=== PATIENT | male | born 1985 | race Caucasian/White ===

== ENCOUNTER → 2021-08-01 11:07 | Outpatient (BNVA) | payer SELFPAY | PROVIDERS: Visit Provider Physician Assistant | DX: Z02.79 Encounter for issue of other medical certificate (principal) ==

== ENCOUNTER 2024-05-21 17:01 | Outpatient (REF) | payer OTHER, SELFPAY ==
--- NOTE | ~2024-05-21 | MR_ITS ---
EXAMINATION: MR LUMBAR SPINE WITHOUT CONTRAST CLINICAL INFORMATION: Low back pain. Right-sided sciatica. COMPARISON: CT abdomen and pelvis 01/16/2020. TECHNIQUE: MRI of the lumbar spine was obtained using routine sequences without contrast. FINDINGS: Spinal alignment is normal in the sagittal dimension. Vertebral body heights are preserved. There are type II degenerative endplate changes at the upper anterior corner of the L4 vertebral body. Bone marrow signal intensity is otherwise unremarkable. There is slight loss of intervertebral disc height and T2 signal intensity at multiple levels related to disc degeneration. The tip of the conus medullaris is located at L1-L2. No mass effect on the conus. Visualized distal cord signal intensity is normal. At L1-L2 there is a slightly bulging disc. No canal stenosis. No mass effect on the traversing or foraminal nerve roots. At L2-L3 there is a bulging disc. Bilateral facet degenerative change. Mild canal stenosis. Subtle abutment of both traversing L3 nerve roots. No foraminal nerve root compression. At L3-L4 there is a bulging disc. Bilateral facet degenerative change. Mild canal stenosis. Mild mass effect on the right L3 foraminal nerve root. At L4-L5 there is a broad right subarticular to foraminal protrusion superimposed upon a bulging disc. Bilateral facet degenerative change. Mild canal stenosis. Moderate canal stenosis. There is asymmetric compression of the right traversing L5 nerve roots. There is also moderate compression of the right L4 foraminal nerve root. At L5-S1 there is a bulging disc. Bilateral facet degenerative change. No canal stenosis. Mild to moderate mass effect on both L5 foraminal nerve roots. Limited visualization of the retroperitoneal anatomy reveals no abnormal finding. Psoas and paraspinal muscle groups are symmetric. MR/MR lumbar spine wo con IMPRESSION: There is multilevel degenerative spondylosis of the lumbar spine. A broad right subarticular to foraminal protrusion at L4-L5 causes asymmetric compression of the right traversing L5 nerve roots and moderate compression of the right L4 foraminal nerve root. There is also mild to moderate mass effect on the right L3 and both L5 foraminal nerve roots related to degenerative changes at L3-L4 and L5-S1 respectively. Mild canal stenosis at L2-L3, L3-L4, and L4-L5. Electronically signed by: Gold Grullon MD 06/03/2024 12:52 PM EDT RP
== END 2024-05-21 17:02 | disposition home or self-care (01) ==
LOC: HO.MRI 17:01
PROVIDERS: PCP Nurse Practitioner Family; Visit Provider Nurse Practitioner Family
DX: M54.41 Lumbago with sciatica, right side (principal)
CPT/HCPCS: 72148

== ENCOUNTER 2024-09-27 08:57 | Outpatient (AMB) | payer OTHER, SELFPAY ==
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
--- OUTSIDE RECORDS SUMMARY | 2024-09-20 08:03 | XMS_ITS | Continuity of Care Document ---
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 It does not include entries that were removed or entered in error. Problem Status Onset Date Problem Type Date of Resolution Comments Source Sprain of other specified parts of left shoulder girdle Inactive 11/05/19 23 Condition DoD Other meniscus derangements, unspecified meniscus, right knee Inactive 10/29/19 23 Condition DoD Elevated blood-pressure reading, without diagnosis of hypertension Inactive 08/01/20 22 Condition DoD Essential (primary) hypertension Inactive 07/30/20 22 Condition DoD Unspecified hearing loss, left ear Inactive 07/19/20 22 Condition DoD Patellofemoral disorders, right knee Inactive 07/02/20 22 Condition DoD Low back pain Inactive 07/02/20 22 Condition DoD Sciatica, right side Inactive 07/01/20 22 Condition DoD Counseling, unspecified Active 06/29/20 22 Condition DoD Myalgia, other site Inactive 04/11/20 22 Condition DoD Dorsalgia, unspecified Inactive 04/11/20 22 Condition DoD Psoas tendinitis, right hip Inactive 04/10/20 22 Condition DoD Patellar tendinitis, right knee Inactive 04/10/20 22 Condition DoD Encounter for immunization Active 03/20/20 22 Condition DoD Adjustment disorder with mixed anxiety and depressed mood (SNOMED CT [id number]) Active Condition [facility] Chronic low back pain Active Condition [facility] Concussion injury of brain Active Condition [facility] Essential hypertension Active Condition [facility] Exposure to potentially hazardous substance Active Condition Oct 23, 2023 Entered By: LOUIS GLYNN EN A Comment: Connect Snomed Code to ICD 10 Code refer to note dated 07/18/23 [facility] Exposure to Potentially Hazardous Substance ([facility] [id number]) Active Condition [facility] HL - Hearing loss Active Condition Se p 2023 Entered By: JENNI CARRASCO Comment: bilateral d/t noise exposure in service [facility] Insomnia Active Condition [facility] Obesity Active Condition Apr 29 Entered By: JENNI CARRASCO Comment: 11/27/23 BMI 32 [facility] Tinnitus Active Condition Apr 29 Entered By: JENNI CARRASCO Comment: bilateralSep 2023 Entered By: JENNI CARRASCO Comment: hx noise exposure in service [facility] Vasectomy Status Active Condition Oct 17, 2011 Entered By: LEXI KNOX Comment: -- vasectomy by Urology group in [place] 08/04 [facility] visit for: services physical Active Condition DoD visit for: ears / hearing exam Active Condition DoD visit for: examination of subpopulation Inactive Condition DoD visit for: services physical accession Active Condition DoD visit for: ears, nose, and throat exam Inactive Condition DoD Diagnosis: ICD-10-CM H90.3 Sensorineural hearing loss, bilateral Active Diagnosis [facility] Diagnosis: ICD-10-CM M54.50 Low back pain, unspecified Active Diagnosis [facility] Diagnosis: ICD-10-CM F10.99 Alcohol use, unsp with unspecified alcohol-induced disorder Active Diagnosis [facility] Diagnosis: ICD-10-CM F43.12 Post-traumatic stress disorder, chronic Active Diagnosis [facility] Diagnosis: ICD-10-CM I10 Essential (primary) hypertension Active Diagnosis [facility] Diagnosis: ICD-10-CM Z56.0 Unemployment, unspecified Active Diagnosis [facility] Diagnosis: ICD-10-CM F43.23 Adjustment disorder with mixed anxiety and depressed mood Active Diagnosis [facility] Diagnosis: ICD-10-CM Z71.89 Other specified counseling Active Diagnosis [facility] Diagnosis: ICD-10-CM G47.00 Insomnia, unspecified Active Diagnosis [facility] Diagnosis: ICD-10-CM Z77.29 Contact with and exposure to other hazardous substances Active Diagnosis [facility] Medications Combined list of outpatient medications from Department of Defense and Veterans Affairs facilities.Medications provided include 1) outpatient medications from the last 15 months, and 2) patient-reported medications. Medication Details Route Status Patient Instructions Prescription Expires Prescription Number Last Dispense Date Ordering Provider Order Date Order Qty Source ATENOLOL 25MG TAB TAKE ONE-HALF OF A TABLET BY MOUTH ONCE DAILY FOR BLOOD PRESSURE /HEART ORAL ACTIVE 04/23/2025 [id number] Briseida CARRASCO 2023 90 [facility] ATENOLOL 25MG TAB TAKE ONE-HALF OF A TABLET BY MOUTH ONCE DAILY FOR BLOOD PRESSURE /HEART ORAL DISCONT INUED 09/02/2024 [id number] LEXI JARRELL 2023 15 [facility] azithromyci n 250 mg oral tablet 0 total refill(s ) Ordered No Facilit y Access BUPROPION HCL 100MG 12HR TAB,SA TAKE ONE TABLET BY MOUTH ONCE DAILY ORAL DISCONT INUED BY PROVIDE R 08/05/2024 [id number] CASH PRADO 2022 60 [facility] BUPROPION HCL 150MG 24HR TAB,SA TAKE ONE TABLET BY MOUTH ONCE DAILY ORAL DISCONT INUED (EDIT) 12/19/2024 [id number] CASH PRADO 2023 60 [facility] BUPROPION HCL 150MG 24HR TAB,SA TAKE ONE TABLET BY MOUTH ONCE DAILY ORAL DISCONT INUED 09/29/2024 [id number] CASH PRADO 2023 60 [facility] BUPROPION HCL 300MG 24HR TAB,SA TAKE ONE TABLET BY MOUTH EVERY MORNING ORAL ACTIVE 02/13/2025 [id number] CASH PRADO 2023 90 [facility] HYDROCORTIS ONE ACETATE 1%/PRAMOXIN E HCL 1% AEROSOL,RTL INSERT 1 APPLICAT ORFUL RECTALLY THREE TIMES DAILY NEEDED FOR HEMORRHO IDS RECTAL ACTIVE 04/30/2025 [id number] Briseida CARRASCO 2023 20 [place] ibuprofen 800 mg oral tablet ibuprofe n 800 mg oral tablet Start Date: 12/07/20 Status: Ordered Ordered No Facilit y Access ivermectin 3 mg oral tablet ivermect in 3 mg oral tablet Start Date: 03/24/21 Status: Ordered Ordered No Facilit y Access NALTREXONE (EQV-REVIA) 50MG TAB TAKE ONE TABLET BY MOUTH ONCE DAILY CRAVINGS ORAL ACTIVE 02/13/2025 [id number] CASH PRADO 2023 90 [facility] NALTREXONE (EQV-REVIA) 50MG TAB TAKE ONE TABLET BY MOUTH ONCE DAILY FOR ALCOHOLI SM ORAL DISCONT INUED (EDIT) 12/19/2024 [id number] CASH PRADO 2023 30 [facility] TRAZODONE HCL 100MG TAB TAKE ONE-HALF TABLET BY MOUTH AT BEDTIME FOR SLEEP ORAL ACTIVE 12/19/2024 [id number] CASH PRADO 2023 45 [facility] TRAZODONE HCL 100MG TAB TAKE ONE-HALF TABLET BY MOUTH AT BEDTIME FOR 7 DAYS, THEN TAKE ONE TABLET AT BEDTIME FOR SLEEP ORAL DISCONT INUED (EDIT) 08/05/2024 [id number] CASH PRADO 2022 60 [facility] Allergies, Adverse Reactions, Alerts Combined list of allergies from Department of Defense and Veterans Affairs facilities. It does not include entries that were removed or entered in error. Substance Category Reaction Severity Reaction type Status Date Reported Comments Source No Known Allergies Drug allergy (disorder) active 12/07/2022 [facility] [place] Immunizations Combined list of available immunizations from the Department of Defense and Veterans Affairs facilities. 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 Comments Source TDAP 2023 SHERMAN ALVARADO RIGHT DELTO ID [id number] complet ed [place] INFLUENZA, UNSPECIFIED FORMULATION 2022 88 complet ed [facility] anthrax vaccine 1 2021 ERICKA PERKINS [id number] [employer] [place] ([facility]) complet ed anthrax vaccine DoD SARS-COV-2 (COVID-19) vaccine, mRNA, spike protein, LNP, preservative free, 30 mcg/0.3mL dose 3 2020 [id number] Transcribed (TRS) complet ed SARS-COV- 2 (COVID-19 ) vaccine, mRNA, spike protein, LNP, preservat kenn free, 30 mcg/0.3mL dose DoD Influenza, injectable, quadrivalent, preservative free 1 2020 [id number] 150 Transcribed (TRS) complet ed Influenza , injectabl e, quadrival ent, preservat kenn free DoD measles/mumps /rubella virus vaccine 2020 Ethan t Arm [id number] [employer] complet ed measles/m umps/rube lla virus vaccine 05/31/21 Given Ambulat ory Pharmac y measles, mumps and rubella virus vaccine 3 2020 JUAN PETERSON [id number] Merck (MSD) complet ed measles, mumps and rubella virus vaccine DoD COVID Vaccine Pfizer 2020 Sean Arm [id number] PFIZER complet ed COVID Vaccine Pfizer 12/29/20 Given Ambulat ory Pharmac y COVID-19, mRNA, LNP-S, PF, 30 mcg/0.3 mL dose 2020 [employer] [place] (PFR) Not Given COVID-19, mRNA, LNP-S, PF, 30 mcg/0.3 mL dose DoD SARS-COV-2 (COVID-19) vaccine, mRNA, spike protein, LNP, preservative free, 30 mcg/0.3mL dose 2 2020 Unknown, Provider [id number] [employer] (PFR) complet ed SARS-COV- 2 (COVID-19 ) vaccine, mRNA, spike protein, LNP, preservat kenn free, 30 mcg/0.3mL dose DoD COVID Vaccine Pf[facility] [id number] PFI[employer]ER complet ed COVID Vaccine Pfizer 12/03/20 Given Ambulat ory Pharmac y COVID-19, mRNA, LNP-S, PF, 30 mcg/0.3 mL dose 2020 [employer] [place] (PFR) Not Given COVID-19, mRNA, LNP-S, PF, 30 mcg/0.3 mL dose DoD SARS-COV-2 (COVID-19) vaccine, mRNA, spike protein, LNP, preservative free, 30 mcg/0.3mL dose 1 2020 Unknown, Provider [id number] 208 [employer] Inc (PFR) complet ed SARS-COV- 2 (COVID-19 ) vaccine, mRNA, spike protein, LNP, preservat kenn free, 30 mcg/0.3mL dose DoD influenza, injectable, quadrivalent 2019 Sean Arm [id number] 158 [employer] complet ed influenza , injectabl e, quadrival ent 05/29/20 Given Ambulat ory Pharmac y influenza, injectable, quadrivalent, contains preservative 1 2019 ANA TINAJERO [id number] 158 [employer] (SEQ) complet ed influenza , injectabl e, quadrival ent, contains preservat kenn DoD influenza, injectable, quadrivalent 2019 [id number] 350 158 [employer] complet ed influenza , injectabl e, quadrival ent 10/30/19 Given Ambulat ory Pharmac y influenza, injectable, quadrivalent, contains preservative 1 2019 [id number] 350 158 [employer] (SEQ) complet ed influenza , injectabl e, quadrival ent, contains preservat kenn DoD INFLUENZA, SEASONAL, INJECTABLE 2018 141 complet ed [facility] tetanus, diphtheria, acellular pertu is 2017 [id number] [facility] complet ed tetanus, diphtheri a, acellular pertussis 07/25/18 Given Ambulat ory Pharmac y tetanus toxoid, reduced diphtheria toxoid, and acellular pertu is vaccine, adsorbed 1 2017 [id number] 115 [employer] (SKB) complet ed tetanus toxoid, reduced diphtheri a toxoid, and acellular pertussis vaccine, adsorbed DoD influenza, seasonal, injectable-pf 2017 [id number] 140 [employer] complet ed influenza , seasonal, injectabl e-pf 06/13/18 Given Ambulat ory Pharmac y Influenza, seasonal, injectable, preservative free 1 2017 [id number] 140 Se[employer]irus (SEQ) comple t ed Influenza , seasonal, injectabl e, preservat kenn free DoD INFLUENZA, SEASONAL, INJECTABLE 2016 141 complet ed [facility] influenza, seasonal, injectable-pf 2016 [id number] 140 [employer] complet ed influenza , seasonal, injectabl e-pf 06/20/17 Given Ambulat ory Pharmac y Influenza, seasonal, injectable, preservative free 1 2016 [id number] 140 [employer] (SEQ) comple t ed Influenza , seasonal, injectabl e, preservat kenn free DoD influenza, seasonal, injectable-pf 2015 [id number] 140 CSL Behring complet ed influenza , seasonal, injectabl e-pf 07/27/16 Given Ambulat ory Pharmac y Influenza, seasonal, injectable, preservative free 1 2015 [id number] 140 [employer] (CSL) complet ed Influenza , seasonal, injectabl e, preservat kenn free [facility] influenza virus vaccine, live 2011 [id number] 111 Medimmune Inc comple t ed influenza virus vaccine, live 06/06/12 Given Ambulat ory Pharmac y influenza virus vaccine, live, attenuated, for intranasal use 1 2011 [id number] 111 MedImmune, Inc. (MED) complet ed influenza virus vaccine, live, attenuate d, for intranasa l use [facility] FLU,3 YRS (HISTORICAL) 2010 88 complet ed [facility] influenza virus vaccine, live 2010 [id number] 111 [employer] Inc comple t ed influenza virus vaccine, live 06/30/11 Given Ambulat ory Pharmac y influenza virus vaccine, live, attenuated, for intranasal use 1 2010 [id number] 111 [employer] (MED) complet ed influenza virus vaccine, live, attenuate d, for intranasa l use DoD FLU,3 YRS (HISTORICAL) 2010 88 complet ed Site: Right Deltoid [facility] tuberculin purified protein derivative 2008 UNKNOWN 96 Unknown complet ed tuberculi n purified protein derivativ e 06/14/09 Given Ambulat ory Pharmac y influenza virus vaccine,split 2008 [id number] 15 sanofi pasteur complet ed influenza virus vaccine,s plit 06/14/09 Given Ambulat ory Pharmac y influenza virus vaccine, split virus (incl. purified surface antigen)-reti red CODE 1 2008 [id number] 15 Sanofi Pasteur (PMC) complet ed influenza virus vaccine, split virus (incl. purified surface antigen)- retired CODE DoD influenza virus vaccine,split 2007 UNK 15 Unknown complet ed influenza virus vaccine,s plit 07/27/08 Given Ambulat ory Pharmac y influenza virus vaccine, split virus (incl. purified surface antigen)-reti red CODE 1 2007 UNK 15 Unknown (UNK) comple t ed influenza virus vaccine, split virus (incl. purified surface antigen)- retired CODE DoD tuberculin purified protein derivative 2007 [id number] 96 Unknown complet ed tuberculi n purified protein derivativ e 04/10/08 Given Ambulat ory Pharmac y tetanus, diphtheria, acellular pertu is 2007 [id number] 115 Unknown complet ed tetanus, diphtheri a, acellular pertussis 04/10/08 Given Ambulat ory Pharmac y typhoid Vi capsular polysaccharid e vac 2007 [id number] 101 Unknown complet ed typhoid Vi capsular polysacch aride vac 04/10/08 Given Ambulat ory Pharmac y typhoid Vi capsular polysaccharid e vaccine 1 2007 [id number] 101 Unknown (UNK) comple t ed typhoid Vi capsular polysacch aride vaccine DoD tetanus toxoid, reduced diphtheria toxoid, and acellular pertu is vaccine, adsorbed 1 2007 [id number] 115 Unknown (UNK) comple t ed tetanus toxoid, reduced diphtheri a toxoid, and acellular pertussis vaccine, adsorbed DoD hepatitis A adult vaccine 2006 [id number] 52 Unknown complet ed hepatitis A adult vaccine 12/07/06 Given Ambulat ory Pharmac y hepatitis B adult vaccine 2006 [id number] 43 Unknown complet ed hepatitis B adult vaccine 12/07/06 Given Ambulat ory Pharmac y hepatitis B vaccine, adult dosage 3 2006 [id number] 43 Unknown (UNK) comple t ed hepatitis B vaccine, adult dosage DoD hepatitis A vaccine, adult dosage 3 2006 [id number] 52 Unknown (UNK) comple t ed hepatitis A vaccine, adult dosage DoD measles, mumps and rubella virus vaccine 2 2005 UNK 03 Unknown (UNK) Not Given measles, mumps and rubella virus vaccine DoD varicella virus vaccine 1 2005 UNK 21 Unknown (UNK) Not Given varicella virus vaccine DoD hepatitis A-hepatitis B vaccine 2005 [id number] 104 [employer] complet ed hepatitis A-hepatit is B vaccine 04/02/06 Given Ambulat ory Pharmac y hepatitis A and hepatitis B vaccine 2 2005 [id number] 1AA 104 [facility] (SKB) complet ed hepatitis A and hepatitis B vaccine DoD tuberculin purified protein derivative 2005 [id number] [facility] complet ed tuberculi n purified protein derivativ e 03/28/06 Given Ambulat ory Pharmac y tuberculin purified protein derivative 2003 [id number] 96 Unknown complet ed tuberculi n purified protein derivativ e 02/03/04 Given Ambulat ory Pharmac y meningococcal polysaccharid e (MPSV4) 2003 [id number] 32 Unknown complet ed meningoco ccal polysacch aride (MPSV4) 02/03/04 Given Ambulat ory Pharmac y poliovirus vaccine, inactivated 2003 [id number] 10 sanofi pasteur complet ed polioviru s vaccine, inactivat ed 02/03/04 Given Ambulat ory Pharmac y tetanus-dipht h toxoids (Td) adult/adol 2003 [id number] 09 sanofi pasteur complet ed tetanus-d iphth toxoids (Td) adult/ado l 02/03/04 Given Ambulat ory Pharmac y measles/mumps /rubella virus vaccine 2003 [id number] 03 Merck & Company Inc complet ed measles/m umps/rube lla virus vaccine 02/03/04 Given Ambulat ory Pharmac y influenza virus vaccine,split 2003 [id number] 15 Unknown complet ed influenza virus vaccine,s plit 02/03/04 Given Ambulat ory Pharmac y measles, mumps and rubella virus vaccine 1 2003 [id number] 03 Merck (MSD) complet ed measles, mumps and rubella virus vaccine DoD tetanus and diphtheria toxoids, adsorbed, preservative free, for adult use (2 Lf of tetanus toxoid and 2 Lf of diphtheria toxoid) 1 2003 [id number] 09 Sanofi Pasteur ([facility]) complet ed tetanus and diphtheri a toxoids, adsorbed, preservat kenn free, for adult use (2 Lf of tetanus toxoid and 2 Lf of diphtheri a toxoid) DoD poliovirus vaccine, inactivated 1 2003 [id number] 10 Sanofi Pasteur ([facility]) complet ed polioviru s vaccine, inactivat ed DoD influenza virus vaccine, split virus (incl. purified surface antigen)-reti red CODE 1 2003 [id number] 15 Unknown (UNK) comple t ed influenza virus vaccine, split virus (incl. purified surface antigen)- retired CODE DoD meningococcal polysaccharid e vaccine (MPSV4) 1 2003 [id number] 32 Unknown (UNK) comple t ed meningoco ccal polysacch aride vaccine (MPSV4) DoD hepatitis A-hepatitis B vaccine 2003 [id number] 104 Unknown complet ed hepatitis A-hepatit is B vaccine 02/02/04 Given Ambulat ory Pharmac y hepatitis A and hepatitis B vaccine 1 2003 [id number] 104 Unknown (UNK) complet ed hepatitis A and hepatitis B vaccine DoD Results Combined list of recent chemistry, hematology and other laboratory results from Department of Defense and Veterans Affairs, ranging from 15 months to all on record, depending upon the facility. Order Name Results Value Reference Range Date Interpretation Specimen Comments Source LIVER FUNCTION PROTEIN [MASS/VOLU ME] IN SERUM OR PLASMA 6.6 g/dL 6.0 - 8.3 03/19 Specimen Type: SERUM No comment entered. Ordering Provider: HUMERA CARRASCO Report Released Date/Time: Mar 19, 2024 09:32 AM Reporting Lab: [facility] [address] [phone] Performing Lab: [facility] [address] [address] [facility] LIVER FUNCTION ALBUMIN [MASS/VOLU ME] IN SERUM OR PLASMA 3.9 g/dL 3.5 - 5.0 03/19 Specimen Type: SERUM No comment entered. Ordering Provider: HUMERA CARRASCO Report Released Date/Time: Mar 19, 2024 09:32 AM Reporting Lab: [facility] [address] [address] Performing Lab: [facility] [address] [address] [facility] LIVER FUNCTION ALKALINE PHOSPHATAS E [ENZYMATIC ACTIVITY/V OLUME] IN SERUM OR PLASMA 51 U/L 40 - 150 03/19 Specimen Type: SERUM No comment entered. Ordering Provider: HUMERA CARRASCO Report Released Date/Time: Mar 19, 2024 09:32 AM Reporting Lab: [facility] [address] [address] Performing Lab: [facility] [address] [address] [facility] LIVER FUNCTION ASPARTATE AMINOTRANS FERASE [ENZYMATIC ACTIVITY/V OLUME] IN SERUM OR PLASMA 16 U/L 5 - 34 03/19 Specimen Type: SERUM No comment entered. Ordering Provider: HUMERA CARRASCO Report Released Date/Time: Mar 19, 2024 09:32 AM Reporting Lab: [facility] [address] [address] Performing Lab: [facility] [address] [address] [facility] LIVER FUNCTION ALANINE AMINOTRANS FERASE [ENZYMATIC ACTIVITY/V OLUME] IN SERUM OR PLASMA 35 U/L 03/19 Specimen Type: SERUM No comment entered. Ordering Provider: HUMERA CARRASCO Report Released Date/Time: Mar 19, 2024 09:32 AM Reporting Lab: [facility] [address] [address] Performing Lab: [facility] [address] [address] [facility] LIVER FUNCTION BILIRUBIN. TOTAL [MASS/VOLU ME] IN SERUM OR PLASMA 0.5 mg/dL 0.2 - 1.2 03/19 Specimen Type: SERUM No comment entered. Ordering Provider: HUMERA CARRASCO Report Released Date/Time: Mar 19, 2024 09:32 AM Reporting Lab: [facility] [address] [address] Performing Lab: [facility] [address] [address] [facility] BASIC METABOLI C PANEL (fasting ) UREA NITROGEN [MASS/VOLU ME] IN SERUM OR PLASMA 15 mg/dL 7 - 25 03/19 Specimen Type: SERUM No comment entered. Ordering Provider: HUMERA CARRSACO Report Released Date/Time: Mar 19, 2024 09:32 AM Reporting Lab: [facility] [address] [address] Performing Lab: [facility] [address] [address] [facility] BASIC METABOLI C PANEL (fasting ) GLUCOSE [MASS/VOLU ME] IN SERUM OR PLASMA 106 mg/dL 65 - 100 03/19 H Specimen Type: SERUM No comment entered. Ordering Provider: HUMERA CARRASCO Report Released Date/Time: Mar 19, 2024 09:32 AM Reporting Lab: [facility] [address] [address] Performing Lab: [facility] [address] [address] [facility] BASIC METABOLI C PANEL (fasting ) SODIUM [MOLES/VOL UME] IN SERUM OR PLASMA 138 mmol/L 135 - 145 03/19 Specimen Type: SERUM No comment entered. Ordering Provider: HUMERA CARRASCO Report Released Date/Time: Mar 19, 2024 09:32 AM Reporting Lab: [facility] [address] [address] Performing Lab: [facility] [address] [address] [facility] BASIC METABOLI C PANEL (fasting ) POTASSIUM [MOLES/VOL UME] IN SERUM OR PLASMA 4.3 mmol/L 3.5 - 5.0 03/19 Specimen Type: SERUM No comment entered. Ordering Provider: HUMERA CARRASCO Report Released Date/Time: Mar 19, 2024 09:32 AM Reporting Lab: [facility] [address] [address] Performing Lab: [facility]USE[address] [address] [facility]TR[facility] BASIC METABOLI C PANEL (fasting ) CHLORIDE [MOLES/VOL UME] IN SERUM OR PLASMA 106 mmol/L 100 - 110 03/19 Specimen Type: SERUM No comment entered. Ordering Provider: HUMERA CARRASCO Report Released Date/Time: Mar 19, 2024 09:32 AM Reporting Lab: [facility]USE[address] [address] Performing Lab: [facility]N [facility]ITALUSETS [address] [address] [facility]TRN [facility]ITALUSE [facility] BASIC METABOLI C PANEL (fasting ) CARBON DIOXIDE, TOTAL [MOLES/VOL UME] IN SERUM OR PLASMA 25 meq/L 20 - 30 03/19 Specimen Type: SERUM No comment entered. Ordering Provider: HUMERA CARRASCO Report Released Date/Time: Mar 19, 2024 09:32 AM Reporting Lab: [facility]TRN [facility]USE[address] [address] Performing Lab: [facility]ITALN [facility] [address] [facility] [address] [facility] BASIC METABOLI C PANEL (fasting ) CREATININE [MASS/VOLU ME] IN SERUM OR PLASMA 0.92 mg/dL 0.50 - 1.40 03/19 Specimen Type: SERUM No comment entered. Ordering Provider: HUMERA CARRASCO Report Released Date/Time: Mar 19, 2024 09:32 AM Reporting Lab: [facility] [address] [address] Performing Lab: [facility]ITALUSENEWYORK[facility] [address] [address] [facility] BASIC METABOLI C PANEL (fasting ) GLOMERULAR FILTRATION RATE/1.73 SQ M.PREDICTE D [VOLUME RATE/AREA] IN SERUM, PLASMA OR BLOOD BY CREATININE -BASED FORMULA (CKD-EPI 2020) >90mL/mi n 60 03/19 Specimen Type: SERUM No comment entered. Ordering Provider: HUMERA CARRASCO Report Released Date/Time: Mar 19, 2024 09:32 AM Reporting Lab: [facility]INAWRJOHN [facility]ITALN [facility] [address] [address] Performing Lab: [facility]INAWRL [facility]ITALN [address] [address] [facility] LIPID PANEL FASTING CHOLESTERO L [MASS/VOLU ME] IN SERUM OR PLASMA 203 mg/dL 03/19 H Specimen Type: SERUM No comment entered. Ordering Provider: HUMERA CARRASCO Report Released Date/Time: Mar 19, 2024 09:32 AM Reporting Lab: [facility]INAWRLAKE [facility]ITALTRN [facility]PITALUSENEWY[facility] [address] [facility] [facility] [address] Performing Lab: [facility] HOSPITALUSE[address] [address] [facility] LIPID PANEL FASTING TRIGLYCERI DE [MASS/VOLU ME] IN SERUM OR PLASMA 63 mg/dL 0 - 150 03/19 Specimen Type: SERUM No comment entered. Ordering Provider: HUMERA CARRASCO Report Released Date/Time: Mar 19, 2024 09:32 AM Reporting Lab: [facility] [address] [facility] [address] Performing Lab: [facility] [address] [facility] [address] [facility] [address] [facility] LIPID PANEL FASTING CHOLESTERO L IN LDL [MASS/VOLU ME] IN SERUM OR PLASMA BY CALCULATIO N 137 mg/dL 0 - 129 03/19 H Specimen Type: SERUM No comment entered. Ordering Provider: HUMERA CARRASCO Report Released Date/Time: Mar 19, 2024 09:32 AM Reporting Lab: [facility] [place] [facility] [address] [address] Performing Lab: [facility] [place] [facility] [address] [facility] [address] [facility] LIPID PANEL FASTING CHOLESTERO L.TOTAL/CH OLESTEROL IN HDL [MASS RATIO] IN SERUM OR PLASMA 3.8 03/19 Specimen Type: SERUM No comment entered. Ordering Provider: HUMERA CARRASCO Report Released Date/Time: Mar 19, 2024 09:32 AM Reporting Lab: [facility] [place] [facility] [address] [address] Performing Lab: [facility] [place] [facility] [address] [address] [facility] [facility] LIPID PANEL FASTING CHOLESTERO L IN HDL [MASS/VOLU ME] IN SERUM OR PLASMA 53 mg/dL 40 - 60 03/19 Specimen Type: SERUM No comment entered. Ordering Provider: HUMERA CARRASCO Report Released Date/Time: Mar 19, 2024 09:32 AM Reporting Lab: [facility] [place] [facility] [address] [address] Performing Lab: [facility] [place] [facility] [address] [address] [facility] [place] [facility] TSH THYROTROPI N [UNITS/VOL UME] IN SERUM OR PLASMA 0.99 u[IU]/mL 0.35 - 5.00 03/19 Specimen Type: SERUM No comment entered. Ordering Provider: HUMERA CARRASCO Report Released Date/Time: Mar 19, 2024 09:32 AM Reporting Lab: [facility]OSPITALUSENEWYORK[facility] [address] [address] Performing Lab: [address] [address] [facility] HEMOGLOB IN A1C PANEL HEMOGLOBIN A1C/HEMOGL OBIN.TOTAL IN BLOOD BY HPLC 4.9 4.0 - 5.6 03/19 Specimen Type: BLOOD Comment: Values obtained from A1C measurement s can vary. For atypical A1C assays, a reported value of 7.0 could actually be between 6.72 and 7.28 if measured by a reference method. A reported value of 9.0 could actually be between 8.73 and 9.27. Ref: http://www. ngsp.org/[place] Pdata.asp Ordering Provider: HUMERA CARRASCO Report Released Date/Time: Mar 19, 2024 09:32 AM Reporting Lab: [address] [address] Performing Lab: [address] [address] [facility] CBC LEUKOCYTES [#/VOLUME] IN BLOOD BY AUTOMATED COUNT 5.92 10*3/uL 4.50 - 11.00 03/19 Specimen Type: BLOOD No comment entered. Ordering Provider: HUMERA CARRASCO Report Released Date/Time: Mar 19, 2024 09:32 AM Reporting Lab: [address] [address] Performing Lab: [address] [address] [facility] CBC ERYTHROCYT ES [#/VOLUME] IN BLOOD BY AUTOMATED COUNT 5.62 10*6/uL 4.23 - 5.66 03/19 Specimen Type: BLOOD No comment entered. Ordering Provider: HUMERA CARRASCO Report Released Date/Time: Mar 19, 2024 09:32 AM Reporting Lab: [facility] [address] [address] Performing Lab: [facility] [address] [address] [facility] [place] [facility] CBC HEMOGLOBIN [MASS/VOLU ME] IN BLOOD 16.5 g/dL 12.8 - 17 03/19 Specimen Type: BLOOD No comment entered. Ordering Provider: HUMERA CARRASCO Report Released Date/Time: Mar 19, 2024 09:32 AM Reporting Lab: [facility] [place] [facility] [address] [address] Performing Lab: [facility] [place] [facility] [address] [address] [facility] [place] [facility] CBC HEMATOCRIT [VOLUME FRACTION] OF BLOOD BY AUTOMATED COUNT 46.9 39.2 - 50.4 03/19 Specimen Type: BLOOD No comment entered. Ordering Provider: HUMERA CARRASCO Report Released Date/Time: Mar 19, 2024 09:32 AM Reporting Lab: [facility] [place] [facility] [address] [address] Performing Lab: [facility] [place] [facility] [address] [address] [facility] [place] [facility] CBC MCV [ENTITIC VOLUME] BY AUTOMATED COUNT 83.5 fL 82 - 99 03/19 Specimen Type: BLOOD No comment entered. Ordering Provider: HUMERA CARRASCO Report Released Date/Time: Mar 19, 2024 09:32 AM Reporting Lab: [facility] [place] [facility] [address] [address] Performing Lab: [facility] [place] [facility] [address] [address] [facility] [place] [facility] CBC MCHC [MASS/VOLU ME] BY AUTOMATED COUNT 35.2 g/dL 30.8 - 35.1 07/26 /2024 H Specimen Type: BLOOD No comment entered. Ordering Provider: HUMERA CARRASCO Report Released Date/Time: Mar 19, 2024 09:32 AM Reporting Lab: [facility] [place] [facility] [address] [address] Performing Lab: [facility] [place] [facility] [address] [address] [facility] [place] [facility] CBC PLATELETS [#/VOLUME] IN BLOOD BY AUTOMATED COUNT 179 10*3/uL 140 - 360 03/19 Specimen Type: BLOOD No comment entered. Ordering Provider: HUMERA CARRASCO Report Released Date/Time: Mar 19, 2024 09:32 AM Reporting Lab: [facility] [place] [facility] [address] [address] Performing Lab: [facility] [place] [facility] [address] [address] [facility] [place] [facility] CBC ERYTHROCYT E DISTRIBUTI ON WIDTH [RATIO] BY AUTOMATED COUNT 11.9 12.0 - 16.0 03/19 L Specimen Type: BLOOD No comment entered. Ordering Provider: HUMERA CARRASCO Report Released Date/Time: Mar 19, 2024 09:32 AM Reporting Lab: [facility] [place] [facility] [address] [address] Performing Lab: [facility] [place] [facility] [address] [address] [facility] [place] [facility] CBC MCH [ENTITIC MASS] BY AUTOMATED COUNT 29.4 pg 26.2 - 32.6 03/19 Specimen Type: BLOOD No comment entered. Ordering Provider: HUMERA CARRASCO Report Released Date/Time: Mar 19, 2024 09:32 AM Reporting Lab: [facility] [place] [facility] [address] [address] Performing Lab: [facility] [place] [facility] [address] [address] [facility] [place] [facility] T-SPOT TB PANEL MYCOBACTER IUM TUBERCULOS IS STIMULATED GAMMA INTERFERON [INTERPRET ATION] IN BLOOD QUALITATIV E Negative 12/26 Specimen Type: BLOOD Comment: A negative test result does not exclude the possibility of exposure to or infection with Mycobacteri um tuberculosi s (M. tuberculosi s). Patients with recent exposure to TB infected individuals exhibiting a negative T-SPOT.TB result should be considered for retesting within 6 weeks or if other relevant clinical symptoms indicate. Results from T-SPOT.TB testing must be used in conjunction with each individual' s epidemiolog ical history, current medical status, and results of other diagnostic evaluations . The T-SPOT.TB test is qualitative and results are reported as positive, borderline, or negative, given that the test controls perform as expected. In line with the Centers for Disease Control and Prevention' s 2010 recommendat ion to report quantitativ e measurement s alongside the qualitative result, the laboratory provides spot counts for information al purposes only. The T-SPOT.TB test should not be interpreted as a quantitativ e test. For additional information , please refer to http://educ ation.Life360 .com/faq/FA Q215 (This link is being provided for information al/ educational purposes only.) Test Performed by [employer], [employer] [facility], [address] [place] [address] Reed Marcum M.D., Ph.D., Director of Laboratorie s , [place] [id number] TEST PERFORMED AT: , Ordering Provider: BRIANNA CEJA SA Report Released Date/Time: December 26, 2022 09:31 AM Reporting Lab: [facility] [address] [address] Performing Lab: [facility] [address] [address] [facility]ROC[facility] T-SPOT TB PANEL MYCOBACTER IUM TUBERCULOS IS STIMULATED GAMMA INTERFERON ESAT-6 AG SPOT COUNT [#] IN BLOOD 0 12/26 Specimen Type: BLOOD Comment: A negative test result does not exclude the possibility of exposure to or infection with Mycobacteri um tuberculosi s (M. tuberculosi s). Patients with recent exposure to TB infected individuals exhibiting a negative T-SPOT.TB result should be considered for retesting within 6 weeks or if other relevant clinical symptoms indicate. Results from T-SPOT.TB testing must be used in conjunction with each individual' s epidemiolog ical history, current medical status, and results of other diagnostic evaluations . The T-SPOT.TB test is qualitative and results are reported as positive, borderline, or negative, given that the test controls perform as expected. In line with the Centers for Disease Control and Prevention' s 2010 recommendat ion to report quantitativ e measurement s alongside the qualitative result, the laboratory provides spot counts for information al purposes only. The T-SPOT.TB test should not be interpreted as a quantitativ e test. For additional information , please refer to http://educ ation.Life360 .Cardiovascular Decisions/faq/FA Q215 (This link is being provided for information al/ educational purposes only.) Test Performed by [employer], [employer] [facility], [address] [place] [address] Reed Marcum M.D., Ph.D., Director of Laboratorie s , [place] [id number] TEST PERFORMED AT: , Ordering Provider: BRIANNA CEJA SA Report Released Date/Time: December 26, 2022 09:31 AM Reporting Lab: [facility] [address] [address] Performing Lab: [facility] [address] [address] [facility] T-SPOT TB PANEL MYCOBACTER IUM TUBERCULOS IS STIMULATED GAMMA INTERFERON CFP10 AG SPOT COUNT [#] IN BLOOD 0 12/26 Specimen Type: BLOOD Comment: A negative test result does not exclude the possibility of exposure to or infection with Mycobacteri um tuberculosi s (M. tuberculosi s). Patients with recent exposure to TB infected individuals exhibiting a negative T-SPOT.TB result should be considered for retesting within 6 weeks or if other relevant clinical symptoms indicate. Results from T-SPOT.TB testing must be used in conjunction with each individual' s epidemiolog ical history, current medical status, and results of other diagnostic evaluations . The T-SPOT.TB test is qualitative and results are reported as positive, borderline, or negative, given that the test controls perform as expected. In line with the Centers for Disease Control and Prevention' s 2010 recommendat ion to report quantitativ e measurement s alongside the qualitative result, the laboratory provides spot counts for information al purposes only. The T-SPOT.TB test should not be interpreted as a quantitativ e test. For additional information , please refer to http://educ ation.Life360 .Cardiovascular Decisions/faq/FA Q215 (This link is being provided for information al/ educational purposes only.) Test Performed by [employer], YongChe [facility], [address] [place] [address] Reed Marcum M.D., Ph.D., Director of Laboratorie s , CLIA [id number] TEST PERFORMED AT: , Ordering Provider: BRIANNA CEJA SA Report Released Date/Time: December 26, 2022 09:31 AM Reporting Lab: [facility]CL[facility] [address] [address] Performing Lab: [facility]SmartNEWYORK[facility] [address] [address] [facility]ianROC[facility] T-SPOT TB PANEL MITOGEN STIMULATED GAMMA INTERFERON POSITIVE CONTROL SPOT COUNT [#] IN BLOOD Passed 12/26 Specimen Type: BLOOD Comment: A negative test result does not exclude the possibility of exposure to or infection with Mycobacteri um tuberculosi s (M. tuberculosi s). Patients with recent exposure to TB infected individuals exhibiting a negative T-SPOT.TB result should be considered for retesting within 6 weeks or if other relevant clinical symptoms indicate. Results from T-SPOT.TB testing must be used in conjunction with each individual' s epidemiolog ical history, current medical status, and results of other diagnostic evaluations . The T-SPOT.TB test is qualitative and results are reported as positive, borderline, or negative, given that the test controls perform as expected. In line with the Centers for Disease Control and Prevention' s 2010 recommendat ion to report quantitativ e measurement s alongside the qualitative result, the laboratory provides spot counts for information al purposes only. The T-SPOT.TB test should not be interpreted as a quantitativ e test. For additional information , please refer to http://Sunlot/faq/FA Q215 (This link is being provided for information al/ educational purposes only.) Test Performed by [employer], [address] [place] [address] Reed Marcum M.D., Ph.D., Director of Laboratorie s , [place] [id number] TEST PERFORMED AT: , Ordering Provider: BRIANNA CEJA SA Report Released Date/Time: December 26, 2022 09:31 AM Reporting Lab: [facility] MingyianAnatexisNEWYORK-[facility] [address] [facility] [address] Performing Lab: [facility] ShopWellNOR-LEA GENERAL HOSPITALN MingyianUSENEWYORK-PRESBYTER[facility]OSPITAL [address] [address] [facility] T-SPOT TB PANEL GAMMA INTERFERON NEGATIVE CONTROL SPOT COUNT [#] IN BLOOD Passed 12/26 Specimen Type: BLOOD Comment: A negative test result does not exclude the possibility of exposure to or infection with Mycobacteri um tuberculosi s (M. tuberculosi s). Patients with recent exposure to TB infected individuals exhibiting a negative T-SPOT.TB result should be considered for retesting within 6 weeks or if other relevant clinical symptoms indicate. Results from T-SPOT.TB testing must be used in conjunction with each individual' s epidemiolog ical history, current medical status, and results of other diagnostic evaluations . The T-SPOT.TB test is qualitative and results are reported as positive, borderline, or negative, given that the test controls perform as expected. In line with the Centers for Disease Control and Prevention' s 2010 recommendat ion to report quantitativ e measurement s alongside the qualitative result, the laboratory provides spot counts for information al purposes only. The T-SPOT.TB test should not be interpreted as a quantitativ e test. For additional information , please refer to http://Sunlot/faq/FA Q215 (This link is being provided for information al/ educational purposes only.) Test Performed by [employer], [address] [place] [address] Reed Marcum M.D., Ph.D., Director of Laboratorie s , [facility] [id number] TEST PERFORMED AT: , Ordering Provider: BRIANNA CEJA SA Report Released Date/Time: December 26, 2022 09:31 AM Reporting Lab: [facility] [address] [address] Performing Lab: [facility] [address] [facility], [address] [place] [address] [facility] HEPATITI S B SURFACE ANTIBODY (HBsAb)- WH HEPATITIS B VIRUS SURFACE AB [PRESENCE] IN SERUM BY IMMUNOASSA Y REACTIVE 12/26 Specimen Type: SERUM Comment: A 'Reactive' result indicates HBsAb results >/= 12.0 mIU/mL and immunity to HBV infection. Ordering Provider: BRIANNA CEJA SA Report Released Date/Time: December 26, 2022 09:31 AM Reporting Lab: [facility] [address] [address] Performing Lab: [address] [address] [facility] MMRV (IGG) IMMUNE STATUS PANEL MEASLES VIRUS IGG AB [PRESENCE] IN SERUM BY IMMUNOASSA Y NON-REAC TIVE 12/26 Specimen Type: SERUM Comment: A result of 'REACTIVE' indicates presence of IgG to Measles, Mumps, Rubella or Varicella following exposure to these viruses through either infection or vaccination . If quantitativ e index values are required for clinical interpretat ion, call Virology Reference lab during weekday business hours. Ordering Provider: BRIANNA CEJA SA Report Released Date/Time: December 26, 2022 09:31 AM Reporting Lab: [facility] [address] [address] Performing Lab: [address] [address] [facility] MMRV (IGG) IMMUNE STATUS PANEL MUMPS VIRUS IGG AB [PRESENCE] IN SERUM BY IMMUNOASSA Y NON-REAC TIVE 12/26 Specimen Type: SERUM Comment: A result of 'REACTIVE' indicates presence of IgG to Measles, Mumps, Rubella or Varicella following exposure to these viruses through either infection or vaccination . If quantitativ e index values are required for clinical interpretat ion, call Virology Reference lab during weekday business hours. Ordering Provider: BRIANNA CEJA SA Report Released Date/Time: December 26, 2022 09:31 AM Reporting Lab: [facility]WR[facility]ITALTRN [facility]ITALUSENEWY[facility] [address] [facility] [address] Performing Lab: [facility]RL TRN [facility] [address] [facility] [address] [facility]INAWRJOHN A[facility]ITALN [facility] MMRV (IGG) IMMUNE STATUS PANEL RUBELLA VIRUS IGG AB [PRESENCE] IN SERUM OR PLASMA BY IMMUNOASSA Y REACTIVE 12/26 Specimen Type: SERUM Comment: A result of 'REACTIVE' indicates presence of IgG to Measles, Mumps, Rubella or Varicella following exposure to these viruses through either infection or vaccination . If quantitativ e index values are required for clinical interpretat ion, call Virology Reference lab during weekday business hours. Ordering Provider: BRIANNA CEJA SA Report Released Date/Time: December 26, 2022 09:31 AM Reporting Lab: [facility]INAWRJOHN A[facility] AND[facility] HOSPITALN [facility] [address] [facility] [address] Performing Lab: [facility]INAWRLAKE M[facility]IN COMM[facility] HOSPITALTRN [address] [address] [facility] MMRV (IGG) IMMUNE STATUS PANEL VARICELLA ZOSTER VIRUS IGG AB [PRESENCE] IN SERUM BY IMMUNOASSA Y REACTIVE 12/26 Specimen Type: SERUM Comment: A result of 'REACTIVE' indicates presence of IgG to Measles, Mumps, Rubella or Varicella following exposure to these viruses through either infection or vaccination . If quantitativ e index values are required for clinical interpretat ion, call Virology Reference lab during weekday business hours. Ordering Provider: BRIANNA CEJA SA Report Released Date/Time: December 26, 2022 09:31 AM Reporting Lab: [facility]INAWRLA[facility] M[facility] HOSPITALTRN [facility] [address] [facility] [address] Performing Lab: [facility] [place] [facility] [address] [facility] [address] [facility] Infectio us Disease HIV-1/2 AG/AB 4G CDD LC NEGATIVE 11/28 Result Comment: Performed At: [facility] [address] [facility] [address] [place] [address] KATHY STEPHANIE PHD Ph:[phone] Infectio us Disease Source of Test.LC PostDepS torage (11/28/22 9:01 AM) 11/28 [facility] Vital Signs Combined list of inpatient and outpatient Vital Signs from Department of Defense and Veterans Affairs, ranging from 12 months to all on record, depending upon the facility. Vital Sign Value Date Comments Source Temperature Temporal Artery 36.5Cel 11/28/2022 12:23:00 Ambulatory Pharmacy Systolic Blood Pressure 136mm[Hg] 11/28/2022 12:23:00 Ambulatory Pharmacy Diastolic Blood Pressure 87mm[Hg] 11/28/2022 12:23:00 Ambulatory Pharmacy Peripheral Pulse Rate 99bpm 11/28/2022 12:23:00 Ambulatory Pharmacy Temperature Oral 36.5Cel 11/29/2022 15:33:00 Ambulatory Pharmacy Peripheral Pulse Rate 70bpm 11/29/2022 15:33:00 Ambulatory Pharmacy Systolic Blood Pressure 135mm[Hg] 11/29/2022 15:33:00 Ambulatory Pharmacy Diastolic Blood Pressure 95mm[Hg] 11/29/2022 15:33:00 Ambulatory Pharmacy Mean Arterial Pressure, Calc 108mm[Hg] 11/29/2022 15:33:00 Ambulatory P harmacy Temperature Temporal Artery 36.2Cel 11/29/2022 12:29:00 Ambulatory Pharmacy Systolic Blood Pressure 130mm[Hg] 11/29/2022 12:29:00 Ambulatory Pharmacy Diastolic Blood Pressure 84mm[Hg] 11/29/2022 12:29:00 Ambulatory Pharmacy Peripheral Pulse Rate 76bpm 11/29/2022 12:29:00 Ambulatory Pharmacy SYSTOLIC BLOOD PRESSURE 129 04/29/2024 13:09:35 [facility] DIASTOLIC BLOOD PRESSURE 83 04/29/2024 13:09:35 [facility] PULSE OXIMETRY 97 04/29/2024 13:09:35 [place] WEIGHT 250 04/29/2024 13:09:35 [place] BMI 35kg/m2 04/29/2024 13:09:35 [place] PULSE 65 04/29/2024 13:09:35 [place] SYSTOLIC BLOOD PRESSURE 125 11/27/2023 15:15:15 [facility] DIASTOLIC BLOOD PRESSURE 76 11/27/2023 15:15:15 [facility] PULSE OXIMETRY 95 11/27/2023 15:15:15 [place] WEIGHT 230 11/27/2023 15:15:15 [place] BMI 32kg/m2 11/27/2023 15:15:15 [place] HEIGHT 71 11/27/2023 15:15:15 [place] TEMPERATURE 97.9 11/27/2023 15:15:15 [place] PULSE 70 11/27/2023 15:15:15 [place] RESPIRATION 20 11/27/2023 15:15:15 [place] Encounters Combined list of: 1) Encounters from Department of Veterans Affairs facilities [facility] 2) Encounters from the Department of Defense facilities going back up to 280 months. Location Location Details Encounter Type Encounter Number Reason For Visit Attending Provider ADM Date DC Date Status Disposition Source [place], [place](IEP Hearing Conservat ion Exam) OUTPATIENT [id number] [id number] BRAD CEJA 04/01 [place]ased [place] OUTPATIENT [id number] ALISA BROWNE 04/11 [place] [facility] OUTPATIENT [id number] AUGUSTIN BAIRES 07/12 Released w/o Limitations [facility] ) [facility] Carlos Miguel([facility] OUTPATIENT [id number] 7 Notes Entered by: ALEXANDR MCKEON 29 May 2020 1105 ------- ------- ------- ------- -- PAULY MCCLAINEN, BAILEE [facility] 05/29 Released w/o Limitations [facility]([facility]) [place]([facility]) OUTPATIENT [id number] 5 Notes Entered by: ABBY SOLIS 30 May 2021 1448 ------- ------- ------- ------- -- post deploym ent LUZ MARIA AYLA M 05/30 Released w/o Limitations [place]) [place] [place] [facility]) OUTPATIENT [id number] 5 Notes Entered by: JUAN PETERSON 31 May 2021 0756 ------- ------- ------- ------- -- MARIUSZ ANDERSON 05/31 Released w/o Limitations [place] [place] [facility] ) [place]([facility]) OUTPATIENT [id number] HUNG Ratliff 05/31 Released w/o Limitations [place]) [facility]([facility]) OUTPATIENT [id number] 6 Notes Entered by: NGUYEN SANDOVAL 25 Jan 2022 0821 ------- ------- ------- ------- -- [facility] ANA CORDOVA 01/25 Released w/o Limitations [facility]) [facility]) OUTPATIENT [id number] F2F FLU LIKE SYMPTOM S USAR [phone] NIKOS SPEARS 01/28 Released w/o Limitations [facility]) [facility]) OUTPATIENT [id number] 3 F2F Sore throat ZZZBM_CRAW ASHER, ZZZBM_DOUG LAS NISSA 01/29 Sick at Home/Quarter s [facility] [place]([facility]) Theater Facility OUTPATIENT [id number] Theater Provider 03/19 Released w/o Limitations Theater [facility] OUTPATIENT [id number] Theater Provider 04/08 Released w/o Limitations [facility] OUTPATIENT [id number] Theater Provider 04/11 Released w/o Limitations [facility] OUTPATIENT [id number] Theater Provider 06/29 Sick at Home/Quarter s [facility] OUTPATIENT [id number] Theater Provider 07/02 Released w/o Limitations [facility] OUTPATIENT [id number] Theater Provider 07/10 Released w/o Limitations Theater [facility] OUTPATIENT [id number] Theater Provider 07/16 Released w/o Limitations Theater [facility] OUTPATIENT [id number] Theater Provider 07/17 Released w/o Limitations Theater [facility] OUTPATIENT [id number] Theater Provider 07/30 Released w/o Limitations Theater [facility] OUTPATIENT [id number] Theater Provider 07/31 Released w/o Limitations Theater [facility] OUTPATIENT [id number] Theater Provider 08/29 Released w/o Limitations Theater [facility] OUTPATIENT [id number] Theater Provider 10/28 Released w/o Limitations Theater Fac[facility] y Theater [facility] OUTPATIENT [id number] Theater Provider 11/04 Released w/o Limitations Theater Facilit y [facility] COMMUNITY/ WORK REINTEGRAT ION [id number] Diagnos is: ICD-10- CM Z56.0 Unemplo yment, unspeci fied
HUNG KENDALL 03/31 [facility] Out[facility] Encounter [id number] 04/18 [facility] En[facility] [id number] 04/22 [facility] COMMUNITY/ WORK REINTEGRAT ION [id number] Diagnos is: ICD-10- CM Z56.0 Unemplo yment, unspeci fied
HUNG KENDALL J 04/29 [facility] COMMUNITY/ WORK REINTEGRAT ION [id number] Diagnos is: ICD-10- CM Z56.0 Unemplo yment, unspeci fied
ST GAYE HERRON 05/07 [facility] Outpatient Encounter [id number] 05/08 [facility] Outpatient Encounter [id number] Diagnos is: ICD-10- CM Z77.29 Contact with and exposur e to other hazardo us substan dionne<br/ > JUAN JOSE THOMAS SA J 05/10 [facility] UNLISTED PSYC SVC/THERAP Y [id number] Diagnos is: ICD-10- CM Z77.29 Contact with and exposur e to other hazardo us substan dionne<br/ > SATINDER BALDERAS 05/10 [facility] Outpatient Encounter [id number] 05/20 [facility] COMMUNITY/ WORK REINTEGRAT ION [id number] Diagnos is: ICD-10- CM Z56.0 Unemplo yment, unspeci fied
HUNG KENDALL 05/21 [facility] CASE MANAGEMENT [id number] Diagnos is: ICD-10- CM F43.23 Adjustm ent disorde r with mixed anxiety and depress ed mood
DAVIDJOURDANKRISTOPHER BAER 05/21 [facility] En[facility] [id number] 05/21 [facility] En[facility] [id number] 05/22 [facility] En[facility] [id number] 05/25 [facility] COMMUNITY/ WORK REINTEGRAT ION [id number] Diagnos is: ICD-10- CM Z56.0 Unemplo yment, unspeci fied
ST GAYE HERRON 05/27 [facility] En[facility] [id number] Diagnos is: ICD-10- CM G47.00 Insomni a, unspeci fied
REFUGIO MARIE 06/12 [facility] En[facility] [id number] 06/23 [facility] [id number] Diagnos is: ICD-10- CM F43.23 Adjustm ent disorde r with mixed anxiety and depress ed mood
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
REFUGIO MARIE 07/11 [facility] OFFICE O/P EST LOW 20-29 MIN [id number] Diagnos is: ICD-10- CM F43.23 Adjustm ent disorde r with mixed anxiety and depress ed mood
LEXI JARRELL 07/18 [facility]NAG[facility] [id number] Diagnos is: ICD-10- CM F43.23 Adjustm ent disorde r with mixed anxiety and depress ed mood
STACIEKRISTOPHER 07/24 [facility] OFFICE O/P EST HI 40-54 MIN [id number] Diagnos is: ICD-10- CM F43.12 Post-tr aumatic stress disorde r, chronic
Susan PRADO 08/04 [facility] COMMUNITY/ WORK REINTEGRAT ION [id number] Diagnos is: ICD-10- CM Z56.0 Unemplo yment, unspeci fied
[facility] En[facility] [id number] 08/27 [facility] En[facility] [id number] 08/27 [facility] COMMUNITY/ WORK REINTEGRAT ION [id number] Diagnos is: ICD-10- CM Z56.0 Unemplo yment, unspeci fied
[facility]28 [facility] En[facility] [id number] Susan LONDONO 09/01 [facility] En[facility] [id number] 09/01 [facility] En[facility] [id number] 09/01 [facility] Encounter [id number] JORGE MCKEON 09/01 [facility] En[facility] [id number] 09/01 [facility] En[facility] [id number] 09/01 [facility] En[facility] [id number] 09/02 [facility] [place] OFF/OP EST DECEMBER X REQ PHY/QHP [id number] Diagnos is: ICD-10- CM I10 Essenti al (primar y) hyperte nsion<b r/> CHRISTIANO,ER IC K 09/02 [place] [facility] Out[facility] Encounter [id number] 09/02 [facility] En[facility] [id number] 09/03 [facility] Encounter [id number] 09/25 [facility] OFF[facility] O/P EST MOD 30 MIN [id number] Diagnos is: ICD-10- CM F43.12 Post-tr aumatic stress disorde r, chronic
Susan PRADO 09/29 [facility] En[facility] [id number] 10/08 [facility] Encounter [id number] 10/15 [facility] OFF[facility] O/P EST MOD 30 MIN [id number] Diagnos is: ICD-10- CM F43.12 Post-tr aumatic stress disorde r, chronic
Susan PRADO MORIS 10/23 [facility] En[facility] [id number] 10/28 [facility] Encounter [id number] 11/18 [facility] Out[facility] Encounter [id number] 11/24 [facility] OFFICE O/P EST MOD 30 MIN [id number] Diagnos is: ICD-10- CM I10 Essenti al (primar y) hyperte nsion<b r/> MARILOU CARRASCO C 11/26 [place] [facility] Out[facility] Encounter [id number]/26 [facility] OFF[facility] O/P EST MOD 30 MIN [id number] Diagnos is: ICD-10- CM F43.12 Post-tr aumatic stress disorde r, chronic
Susan PRADO MORIS 12/18 [facility] En[facility] [id number] 01/13 [facility] En[facility] [id number] 01/14 [facility] OFF[facility] O/P EST MOD 30 MIN [id number] Diagnos is: ICD-10- CM F43.12 Post-tr aumatic stress disorde r, chronic
Susan PRADO MORIS 01/15 [facility] OFF[facility] O/P EST MOD 30 MIN [id number] Diagnos is: ICD-10- CM F10.99 Alcohol use, unsp with unspeci fied alcohol -induce d disorde r
Susan PRADO MORIS 02/12 [facility] En[facility] [id number] 02/18 [facility] Encounter [id number] 03/02 [facility] En[facility] [id number] 03/15 [facility] Encounter [id number] 04/19 [facility] En[facility] [id number] 04/21 [facility] [place] OFFICE O/P EST MOD 30 MIN [id number] 1BY. 40 Diagnos is: ICD-10- CM M54.50 Low back pain, unspeci fied
DANILOMARILOU NDRA C 04/29 [place] [facility] Out[facility] En[facility] [id number] 05/18 [facility] [place] [place] [id number] Diagnos is: ICD-10- CM H90.3 Sensori neural hearing loss, bilater al
EFRENLIANG DIRK KRAMER 05/18 [facility] En[facility] [id number] 05/19 [facility] En[facility] [id number] 05/20 [facility] Encounter [id number] BRAULIO WAHL 08/02 [facility] En[facility] [id number] 08/31 [facility] En[facility] [id number] 08/31 [facility] Procedures Combined list of: 1) Procedures from Department of Veterans Affairs facilities going back up to thelast 18 months, not all VA non-surgical procedures are included; 2) All procedures from the Department of Defense facilities. Procedure Procedure Type Code Date Perfomer Comments Sourc e No data available for this section Ambul[facility] Pharmacy PHYS/OTH QUALIFIED HEALTH SOCIALLY RESPONSIBLE INVESTMENT ADVISER QUALIFIED,EDUCATIO N,TRAIN,LICENSURE/ REGULATION (WHEN APPLICABLE) EDUC SER RENDERED TO PATS IN A GRP SETTING (EG,,OBESI TY,OR DIABETIC INSTRUCT) 2008 [facility] COLLECTION OF VENOUS BLOOD BY VENIPUNCTURE 2008 [facility] INDIVIDUAL PSYCHOTHERAPY, INSIGHT ORIENTED, BEHAVIOR MODIFYING AND/OR SUPPORTIVE, IN AN OFFICE OR OUTPATIENT FACILITY, APPROXIMATELY 20 TO 30 MINUTES [id number] WITH THE PATIENT 2007 [facility] INFLUENZA VIRUS VACCINE, TRIVALENT (IIV3), SPLIT VIRUS, PRESERVATIVE FREE, 0.5 ML DOSAGE, FOR INTRAMUSCULAR USE 2007 [facility] PURE TONE AUDIOMETRY (THRESHOLD); AIR ONLY 2007 [facility] SCREENING TEST OF VISUAL ACUITY, QUANTITATIVE, BILATERAL 2021 [facility] INFLUENZA VIRUS VACCINE, QUADRIVALENT (IIV4), SPLIT VIRUS, PRESERVATIVE FREE, 0.5 ML DOSAGE, FOR INTRAMUSCULAR USE 2019 [facility] SCREENING TEST OF VISUAL ACUITY, QUANTITATIVE, BILATERAL 2020 [facility] EAR PROTECTOR ATTENUATION MEASUREMENTS 2020 [facility] HEPATITIS A AND HEPATITIS B VACCINE (HEPA-HEPB), ADULT DOSAGE, FOR INTRAMUSCULAR USE 2005 [facility] SCREENING TEST OF VISUAL ACUITY, QUANTITATIVE, BILATERAL 2005 [facility] PATIENT EDUCATION, NOT OTHERWISE CLASSIFIED, NON-PHYSICIAN PROVIDER, GROUP, PER SESSION 2005 [facility] VENIPUNCTURE,AGE 3 YEARS/OLDER,NECESS ITATING THE SKILL OF A PHYSICIAN/OTHER QUALIFIED HEALTH SOCIALLY RESPONSIBLE INVESTMENT ADVISER (SEP PROC),FOR DIAGNOSTIC/THERAPE UTIC PURPOSES (NOT TO BE USED FOR ROUTINE VENIPUNCTURE) 2003 [facility] Physical Therapy Service Evaluation Low Complexity Physical Therapy Service Evaluation Low Complexity 29717 2021 Theater Provider [facility] Physical Therapy: ___ Se ion Segments, 15 Minutes Each Physical Therapy: ___ Session Segments, 15 Minutes Each 21725 2021 Theater Provider [facility] Musculoskeletal Needle Insertion Without Injection 1 Or 2 Muscles Musculoskeletal Needle Insertion Without Injection 1 Or 2 Muscles 05673 2021 Theater Provider [facility] Physical Therapy Service Evaluation Moderate Complexity Physical Therapy Service Evaluation Moderate Complexity 26631 2021 Theater Provider [facility] Physical Therapy: ___ Se ion Segments, 15 Minutes Each Physical Therapy: ___ Session Segments, 15 Minutes Each 30783 2021 Theater Provider [facility] Anthrax Vaccine Anthrax Vaccine 94609 2021 Theater Provider [facility] Threshold Audiogram (Pure Tone) Threshold Audiogram (Pure Tone) 15180 2008 DED WATTS III [facility] Special Physician Services Analysis Of Computerized Data Special Physician Services Analysis Of Computerized Data 02760 2008 EDD WATTS III [facility] Physician Supervised Group Educational Services 2008 EDD WATTS III [facility] ENT Services ENT Services 85008 2008 EDD WATTS III [facility] Audiometry Group Testing Audiometry Group Testing 71157 2008 EDD WATTS III [facility] Clinical Social Work Individual Outpatient Counseling 30 Minutes Clinical Social Work Individual Outpatient Counseling 30 Minutes 24862 2007 MAKENNA CORONA [facility] Determination Of Refractive State Determination Of Refractive State 58139 2005 ALISA BROWNE Screening Test Of Visual Acuity, Quantitative, Bilateral Screening Test Of Visual Acuity, Quantitative, Bilateral 62886 2005 ALISA BROWNE [facility] Physician Supervised Services Provision Of Special Supplies Physician Supervised Services Provision Of Special Supplies 05372 2005 PREETI ROWE [facility] Ear mold/insert, not disposable, any type 2005 PREETI ROWE [facility] Patient education, not otherwise cla ified, non-physician provider, group, per se ion 2005 PREETI ROWE [facility] Audiometry Group Testing Audiometry Group Testing 59173 2005 PREETI ROWE [facility] Preventive Medicine Administration Of Health Risk Questionnaire Patient-Focused Preventive Medicine Administration Of Health Risk Questionnaire Patient-Focused 66475 BAILEE GREGORY [facility] Influenza Split Virus Vaccine IM With Preservative Quadrivalent 0.50mL Dosage Influenza Split Virus Vaccine IM With Preservative Quadrivalent 0.50mL Dosage 80625 BAILEE GREGORY Influenza, Inj., quad., contains preservative (Afluria); Series #: 1; 0.5 mL; IM; Right Arm; Mfg: Seqirus; Lot: [id number]; VIS given (Carolyn: 04/08/2019). [facility] Immunization Administration By Injection, One Vaccine Immunization Administration By Injection, One Vaccine 92647 BAILEE GREGORY [facility] Adaptive Behavior A e ment System, 2nd Edition (ABAS-II) Adaptive Behavior Assessment System, 2nd Edition (ABAS-II) 98590 ANA CORDOVA PHQ9, GAD7, AND PCL5 ALL SCORED 0. SM DENIES ANY SUICIDAL OR HOMICIDAL IDEATION. SEVERITY NONE [facility] Anthrax Vaccine For Subcutaneous Or Intramuscular Use Anthrax Vaccine For Subcutaneous Or Intramuscular Use 23063 ART ANANICOLE PARKER Anthrax; Series #: 1; 0.5 mL; IM; Left Arm; Mfg: [employer]; Lot: [id number]; VIS given (Carolyn: 09/01/2019). DoD Vaccines Viral Measles, Mumps and Rubella, Live Vaccines Viral Measles, Mumps and Rubella, Live 61369 MARIUSZ RODRIGES MMR; Series #: 3; 0.5 mL; SC; Left Arm; Mfg: Merck; Lot: [id number]; VIS given (Carolyn: 03/30/2021). [facility] A e ment & Intervention Blood Pre ure Measured Assessment & Intervention Blood Pressure Measured 2000F MARIUSZ RODRIGES [facility] Venipuncture Venipuncture 59472 MARIUSZ RODRIGES [facility] Screening Test Of Visual Acuity, Quantitative, Bilateral Screening Test Of Visual Acuity, Quantitative, Bilateral 98935 MARIUSZ RODRIGES [facility] Audiometry Group Testing Audiometry Group Testing 88951 PAULINA HUNTER Ear Protector Attenuation Measurements Ear Protector Attenuation Measurements 02491 PAULINA HUNTER Social History Combined list of available smoking, tobacco, and other social history from Department of Defense and Veterans Affairs facilities. 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 [facility] Assessment and Plan Combined list of future care activities from Department of Defense and Veterans Affairs facilities (e.g., assessment and plan notes, appointments, orders, and referrals). Additional future care activities may be listed in the Plan of Care section. Result Assessment and Plan Date Source Assessment and Plan No data available for this section 09/20/2024 Ambulatory Pharmacy Plan of Care List of future care activities from Department of Veterans Affairs facilities. Additional future care activities may be listed in the Assessment and Plan section. Date/Time Care Activity Care Activity Detail Facili ty 10/27/2024 [facility] Status Combined list of recent functional and cognitive assessments recorded at Department of Defense and Veterans Affairs (VA).VA Functional [place] Measurement (FIM) Scale: 1 = Total Assistance (Subject = 0% +), 2 = Maximal Assistance (Subject = 25% +), 3 = Moderate Assistance (Subject = 50% +), 4 = Minimal Assistance (Subject = 75% +), 5 = Supervision, 6 = Modified [place] (Device), 7 = Complete [place] (Timely, Safely). Assessment Date/Time Source Assessment Type Assessment Skill Assessment Score Assessment Details No data available for this section
--- NOTE | 2024-09-27 12:21 | A.OFFVIS_ITS ---
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 BMI 33.6: Details: Start time: 12.15pm, End time: 1pm I spent 40 minutes speaking with the patient on the phone plus an additional 5 minutes reviewing and updating records for a total of 45 minutes HPI Comments Details: Previous weight loss efforts: exercise Wakes up: 5am, Sleeps: 9pm Breakfast: skips Lunch: occasionally at 11-12pm (fast food) Dinner: 6-7pm (rice, beans, chicken, pasta) Snacks: 9am (sandwich), 8pm (ice cream, cookies) Exercise: None, has gym access Fluids: Coffee x2/wk (creamer and sugar), tea: none, soda: occasionally Sprite zero, juice: none, ETOH: 1/wk (3-4 beers) PFSH Medical History (Updated 09/27/24 @ 15:24 by Norris Recio MD) Hypertension Anxiety Depression BMI 32.0-32.9,adult Obesity Family History (Updated 08/31/24 @ 13:07 by YUKI Moreno) Mother Diabetes Social History (Updated 08/31/24 @ 13:07 by YUKI Moreno) Household Members: None Alcohol intake: current Alcohol intake frequency: holidays/special occasions only Patient Tobacco Use Status: Never used Tobacco Telehealth Telehealth Telehealth Platform: Telephone Location of provider rendering services: practice address Location of patient: address on file Patient Identification confirmed using: Name, : Yes Telehealth method: voice only Patient verbally consented to treatment: Yes Patient verbally consented to billing insurance company: Yes Patient informed of any privacy concerns related to visit: Yes Minutes spent on Phone/Video with Pt.: 44 Assessment & Plan Assessment & Plan (1) Obesity: Code(s): E66.9 - Obesity, unspecified Category: Medical Qualifiers: Obesity type: due to excess calories Obesity classification: adult class 1 (BMI 30 - 34.9) Serious obesity comorbidity presence: with serious comorbidity Body mass index: BMI 32.0-32.9 Qualified Code(s): E66.811 - Obesity, class 1; E66.09 - Other obesity due to excess calories; Z68.32 - Body mass index [BMI] 32.0-32.9, adult Plan: 1. Plan for endogastric balloon therapy. We discussed the process in detailed including the need for endoscopy to place the balloon as well as to remove 6 months later under sedation or general anesthesia. We discussed the need to be on a PPI and a multivitamin throughout the balloon therapy. We discussed the potential risks and complications of the balloon including premature removal, premature balloon with potential balloon migration and bowel obstructions, gastric ulcer, GI bleeding, gastric or esophageal perforation, pancreatitis. Specifically for the premature balloon deflation we discussed the instillation of methylene blue into the balloon so in case of premature deflation the patient's urine would be discolored. We also discussed the potential symptoms the patient may experience the first few days until the stomach is fully adjusted to the balloon, including nausea, vomiting, abdominal cramping, GERD, dehydration that may require IV hydration, fatigue, lack of energy, excessive fullness, or burping. I reassured him that these symptoms are temporary and subside completely within the first week. We also discussed that the expected weight loss is about 20% of his initial weight which corresponds to about 48lbs. We also discussed the possibility of inadequate weight loss. I emphasized the importance of purchasing a body composition scale and the need for weekly weight measurements and communication with me. We also discussed the need for a proper nutritional plan that will include a combination of protein shakes, protein bars and a proper food-based meal. The patient will need to be on a liquid diet during the first week until the stomach is fully adjusted to the balloon as well as the last week before endoscopic removal so the stomach empties from any residual food. We also discussed the philosophy of the program that we use the balloon as a motivating factor to work with me and change slowly his lifestyle by improving his nutritional and exercise plan. This approach will maximize the weight loss from the balloon therapy and allow her to maintain his weight after the balloon is removed. Finally we discussed the importance of long-term follow- up in our practice in order to maintain his weight loss long-term. The patient is in agreement with the plan. Before we proceed with placement, the patient wishes to call his VA insurance and see if they can cover any of the cost. He will get back to me in the next few days.
[2024-09-27 15:20] VITALS: BMI 33.5
== END 2024-09-27 15:28 | disposition home or self-care (01) ==
PROVIDERS: PCP Nurse Practitioner Family; Visit Provider Surgery
DX: E66.811 Obesity, class 1 (principal); Z68.33 Body mass index [BMI] 33.0-33.9, adult
CPT/HCPCS: 99204

== ENCOUNTER → 2024-10-15 15:22 | Outpatient (REF) | payer OTHER, SELFPAY ==
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
--- OUTSIDE RECORDS SUMMARY | 2024-10-15 15:25 | XMS_ITS | Continuity of Care Document ---
Author Name [facility] Organization [facility] Care Team Providers Care Manager Port Name Role Phone [facility] Unavailable Unavailable Problems Combined list of problems [...] mixed anxiety and depressed mood (SNOMED CT [id number]) Active Condition [facility] [...] 10 Code refer to note dated 07/18/23 [facility] Exposure to Potentially Hazardous Substance ([facility] [id number]) Active Condition [facility] HL - Hearing loss Active Condition Se [...] Comment: -- vasectomy by Urology [facility] in [place] 08/04 [facility] visit for: services physical Active Condition DoD visit for: ears / hearing exam Active Condition DoD visit for: examination of subpopulation Inactive Condition DoD visit for: services physical accession Active Condition DoD visit for: ears, nose, and throat exam Inactive Condition DoD Diagnosis: ICD-10-CM F43.9 Reaction to severe stress, unspecified Active Diagnosis [facility] Diagnosis: ICD-10-CM H90.3 Sensorineural hearing loss, bilateral Active Diagnosis [facility] Diagnosis: ICD-10-CM M54.50 Low back pain, unspecified Active Diagnosis [facility] Diagnosis: ICD-10-CM F10.99 Alcohol use, unsp with unspecified alcohol-induced disorder Active Diagnosis [facility] Diagnosis: ICD-10-CM F43.12 Post-traumatic stress disorder, chronic Active Diagnosis [facility] Diagnosis: ICD-10-CM I10 Essential (primary) hypertension Active Diagnosis [facility] Diagnosis: ICD-10-CM Z56.0 Unemployment, unspecified Active Diagnosis [facility] Diagnosis: ICD-10-CM F43.23 Adjustment disorder with mixed anxiety and depressed mood Active Diagnosis [facility] Diagnosis: ICD-10-CM Z71.89 Other specified counseling Active Diagnosis [facility] [place] [facility] Diagnosis: ICD-10-CM G47.00 Insomnia, unspecified Active Diagnosis [facility] [place] Diagnosis: ICD-10-CM Z77.29 Contact with and exposure to other hazardous substances Active Diagnosis [facility] Medications Combined list of outpatient medications from [...] FOR BLOOD PRESSURE /HEART ORAL ACTIVE 04/23/2025 [id number] Briseida CARRASCO 2023 90 [place] ATENOLOL 25MG TAB TAKE ONE-HALF OF A TABLET BY MOUTH ONCE DAILY FOR BLOOD PRESSURE /HEART ORAL DISCONT INUED 09/02/2024 [id number] LEXI JARRELL 2023 15 [facility] azithromyci n 250 mg oral tablet 0 total refill(s ) Ordered No Facilit y Access BUPROPION HCL 100MG 12HR TAB,SA TAKE ONE TABLET BY MOUTH ONCE DAILY ORAL DISCONT INUED BY PROVIDE R 08/05/2024 [id number] CASH PRADO 2022 60 [facility] [place] BUPROPION HCL 150MG 24HR TAB,SA TAKE ONE TABLET BY MOUTH ONCE DAILY ORAL DISCONT INUED (EDIT) 12/19/2024 [id number] CASH PRADO 2023 60 [facility] BUPROPION HCL 150MG 24HR TAB,SA TAKE ONE TABLET BY MOUTH ONCE DAILY ORAL DISCONT INUED 09/29/2024 [id number] CASH PRADO 2023 60 [facility] [place] BUPROPION HCL 300MG 24HR TAB,SA TAKE ONE TABLET BY MOUTH EVERY MORNING ORAL DISCONT INUED BY PROVIDE R 02/13/2025 [id number] [facility]ASH PRADO 2023 90 [facility] FLUOXETINE HCL 10MG CAP TAKE ONE CAPSULE BY MOUTH ONCE DAILY FOR 7 DAYS, THEN TAKE TWO CAPSULES ONCE DAILY FOR DEPRESSI ON AND ANXIETY ORAL ACTIVE 11/23/2024 [id number] CASH PRADO 2024 93 [facility] HYDROCORTIS ONE ACETATE 1%/PRAMOXIN E HCL 1% AEROSOL,RTL INSERT 1 APPLICAT ORFUL RECTALLY THREE TIMES DAILY NEEDED FOR HEMORRHO IDS RECTAL ACTIVE 04/30/2025 [id number] Briseida CARRASCO 2023 20 [place] ibuprofen 800 mg oral tablet ibuprofe n 800 mg oral tablet Start Date: 12/07/20 Status: Ordered Ordered No Facilit y Access ivermectin 3 mg oral tablet ivermect in 3 mg oral tablet Start Date: 03/24/21 Status: Ordered Ordered No Facilit y Access MELATONIN 3MG CAP/TAB TAKE ONE CAPSULE/ TABLET BY MOUTH AT BEDTIME NEEDED SLEEP ORAL ACTIVE 01/02/2025 [id number] CASH PRADO 2024 120 [facility] NALTREXONE (EQV-REVIA) 50MG TAB TAKE ONE TABLET BY MOUTH ONCE DAILY CRAVINGS ORAL DISCONT INUED BY PROVIDE R 02/13/2025 [id number] CASH PRADO 2023 90 [facility] NALTREXONE (EQV-REVIA) 50MG TAB TAKE ONE TABLET BY MOUTH ONCE DAILY FOR ALCOHOLI SM ORAL DISCONT INUED (EDIT) 12/19/2024 [id number] CASH PRADO 2023 30 [facility] TRAZODONE HCL 100MG TAB TAKE ONE-HALF TABLET BY MOUTH AT BEDTIME FOR SLEEP ORAL DISCONT INUED BY PROVIDE R 12/19/2024 [id number] CASH PRADO 2023 45 [facility] TRAZODONE HCL 100MG TAB TAKE ONE-HALF TABLET BY MOUTH AT BEDTIME FOR 7 DAYS, THEN TAKE ONE TABLET AT BEDTIME FOR SLEEP ORAL DISCONT INUED (EDIT) 08/05/2024 [id number] 4 EVECASH 2022 60 [facility] Allergies, Adverse Reactions, Alerts Combined list of allergies from Department of Defense and Veterans Affairs facilities. It does not include entries that were removed or entered in error. Substance Category Reaction Severity Reaction type Status Date Reported Comments Source No Known Allergies Drug allergy (disorder) active 12/07/2022 [facility] Immunizations Combined list of available immunizations from the Department of Defense and Veterans Affairs facilities. Immunization Series Date Given Administered By Site Reaction Lot Number CVX Code Drug Hose Seamer Status Comments Source TDAP 2023 SHERMAN ALVARADO RIGHT DELTO ID [id number] complet ed [place] INFLUENZA, UNSPECIFIED FORMULATION 2022 88 complet ed [facility] anthrax vaccine 1 2021 ERICKA PERKINS [id number] [employer] [place] (MIP) complet ed anthrax vaccine DoD SARS-COV-2 (COVID-19) vaccine, mRNA, spike protein, LNP, preservative free, 30 mcg/0.3mL dose 3 2020 [id number] Transcribed (TRS) complet ed SARS-COV- 2 (COVID-19 ) vaccine, mRNA, spike protein, LNP, preservat kenn free, 30 mcg/0.3mL dose DoD Influenza, injectable, quadrivalent, preservative free 1 2020 [id number] Transcribed (TRS) complet ed Influenza , injectabl e, quadrival ent, preservat kenn free DoD measles/mumps /rubella virus vaccine 2020 zzLef t Arm [id number] Merck & Company Inc complet ed measles/m umps/rube lla virus vaccine 05/31/21 Given Ambulat ory Pharmac y measles, mumps and rubella virus vaccine 3 2020 JUAN PETERSON [id number] [employer] (MSD) complet ed measles, mumps and rubella virus vaccine DoD COVID Vaccine [id number] PFIZER complet ed COVID Vaccine Pfizer 12/29/20 Given Ambulat ory Pharmac y COVID-19, mRNA, LNP-S, PF, 30 mcg/0.3 mL dose 2020 [facility] [place] (PFR) Not Given COVID-19, mRNA, LNP-S, PF, 30 mcg/0.3 mL dose DoD SARS-COV-2 (COVID-19) vaccine, mRNA, spike protein, LNP, preservative free, 30 mcg/0.3mL dose 2 2020 Unknown, Provider [id number] [employer] (PFR) complet ed SARS-COV- 2 (COVID-19 ) vaccine, mRNA, spike protein, LNP, preservat kenn free, 30 mcg/0.3mL dose DoD COVID Vaccine Pfizer 2020 [facility] Arm [id number] PFIZER complet ed COVID Vaccine Pfizer 12/03/20 Given Ambulat ory Pharmac y COVID-19, mRNA, LNP-S, PF, 30 mcg/0.3 mL dose 2020 [facility] [place] [place] (PFR) Not Given COVID-19, mRNA, LNP-S, PF, 30 mcg/0.3 mL dose DoD SARS-COV-2 (COVID-19) vaccine, mRNA, spike protein, LNP, preservative free, 30 mcg/0.3mL dose 1 2020 Unknown, Provider [id number] 208 [employer], [employer] (PFR) complet ed SARS-COV- 2 (COVID-19 ) vaccine, mRNA, spike protein, LNP, preservat kenn free, 30 mcg/0.3mL dose DoD influenza, injectable, quadrivalent 2019 [facility] [id number] 158 [employer] complet ed influenza , injectabl e, quadrival ent 05/29/20 Given Ambulat ory Pharmac y influenza, injectable, quadrivalent, contains preservative 1 2019 ANA TINAJERO [id number] 158 [employer] (SEQ) complet ed influenza , injectabl e, quadrival ent, contains preservat kenn DoD influenza, injectable, quadrivalent 2019 [id number] 350 158 [employer] complet ed influenza , injectabl e, quadrival ent 10/30/19 Given Ambulat ory Pharmac y influenza, injectable, quadrivalent, contains preservative 1 2019 [id number] 350 158 [employer] (SEQ) complet ed influenza , injectabl e, quadrival ent, contains preservat kenn DoD INFLUENZA, SEASONAL, INJECTABLE 2018 141 complet ed [facility] tetanus, diphtheria, acellular pertu is 2017 [id number] complet ed tetanus, diphtheri a, acellular pertussis 07/25/18 Given Ambulat ory Pharmac y tetanus toxoid, reduced diphtheria toxoid, and acellular pertu is vaccine, adsorbed 1 2017 [id number] 115 [employer]Cal[employer]Winnie (SKB) complet ed tetanus toxoid, reduced diphtheri a toxoid, and acellular pertussis vaccine, adsorbed DoD influenza, seasonal, injectable-pf 2017 [id number] 140 [employer] complet ed influenza , seasonal, injectabl e-pf 06/13/18 Given Ambulat ory Pharmac y Influenza, seasonal, injectable, preservative free 1 2017 [id number] 140 [employer] (SEQ) comple t ed Influenza , seasonal, injectabl e, preservat kenn free DoD INFLUENZA, SEASONAL, INJECTABLE 2016 141 complet ed [facility] influenza, seasonal, injectable-pf 2016 [id number] 140 [employer] complet ed influenza , seasonal, injectabl e-pf 06/20/17 Given Ambulat ory Pharmac y Influenza, seasonal, injectable, preservative free 1 2016 [id number] 140 [employer] (SEQ) comple t ed Influenza , seasonal, injectabl e, preservat kenn free DoD influenza, seasonal, injectable-pf 2015 [id number] 140 CSL Behring complet ed influenza , seasonal, injectabl e-pf 07/27/16 Given Ambulat ory Pharmac y Influenza, seasonal, injectable, preservative free 1 2015 [id number] 140 [employer] (CSL) complet ed Influenza , seasonal, injectabl e, preservat kenn free DoD influenza virus vaccine, live 2011 [id number] 111 [employer] comple t ed influenza virus vaccine, live 06/06/12 Given Ambulat ory Pharmac y influenza virus vaccine, live, attenuated, for intranasal use 1 2011 [id number] 111 [employer] (MED) complet ed influenza virus vaccine, live, attenuate d, for intranasa l use DoD FLU,3 YRS (HISTORICAL) 2010 88 complet ed [facility] influenza virus vaccine, live 2010 [id number] 111 [employer]iThe [employer] comple t ed influenza virus vaccine, live 06/30/11 Given Ambulat ory Pharmac y influenza virus vaccine, live, attenuated, for intranasal use 1 2010 [id number] 111 [employer] (MED) complet ed influenza virus vaccine, live, attenuate d, for intranasa l use DoD FLU,3 YRS (HISTORICAL) 2010 88 complet ed Site: Right Deltoid [facility] tuberculin purified protein derivative 2008 UNKNOWN 96 Unknown complet ed tuberculi n purified protein derivativ e 06/14/09 Given Ambulat ory Pharmac y influenza virus vaccine,split 2008 [id number] 15 sanofi pasteur complet ed influenza virus vaccine,s plit 06/14/09 Given Ambulat ory Pharmac y influenza virus vaccine, split virus (incl. purified surface antigen)-reti red CODE 1 2008 [id number] 15 Sanofi Pasteur ([facility] complet ed influenza virus vaccine, split virus [...] y tetanus, diphtheria, acellular pertu is 2007 [id number] 115 Unknown complet ed tetanus, diphtheri a, [...] acellular pertu is vaccine, adsorbed 1 2007 [id number] 115 Unknown (UNK) comple t ed tetanus [...] A-hepatitis B vaccine [id number] complet ed hepatitis A-hepatit is B vaccine 04/02/06 Given Ambulat ory Pharmac y hepatitis A and hepatitis B vaccine 2 2005 [id number] 1AA 104 [facility] (SKB) complet ed hepatitis A and hepatitis B vaccine DoD tuberculin purified protein derivative 2005 [id number] 96 [facility] complet ed tuberculi n purified protein derivativ e 03/28/06 Given Ambulat ory Pharmac y tuberculin purified protein derivative 2003 [id number] 96 Unknown complet ed tuberculi n purified protein derivativ e 02/03/04 Given Ambulat ory Pharmac y meningococcal polysaccharid e (MPSV4) 2003 [id number] 32 Unknown complet ed meningoco ccal polysacch aride (MPSV4) 02/03/04 Given Ambulat ory Pharmac y poliovirus vaccine, inactivated 2003 [id number] 10 sanofi pasteur complet ed polioviru s vaccine, inactivat ed 02/03/04 Given Ambulat ory Pharmac y tetanus-dipht h toxoids (Td) adult/adol 2003 [id number] 09 sanofi pasteur complet ed tetanus-d iphth toxoids (Td) adult/ado l 02/03/04 Given Ambulat ory Pharmac y measles/mumps /rubella virus vaccine 2003 [id number] 03 Merck & Company Inc complet ed measles/m umps/rube lla virus vaccine 02/03/04 Given Ambulat ory Pharmac y influenza virus vaccine,split 2003 [id number] 15 Unknown complet ed influenza virus vaccine,s plit 02/03/04 Given Ambulat ory Pharmac y measles, mumps and rubella virus vaccine 1 2003 [id number] 03 Merck (MSD) complet ed measles, mumps and rubella virus vaccine DoD tetanus and diphtheria toxoids, adsorbed, preservative free, for adult use (2 Lf of tetanus toxoid and 2 Lf of diphtheria toxoid) 1 2003 [id number] 09 Sanofi Pasteur (PMC) complet ed tetanus and diphtheri a toxoids, adsorbed, preservat kenn free, for adult use (2 Lf of tetanus toxoid and 2 Lf of diphtheri a toxoid) DoD poliovirus vaccine, inactivated 1 2003 [id number] 10 Sanofi Pasteur (PMC) complet ed polioviru s vaccine, inactivat ed DoD influenza virus vaccine, split virus (incl. purified surface antigen)-reti red CODE 1 2003 [id number] 15 Unknown (UNK) comple t ed influenza virus vaccine, split virus (incl. purified surface antigen)- retired CODE DoD meningococcal polysaccharid e vaccine (MPSV4) 1 2003 [id number] 32 Unknown (UNK) comple t ed meningoco ccal polysacch aride vaccine (MPSV4) DoD hepatitis A-hepatitis B vaccine 2003 [id number] 104 Unknown complet ed hepatitis A-hepatit is B vaccine 02/02/04 Given Ambulat ory Pharmac y hepatitis A and hepatitis B vaccine 1 2003 [id number] 104 Unknown (UNK) complet ed hepatitis [...] Mar 19, 2024 09:32 AM Reporting Lab: [facility]ITAL[facility]ULL[facility] [address] [address] Performing Lab: [facility] [address] [address] [facility] LIVER FUNCTION ALBUMIN [MASS/VOLU ME] IN SERUM OR PLASMA 3.9 g/dL 3.5 - 5.0 03/19 Specimen Type: SERUM No comment entered. Ordering Provider: HUMERA CARRASCO Report Released Date/Time: Mar 19, 2024 09:32 AM Reporting Lab: [facility]USEAD[facility]OND[facility] [address] [facility] [address] Performing Lab: [facility]OSPITALRCULL[facility]ENTERN [facility]ITALUSEADIRONDACK [facility] [address] [facility] [address] [facility]USE [facility] LIVER FUNCTION ALKALINE PHOSPHATAS E [ENZYMATIC ACTIVITY/V OLUME] IN SERUM OR PLASMA 51 U/L 40 - 150 03/19 Specimen Type: SERUM No comment entered. Ordering Provider: HUMERA CARRASCO Report Released Date/Time: Mar 19, 2024 09:32 AM Reporting Lab: [facility]ITALRCULL[facility]ERN [facility]ITALUSEADIROND[facility] [address] [facility] [address] Performing Lab: [facility]OSPITALRCULL[facility]ENTERN [facility]ITALUSE[address] [address] [facility] LIVER FUNCTION ASPARTATE AMINOTRANS FERASE [ENZYMATIC ACTIVITY/V OLUME] IN SERUM OR PLASMA 16 U/L 5 - 34 03/19 Specimen Type: SERUM No comment entered. Ordering Provider: HUMERA CARRASCO Report Released Date/Time: Mar 19, 2024 09:32 AM Reporting Lab: [facility] [place] [facility] [address] [facility] [address] Performing Lab: [facility] [place] [facility] [address] [facility] [address] [facility] [place] [facility] LIVER FUNCTION ALANINE AMINOTRANS FERASE [ENZYMATIC ACTIVITY/V OLUME] IN SERUM OR PLASMA 35 U/L 03/19 Specimen Type: SERUM No comment entered. Ordering Provider: HUMERA CARRASCO Report Released Date/Time: Mar 19, 2024 09:32 AM Reporting Lab: [facility] [place] [address] [address] Performing Lab: [facility] [place] [address] [address] [facility]ITALRL WSTRN [facility]CHUSE [facility] LIVER FUNCTION BILIRUBIN. TOTAL [MASS/VOLU ME] IN SERUM OR PLASMA 0.5 mg/dL 0.2 - 1.2 03/19 Specimen Type: SERUM No comment entered. Ordering Provider: HUMERA CARRASCO Report Released Date/Time: Mar 19, 2024 09:32 AM Reporting Lab: [facility] [place] [address] [address] Performing Lab: [facility] [place] [address] [address] [facility]ITALRL WSTRN [place] [facility] BASIC METABOLI C PANEL (fasting ) UREA NITROGEN [MASS/VOLU ME] IN SERUM OR PLASMA 15 mg/dL - 03/19 Specimen Type: SERUM No comment entered. Ordering Provider: HUMERA CARRASCO Report Released Date/Time: Mar 19, 2024 09:32 AM Reporting Lab: [facility]OSPITALRL [place] [place] [address] [address] Performing Lab: [facility] [place] [facility] [address] [facility] [address] [facility]OSPITALRCULL[facility]ENTERN [facility]PITALUSE [facility] BASIC METABOLI C PANEL (fasting ) GLUCOSE [MASS/VOLU ME] IN SERUM OR PLASMA 106 mg/dL 65 - 100 03/19 H Specimen Type: SERUM No comment entered. Ordering Provider: HUMERA CARRASCO Report Released Date/Time: Mar 19, 2024 09:32 AM Reporting Lab: [facility]OSPITALRREGIONAL REHABILITATION HOSPITALTRN [facility]OSPITALUSEADIROND[facility] [address] [facility] [facility] [address] Performing Lab: [facility] HOSPITALRL TRN [facility]ITALUSE[address] [address] [facility]OSPITALRCULLMAN [facility]ENTERN [facility]OSPITALUSE [facility] BASIC METABOLI C PANEL (fasting ) SODIUM [MOLES/VOL UME] IN SERUM OR PLASMA 138 mmol/L 135 - 145 03/19 Specimen Type: SERUM No comment entered. Ordering Provider: HUMERA CARRASCO Report Released Date/Time: Mar 19, 2024 09:32 AM Reporting Lab: [facility] HOSPITALRREGIONAL REHABILITATION HOSPITALTRN [facility] HOSPITALUSETS [address] [address] Performing Lab: [facility] HOSPITALRL TRN [facility]ITALUSE[address] [address] [facility]OSPITALRCULLMAN [facility] CENTERN [facility]OSPITALUSE [facility] BASIC METABOLI C PANEL (fasting ) POTASSIUM [MOLES/VOL UME] IN SERUM OR PLASMA 4.3 mmol/L 3.5 - 5.0 03/19 Specimen Type: SERUM No comment entered. Ordering Provider: HUMERA CARRASCO Report Released Date/Time: Mar 19, 2024 09:32 AM Reporting Lab: [facility] HOSPITALRL TRN MASSUSE[address] [address] Performing Lab: [facility] HOSPITALRL TRN [facility]ITALUSE[address] [address] [facility]OSPITALRCULLMAN [facility]ENTERN [facility]OSPITALUSE [facility] BASIC METABOLI C PANEL (fasting ) CHLORIDE [MOLES/VOL UME] IN SERUM OR PLASMA 106 mmol/L 100 - 110 03/19 Specimen Type: SERUM No comment entered. Ordering Provider: HUMERA CARRASCO Report Released Date/Time: Mar 19, 2024 09:32 AM Reporting Lab: [facility] [place] [facility] [address] [facility] [address] Performing Lab: [facility] HOSPITALRL WSTRN [facility] HOSPITALUSETS [facility] [address] [facility] [facility] [address] [facility] HOSPITALRL TRN [facility]OSPITALUSE [facility] BASIC METABOLI C PANEL (fasting ) CARBON DIOXIDE, TOTAL [MOLES/VOL UME] IN SERUM OR PLASMA 25 meq/L 20 - 30 03/19 Specimen Type: SERUM No comment entered. Ordering Provider: HUMERA CARRASCO Report Released Date/Time: Mar 19, 2024 09:32 AM Reporting Lab: [facility] HOSPITALRL TRN [facility]OSPITALUSEADIRONDACK REGIONAL [facility]OSPITAL [address] [facility] [address] Performing Lab: [facility] HOSPITALRL TRN [facility]PITALUSE[address] [address] [facility] BASIC METABOLI C PANEL (fasting ) CREATININE [MASS/VOLU ME] IN SERUM OR PLASMA 0.92 mg/dL 0.50 - 1.40 03/19 Specimen Type: SERUM No comment entered. Ordering Provider: HUMERA CARRASCO Report Released Date/Time: Mar 19, 2024 09:32 AM Reporting Lab: [facility] HOSPITALRL TRN [facility]ITALUSE[address] [address] Performing Lab: [facility] HOSPITALRL TRN [facility]ITALUSE[address] [address] [facility]OSPITALRCULLMAN [facility]ENTERN [facility] BASIC METABOLI C PANEL (fasting ) GLOMERULAR FILTRATION RATE/1.73 SQ M.PREDICTE D [VOLUME RATE/AREA] IN SERUM, PLASMA OR BLOOD BY CREATININE -BASED FORMULA (CKD-EPI 2020) >90mL/mi n 60 03/19 Specimen Type: SERUM No comment entered. Ordering Provider: HUMERA CARRASCO Report Released Date/Time: Mar 19, 2024 09:32 AM Reporting Lab: [facility] HOSPITALUSETS [facility] [address] [facility] [address] Performing Lab: [facility] HOSPITALRL TRN [facility]ITALUSE[address] [address] [facility] HOSPITALRL [facility] LIPID PANEL FASTING CHOLESTERO L [MASS/VOLU ME] IN SERUM OR PLASMA 203 mg/dL 03/19 H Specimen Type: SERUM No comment entered. Ordering Provider: HUMERA CARRASCO Report Released Date/Time: Mar 19, 2024 09:32 AM Reporting Lab: [facility]OSPITALUSETS [facility] [address] [facility] [address] Performing Lab: [facility]OSPITALUSEADIRONDACK REGIONAL [facility]PITAL [address] [facility] [facility] [address] [facility] HOSPITALRL WSTRN [facility]ITALUSE [facility] LIPID PANEL FASTING TRIGLYCERI DE [MASS/VOLU ME] IN SERUM OR PLASMA 63 mg/dL 0 - 150 03/19 Specimen Type: SERUM No comment entered. Ordering Provider: HUMERA CARRASCO Report Released Date/Time: Mar 19, 2024 09:32 AM Reporting Lab: [facility] HOSPITALRL TRN [facility]ITALUSE[address] [address] Performing Lab: [facility]ITALUSE[address] [address] [facility] HOSPITALRL [facility]ERN [facility] LIPID PANEL FASTING CHOLESTERO L IN LDL [MASS/VOLU ME] IN SERUM OR PLASMA BY CALCULATIO N 137 mg/dL 0 - 129 03/19 H Specimen Type: SERUM No comment entered. Ordering Provider: HUMERA CARRASCO Report Released Date/Time: Mar 19, 2024 09:32 AM Reporting Lab: [facility] RAP[facility] HOSPITALRL WSTRN [facility]ITALUSE[address] [address] Performing Lab: [facility] [place] [address] [address] [facility] HOSPITALRL WSTRN [facility]PITALUSE [facility] LIPID PANEL FASTING CHOLESTERO L.TOTAL/CH OLESTEROL IN HDL [MASS RATIO] IN SERUM OR PLASMA 3.8 03/19 Specimen Type: SERUM No comment entered. Ordering Provider: HUMERA CARRASCO Report Released Date/Time: Mar 19, 2024 09:32 AM Reporting Lab: [facility] HOSPITALRL WSTRN [facility]ITALUSE[address] [address] Performing Lab: [facility] [place] [facility] [address] [facility] [address] [facility] LIPID PANEL FASTING CHOLESTERO L IN HDL [MASS/VOLU ME] IN SERUM OR PLASMA 53 mg/dL 40 - 60 03/19 Specimen Type: SERUM No comment entered. Ordering Provider: HUMERA CARRASCO Report Released Date/Time: Mar 19, 2024 09:32 AM Reporting Lab: [facility] [address] [facility] [address] Performing Lab: [facility] [address] [facility] [address] [facility] TSH THYROTROPI N [UNITS/VOL UME] IN SERUM OR PLASMA 0.99 u[IU]/mL 0.35 - 5.00 03/19 Specimen Type: SERUM No comment entered. Ordering Provider: HUMERA CARRASCO Report Released Date/Time: Mar 19, 2024 09:32 AM Reporting Lab: [facility] [address] [facility] [address] Performing Lab: [address] [address] [facility] HEMOGLOB IN A1C PANEL HEMOGLOBIN A1C/HEMOGL [...] Mar 19, 2024 09:32 AM Reporting Lab: [facility] [address] [facility] [address] Performing Lab: [address] [address] [facility] CBC LEUKOCYTES [#/VOLUME] IN BLOOD BY AUTOMATED COUNT 5.92 10*3/uL 4.50 - 11.00 03/19 Specimen Type: BLOOD No comment entered. Ordering Provider: HUMERA CARRASCO Report Released Date/Time: Mar 19, 2024 09:32 AM Reporting Lab: [facility] [facility] [address] [facility] [address] Performing Lab: [facility] [place] [facility] [address] [facility] [address] [facility] [place] [facility] CBC ERYTHROCYT ES [#/VOLUME] IN BLOOD BY AUTOMATED COUNT 5.62 10*6/uL 4.23 - 5.66 03/19 Specimen Type: BLOOD No comment entered. Ordering Provider: HUMERA CARRASCO Report Released Date/Time: Mar 19, 2024 09:32 AM Reporting Lab: [facility] [place] [address] [address] Performing Lab: [facility] [place] [facility] [address] [facility] [address] [facility] [place] [facility] CBC HEMOGLOBIN [MASS/VOLU ME] IN BLOOD 16.5 g/dL 12.8 - 17 03/19 Specimen Type: BLOOD No comment entered. Ordering Provider: HUMERA CARRASCO Report Released Date/Time: Mar 19, 2024 09:32 AM Reporting Lab: [facility] [address] [address] Performing Lab: [facility] [place] [facility] [address] [facility] [address] [facility] [place] [facility] CBC HEMATOCRIT [VOLUME FRACTION] OF BLOOD BY AUTOMATED COUNT 46.9 39.2 - 50.4 03/19 Specimen Type: BLOOD No comment entered. Ordering Provider: HUMERA CARRASCO Report Released Date/Time: Mar 19, 2024 09:32 AM Reporting Lab: [facility] [address] [address] Performing Lab: [facility] [place] [address] [address] [facility] [place] CBC MCV [ENTITIC VOLUME] BY AUTOMATED COUNT 83.5 fL 82 - 99 03/19 Specimen Type: BLOOD No comment entered. Ordering Provider: HUMERA CARRASCO Report Released Date/Time: Mar 19, 2024 09:32 AM Reporting Lab: [facility] [place] [facility] [address] [facility] [address] Performing Lab: [facility] [place] [facility] [address] [facility] [address] [facility] [place] [facility] CBC MCHC [MASS/VOLU ME] BY AUTOMATED COUNT 35.2 g/dL 30.8 - 35.1 03/19 H Specimen Type: BLOOD No comment entered. Ordering Provider: HUMREA CARRASCO Report Released Date/Time: Mar 19, 2024 09:32 AM Reporting Lab: [facility] [place] [address] [address] Performing Lab: [facility] [place] [address] [address] [facility] [place] [facility] CBC PLATELETS [#/VOLUME] IN BLOOD BY AUTOMATED COUNT 179 10*3/uL 140 - 360 03/19 Specimen Type: BLOOD No comment entered. Ordering Provider: HUMERA CARRASCO Report Released Date/Time: Mar 19, 2024 09:32 AM Reporting Lab: [facility] [place] [address] [address] Performing Lab: [facility] [place] [facility] [address] [facility] [address] [facility] [place] [facility] CBC ERYTHROCYT E DISTRIBUTI ON WIDTH [RATIO] BY AUTOMATED COUNT 11.9 12.0 - 16.0 03/19 L Specimen Type: BLOOD No comment entered. Ordering Provider: HUMERA CARRASCO Report Released Date/Time: Mar 19, 2024 09:32 AM Reporting Lab: [facility] [place] [address] [address] Performing Lab: [facility] [place] [facility] [address] [facility] [address] [facility] CBC MCH [ENTITIC MASS] BY AUTOMATED COUNT 29.4 pg 26.2 - 32.6 03/19 Specimen Type: BLOOD No comment entered. Ordering Provider: HUMERA CARRASCO Report Released Date/Time: Mar 19, 2024 09:32 AM Reporting Lab: [facility] [address] [facility] [address] Performing Lab: [facility]ITALR[facility] HOSPITALTRN [facility]ITALUSE[address] [address] [facility]USE [facility] T-SPOT TB PANEL MYCOBACTER IUM TUBERCULOS [...] additional information , please refer to http://educ ation.iSites .com/faq/FA Q215 (This link is being provided for information al/ educational purposes only.) Test Performed by Erin Guajardo, [facility], [address] [place] [address] Reed Marcum M.D., Ph.D., Director of Laboratorie s , CLIA [id number] TEST PERFORMED AT: , Ordering Provider: BRIANNA CEJA SA Report Released Date/Time: December 26, 2022 09:31 AM Reporting Lab: [address] [address] Performing Lab: [address] [address] [facility] T-SPOT TB PANEL MYCOBACTER IUM TUBERCULOS [...] additional information , please refer to http://educ ation.iSites .com/faq/FA Q215 (This link is being provided for information al/ educational purposes only.) Test Performed by [employer], [facility], [address] [place] [address] Reed Marcum M.D., Ph.D., Director of Laboratorie s , [place] [id number] TEST PERFORMED AT: , Ordering Provider: BRIANNA CEJA SA Report Released Date/Time: December 26, 2022 09:31 AM Reporting Lab: [facility] [address] [facility] [address] Performing Lab: [address], [address] [place] [address] [facility] T-SPOT TB PANEL MYCOBACTER IUM TUBERCULOS [...] additional information , please refer to http://educ ation.iSites .com/faq/FA Q215 (This link is being provided for information al/ educational purposes only.) Test Performed by [employer], [facility], [address] [place] [address] Reed Marcum M.D., Ph.D., Director of Laboratorie s , [facility] [id number] TEST PERFORMED AT: , Ordering Provider: BRIANNA CEJA SA Report Released Date/Time: December 26, 2022 09:31 AM Reporting Lab: [facility] [address] [facility] [address] Performing Lab: [facility] [address] [facility], [address] [place] [address] [facility] T-SPOT TB PANEL MITOGEN STIMULATED GAMMA [...] additional information , please refer to http://educ ation.iSites .Gaming for Good/faq/FA Q215 (This link is being provided for information al/ educational purposes only.) Test Performed by [employer], [facility], [address] [place] [address] Reed Marcum M.D., Ph.D., Director of Laboratorie s , [facility] [id number] TEST PERFORMED AT: , Ordering Provider: BRIANNA CEJA SA Report Released Date/Time: December 26, 2022 09:31 AM Reporting Lab: [facility] [address] [facility] [address] Performing Lab: [facility] [address] [address] [facility] T-SPOT TB PANEL GAMMA INTERFERON NEGATIVE CONTROL [...] additional information , please refer to http://educ ation.iSites .Gaming for Good/faq/FA Q215 (This link is being provided for information al/ educational purposes only.) Test Performed by [employer], [facility], [address] [place] [address] Reed Marcum M.D., Ph.D., Director of Laboratorie s , CLIA [id number] TEST PERFORMED AT: , Ordering Provider: BRIANNA CEJA SA Report Released Date/Time: December 26, 2022 09:31 AM Reporting Lab: [facility] [address] [facility] [address] Performing Lab: [facility] [address] [address] [facility] HEPATITI S B SURFACE ANTIBODY (HBsAb)- WH HEPATITIS B VIRUS SURFACE AB [PRESENCE] IN SERUM BY IMMUNOASSA Y REACTIVE 12/26 Specimen Type: SERUM Comment: A 'Reactive' result indicates HBsAb results >/= 12.0 mIU/mL and immunity to HBV infection. Ordering Provider: BRIANNA CEJA SA Report Released Date/Time: December 26, 2022 09:31 AM Reporting Lab: [facility] [address] [facility] [address] Performing Lab: [facility] [address] [facility] [address] [facility] MMRV (IGG) IMMUNE STATUS PANEL MEASLES VIRUS [...] December 26, 2022 09:31 AM Reporting Lab: [facility] [address] [facility] [address] Performing Lab: [facility]OS[facility]ITALRCULLMAN [facility]ERN [facility] [address] [facility] [address] [facility] MMRV (IGG) IMMUNE STATUS PANEL MUMPS VIRUS [...] December 26, 2022 09:31 AM Reporting Lab: [facility] [address] [facility] [address] Performing Lab: [facility]ITALRCULL[facility]ENTERN [address] [address] [facility] MMRV (IGG) IMMUNE STATUS PANEL RUBELLA VIRUS [...] December 26, 2022 09:31 AM Reporting Lab: [facility] [address] [facility] [address] Performing Lab: [facility] [address] [address] [facility] MMRV (IGG) IMMUNE STATUS PANEL VARICELLA ZOSTER [...] December 26, 2022 09:31 AM Reporting Lab: [facility] [address] [facility] [address] Performing Lab: [address] [address] [facility] Infectio us Disease HIV-1/2 AG/AB 4G CDD LC NEGATIVE 11/28 Result Comment: Performed At: [address] [place] [address] FOR DISEASE DETECTION [address] [place] [address] KATHY BROWN PHD Ph:[phone] [address] [place] [address] Lexi Worthington Infect us Disease Source of Test.LC PostDepS torage (11/28/22 9:01 AM) 11/[address] [place] [address] Lexi Worthington Vital Signs Combined list of inpatient and outpatient Vital Signs from Department of Defense and Veterans Affairs, ranging from 12 months to all on record, depending upon the facility. Vital Sign Value Date Comments Source Temperature Temporal Artery 36.5 Greta 11/28/2022 12:23:[address] [place] [address] Lexi Snider Systolic Blood Pressure 136 mm[Hg] 11/29/19 23 12:23:[address] [place] [address] Lexi Snider Diastolic Blood Pressure 87 mm[Hg] 023 12:23:[address] [place] [address] Lexi Snider Peripheral Pulse Rate 99 bpm 11/28/2022 12:23:[address] [place] [address] Lexi Snider Temperature Oral 36.5 Greta 11/29/2022 15:33:00 [facility] Lexi Snider Peripheral Pulse Rate 70 bpm 11/29/2022 15:33:00 [facility] Lexi Snider Systolic Blood Pressure 135 mm[Hg] 11/30/19 23 15:33:00 [facility] Lexi Snider Diastolic Blood Pressure 95 mm[Hg] 023 15:33:00 010[facility] Lexi Snider Mean Arterial Pressure, Calc 108 mm[Hg] 11/29/2022 15:33:00 010[facility] Lexi Snider Temperature Temporal Artery 36.2 Greta 11/29/2022 12:29:00 010[facility] Lexi Snider Systolic Blood Pressure 130 mm[Hg] 11/30/19 23 12:29:00 010[facility] Lexi Snider Diastolic Blood Pressure 84 mm[Hg] 023 12:29:00 010[facility] Lexi Snider Peripheral Pulse Rate 76 bpm 11/29/2022 12:29:[address] [place] [address] Lexi Snider SYSTOLIC BLOOD PRESSURE 129 04/29/20 24 13:09:35 E[facility] DIASTOLIC BLOOD PRESSURE 83 024 13:09:35 [facility] PULSE OXIMETRY 97 04/29/2024 13:09:35 [facility] WEIGHT 250 04/29/2024 13:09:35 [facility] BMI 35 kg/m2 04/29/2024 13:09:35 ETHEL PULSE 65 04/29/2024 13:09:35 ETHE[facility] SYSTOLIC BLOOD PRESSURE 125 11/27/19 24 15:15:15 ETHEL DIASTOLIC BLOOD PRESSURE 76 024 15:15:15 ETHEL PULSE OXIMETRY 95 11/27/2023 15:15:15 ETHEL WEIGHT 230 11/27/2023 15:15:15 ETHE[facility] BMI 32 kg/m2 11/27/2023 15:15:15 ETHE[facility] HEIGHT 71 11/27/2023 15:15:15 E[facility] TEMPERATURE 97.9 11/27/2023 15:15:15 ETHEL PULSE 70 11/27/2023 15:15:15 ETHE[facility] RESPIRATION 20 11/27/2023 15:15:15 ETHEL Encounters Combined list of: 1) Encounters from Department of Veterans Affairs facilities going backup to the last 18 months, not all VA inpatient encounters are included; 2) Encounters from the Department of Defense facilities going backup to 280 months. Location Location Details Encounter Type Encounter Number Reason For Visit Attending Provider ADM Date DC Date Status [facility] [place]) OUTPATIENT [id number] 43rd [address] CEJA 04/01 Released w/o Limitations [facility] [place] ) OUTPATIENT [id number] ALISA BROWNE 04/11 Released w/o Limitations [facility] [place] [facility]) OUTPATIENT [id number] AUGUSTIN BAIRES 07/12 Released w/o Limitations [facility]) OUTPATIENT [id number] 7 Notes Entered by: ALEXANDR MCKEON 29 May 2020 1105 ------- ------- ------- ------- -- BAILEE NEWBY 05/29 [facility]ased w/o Limitations [facility] Carlos Miguel([facility] De[facility] ent [facility]) Tamie Reaves [place]([facility] Prog-[facility]) OUTPATIENT [id number] 5 Notes Entered by: ABBY SOLIS 30 May 2021 1448 ------- ------- ------- ------- -- post deploym ent AYLA LOERA 05/30 Released w/o Limitations [place]) [place]) OUTPATIENT [id number] 5 Notes Entered by: JUAN PETERSON 31 May 2021 0756 ------- ------- ------- ------- -- MARIUSZ ANDERSON 05/31 Released w/[place] Limitations [place] [facility] [place] ) [place]) OUTPATIENT [id number] 6 HUNG Ratliff 05/31 Released w/o Limitations [place]) [facility] De[facility]) OUTPATIENT [id number] 6 Notes Entered by: NGUYEN SANDOVAL 25 Jan 2022 0821 ------- ------- ------- ------- -- MOB SAUDI ARABIA ANA CORDOVA 01/25 Released w/o Limitations [facility] De[facility]m ent [facility]) [facility]) OUTPATIENT [id number] 3 F2F FLU LIKE SYMPTOM S USAR [phone] NIKOS SPEARS 01/28 Released w/o Limitations [facility]) [facility]) OUTPATIENT [id number] 3 F2F Sore throat [facility]CRAW ASHER, [facility]ZZ[facility]_DOUG L[place] NISSA 01/29 Sick at Home/Quarter s [facility]) Theater Facility OUTPATIENT [id number] Theater Provider 03/19 Released w/o Limitations [facility] OUTPATIENT [id number] Theater Provider 04/08 Released w/o Limitations [facility] OUTPATIENT [id number] Theater Provider 04/11 Released w/o Limitations [facility] OUTPATIENT [id number] Theater Provider 06/29 Sick at Home/Quarter s [facility] OUTPATIENT [id number] 9 Theater Provider 07/02 Released w/o Limitations Theater [facility] OUTPATIENT [id number] Theater Provider 07/10 Released w/o Limitations Theater Fac[facility] OUTPATIENT [id number] Theater Provider 07/16 Released w/o Limitations Theater Fac[facility] OUTPATIENT [id number] 8 Theater Provider 07/17 Released w/o Limitations Theater Facilit y [facility] OUTPATIENT [id number] 4 Theater Provider 07/30 Released w/o Limitations Theater [facility] OUTPATIENT [id number] 3 Theater Provider 07/31 Released w/o Limitations Theater [facility] OUTPATIENT [id number] Theater Provider 08/29 Released w/o Limitations Theater [facility] OUTPATIENT [id number] 8 Theater Provider 10/28 Released w/o Limitations Theater Fac[facility] OUTPATIENT [id number] 8 Theater Provider 11/04 Released w/o Limitations Theater Facilit y [facility] Outpatient Encounter [id number] 04/18 [facility] Outpatient Encounter [id number] 04/22 [facility] [place] COMMUNITY/ WORK REINTEGRAT ION [id number] Diagnos is: ICD-10- CM Z56.0 Unemplo yment, unspeci fiHUNG Pastor 04/29 [facility] [place] [facility] COMMUNITY/ WORK REINTEGRAT ION [id number] Diagnos is: ICD-10- CM Z56.0 Unemplo yment, unspeci ST GAYE Olmstead 05/07 [facility] [place] [facility] Outpatient Encounter [id number] 05/08 [facility] [place] Outpatient Encounter [id number] Diagnos is: ICD-10- CM Z77.29 Contact with and exposur e to other hazardo us substan JUAN JOSE Ziegler SA J 05/10 [facility] UNLISTED PSYC SVC/THERAP Y [id number] Diagnos is: ICD-10- CM Z77.29 Contact with and exposur e to other hazardo us substan SATINDER Toro 05/10 [facility] [place] [facility] Outpatient Encounter [id number] 05/20 [facility] COMMUNITY/ WORK REINTEGRAT ION [id number] Diagnos is: ICD-10- CM Z56.0 Unemplo yment, unspeci fied HUNG KENDALL J 05/21 [facility] [place] [place] [place] CASE MANAGEMENT [id number] Diagnos is: ICD-10- CM F43.23 Adjustm ent disorde r with mixed anxiety and depress ed mood KRISTOPHER QUINONES 05/21 [facility] En[facility] [id number] 05/21 [facility] En[facility] [id number] 05/22 [facility] En[facility] [id number] 05/25 [facility] [place] COMMUNITY/ WORK REINTEGRAT ION [id number] Diagnos is: ICD-10- CM Z56.0 Unemplo yment, unspeci fied ST GAYE HERRON 05/27 [facility] Encounter [id number] Diagnos is: ICD-10- CM G47.00 Insomni a, unspeci REFUGIO Kumari 06/12 [facility] En[facility] [id number] 06/23 [facility] [place] [facility] CASE MANAGEMENT [id number] Diagnos is: ICD-10- CM F43.23 Adjustm ent disorde r with mixed anxiety and depress ed mood KRISTOPHER QUINONES 06/24 [facility] En[facility] [id number] 07/02 [facility] Encounter [id number] 07/11 [facility] [place] OFF/OP EST MAY X REQ PHY/QHP [id number] Diagnos is: ICD-10- CM Z71.89 Other specifi ed prevocational/rehabilitation counselor NGUYEN More 07/11 [facility] OFFICE O/P EST LOW 20-29 MIN [id number] Diagnos is: ICD-10- CM M54.50 Low back pain, unspeci REFUGIO Kumari 07/11 [facility] [place] OFFICE O/P EST LOW 20-29 MIN [id number] Diagnos is: ICD-10- CM F43.23 Adjustm ent disorde r with mixed anxiety and depress ed mood LEXI JARRELL 07/18 [facility] [place] CASE MANAGEMENT [id number] Diagnos is: ICD-10- CM F43.23 Adjustm ent disorde r with mixed anxiety and depress ed mood KRISTOPHER QUINONES 07/24 [facility] OFFICE O/P EST HI 40-54 MIN [id number] Diagnos is: ICD-10- CM F43.12 Post-tr aumatic stress disorde r, chronic Susan PRADO 08/04 [facility] [place] COMMUNITY/ WORK REINTEGRAT ION [id number] Diagnos is: ICD-10- CM Z56.0 Unemplo yment, unspeci fiuzair [facility] En[facility] [id number] 08/27 [facility] En[facility] [id number] 08/27 [facility] [place] COMMUNITY/ WORK REINTEGRAT ION [id number] Diagnos is: ICD-10- CM Z56.0 Unemplo yment, unspeci fied [facility] 08/28 [facility] En[facility] [id number] Susan LONDONO 09/01 [facility] En[facility] [id number] 09/01 [facility] En[facility] [id number] 09/01 [facility] En[facility] [id number] JORGE MCKEON 09/01 [facility] En[facility] [id number] 09/01 [facility] [id number] 09/01 [facility] En[facility] [id number] 09/02 [facility] [place] OFF/OP EST DECEMBER X REQ PHY/QHP [id number] Diagnos is: ICD-10- CM I10 Essenti al (primar y) hyperte nsion CHRISTIANO,ER IC K 09/02 [place] [facility] Out[facility] Encounter [id number] 09/02 [facility] [id number] 09/03 [facility] [id number] 09/25 [facility] OFFICE O/P EST MOD 30 MIN [id number] Diagnos is: ICD-10- CM F43.12 Post-tr aumatic stress disorde r, chronic EVE,M MORIS 09/29 [facility] [id number] 10/08 [facility] Outpatient [facility]counter [id number] 10/15 [facility] OFFICE O/P EST MOD 30 MIN [id number] Diagnos is: ICD-10- CM F43.12 Post-tr aumatic stress disorde r, chronic EVE,M MORIS 10/23 [facility] Outpatient [facility]counter [id number] 10/28 [facility] Encounter [id number] 11/18 [facility] Encounter [id number] 11/24 [facility] OFFICE O/P EST MOD 30 MIN [id number] 1BY. 21 Diagnos is: ICD-10- CM I10 Essenti al (primar y) hyperte nsion MARILOU CARRASCO 11/26 [place] [facility] Out[facility] Encounter [id number] 11/26 [facility] OFFICE O/P EST MOD 30 MIN [id number] Diagnos is: ICD-10- CM F43.12 Post-tr aumatic stress disorde r, chronic Susan PRADO MORIS 12/18 [facility] Out[facility] Encounter [id number] 01/13 [facility] Out[facility] Encounter [id number] 01/14 [facility] OFF[facility] O/P EST MOD 30 MIN [id number] Diagnos is: ICD-10- CM F43.12 Post-tr aumatic stress disorde r, chronic EVESusan MORIS 01/15 [facility] OFFICE O/P EST MOD 30 MIN [id number] Diagnos is: ICD-10- CM F10.99 Alcohol use, unsp with unspeci fied alcohol -induce d disorde r Susan PRADO MORIS 02/12 [facility] Encounter [id number] 02/18 [facility] Out[facility] Encounter [id number] 03/02 [facility] Out[facility] Encounter [id number] 03/15 [facility] Out[facility] Encounter [id number] 04/19 [facility] Out[facility] Encounter [id number] 04/21 [facility] OFFICE O/P EST MOD 30 MIN [id number] 1BY. 40 Diagnos is: ICD-10- CM M54.50 Low back pain, unspeci fied MARILOU CARRASCO 04/29 [place] [facility] Out[facility] Encounter [id number] 05/18 [facility] [place] [id number] Diagnos is: ICD-10- CM H90.3 Sensori neural hearing loss, bilater al LIANG SCHWARTZ 05/18 [facility] Out[facility] Encounter [id number] 05/19 [facility] Out[facility] Encounter [id number] 05/20 [facility] Out[facility] Encounter [id number]/21 [facility] Out[facility] Encounter [id number] BRAULIO WAHL 08/02 [facility] Out[facility] Encounter [id number] 08/31 [facility] Out[facility] Encounter [id number] 08/31 [facility] Out[facility] Encounter [id number] 09/21 [facility] Out[facility] Encounter [id number] SUSAN SEPULVEDA YS 09/23 [facility] Out[facility] Encounter [id number] SUSAN SEPULVEDA YS 09/24 [facility] Out[facility] Encounter [id number] CECILIA DAVID 09/24 [facility] Out[facility] Encounter [id number] 09/26 [facility] OFFICE O/P EST HI 40 MIN [id number] Diagnos is: ICD-10- CM F43.9 Reactio n to severe stress, unspeci Susan Manriquez 10/04 [facility] Procedures Combined list of: 1) Procedures from Department of Veterans Affairs facilities going back up to thelast 18 months, not all VA non-surgical procedures are included; 2) All procedures from the Department of Defense facilities. Procedure Procedure Type Code Date Perfomer Comments Sourc e No data available for this section Ambulato ry Pharmacy SCREENING TEST OF VISUAL ACUITY, QUANTITATIVE, BILATERAL 2020 [facility] EAR PROTECTOR ATTENUATION MEASUREMENTS 2020 Do[facility] PHYS/OTH QUALIFIED HEALTH STAVE MILL HAND QUALIFIED,EDUCATIO N,TRAIN,LICENSURE/ REGULATION (WHEN APPLICABLE) EDUC SER RENDERED TO PATS IN A GRP SETTING (EG,,OBESI TY,OR DIABETIC INSTRUCT) 2008 [facility] COLLECTION OF VENOUS BLOOD BY VENIPUNCTURE 2008 [facility] SCREENING TEST OF VISUAL ACUITY, QUANTITATIVE, BILATERAL 2021 [facility] INFLUENZA VIRUS VACCINE, QUADRIVALENT (IIV4), SPLIT VIRUS, PRESERVATIVE FREE, 0.5 ML DOSAGE, FOR INTRAMUSCULAR USE 2019 [facility] INDIVIDUAL PSYCHOTHERAPY, INSIGHT ORIENTED, BEHAVIOR MODIFYING AND/OR SUPPORTIVE, IN AN OFFICE OR OUTPATIENT FACILITY, APPROXIMATELY 20 TO 30 MINUTES [id number] WITH THE PATIENT 2007 [facility] INFLUENZA VIRUS VACCINE, TRIVALENT (IIV3), SPLIT VIRUS, PRESERVATIVE FREE, 0.5 ML DOSAGE, FOR INTRAMUSCULAR USE 2007 [facility] PURE TONE AUDIOMETRY (THRESHOLD); AIR ONLY 2007 [facility] HEPATITIS A AND HEPATITIS B VACCINE (HEPA-HEPB), ADULT DOSAGE, FOR INTRAMUSCULAR USE 2005 [facility] SCREENING TEST OF VISUAL ACUITY, QUANTITATIVE, BILATERAL 2005 [facility] PATIENT EDUCATION, NOT OTHERWISE CLASSIFIED, NON-PHYSICIAN PROVIDER, GROUP, PER SESSION 2005 [facility] VENIPUNCTURE,AGE 2 YEARS/OLDER,NECESS ITATING THE SKILL OF A PHYSICIAN/OTHER QUALIFIED HEALTH STAVE MILL HAND (SEP PROC),FOR DIAGNOSTIC/THERAPE UTIC PURPOSES (NOT TO BE USED FOR ROUTINE VENIPUNCTURE) 2003 [facility] Physical Therapy Service Evaluation Low Complexity Physical Therapy Service Evaluation Low Complexity 81025 2021 Theater Provider [facility] Physical Therapy: ___ Se ion Segments, 15 Minutes Each Physical Therapy: ___ Session Segments, 15 Minutes Each 58380 2021 Theater Provider [facility] Musculoskeletal Needle Insertion Without Injection 1 Or 2 Muscles Musculoskeletal Needle Insertion Without Injection 1 Or 2 Muscles 86371 2021 Theater Provider [facility] Physical Therapy Service Evaluation Moderate Complexity Physical Therapy Service Evaluation Moderate Complexity 11289 2021 Theater Provider [facility] Physical Therapy: ___ Se ion Segments, 15 Minutes Each Physical Therapy: ___ Session Segments, 15 Minutes Each 96880 2021 Theater Provider [facility] Anthrax Vaccine Anthrax Vaccine 59395 2021 Theater Provider [facility] Threshold Audiogram (Pure Tone) Threshold Audiogram (Pure Tone) 59212 2008 EDD WATTS III [facility] Special Physician Services Analysis Of Computerized Data Special Physician Services Analysis Of Computerized Data 89108 2008 EDD WATTS III [facility] Physician Supervised Group Educational Services 2008 EDD WATTS III [facility] ENT Services ENT Services 73161 2008 EDD WATTS III [facility] Audiometry Group Testing Audiometry Group Testing 73586 2008 EDD WATTS III [facility] Clinical Social Work Individual Outpatient Counseling 30 Minutes Clinical Social Work Individual Outpatient Counseling 30 Minutes 24937 2007 MAKENNA CORONA [facility] Determination Of Refractive State Determination Of Refractive State 15874 2005 ALISA BROWNE Screening Test Of Visual Acuity, Quantitative, Bilateral Screening Test Of Visual Acuity, Quantitative, Bilateral 95433 2005 ALISA BROWNE Physician Supervised Services Provision Of Special Supplies Physician Supervised Services Provision Of Special Supplies 17570 2005 PREETI ROWE [facility] Ear mold/insert, not disposable, any type 2005 PREETI ROWE [facility] Patient education, not otherwise cla ified, non-physician provider, group, per se ion 2005 PREETI ROWE [facility] Audiometry Group Testing Audiometry Group Testing 59602 2005 PREETI ROWE [facility] Preventive Medicine Administration Of Health Risk Questionnaire Patient-Focused Preventive Medicine Administration Of Health Risk Questionnaire Patient-Focused 75067 BAILEE GREGORY [facility] Influenza Split Virus Vaccine IM With Preservative Quadrivalent 0.50mL Dosage Influenza Split Virus Vaccine IM With Preservative Quadrivalent 0.50mL Dosage 50192 BAILEE GREGORY Influenza, Inj., quad., contains preservative (Afluria); Series #: 1; 0.5 mL; IM; Right Arm; Mfg: Seqirus; Lot: [id number]; VIS given ([place]: 04/08/2019). [facility] Immunization Administration By Injection, One Vaccine Immunization Administration By Injection, One Vaccine 05393 BAILEE GREGORY [facility] Adaptive Behavior A e ment System, 2nd Edition (ABAS-II) Adaptive Behavior Assessment System, 2nd Edition (ABAS-II) 40239 ANA CORDOVA PHQ9, GAD7, AND PCL5 ALL SCORED 0. SM DENIES ANY SUICIDAL OR HOMICIDAL IDEATION. SEVERITY NONE [facility] Anthrax Vaccine For Subcutaneous Or Intramuscular Use Anthrax Vaccine For Subcutaneous Or Intramuscular Use 72103 ANA CORDOVA Anthrax; Series #: 1; 0.5 mL; IM; Left Arm; Mfg: [employer] [place]; Lot: [id number]; VIS given ([place]yn: 09/01/2019). DoD Vaccines Viral Measles, Mumps and Rubella, Live Vaccines Viral Measles, Mumps and Rubella, Live 39278 MARIUSZ RODRIGES MMR; Series #: 3; 0.5 mL; SC; Left Arm; Mfg: Merck; Lot: [id number]; VIS given (Carolyn: 03/30/2021). [facility] A e ment & Intervention Blood Pre ure Measured Assessment & Intervention Blood Pressure Measured 2000F MARIUSZ RODRIGES [facility] Venipuncture Venipuncture 63896 MARIUSZ RODRIGES [facility] Screening Test Of Visual Acuity, Quantitative, Bilateral Screening Test Of Visual Acuity, Quantitative, Bilateral 07975 MARIUSZ RODRIGES [facility] Audiometry Group Testing Audiometry Group Testing 84634 PAULINA HUNTER Ear Protector Attenuation Measurements Ear Protector Attenuation Measurements 46771 PAULINA HUNTER [facility] Social History Combined list of available smoking, tobacco, and other social history from Department of Defense and Veterans Affairs facilities. 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 [facility] Assessment and Plan Combined list of future care activities from Department of Defense and Veterans Affairs facilities (e.g., assessment and plan notes, appointments, orders, and referrals). Additional future care activities may be listed in the Plan of Care section. Result Assessment and Plan Date Source Assessment and Plan No data available for this section 10/15/2024 Ambulatory Pharmacy Plan of Care List of future care activities from Department of Veterans Affairs facilities. Additional future care activities may be listed in the Assessment and Plan section. Date/Time Care Activity Care Activity Detail [facility] 10/27/2024 AMBULATORY - MEDICINE AMBULATORY - MEDICI [facility] 11/10/2024 AMBULATORY - PSYCHIATRY AMBULATORY - PSYC [facility] [place] [facility] Functional Status Combined list of recent functional and cognitive assessments recorded at Department of Defense and Veterans Affairs (VA).VA Functional Forsyth Measurement (FIM) Scale: 1 = Total Assistance (Subject = 0% +), 2 = Maximal Assistance (Subject = 25% +), 3 = Moderate Assistance (Subject = 50% +), 4 = Minimal Assistance (Subject = 75% +), 5 = Supervision, 6 = Modified Forsyth (Device), 7 = Complete [place] (Timely, Safely). Assessment Date/Time Source Assessment Type Assessment Skill Assessment Score Assessment Details No data available for this section
--- OUTSIDE RECORDS SUMMARY | 2024-10-15 15:25 | XMS_ITS | Encounter Summary ---
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 Date/Time Encounter Type Encounter Description Reason Pro vider Source Sep 26, 2024 11:23 AM Outpatient Encounter COMMUNITY CARE CONSULT IHE Encounter Template Text not used by [place] Plan of Treatment: Future Appointments (+ 6 [...] 20 appointments. The data comes from all [place] treatment facilities. Appointment Date/Time Appointment Type Appointme nt Facility Name Oct 04, 2024 04:00 PM AMBULATORY - PSYCHIATRY [facility] [place] [facility] Oct 27, 2024 03:30 PM AMBULATORY - MEDICINE [facility] Nov 10, 2024 03:30 PM [facility] Social History: Smoking Status (Most current) and Tobacco Use (All prior to encounter date) This section includes the most current, and the historical, smoking and tobacco- related health factors from the [place] facility where the Encounter took place. Current Smoking Status This section includes the most current smoking, or tobacco-related health factor, from the [place] facility where the Encounter took place. Date/Time Current Smoking Status Comment Facil ity January 02, 2023 03:00 PM [facility] Tobacco Use History This section includes a history of the smoking, or tobacco-related health factors, that were collected on or before the date of the Encounter. The data comes from the [place] facility where the Encounter took place. Date/Time Smoking Status/Tobacco Use Comment F acility Sep 20, 2019 04:42 PM VA-TOBACCO FORMER USER [place] [facility] [place] [facility] Sep 20, 2019 04:42 PM VA-TOBACCO QUIT 1 TO < 5 YRS [facility] [place] [facility] Jul 31, 2017 11:06 AM LIFETIME NON-TOBACCO USER [place] [facility] [place] [facility] Sep 04, 2010 11:01 AM LIFETIME NON-TOBACCO [facility]ER [facility] [place] [facility] Encounter Notes: All associated encounter notes This section contains the clinical notes associated to the Encounter. Date/Time Encounter Note(s) Provider Source Sep 26, 2024 11:24 AM ADMINISTRATIVE NOT E: LOCAL TITLE: ADMINISTRATIVE NOTE STANDARD TITLE: ADMINISTRATIVE NOTE DATE OF NOTE: SEP 26, 2024@11:24 ENTRY DATE: SEP 26, 2024@11:24:18 AUTHOR: JUSTIN SOSA COSIGNER: URGENCY: STATUS: COMPLETED ADMINISTRATIVE NOTE Has ADDENDA Received call from [facility] referral department reporting that is scheduled for his inital consultation next week. They are requesting a referral for this service, advised no consult is on file. Contact number Aide Martinez [phone]. Alerting PACT for review if consult can be placed for Bariatric surgery. /sudheer/ JUSTIN SOSA Signed: 09/26/2024 11:26 Receipt Acknowledged By: 09/26/2024 11:35 /sudheer/ SOLEDAD VENTURA CERTIFIED NURSE PRACTITIONER 09/27/2024 10:49 /sudheer/ CECILIA DAVID RN REGISTERED NURSE 09/27/2024 ADDENDUM STATUS: COMPLETED has been informed consult will not be placed via [facility] on 09/24/24. /sudheer/ CECILIA DAVID RN REGISTERED NURSE Signed: 09/27/2024 10:49 JUSTIN [facility]OSA [facility]
--- NOTE | 2024-10-15 15:26 | ECG_ITS ---
Test Reason : OBS Blood Pressure : */* mmHG Vent. Rate : 62 BPM Atrial Rate : 62 BPM P-R Int : 162 ms QRS Dur : 82 ms QT Int : 384 ms P-R-T Axes : 27 78 32 degrees QTcB Int : 389 ms Normal sinus rhythm Normal ECG No previous ECGs available Referred By: Norris Recio Electronically Signed By: CYNTHIA KRAMER
--- OUTSIDE RECORDS SUMMARY | 2024-10-15 15:26 | XMS_ITS ---
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 Date/Time Encounter Type Encounter Description Reason Provider Source Sep 23, 2024 11:38 AM Outpatient Encounter PRIMARY CARE/MEDICINE KRISTOPHER SEPULVEDA [facility] Encounter Template Text not used by [place] Plan of Treatment: Future Appointments (+ 6 [...] 20 appointments. The data comes from all [place] treatment facilities. Appointment Date/Time Appointment Type Appointme nt Facility Name Oct 04, 2024 04:00 PM [facility] Oct 27, 2024 03:30 PM [facility] Nov 10, 2024 03:30 PM [facility] Social History: Smoking Status (Most current) and Tobacco Use (All prior to encounter date) This section includes the most current, and the historical, smoking and tobacco- related health factors from the [place] facility where the Encounter took place. Current Smoking Status This section includes the most current smoking, or tobacco-related health factor, from the [place] facility where the Encounter took place. Date/Time Current Smoking Status Comment Facil ity January 02, 2023 03:00 PM VA-TOBACCO NEVER USED [facility] Tobacco Use History This section includes a history of the smoking, or tobacco-related health factors, that were collected on or before the date of the Encounter. The data comes from the [place] facility where the Encounter took place. Date/Time Smoking Status/Tobacco Use Comment F acility Sep 20, 2019 04:42 PM VA-TOBACCO [facility] Sep 20, 2019 04:42 PM VA-TOBACCO QUIT 1 TO < 5 YRS [facility] Jul 31, 2017 11:06 AM LIFETIME NON-TOBACCO USER [facility] Sep 04, 2010 11:01 AM LIFETIME NON-TOBACCO USER [facility] Encounter Notes: All associated encounter notes This section contains the clinical notes associated to the Encounter. Date/Time Encounter Note(s) Provider Source Sep 23, 2024 11:38 AM PRIMARY CARE SECUR E MESSAGING: LOCAL TITLE: PRIMARY CARE SECURE MESSAGING STANDARD TITLE: PRIMARY CARE SECURE MESSAGING DATE OF NOTE: SEP 23, 2024@11:38 ENTRY DATE: SEP 23, 2024@11:38:34 AUTHOR: HENRIQUE SEPULVEDA COSIGNER: URGENCY: STATUS: COMPLETED ------Original Message -------- Sent: 09/23/2024 11:36 AM ET From: MEL COOLEY To: Idalmis CARRASCO_PRIMARY CARE7_[facility] Subject: General:Weight Management I have an appointment with them on Friday. /sudheer/ GALLO SEPULVEDA LPN LPN Signed: 09/23/2024 11:38 Receipt Acknowledged By: 09/24/2024 11:29 /sudheer/ CECILIA DAVID RN REGISTERED NURSE HENRIQUE SEPULVEDA [facility]
--- OUTSIDE RECORDS SUMMARY | 2024-10-15 15:26 | XMS_ITS | Encounter Summary ---
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 Date/Time Encounter Type Encounter Description Reason Pro vider Source Sep 21, 2024 08:22 AM Outpatient Encounter PRIMARY CARE/MEDICINE IHE Encounter Template Text not used by [place] Plan of Treatment: Future Appointments (+ 6 [...] 20 appointments. The data comes from all [place] treatment facilities. Appointment Date/Time Appointment Type Appointme nt Facility Name Oct 04, 2024 04:00 PM [facility] [place] Oct 27, 2024 03:30 PM AMBULATORY - MEDICINE [facility] Nov 10, 2024 03:30 PM [facility] Social History: Smoking Status (Most current) and Tobacco Use (All prior to encounter date) This section includes the most current, and the historical, smoking and tobacco- related health factors from the [place] facility where the Encounter took place. Current Smoking Status This section includes the most current smoking, or tobacco-related health factor, from the [place] facility where the Encounter took place. Date/Time Current Smoking Status Comment Facil ity January 02, 2023 03:00 PM VA-TOBACCO NEVER USED [facility] Tobacco Use History This section includes a history of the smoking, or tobacco-related health factors, that were collected on or before the date of the Encounter. The data comes from the [place] facility where the Encounter took place. Date/Time Smoking Status/Tobacco Use Comment F acility Sep 20, 2019 04:42 PM VA-TOBACCO FORMER USER [place] [facility] [place] [facility] Sep 20, 2019 04:42 PM VA-TOBACCO QUIT 1 TO < 5 YRS [place] [facility] [place] [facility] Jul 31, 2017 11:06 AM LIFETIME NON-TOBACCO USER [place] [facility] [place] [facility] Sep 04, 2010 11:01 AM LIFETIME [facility]TOBACCO [facility] Encounter Notes: All associated encounter notes This section contains the clinical notes associated to the Encounter. Date/Time Encounter Note(s) Provider Source Sep 21, 2024 08:22 AM PRIMARY CARE SECUR E MESSAGING: LOCAL TITLE: PRIMARY CARE SECURE MESSAGING STANDARD TITLE: PRIMARY CARE SECURE MESSAGING DATE OF NOTE: SEP 21, 2024@08:22 ENTRY DATE: SEP 21, 2024@08:22:27 AUTHOR: ALEXEY CRUZ EXP COSIGNER: URGENCY: STATUS: COMPLETED PRIMARY CARE SECURE MESSAGING Has ADDENDA ------Original Message ---- Sent: 09/20/2024 04:55 PM ET From: MEL COOLEY To: DANILO,Idalmis_PRIMARY CARE7_[facility] Subject: General:Weight Loss Management Good Afternoon Jenni it&rsquo;s Yossi Cooley. First of all I hope this message finds you well and congratulations to the [employer] on there win. I been working with [facility] they are base on [facility]. They have several procedures to loss some weight. According to them I am a good candidate. I wanted to know if the [place] can help cover these procedures. Please let me know via here or email me at [email or web address] or phone ? [phone]. Thank you have a wonderful day. And keep doing all the awesome things you do for us . /sudheer/ ALEXEY CRUZ [employer]OP SUPERVISOR Signed: 09/21/2024 08:22 Receipt Acknowledged By: 09/24/2024 11:28 /sudheer/ CECILIA DAVID RN REGISTERED NURSE 09/24/2024 11:30 /sudheer/ GALLO SEPULVEDA LPN LPN 09/24/2024 ADDENDUM STATUS: COMPLETED .[facility] /sudheer/ CECILIA DAVID RN REGISTERED NURSE Signed: 09/24/2024 11:28 09/24/2024 ADDENDUM STATUS: COMPLETED [place] has been answered via [facility]. /sudheer/ CECILIA DAVID RN REGISTERED NURSE Signed: 09/24/2024 11:29 ALEXEY CRUZ [place] [facility]
--- OUTSIDE RECORDS SUMMARY | 2024-10-15 15:26 | XMS_ITS ---
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 Date/Time Encounter Type Encounter Description Reason Provider Source Sep 24, 2024 09:47 AM Outpatient Encounter PRIMARY CARE/MEDICINE KRISTOPHER SEPULVEDA [facility] Encounter Template Text not used by [place] Plan of Treatment: Future Appointments (+ 6 [...] 20 appointments. The data comes from all [place] treatment facilities. Appointment Date/Time Appointment Type Appointme nt Facility Name Oct 04, 2024 04:00 PM [facility] Oct 27, 2024 03:30 [facility] Nov 10, 2024 03:30 PM [facility] Social History: Smoking Status (Most current) and Tobacco Use (All prior to encounter date) This section includes the most current, and the historical, smoking and tobacco- related health factors from the [place] facility where the Encounter took place. Current Smoking Status This section includes the most current smoking, or tobacco-related health factor, from the [place] facility where the Encounter took place. Date/Time Current Smoking Status Comment Facil ity January 02, 2023 03:00 PM VA-TOBACCO NEVER USED [facility] Tobacco Use History This section includes a history of the smoking, or tobacco-related health factors, that were collected on or before the date of the Encounter. The data comes from the [place] facility where the Encounter took place. Date/Time Smoking Status/Tobacco Use Comment F acility Sep 20, 2019 04:42 PM [facility] Sep 20, 2019 04:42 PM VA-TOBACCO QUIT 1 TO < 5 YRS [facility] Jul 31, 2017 11:06 AM LIFETIME [facility]AC[facility] Sep 04, 2010 11:01 AM LIFETIME [facility]-TOBACCO [facility] Encounter Notes: All associated encounter notes This section contains the clinical notes associated to the Encounter. Date/Time Encounter Note(s) Provider Source Sep 24, 2024 09:47 AM PRIMARY CARE SECUR E MESSAGING: LOCAL TITLE: PRIMARY CARE SECURE MESSAGING STANDARD TITLE: PRIMARY CARE SECURE MESSAGING DATE OF NOTE: SEP 24, 2024@09:47 ENTRY DATE: SEP 24, 2024@09:47:12 AUTHOR: HENRIQUE SEPULVEDA COSIGNER: URGENCY: STATUS: COMPLETED ------Original Message -------- Sent: 09/24/2024 09:46 AM ET From: MEL COOLEY To: Idalmis CARRASCO_PRIMARY CARE7_[facility] Subject: General:Weight Management Hello just wondering if you received my messages I have not gotten a response in several days. /sudheer/ GALLO SEPULVEDA LPN LPN Signed: 09/24/2024 09:47 HENRIQUE SEPULVEDA [place] [facility] [place] [facility] Sep 24, 2024 09:47 AM PRIMARY CARE SECUR E MESSAGING: LOCAL TITLE: PRIMARY CARE SECURE MESSAGING STANDARD TITLE: PRIMARY CARE SECURE MESSAGING DATE OF NOTE: SEP 24, 2024@09:47 ENTRY DATE: SEP 24, 2024@09:47:21 AUTHOR: HENRIQUE SEPULVEDA EXP COSIGNER: URGENCY: STATUS: COMPLETED PRIMARY CARE SECURE MESSAGING Has ADDENDA ------Original Message -------- Sent: 09/24/2024 09:46 AM ET From: MEL COOLEY To: Alyce CARRASCOPRIMARY CARE7_[facility] Subject: General:Weight Management Hello just wondering if you received my messages I have not gotten a response in several days. /sukhi SEPULVEDA LPN LPN Signed: 09/24/2024 09:47 Receipt Acknowledged By: 09/24/2024 11:29 /sudheer/ CECILIA DAVID RN REGISTERED NURSE 09/24/2024 ADDENDUM STATUS: COMPLETED has been answered via [facility]. /sudheer/ CECILIA DAVID RN REGISTERED NURSE Signed: 09/24/2024 11:29 HENRIQUE SEPULVEDA [place] [facility] [place] [facility]
== END ==
LOC: HO.CARD 15:22
PROVIDERS: PCP Nurse Practitioner Family; Visit Provider Surgery
DX: E66.811 Obesity, class 1 (principal); E66.09 Other obesity due to excess calories; Z68.32 Body mass index [BMI] 32.0-32.9, adult; I10 Essential (primary) hypertension
CPT/HCPCS: 93005

== ENCOUNTER → 2024-10-15 15:26 | Outpatient (BNV) | payer OTHER, SELFPAY | PROVIDERS: PCP Nurse Practitioner Family; Visit Provider Internal Medicine | DX: Z13.6 Encounter for screening for cardiovascular disorders (principal) | CPT/HCPCS: 93010 ==

== ENCOUNTER 2024-10-16 08:00 | Outpatient (REF) | payer OTHER, SELFPAY ==
--- NOTE | ~2024-10-16 | XR_ITS ---
EXAMINATION: XR CHEST 2 VIEWS HISTORY: E66.811 - Obesity, class 1 COMPARISON: There are no prior studies for comparison. FINDINGS: PA and lateral views of the chest are submitted. The lungs are expanded and clear. There is no pleural effusion, pneumothorax, or pulmonary vascular congestion. The heart is normal in size. The bones are intact. XR/XR chest 2V IMPRESSION: Normal examination of the chest. Electronically signed by: Gold Parkinson MD 10/19/2024 09:40 AM SAV
--- OUTSIDE RECORDS SUMMARY | 2024-10-16 08:04 | XMS_ITS | Continuity of Care Document ---
Author Name [facility] Organization [facility] Care Team Providers Care Hide Salter Name Role Phone [facility] Unavailable Unavailable Problems Combined list of problems [...] tendinitis, right hip Inactive 04/10/20 22 Condition [facility] Patellar tendinitis, right knee Inactive 04/10/20 22 Condition [facility] Encounter for immunization Active 03/20/20 22 Condition [facility] visit for: services physical Active Condition DoD visit for: ears / hearing exam Active Condition DoD visit for: examination of subpopulation Inactive Condition DoD visit for: services physical accession Active Condition DoD visit for: ears, nose, and throat exam Inactive Condition DoD Adjustment disorder with mixed anxiety and depressed mood (SNOMED CT [id number]) Active Condition [facility] Chronic low back pain Active Condition [facility] Concussion injury of brain Active Condition [facility] Essential hypertension Active Condition [facility] Exposure to potentially hazardous substance Active Condition Oct 23, 2023 Entered By: LOUIS GLYNN Comment: Connect Snomed Code to ICD 10 Code refer to note dated 07/18/23 [facility] Exposure to Potentially Hazardous Substance ([facility] [id number]) Active Condition ZULEIKA KHOURY [facility] HL - Hearing loss Active Condition Se p 2023 Entered By: JENNI CARRASCO Comment: bilateral d/t noise exposure in service [facility] Insomnia Active Condition [facility] [...] Active Condition Oct 17, 2011 Entered By: TOI KNOX Comment: -- [facility]ase[facility] [place] [facility] [place] 08/04 [facility] Diagnosis: ICD-10-CM F43.9 Reaction to severe stress, unspecified Active Diagnosis [facility] Diagnosis: ICD-10-CM H90.3 Sensorineural hearing loss, bilateral Active Diagnosis [facility] Diagnosis: ICD-10-CM M54.50 Low back pain, unspecified Active Diagnosis JBSA LACKLAND Diagnosis: ICD-10-CM F10.99 Alcohol use, unsp with unspecified alcohol-induced disorder Active Diagnosis [facility] Diagnosis: ICD-10-CM F43.12 Post-traumatic stress disorder, chronic Active Diagnosis [facility] Diagnosis: ICD-10-CM I10 Essential (primary) hypertension Active Diagnosis JBSA LACKLAND Diagnosis: ICD-10-CM Z56.0 Unemployment, unspecified Active Diagnosis [facility] Diagnosis: ICD-10-CM F43.23 Adjustment disorder with mixed anxiety and depressed mood Active Diagnosis [facility] Diagnosis: ICD-10-CM Z71.89 Other specified counseling Active Diagnosis [facility] Diagnosis: ICD-10-CM G47.00 Insomnia, unspecified Active Diagnosis [facility] Diagnosis: ICD-10-CM Z77.29 Contact with and exposure to other hazardous substances Active Diagnosis ZULEIKA KHOURY [facility] Medications Combined list of outpatient medications [...] FOR BLOOD PRESSURE /HEART ORAL ACTIVE 04/23/2025 [id number] Briseida CARRASCO 2023 90 [facility] IELD ATENOLOL 25MG TAB TAKE ONE-HALF OF A TABLET BY MOUTH ONCE DAILY FOR BLOOD PRESSURE /HEART ORAL DISCONT INUED 09/02/2024 [id number] TOI JARRELL 2023 15 [facility] azithromyci n 250 mg oral tablet 0 total refill(s ) Ordered 2021 No Facilit y Access BUPROPION HCL 100MG 12HR TAB,SA TAKE ONE TABLET BY MOUTH ONCE DAILY ORAL DISCONT INUED BY PROVIDE R 08/05/2024 [id number] CASH PRADO 2022 60 [facility] BUPROPION HCL 150MG 24HR TAB,SA TAKE ONE TABLET BY MOUTH ONCE DAILY ORAL DISCONT INUED (EDIT) 12/19/2024 [id number] CASH PRADO 2023 60 [facility] BUPROPION HCL 150MG 24HR TAB,SA TAKE ONE TABLET BY MOUTH ONCE DAILY ORAL DISCONT INUED 09/29/2024 [id number] CASH PRADO 2023 60 [facility] BUPROPION HCL 300MG 24HR TAB,SA TAKE ONE TABLET BY MOUTH EVERY MORNING ORAL DISCONT INUED BY PROVIDE R 02/13/2025 [id number] EVE CASH 2023 90 [facility] FLUOXETINE HCL 10MG CAP TAKE ONE CAPSULE BY MOUTH ONCE DAILY FOR 7 DAYS, THEN TAKE TWO CAPSULES ONCE DAILY FOR DEPRESSI ON AND ANXIETY ORAL ACTIVE 11/23/2024 [id number] CASH PRADO 2024 93 [facility] HYDROCORTIS ONE ACETATE 1%/PRAMOXIN E HCL 1% AEROSOL,RTL INSERT 1 APPLICAT ORFUL RECTALLY THREE TIMES DAILY NEEDED FOR HEMORRHO IDS RECTAL ACTIVE 04/30/2025 [id number] Briseida CARRASCO 2023 20 [place] ibuprofen 800 mg oral tablet ibuprofe n 800 mg oral tablet Start Date: 12/07/20 Status: Ordered Repeat number: 1 Ordered 2021 No Facilit y Access ivermectin 3 mg oral tablet ivermect in 3 mg oral tablet Start Date: 03/24/21 Status: Ordered Repeat number: 1 Ordered 2021 No Facilit y Access MELATONIN 3MG CAP/TAB TAKE ONE CAPSULE/ TABLET BY MOUTH AT BEDTIME NEEDED SLEEP ORAL ACTIVE 01/02/2025 [id number] CASH PRADO 2024 120 [facility] NALTREXONE (EQV-REVIA) 50MG TAB TAKE ONE TABLET BY MOUTH ONCE DAILY CRAVINGS ORAL DISCONT INUED BY PROVIDE R 02/13/2025 [id number] CASH PRADO 2023 90 [facility] NALTREXONE (EQV-REVIA) 50MG TAB TAKE ONE TABLET BY MOUTH ONCE DAILY FOR ALCOHOLI SM ORAL DISCONT INUED (EDIT) 12/19/2024 [id number] CASH PRADO 2023 30 [facility] TRAZODONE HCL 100MG TAB TAKE ONE-HALF TABLET BY MOUTH AT BEDTIME FOR SLEEP ORAL DISCONT INUED BY PROVIDE R 12/19/2024 [id number] CASH PRADO 2023 45 [facility] TRAZODONE HCL 100MG TAB TAKE ONE-HALF TABLET BY MOUTH AT BEDTIME FOR 7 DAYS, THEN TAKE ONE TABLET AT BEDTIME FOR SLEEP ORAL DISCONT INUED (EDIT) 08/05/2024 [id number] CASH PRADO 2022 60 [facility] Allergies, Adverse Reactions, Alerts Combined list of allergies from Department of Defense and Veterans Affairs facilities. It does not include entries that were removed or entered in error. Substance Category Reaction Severity Reaction type Status Date Reported Comments Source No Known Allergies Drug allergy (disorder) active 12/07/2022 [facility] [place] Immunizations Combined list of available immunizations from the Department of Defense and Veterans Affairs facilities. Immunization Series Date Given Administered By Site Reaction Lot Number CVX Code Drug Director Pharmacy Services Status Comments Source TDAP 2023 SHERMAN ALVARADO RIGHT DELTO ID [id number] complet ed [facility] IELD INFLUENZA, UNSPECIFIED FORMULATION 2022 88 complet ed [facility] anthrax vaccine 1 2021 ERICKA PERKINS [id number] [employer] (MIP) complet ed anthrax vaccine DoD SARS-COV-2 (COVID-19) vaccine, mRNA, spike protein, LNP, preservative free, 30 mcg/0.3mL dose 3 2020 [id number] Transcribed (TRS) complet ed SARS-COV- 2 (COVID-19 ) vaccine, mRNA, spike protein, LNP, preservat kenn free, 30 mcg/0.3mL dose DoD Influenza, injectable, quadrivalent, preservative free 1 2020 [id number] Transcribed (TRS) complet ed Influenza , injectabl e, quadrival ent, preservat kenn free DoD measles/mumps /rubella virus vaccine 2020 zzLef t Arm [id number] [employer] complet ed measles/m umps/rube lla virus vaccine 05/31/21 Given Ambulat ory Pharmac y measles, mumps and rubella virus vaccine 3 2020 ALBERTO PETERSONH E [id number] Merck (MSD) complet ed measles, mumps and rubella virus vaccine DoD COVID Vaccine Pfizer 2020 [facility] Arm [id number] 208 PFI[employer]ER complet ed COVID Vaccine Pfizer 12/29/20 Given Ambulat ory Pharmac y COVID-19, mRNA, LNP-S, PF, 30 mcg/0.3 mL dose 2020 [facility] [place] (PFR) Not Given COVID-19, mRNA, LNP-S, PF, 30 mcg/0.3 mL dose DoD SARS-COV-2 (COVID-19) vaccine, mRNA, spike protein, LNP, preservative free, 30 mcg/0.3mL dose 2 2020 Unknown, Provider [id number] [employer] (PFR) complet ed SARS-COV- 2 (COVID-19 ) vaccine, mRNA, spike protein, LNP, preservat kenn free, 30 mcg/0.3mL dose DoD COVID Vaccine Pfizer 2020 [facility] Arm [id number] 208 P[employer] complet ed COVID Vaccine Pfizer 12/03/20 Given Ambulat ory Pharmac y COVID-19, mRNA, LNP-S, PF, 30 mcg/0.3 mL dose 2020 [facility] [place] (PFR) Not Given COVID-19, mRNA, LNP-S, PF, 30 mcg/0.3 mL dose DoD SARS-COV-2 (COVID-19) vaccine, mRNA, spike protein, LNP, preservative free, 30 mcg/0.3mL dose 1 2020 Unknown, Provider [id number] [employer] (PFR) complet ed SARS-COV- 2 (COVID-19 ) vaccine, mRNA, spike protein, LNP, preservat kenn free, 30 mcg/0.3mL dose DoD influenza, injectable, quadrivalent 2019 [facility] Arm [id number] 158 [employer] complet ed influenza , injectabl e, quadrival ent 05/29/20 Given Ambulat ory Pharmac y influenza, injectable, quadrivalent, contains preservative 1 2019 ANA TINAJERO [id number] 696 158 [employer] (SEQ) complet ed influenza , injectabl e, quadrival ent, contains preservat kenn DoD influenza, injectable, quadrivalent 2019 [id number] 350 158 [employer] complet ed influenza , injectabl e, quadrival ent 10/30/19 Given Ambulat ory Pharmac y influenza, injectable, quadrivalent, contains preservative 1 2019 [id number] 350 158 [employer] (SEQ) complet ed influenza , injectabl e, quadrival ent, contains preservat kenn DoD INFLUENZA, SEASONAL, INJECTABLE 2018 141 complet ed [facility] tetanus, diphtheria, acellular pertu is 2017 [id number] 115 [employer] complet ed tetanus, diphtheri a, acellular pertussis 07/25/18 Given Ambulat ory Pharmac y tetanus toxoid, reduced diphtheria toxoid, and acellular pertu is vaccine, adsorbed 1 2017 [id number] 115 [employer] (SKB) complet ed tetanus toxoid, reduced diphtheri a toxoid, and acellular pertussis vaccine, adsorbed DoD influenza, seasonal, injectable-pf 2017 [id number] 140 [employer] complet ed influenza , seasonal, injectabl e-pf 06/13/18 Given Ambulat ory Pharmac y Influenza, seasonal, injectable, preservative free 1 2017 [id number] 140 [employer] (SEQ) comple t ed Influenza , seasonal, injectabl e, preservat kenn free DoD INFLUENZA, SEASONAL, INJECTABLE 2016 141 complet ed [facility]. [facility] influenza, seasonal, injectable-pf 2016 [id number] 140 [employer] complet ed influenza , seasonal, injectabl e-pf 06/20/17 Given Ambulat ory Pharmac y Influenza, seasonal, injectable, preservative free 1 2016 [id number] 140 [employer] (SEQ) comple t ed Influenza , seasonal, injectabl e, preservat kenn free DoD influenza, seasonal, injectable-pf 2015 [id number] 140 CSL Behring complet ed influenza , seasonal, injectabl e-pf 07/27/16 Given Ambulat ory Pharmac y Influenza, seasonal, injectable, preservative free 1 2015 [id number] 140 C[employer] (CSL) complet ed Influenza , seasonal, injectabl e, preservat kenn free DoD influenza virus vaccine, live 2011 [id number] 111 Medimmune Inc comple t ed influenza virus vaccine, live 06/06/12 Given Ambulat ory Pharmac y influenza virus vaccine, live, attenuated, for intranasal use 1 2011 [id number] 111 [employer] (MED) complet ed influenza virus vaccine, live, attenuate d, for intranasa l use DoD FLU,3 YRS (HISTORICAL) 2010 88 complet ed [facility] influenza virus vaccine, live 2010 [id number] 111 [employer] Inc comple t ed influenza virus vaccine, live 06/30/11 Given Ambulat ory Pharmac y influenza virus vaccine, live, attenuated, for intranasal use 1 2010 [id number] 111 [employer] (MED) complet ed influenza virus vaccine, live, attenuate d, for intranasa l use DoD FLU,3 YRS (HISTORICAL) 2010 88 complet ed Site: Right Deltoid [facility] tuberculin purified protein derivative 2008 UNKNOWN 96 Unknown complet ed tuberculi n purified protein derivativ e 06/14/09 Given Ambulat ory Pharmac y influenza virus vaccine,split 2008 [id number] 15 sanofi pasteur complet ed influenza virus vaccine,s plit 06/14/09 Given Ambulat ory Pharmac y influenza virus vaccine, split virus (incl. purified surface antigen)-reti red CODE 1 2008 [id number] 15 Sanofi Pasteur ([facility]) complet ed influenza virus vaccine, split [...] y tetanus, diphtheria, acellular pertu is 2007 [id number] 115 Unknown complet ed tetanus, diphtheri a, [...] acellular pertu is vaccine, adsorbed 1 2007 [id number] 115 Unknown (UNK) comple t ed tetanus [...] B vaccine 2005 [id number] 104 GlaxoSmithKli ne complet ed hepatitis A-hepatit is B vaccine 04/02/06 Given Ambulat ory Pharmac y hepatitis A and hepatitis B vaccine 2 2005 [id number] 1AA 104 [employer] (SKB) complet ed hepatitis A and hepatitis B vaccine DoD tuberculin purified protein derivative 2005 [id number] 96 [facility] complet ed tuberculi n purified protein derivativ e 03/28/06 Given Ambulat ory Pharmac y tuberculin purified protein derivative 2003 [id number] 96 Unknown complet ed tuberculi n purified protein derivativ e 02/03/04 Given Ambulat ory Pharmac y meningococcal polysaccharid e (MPSV4) 2003 [id number] 32 Unknown complet ed meningoco ccal polysacch aride (MPSV4) 02/03/04 Given Ambulat ory Pharmac y poliovirus vaccine, inactivated 2003 [id number] 10 sanofi pasteur complet ed polioviru s vaccine, inactivat ed 02/03/04 Given Ambulat ory Pharmac y tetanus-dipht h toxoids (Td) adult/adol 2003 [id number] 09 sanofi pasteur complet ed tetanus-d iphth toxoids (Td) adult/ado l 02/03/04 Given Ambulat ory Pharmac y measles/mumps /rubella virus vaccine 2003 [id number] 03 Merck & Company Inc complet ed measles/m umps/rube lla virus vaccine 02/03/04 Given Ambulat ory Pharmac y influenza virus vaccine,split 2003 [id number] 15 Unknown complet ed influenza virus vaccine,s plit 02/03/04 Given Ambulat ory Pharmac y measles, mumps and rubella virus vaccine 1 2003 [id number] 03 Merck (MSD) complet ed measles, mumps and rubella virus vaccine DoD tetanus and diphtheria toxoids, adsorbed, preservative free, for adult use (2 Lf of tetanus toxoid and 2 Lf of diphtheria toxoid) 1 2003 [id number] 09 Sanofi Pasteur ([facility]) complet ed tetanus and diphtheri a toxoids, adsorbed, preservat kenn free, for adult use (2 Lf of tetanus toxoid and 2 Lf of diphtheri a toxoid) DoD poliovirus vaccine, inactivated 1 2003 [id number] 10 Sanofi Pasteur ([facility]) complet ed polioviru s vaccine, inactivat ed DoD influenza virus vaccine, split virus (incl. purified surface antigen)-reti red CODE 1 2003 [id number] 15 Unknown (UNK) comple t ed influenza virus vaccine, split virus (incl. purified surface antigen)- retired CODE DoD meningococcal polysaccharid e vaccine (MPSV4) 1 2003 [id number] 32 Unknown (UNK) comple t ed meningoco ccal polysacch aride vaccine (MPSV4) DoD hepatitis A-hepatitis B vaccine 2003 [id number] 104 Unknown complet ed hepatitis A-hepatit is B vaccine 02/02/04 Given Ambulat ory Pharmac y hepatitis A and hepatitis B vaccine 1 2003 [id number] 6 104 Unknown (UNK) complet ed hepatitis A and hepatitis B vaccine DoD Results Combined list of recent chemistry, hematology and other laboratory results from Department of Defense and Veterans Affairs, ranging from 15 months to all on record, depending upon the facility. Order Name Results Value Reference Range Date Interpretation Specimen Comments Source BASIC METABOLI C PANEL (fasting ) UREA NITROGEN [MASS/VOLU ME] IN SERUM OR PLASMA 15 mg/dL 7 - 25 03/19 Specimen Type: SERUM No comment entered. Ordering Provider: HUMERA CARRASCO Report Released Date/Time: Mar 19, 2024 09:32 AM Reporting Lab: [address] [address] Performing Lab: [address] [address] [facility] BASIC METABOLI C PANEL (fasting ) GLUCOSE [MASS/VOLU ME] IN SERUM OR PLASMA 106 mg/dL 65 - 100 03/19 H Specimen Type: SERUM No comment entered. Ordering Provider: HUMERA CARRASCO Report Released Date/Time: Mar 19, 2024 09:32 AM Reporting Lab: [address] [address] Performing Lab: [address] [address] [facility] BASIC METABOLI C PANEL (fasting ) SODIUM [MOLES/VOL UME] IN SERUM OR PLASMA 138 mmol/L 135 - 145 03/19 Specimen Type: SERUM No comment entered. Ordering Provider: HUMERA CARRASCO Report Released Date/Time: Mar 19, 2024 09:32 AM Reporting Lab: [address] [address] Performing Lab: [facility] [address] [facility] [address] [facility] BASIC METABOLI C PANEL (fasting ) POTASSIUM [MOLES/VOL UME] IN SERUM OR PLASMA 4.3 mmol/L 3.5 - 5.0 03/19 Specimen Type: SERUM No comment entered. Ordering Provider: HUMERA CARRASCO Report Released Date/Time: Mar 19, 2024 09:32 AM Reporting Lab: [facility] [address] [facility] [address] Performing Lab: [facility]USE[address] [address] [facility]ITALRUAB [facility] BASIC METABOLI C PANEL (fasting ) CHLORIDE [MOLES/VOL UME] IN SERUM OR PLASMA 106 mmol/L 100 - 110 03/19 Specimen Type: SERUM No comment entered. Ordering Provider: HUMERA CARRASCO Report Released Date/Time: Mar 19, 2024 09:32 AM Reporting Lab: [facility]ITALRGR[facility]TRN [facility]USE[address] [address] Performing Lab: [facility] [address] [facility] BASIC METABOLI C PANEL (fasting ) CARBON DIOXIDE, TOTAL [MOLES/VOL UME] IN SERUM OR PLASMA 25 meq/L 20 - 30 03/19 Specimen Type: SERUM No comment entered. Ordering Provider: HUMERA CARRASCO Report Released Date/Time: Mar 19, 2024 09:32 AM Reporting Lab: [facility]ITALUSETS [address] [address] Performing Lab: [facility]ITALUSETS [address] [address] [facility]ITALRUAB [facility]N [facility] BASIC METABOLI C PANEL (fasting ) CREATININE [MASS/VOLU ME] IN SERUM OR PLASMA 0.92 mg/dL 0.50 - 1.40 03/19 Specimen Type: SERUM No comment entered. Ordering Provider: HUMERA CARRASCO Report Released Date/Time: Mar 19, 2024 09:32 AM Reporting Lab: [facility] [address] [facility] [address] Performing Lab: [facility] [address] [facility] [address] [facility] BASIC METABOLI C PANEL (fasting ) GLOMERULAR FILTRATION RATE/1.73 SQ M.PREDICTE D [VOLUME RATE/AREA] IN SERUM, PLASMA OR BLOOD BY CREATININE -BASED FORMULA (CKD-EPI 2020) >90mL/mi n 60 03/19 Specimen Type: SERUM No comment entered. Ordering Provider: HUMERA CARRASCO Report Released Date/Time: Mar 19, 2024 09:32 AM Reporting Lab: [facility] [place] [facility] [address] [facility] [address] Performing Lab: [facility] [place] [facility] [address] [facility] [address] [facility] CBC LEUKOCYTES [#/VOLUME] IN BLOOD BY AUTOMATED COUNT 5.92 10*3/uL 4.50 - 11.00 03/19 Specimen Type: BLOOD No comment entered. Ordering Provider: HUMERA CARRASCO Report Released Date/Time: Mar 19, 2024 09:32 AM Reporting Lab: [facility] [place] [facility] [address] [facility] [address] Performing Lab: [facility] [place] [facility] [address] [facility] [address] [facility] CBC ERYTHROCYT ES [#/VOLUME] IN BLOOD BY AUTOMATED COUNT 5.62 10*6/uL 4.23 - 5.66 03/19 Specimen Type: BLOOD No comment entered. Ordering Provider: HUMERA CARRASCO Report Released Date/Time: Mar 19, 2024 09:32 AM Reporting Lab: [facility] [place] [facility] [address] [facility] [address] Performing Lab: [facility] [place] [address] [address] [facility] CBC HEMOGLOBIN [MASS/VOLU ME] IN BLOOD 16.5 g/dL 12.8 - 17 03/19 Specimen Type: BLOOD No comment entered. Ordering Provider: HUMERA CARRASCO Report Released Date/Time: Mar 19, 2024 09:32 AM Reporting Lab: [facility] [place] [facility] [address] [facility] [address] Performing Lab: [facility] [place] [facility] [address] [facility] [address] [facility] CBC HEMATOCRIT [VOLUME FRACTION] OF BLOOD BY AUTOMATED COUNT 46.9 39.2 - 50.4 03/19 Specimen Type: BLOOD No comment entered. Ordering Provider: HUMERA CARRASCO Report Released Date/Time: Mar 19, 2024 09:32 AM Reporting Lab: [facility] [place] [facility] [address] [facility] [address] Performing Lab: [facility] [place] [facility] [address] [facility] [address] [facility] [place] [facility] CBC MCV [ENTITIC VOLUME] BY AUTOMATED COUNT 83.5 fL 82 - 99 03/19 Specimen Type: BLOOD No comment entered. Ordering Provider: HUMERA CARRASCO Report Released Date/Time: Mar 19, 2024 09:32 AM Reporting Lab: [facility] [place] [facility] [address] [facility] [address] Performing Lab: [facility] [place] [facility] [address] [facility] [address] [facility] CBC MCHC [MASS/VOLU ME] BY AUTOMATED COUNT 35.2 g/dL 30.8 - 35.1 03/19 H Specimen Type: BLOOD No comment entered. Ordering Provider: HUMERA CARRASCO Report Released Date/Time: Mar 19, 2024 09:32 AM Reporting Lab: [facility] [place] [facility] [address] [facility] [address] Performing Lab: [facility] [place] [facility] [address] [facility] [address] [facility] CBC PLATELETS [#/VOLUME] IN BLOOD BY AUTOMATED COUNT 179 10*3/uL 140 - 360 03/19 Specimen Type: BLOOD No comment entered. Ordering Provider: HUMERA CARRASCO Report Released Date/Time: Mar 19, 2024 09:32 AM Reporting Lab: [facility]ITALUSE[facility] [address] [facility] [address] Performing Lab: [facility]ITALUSESTR[facility] [address] [facility] [address] [facility] CBC ERYTHROCYT E DISTRIBUTI ON WIDTH [RATIO] BY AUTOMATED COUNT 11.9 12.0 - 16.0 03/19 L Specimen Type: BLOOD No comment entered. Ordering Provider: HUMERA CARRASCO Report Released Date/Time: Mar 19, 2024 09:32 AM Reporting Lab: [facility] [address] Performing Lab: [facility]ITALUSE[facility] [address] [facility] [address] [facility] CBC MCH [ENTITIC MASS] BY AUTOMATED COUNT 29.4 pg 26.2 - 32.6 03/19 Specimen Type: BLOOD No comment entered. Ordering Provider: HUMERA CRARASCO Report Released Date/Time: Mar 19, 2024 09:32 AM Reporting Lab: [facility] [address] Performing Lab: [facility]ITALUSE[address] [address] [facility] MASSUSE [facility] HEMOGLOB IN A1C PANEL HEMOGLOBIN A1C/HEMOGL [...] AM Reporting Lab: [facility] [place] [facility] [address] [facility] [address] Performing Lab: [facility] [place] [facility] [address] [facility] [address] [facility] LIPID PANEL FASTING CHOLESTERO L [MASS/VOLU ME] IN SERUM OR PLASMA 203 mg/dL 03/19 H Specimen Type: SERUM No comment entered. Ordering Provider: HUMERA CARRASCO Report Released Date/Time: Mar 19, 2024 09:32 AM Reporting Lab: [facility] [place] [facility] [address] [facility] [address] Performing Lab: [facility] [place] [address] [address] [facility] [place] [facility] LIPID PANEL FASTING TRIGLYCERI DE [MASS/VOLU ME] IN SERUM OR PLASMA 63 mg/dL 0 - 150 03/19 Specimen Type: SERUM No comment entered. Ordering Provider: HUMERA CARRASCO Report Released Date/Time: Mar 19, 2024 09:32 AM Reporting Lab: [facility] [place] [facility] [address] [facility] [address] Performing Lab: [facility] [place] [address] [address] [facility] [place] [facility] LIPID PANEL FASTING CHOLESTERO L IN LDL [MASS/VOLU ME] IN SERUM OR PLASMA BY CALCULATIO N 137 mg/dL 0 - 129 03/19 H Specimen Type: SERUM No comment entered. Ordering Provider: HUMERA CARRASCO Report Released Date/Time: Mar 19, 2024 09:32 AM Reporting Lab: [facility] [place] [facility] [address] [facility] [address] Performing Lab: [facility] [place] [facility] [address] [facility] [address] [facility] [place] [facility] LIPID PANEL FASTING CHOLESTERO L.TOTAL/CH OLESTEROL IN HDL [MASS RATIO] IN SERUM OR PLASMA 3.8 03/19 Specimen Type: SERUM No comment entered. Ordering Provider: HUMERA CARRASCO Report Released Date/Time: Mar 19, 2024 09:32 AM Reporting Lab: [facility] [place] [facility] [address] [facility] [address] Performing Lab: [facility] [address] [facility] [address] [facility] LIPID PANEL FASTING CHOLESTERO L IN HDL [MASS/VOLU ME] IN SERUM OR PLASMA 53 mg/dL 40 - 60 03/19 Specimen Type: SERUM No comment entered. Ordering Provider: HUMERA CARRASCO Report Released Date/Time: Mar 19, 2024 09:32 AM Reporting Lab: [facility] [address] [address] Performing Lab: [facility] [address] [address] [facility] LIVER FUNCTION PROTEIN [MASS/VOLU ME] IN SERUM OR PLASMA 6.6 g/dL 6.0 - 8.3 03/19 Specimen Type: SERUM No comment entered. Ordering Provider: HUMERA CARRASCO Report Released Date/Time: Mar 19, 2024 09:32 AM Reporting Lab: [facility] [place] [address] [address] Performing Lab: [facility] [place] [address] [address] [facility] LIVER FUNCTION ALBUMIN [MASS/VOLU ME] IN SERUM OR PLASMA 3.9 g/dL 3.5 - 5.0 03/19 Specimen Type: SERUM No comment entered. Ordering Provider: HUMERA CARRASCO Report Released Date/Time: Mar 19, 2024 09:32 AM Reporting Lab: [facility] [place] [address] [address] Performing Lab: [facility] [place] [place] [address] [address] [facility] [place] [facility] LIVER FUNCTION ALKALINE PHOSPHATAS E [ENZYMATIC ACTIVITY/V OLUME] IN SERUM OR PLASMA 51 U/L 40 - 150 03/19 Specimen Type: SERUM No comment entered. Ordering Provider: HUMERA CARRASCO Report Released Date/Time: Mar 19, 2024 09:32 AM Reporting Lab: [facility] [place] [facility] [address] [facility] [address] Performing Lab: [facility] [place] [facility] [address] [facility] [address] [facility] [place] [facility] LIVER FUNCTION ASPARTATE AMINOTRANS FERASE [ENZYMATIC ACTIVITY/V OLUME] IN SERUM OR PLASMA 16 U/L 5 - 34 03/19 Specimen Type: SERUM No comment entered. Ordering Provider: HUMERA CARRASCO Report Released Date/Time: Mar 19, 2024 09:32 AM Reporting Lab: [facility] [place] [facility] [address] [facility] [address] Performing Lab: [facility] [place] [address] [address] [place] [facility] [place] [facility] LIVER FUNCTION ALANINE AMINOTRANS FERASE [ENZYMATIC ACTIVITY/V OLUME] IN SERUM OR PLASMA 35 U/L 03/19 Specimen Type: SERUM No comment entered. Ordering Provider: HUMERA CARRASCO Report Released Date/Time: Mar 19, 2024 09:32 AM Reporting Lab: [facility] [place] [facility] [address] [facility] [address] Performing Lab: [facility] [place] [facility] [address] [facility] [address] [facility] [place] [facility] LIVER FUNCTION BILIRUBIN. TOTAL [MASS/VOLU ME] IN SERUM OR PLASMA 0.5 mg/dL 0.2 - 1.2 03/19 Specimen Type: SERUM No comment entered. Ordering Provider: HUMERA CARRASCO Report Released Date/Time: Mar 19, 2024 09:32 AM Reporting Lab: [facility] [place] [facility] [address] [facility] [address] Performing Lab: [facility] [address] [facility] [address] [facility] TSH THYROTROPI N [UNITS/VOL UME] IN SERUM OR PLASMA 0.99 u[IU]/mL 0.35 - 5.00 03/19 Specimen Type: SERUM No comment entered. Ordering Provider: HUMERA CARRASCO Report Released Date/Time: Mar 19, 2024 09:32 AM Reporting Lab: [facility] [address] [facility] [address] Performing Lab: [address] [address] [facility] HEPATITI S B SURFACE ANTIBODY (HBsAb)- WH HEPATITIS B VIRUS SURFACE AB [PRESENCE] IN SERUM BY IMMUNOASSA Y REACTIVE 12/26 Specimen Type: SERUM Comment: A 'Reactive' result indicates HBsAb results >/= 12.0 mIU/mL and immunity to HBV infection. Ordering Provider: BRIANNA CEJA SA Report Released Date/Time: December 26, 2022 09:31 AM Reporting Lab: [address] [address] Performing Lab: [facility] [address] [facility] [address] [facility] MMRV (IGG) IMMUNE STATUS PANEL MEASLES [...] December 26, 2022 09:31 AM Reporting Lab: [address] [address] Performing Lab: [facility] [address] [place] [address] [facility] MMRV (IGG) IMMUNE STATUS PANEL MUMPS [...] December 26, 2022 09:31 AM Reporting Lab: [address] [address] Performing Lab: [address] [place] [address] MMRV (IGG) IMMUNE STATUS PANEL RUBELLA VIRUS [...] December 26, 2022 09:31 AM Reporting Lab: [address] [address] Performing Lab: [address] [address] [facility] MMRV (IGG) IMMUNE STATUS PANEL VARICELLA [...] December 26, 2022 09:31 AM Reporting Lab: [facility] [address] [facility] [address] Performing Lab: [facility] [address] [facility] [address] [facility] T-SPOT TB PANEL MYCOBACTER IUM TUBERCULOS [...] additional information , please refer to http://educ ation.L[employer]a [employer] .com/faq/FA Q215 (This link is being provided for information al/ educational purposes only.) Test Performed by [employer], [employer] [facility], [address] [place] [address] Reed Marcum M.D., Ph.D., Director of Laboratorie s , CLIA [id number] TEST PERFORMED AT: , Ordering Provider: BRIANNA CEJA SA Report Released Date/Time: December 26, 2022 09:31 AM Reporting Lab: [facility] [address] [facility] [address] Performing Lab: [facility] [address] [address] [facility] T-SPOT TB PANEL MYCOBACTER IUM TUBERCULOS [...] additional information , please refer to http://educ ation.[employer] .com/faq/FA Q215 (This link is being provided for information al/ educational purposes only.) Test Performed by [employer], [employer] [facility], [address] [place] [address] Reed Marcum M.D., Ph.D., Director of Laboratorie s , CLIA [id number] TEST PERFORMED AT: , Ordering Provider: BRIANNA CEJA SA Report Released Date/Time: December 26, 2022 09:31 AM Reporting Lab: [facility] [address] [facility] [address] Performing Lab: [facility] [address] [address] [facility] T-SPOT TB PANEL MYCOBACTER IUM TUBERCULOS [...] additional information , please refer to http://educ ation.[employer] .CoffeeTable/faq/FA Q215 (This link is being provided for information al/ educational purposes only.) Test Performed by [employer], [employer] [facility], [address] [place] [address] Reed Marcum M.D., Ph.D., Director of Laboratorie s , [place] [id number] TEST PERFORMED AT: , Ordering Provider: BRIANNA CEJA SA Report Released Date/Time: December 26, 2022 09:31 AM Reporting Lab: [facility] [address] [facility] [address] Performing Lab: [facility] [address] [address] [facility] T-SPOT TB PANEL MITOGEN STIMULATED GAMMA [...] additional information , please refer to http://educ ation.[employer] .CoffeeTable/faq/FA Q215 (This link is being provided for information al/ educational purposes only.) Test Performed by [employer], [employer] [facility], [address] [place] [address] Reed Marcum M.D., Ph.D., Director of Laboratorie s , CLIA [id number] TEST PERFORMED AT: , Ordering Provider: BRIANNA CEJA SA Report Released Date/Time: December 26, 2022 09:31 AM Reporting Lab: [facility] [address] [facility] [address] Performing Lab: [facility] [address] [address] [facility] T-SPOT TB PANEL GAMMA INTERFERON NEGATIVE [...] additional information , please refer to http://educ ation.[employer] .CoffeeTable/faq/FA Q215 (This link is being provided for information al/ educational purposes only.) Test Performed by [employer], [employer] [facility], [address] [place] [address] Reed Marcum M.D., Ph.D., Director of Laboratorie s , CLIA [id number] TEST PERFORMED AT: , Ordering Provider: BRIANNA CEJA SA Report Released Date/Time: December 26, 2022 09:31 AM Reporting Lab: [facility] [address] [facility] [address] Performing Lab: [facility] [address] [address] [facility] Infect us Disease HIV-1/2 AG/AB 4G CDD LC NEGATIVE 11/28 Result Comment: Performed At: 1 [facility] [address] [place] [address] KATHY BROWN PHD Ph:[phone] [address] [place] [address] Toi [place] Infect us Disease Source of Test.LC PostDepS torage (11/28/22 9:01 AM) 11/28 [facility]i [place] Vital Signs Combined list of inpatient and outpatient Vital Signs from Department of Defense and Veterans Affairs, ranging from 12 months to all on record, depending upon the facility. Vital Sign Value Date Comments Source SYSTOLIC BLOOD PRESSURE 129 04/29/20 24 13:09:35 JBS[facility] DIASTOLIC BLOOD PRESSURE 83 024 13:09:35 [facility] PULSE OXIMETRY 97 04/29/2024 13:09:35 [facility] WEIGHT 250 04/29/2024 13:09:35 [facility] BMI 35 kg/m2 04/29/2024 13:09:35 [facility] PULSE 65 04/29/2024 13:09:35 [facility] SYSTOLIC BLOOD PRESSURE 125 11/27/19 24 15:15:15 [facility] DIASTOLIC BLOOD PRESSURE 76 024 15:15:15 [facility] PULSE OXIMETRY 95 11/27/2023 15:15:15 [facility] WEIGHT 230 11/27/2023 15:15:15 [facility] BMI 32 kg/m2 11/27/2023 15:15:15 [facility] HEIGHT 71 11/27/2023 15:15:15 [facility] TEMPERATURE 97.9 11/27/2023 15:15:15 [facility] PULSE 70 11/27/2023 15:15:15 [facility] RESPIRATION 20 11/27/2023 15:15:15 JBS[facility] Peripheral Pulse Rate 99 bpm 11/28/2022 12:23:00 [facility] Toi Snider Temperature Temporal Artery 36.5 Greta 11/28/2022 12:23:00 010[facility] Toi Snider Systolic Blood Pressure 136 mm[Hg] 11/29/19 23 12:23:00 010[facility] Toi Snider Diastolic Blood Pressure 87 mm[Hg] 023 12:23:00 010[facility] Toi Snider Mean Arterial Pressure, Calc 108 mm[Hg] 11/29/2022 15:33:00 010[facility] Toi Snider Temperature Oral 36.5 Greta 11/29/2022 15:33:00 010[facility] Toi Snider Peripheral Pulse Rate 70 bpm 11/29/2022 15:33:00 010[facility] Toi Snider Systolic Blood Pressure 135 mm[Hg] 11/30/19 23 15:33:00 010[facility] [place]i [place] Diastolic Blood Pressure 95 mm[Hg] 023 15:33:00 010[facility] [place] Systolic Blood Pressure 130 mm[Hg] 11/30/19 23 12:29:00 010[facility] [place]i [place] Diastolic Blood Pressure 84 mm[Hg] 023 12:29:00 010[facility] Toi Snider Temperature Temporal Artery 36.2 Greta 11/29/2022 12:29:00 010[facility] [place]i [place] Peripheral Pulse Rate 76 bpm 11/29/2022 12:29:[address] [place] [address] [place]i [place] Encounters Combined list of: 1) Encounters from Department of Veterans Affairs facilities going backup to the last 18 months, not all VA inpatient encounters are included; 2) Encounters from the Department of Defense facilities going backup to 280 months. Location Location Details Encounter Type Encounter Number Reason For Visit Attending Provider ADM Date DC Date Status Disposition Source [place] Conserv[place] Exam) OUTPATIENT [id number] BRAD CEJA 04/01 Released w/[place] Limitations [place] OUTPAT[place] [id number] ALISA BROWNE 04/11 [place] Limitations [place] [facility] OUTPATIENT [id number] AUGUSTIN BAIRES 07/12 [facility]ased w/o Limitations [facility] [place]([facility] De[facility] t [facility]) OUTPATIENT [id number] Notes Entered by: ALEXANDR MCKEON 29 May 2020 1105 ------- ------- ------- ------- -- MOB-BAILEE LAM 05/29 Released w/o Limitations [facility] [place]([facility] De[facility]) [place]) OUTPATIENT [id number] Notes Entered by: ABBY SOLIS 30 May 2021 1448 ------- ------- ------- ------- -- post deploym ent AYLA LOERA 05/30 Released w/o Limitations [place] [place] OUTPATIENT [id number] Notes Entered by: JUAN PETERSON 31 May 2021 0756 ------- ------- ------- ------- -- MARIUSZ ANDERSON 05/31 [place]ased [place] Limitations [place] [place] S06D Trudy) OUTPATIENT [id number] HUNG Ratliff 05/31 Released w/o Limitations [place] S06D Trudy) [facility] [place]([facility] De[facility] t [facility]) OUTPATIENT [id number] Notes Entered by: AIDEN PARISHNGUYENGlen MONTIEL 25 Jan 2022 0821 ------- ------- ------- ------- -- MOB SAUDI ARABIA ANA CORDOVA 01/25 Released w/o Limitations [facility] [place]([facility] De[facility] ent [facility]) [facility] [place]([facility]) OUTPATIENT [id number] F2F FLU LIKE SYMPTOM S USAR [phone] NIKOS SPEARS 01/28 Released w/o Limitations [facility] [place]([facility]) [facility] [place]([facility]) OUTPATIENT [id number] F2F Sore throat ZZZBM_ADI ASHER, ZZZBM_LEIGH LAS NISSA 01/29 Sick at Home/Quarter s [facility] [place]([facility]) Theater Facility OUTPATIENT [id number] Theater Provider 03/19 Released w/o Limitations [facility] OUTPATIENT [id number] Theater Provider 04/08 Released w/o Limitations [facility] OUTPATIENT [id number] Theater Provider 04/11 Released w/o Limitations [facility] OUTPATIENT [id number] Theater Provider 06/29 Sick at Home/Quarter s Theater [facility] OUTPATIENT [id number] Theater Provider 07/02 Released w/o Limitations [facility] OUTPATIENT [id number] Theater Provider 07/10 Released w/o Limitations Theater [facility] OUTPATIENT [id number] Theater Provider 07/16 Released w/o Limitations Theater [facility] OUTPATIENT [id number] Theater Provider 07/17 Released w/o Limitations Theater [facility] OUTPATIENT [id number] Theater Provider 07/30 Released w/o Limitations Theater [facility] OUTPATIENT [id number] Theater Provider 07/31 Released w/o Limitations [facility] OUTPATIENT [id number] Theater Provider 08/29 Released w/o Limitations Theater [facility] OUTPATIENT [id number] Theater Provider 10/28 Released w/o Limitations Theater [facility] OUTPATIENT [id number] Theater Provider 11/04 Released w/o Limitations Theater Facilit y [facility] Outpatient Encounter [id number] 04/18 [facility] [place] [facility] Outpatient Encounter [id number] 04/22 [facility] [place] [place] [facility] [place] [facility] COMMUNITY/ WORK REINTEGRAT ION [id number] Diagnos is: ICD-10- CM Z56.0 Unemplo yment, unspeci fied FAIZAHUNG MAGOSUSIE Idalmis 04/29 [facility] [place] [facility] [place] [facility] COMMUNITY/ WORK REINTEGRAT ION [id number] Diagnos is: ICD-10- CM Z56.0 Unemplo yment, unspeci fiST GAYE Shi 05/07 [facility] [place] [place] [facility] [place] [facility] Outpatient Encounter [id number] 05/08 [facility] [place] [place] [facility] Outpatient Encounter [id number] Diagnos is: ICD-10- CM Z77.29 Contact with and exposur e to other hazardo us substan JUAN JOSE Ziegler SA J 05/10 [facility] UNLISTED PSYC SVC/THERAP Y [id number] Diagnos is: ICD-10- CM Z77.29 Contact with and exposur e to other hazardo us substan dionne SATINDER BALDERAS 05/10 [facility] [place] [facility] Outpatient Encounter [id number] 05/20 [facility] [place] [place] [facility] [place] [facility] COMMUNITY/ WORK REINTEGRAT ION [id number] Diagnos is: ICD-10- CM Z56.0 Unemplo yment, unspeci fied HUNG KENDALL J 05/21 [facility] [place] [facility] [place] [facility] CASE MANAGEMENT [id number] Diagnos is: ICD-10- CM F43.23 Adjustm ent disorde r with mixed anxiety and depress ed mood KRISTOPHER QUINONES 05/21 [facility] En[facility] [id number] 05/21 [facility] En[facility] [id number] 05/22 [facility] En[facility] [id number] 05/25 [facility] COMMUNITY/ WORK REINTEGRAT ION [id number] Diagnos is: ICD-10- CM Z56.0 Unemplo yment, unspeci fied ST GAYE HERRON 05/27 [facility] En[facility] [id number] Diagnos is: ICD-10- CM G47.00 Insomni a, unspeci fiuzair MARIEREFUGIO 06/12 [facility] En[facility] [id number] 06/23 [facility] [place] [facility] CASE MANAGEMENT [id number] Diagnos is: ICD-10- CM F43.23 Adjustm ent disorde r with mixed anxiety and depress ed mood KRISTOPHER QUINONES 06/24 [facility] En[facility] [id number] 07/02 [facility] En[facility] [id number] 07/11 [facility] OFF/OP EST MAY X REQ PHY/QHP [id number] Diagnos is: ICD-10- CM Z71.89 Other specifi ed anger control counselor NGUYEN More 07/11 [facility] OFFICE O/P EST LOW 20-29 MIN [id number] Diagnos is: ICD-10- CM M54.50 Low back pain, unspeci fiuzair MARIEREFUGIO 07/11 [facility] OFFICE O/P EST LOW 20-29 MIN [id number] Diagnos is: ICD-10- CM F43.23 Adjustm ent disorde r with mixed anxiety and depress ed mood TOI JARRELL 07/18 [facility] CASE MANAGEMENT [id number] Diagnos is: ICD-10- CM F43.23 Adjustm ent disorde r with mixed anxiety and depress ed mood KRISTOPHER QUINONES 07/24 [facility] [place] OFFICE O/P EST HI 40-54 MIN [id number] Diagnos is: ICD-10- CM F43.12 Post-tr aumatic stress disorde r, chronic EVE,M MORIS 08/04 [facility] [place] [facility] COMMUNITY/ WORK REINTEGRAT ION [id number] Diagnos is: ICD-10- CM Z56.0 Unemplo yment, unspeci fiST GAYE Shi BAILEE 08/26 [facility] En[facility] [id number] 08/27 [facility] [place] [facility] Outpatient Encounter [id number] 08/27 [facility] [place] COMMUNITY/ WORK REINTEGRAT ION [id number] Diagnos is: ICD-10- CM Z56.0 Unemplo yment, unspeci fied SKERRY DAVIDST GAYE ARELLANO 08/28 [facility] En[facility] [id number] Susan LONDONO 09/01 [facility] [id number] 09/01 [facility]counter [id number] 09/01 [facility] [id number] JORGE MCKEON 09/01 [facility] Encounter [id number] 09/01 [facility] [id number] 09/01 [facility] Encounter [id number] 09/02 [facility] [place] OFF/OP EST DECEMBER X REQ PHY/QHP [id number] Diagnos is: ICD-10- CM I10 Essenti al (primar y) hyperte nsion JENNIFER ALVARADO K 09/02 [place] [facility] Encounter [id number] 09/02 [facility] [id number] 09/03 [facility] En[facility] [id number] 09/25 [facility] OFFICE O/P EST MOD 30 MIN [id number] Diagnos is: ICD-10- CM F43.12 Post-tr aumatic stress disorde r, chronic EVE,Susan MORIS 09/29 [facility] En[facility] [id number] 10/08 [facility] Out[facility] Encounter [id number] 10/15 [facility] OFFICE O/P EST MOD 30 MIN [id number] Diagnos is: ICD-10- CM F43.12 Post-tr aumatic stress disorde r, chronic EVESusan MORIS 10/23 [facility] Out[facility] Encounter [id number] 10/28 [facility] Encounter [id number] 11/18 [facility] Encounter [id number] 11/24 [facility] [place] OFFICE O/P EST MOD 30 MIN [id number] Diagnos is: ICD-10- CM I10 Essenti al (primar y) hyperte MARILOU Talbot 11/26 [place] [facility] Out[facility] Encounter [id number] 11/26 [facility] OFFICE O/P EST MOD 30 MIN [id number] Diagnos is: ICD-10- CM F43.12 Post-tr aumatic stress disorde r, chronic Susan PRADO MORIS 12/18 [facility] Encounter [id number] 01/13 [facility] Out[facility] Encounter [id number] 01/14 [facility] OFFICE O/P EST MOD 30 MIN [id number] Diagnos is: ICD-10- CM F43.12 Post-tr aumatic stress disorde r, anand Susan PRADO MORIS 01/15 [facility] OFFICE O/P EST MOD 30 MIN [id number] Diagnos is: ICD-10- CM F10.99 Alcohol use, unsp with unspeci fied alcohol -induce d disorde r Susan PRADOIN 02/12 [facility] En[facility] [id number] 02/18 [facility] Out[facility] Encounter [id number] 03/02 [facility] En[facility] [id number] 03/15 [facility] Encounter [id number] 04/19 [facility] Out[facility] Encounter [id number] 04/21 [facility] OFFICE O/P EST MOD 30 MIN [id number] 1BY. [id number] Diagnos is: ICD-10- CM M54.50 Low back pain, unspeci fied MARILOU CARRASCO 04/29 [place] [facility] Encounter [id number] 05/18 [facility] [place] [place] [id number] Diagnos is: ICD-10- CM H90.3 Sensori neural hearing loss, bilater LIANG Rodrigez 05/18 [facility] En[facility] [id number] 05/19 [facility] Encounter [id number] 05/20 [facility] Encounter [id number]/21 [facility] Encounter [id number] BRAULIO WAHL 08/02 [facility] Out[facility] Encounter [id number] 08/31 [facility]counter [id number] 08/31 [facility] Out[facility] Encounter [id number] 09/21 [facility] Out[facility] Encounter [id number] SUSAN SEPULVEDA YS 09/23 [facility] Out[facility] Encounter [id number] SUSAN SEPULVEDA 09/24 [facility] Out[facility] Encounter [id number] CECILIA DAVID 09/24 [facility] Out[facility] Encounter [id number] 09/26 [facility] OFFICE O/P EST HI 40 MIN [id number] Diagnos is: ICD-10- CM F43.9 Reactio n to severe stress, unspeci Susan Manriquez 10/04 [facility] Procedures Combined list of: 1) Procedures from Department of Veterans Affairs facilities going back up to thelast 18 months, not all VA non-surgical procedures are included; 2) All procedures from the Department of Defense facilities. Procedure Procedure Type Code Date Perfomer Comments Sourc e SCREENING TEST OF VISUAL ACUITY, QUANTITATIVE, BILATERAL 2020 [facility] EAR PROTECTOR ATTENUATION MEASUREMENTS 2020 [employer] PHYS/OTH QUALIFIED HEALTH SUPERVISOR MAJOR APPLIANCE ASSEMBLY QUALIFIED,EDUCATIO N,TRAIN,LICENSURE/ REGULATION (WHEN APPLICABLE) EDUC SER RENDERED TO PATS IN A GRP SETTING (EG,,OBESI TY,OR DIABETIC INSTRUCT) 2008 [facility] COLLECTION OF VENOUS BLOOD BY VENIPUNCTURE 2008 [facility] SCREENING TEST OF VISUAL ACUITY, QUANTITATIVE, BILATERAL 2021 [facility] INFLUENZA VIRUS VACCINE, QUADRIVALENT (IIV4), SPLIT VIRUS, PRESERVATIVE FREE, 0.5 ML DOSAGE, FOR INTRAMUSCULAR USE 2019 [facility] INDIVIDUAL PSYCHOTHERAPY, INSIGHT ORIENTED, BEHAVIOR MODIFYING AND/OR SUPPORTIVE, IN AN OFFICE OR OUTPATIENT FACILITY, APPROXIMATELY 20 TO 30 MINUTES [id number] WITH THE PATIENT 2007 [facility] INFLUENZA VIRUS VACCINE, TRIVALENT (IIV3), SPLIT VIRUS, PRESERVATIVE FREE, 0.5 ML DOSAGE, FOR INTRAMUSCULAR USE 2007 [facility] PURE TONE AUDIOMETRY (THRESHOLD); AIR ONLY 2007 [facility] HEPATITIS A AND HEPATITIS B VACCINE (HEPA-HEPB), ADULT DOSAGE, FOR INTRAMUSCULAR USE 2005 [facility] SCREENING TEST OF VISUAL ACUITY, QUANTITATIVE, BILATERAL 2005 [facility] PATIENT EDUCATION, NOT OTHERWISE CLASSIFIED, NON-PHYSICIAN PROVIDER, GROUP, PER SESSION 2005 [facility] VENIPUNCTURE,AGE 2 YEARS/OLDER,NECESS ITATING THE SKILL OF A PHYSICIAN/OTHER QUALIFIED HEALTH SUPERVISOR MAJOR APPLIANCE ASSEMBLY (SEP PROC),FOR DIAGNOSTIC/THERAPE UTIC PURPOSES (NOT TO BE USED FOR ROUTINE VENIPUNCTURE) 2003 [facility] Physical Therapy Service Evaluation Low Complexity Physical Therapy Service Evaluation Low Complexity 22197 2021 Theater Provider [facility] Physical Therapy: ___ Se ion Segments, 15 Minutes Each Physical Therapy: ___ Session Segments, 15 Minutes Each 70719 2021 Theater Provider [facility] Musculoskeletal Needle Insertion Without Injection 1 Or 2 Muscles Musculoskeletal Needle Insertion Without Injection 1 Or 2 Muscles 38353 2021 Theater Provider [facility] Physical Therapy Service Evaluation Moderate Complexity Physical Therapy Service Evaluation Moderate Complexity 61375 2021 Theater Provider [facility] Physical Therapy: ___ Se ion Segments, 15 Minutes Each Physical Therapy: ___ Session Segments, 15 Minutes Each 07734 2021 Theater Provider [facility] Anthrax Vaccine Anthrax Vaccine 51173 2021 Theater Provider [facility] Threshold Audiogram (Pure Tone) Threshold Audiogram (Pure Tone) 77487 2008 EDD WATTS III [facility] Special Physician Services Analysis Of Computerized Data Special Physician Services Analysis Of Computerized Data 74957 2008 EDD WATTS III [facility] Physician Supervised Group Educational Services 2008 EDD WATTS III [facility] ENT Services ENT Services 48826 2008 EDD WATTS III [facility] Audiometry Group Testing Audiometry Group Testing 75746 2008 EDD WATTS III [facility] Clinical Social Work Individual Outpatient Counseling 30 Minutes Clinical Social Work Individual Outpatient Counseling 30 Minutes 26850 2007 MAKENNA CORONA [facility] Determination Of Refractive State Determination Of Refractive State 60137 2005 ALISA BROWNE Screening Test Of Visual Acuity, Quantitative, Bilateral Screening Test Of Visual Acuity, Quantitative, Bilateral 09310 2005 ALISA BROWNE Physician Supervised Services Provision Of Special Supplies Physician Supervised Services Provision Of Special Supplies 86554 2005 PREETI ROWE [facility] Ear mold/insert, not disposable, any type 2005 PREETI ROWE [facility] Patient education, not otherwise cla ified, non-physician provider, group, per se ion 2005 PREETI ROWE [facility] Audiometry Group Testing Audiometry Group Testing 25613 2005 PREETI ROWE [facility] Preventive Medicine Administration Of Health Risk Questionnaire Patient-Focused Preventive Medicine Administration Of Health Risk Questionnaire Patient-Focused 08656 BAILEE GREGORY [facility] Influenza Split Virus Vaccine IM With Preservative Quadrivalent 0.50mL Dosage Influenza Split Virus Vaccine IM With Preservative Quadrivalent 0.50mL Dosage 85483 BAILEE GREGORY Influenza, Inj., quad., contains preservative (Afluria); Series #: 1; 0.5 mL; IM; Right Arm; Mfg: Seqirus; Lot: [id number]; VIS given (Carolyn: 04/08/2019). [facility] Immunization Administration By Injection, One Vaccine Immunization Administration By Injection, One Vaccine 69414 BAILEE GREGORY [facility] Adaptive Behavior A e ment System, 2nd Edition (ABAS-II) Adaptive Behavior Assessment System, 2nd Edition (ABAS-II) 40990 ANA CORDOVA PHQ9, GAD7, AND PCL5 ALL SCORED 0. SM DENIES ANY SUICIDAL OR HOMICIDAL IDEATION. SEVERITY NONE [facility] Anthrax Vaccine For Subcutaneous Or Intramuscular Use Anthrax Vaccine For Subcutaneous Or Intramuscular Use 21698 CHARY CORDOVANINICOLE PARKER Anthrax; Series #: 1; 0.5 mL; IM; Left Arm; Mfg: [employer]; Lot: [id number]; VIS given (Carolyn: 09/01/2019). DoD Vaccines Viral Measles, Mumps and Rubella, Live Vaccines Viral Measles, Mumps and Rubella, Live 31659 MARIUSZ RODRIGES MMR; Series #: 3; 0.5 mL; SC; Left Arm; Mfg: Merck; Lot: [id number]; VIS given (Carolyn: 03/30/2021). [facility] A e ment & Intervention Blood Pre ure Measured Assessment & Intervention Blood Pressure Measured 2000F MARIUSZ RODRIGES [facility] Venipuncture Venipuncture 31455 MARIUSZ RODRIGES [facility] Screening Test Of Visual Acuity, Quantitative, Bilateral Screening Test Of Visual Acuity, Quantitative, Bilateral 38911 MARIUSZ RODRIGES [facility] Audiometry Group Testing Audiometry Group Testing 49374 PAULINA HUNTER Ear Protector Attenuation Measurements Ear Protector Attenuation Measurements 39949 PAULINA HUNTER [facility] No data available for this section Ambulato ry Pharmacy Social History Combined list of available smoking, tobacco, and other social history from Department of Defense and Veterans Affairs facilities. Social History Type Response Date Comment [facility] e Tobacco smoking status [facility] NEVER USED 04/29/2024 [facility] History of tobacco use [facility] NEVER USED [facility]02[facility]20[facility] Sex Representation Male 12/12/2021 Unknow n Organization [facility] of [facility]20/2019 [facility] [place] [facility] History of tobacco use LIFETIME NON-TOBACCO USER 07/31/2017 [facility] History of tobacco use LIFETIME NON-TOBACCO USER 09/04/2010 [facility] [place] [facility] This section is an empty social history section. [facility] Sexual Orientation Ambula tory Pharmacy Gender identity Ambulator y Pharmacy Assessment and Plan Combined list of future care activities from Department of Defense and Veterans Affairs facilities (e.g., assessment and plan notes, appointments, orders, and referrals). Additional future care activities may be listed in the Plan of Care section. Result Assessment and Plan Date Source Assessment and Plan No data available for this section 10/16/2024 Ambulatory Pharmacy Plan of Care List of future care activities from Department of Veterans [facility] facilities. Additional future care activities may be listed in the Assessment and Plan section. Date/Time Care Activity Care Activity Detail [facility] 10/27/2024 AMBULATORY - MEDICINE AMBULATORY - MEDICI [facility] 11/10/2024 AMBULATORY - PSYCHIATRY AMBULATORY - PSYC [facility] [place] [facility] Functional Status Combined list of recent functional and cognitive assessments recorded at Department of Defense and [facility] ([place] Functional Sherman Measurement (FIM) Scale: 1 = Total Assistance (Subject = 0% +), 2 = Maximal Assistance (Subject = 25% +), 3 = Moderate Assistance (Subject = 50% +), 4 = Minimal Assistance (Subject = 75% +), 5 = Supervision, 6 = Modified Sherman (Device), 7 = Complete Sherman (Timely, Safely). Assessment Date/Time Source Assessment Type Assessment Skill Assessment Score Assessment Details No data available for this section
[2024-10-16 08:21] LABS: MANUAL DIFF FLAG NO
[2024-10-16 09:13] LABS: Basophils Percent Auto 0.6 % (0-2); Eosinophils Absolute Auto 0.1 X10*3/uL (0.0-0.4); Eosinophils Percent Auto 3.5 % (0-4); Hematocrit 48.2 % (42.0-52.0); Hemoglobin 16.9 g/dl (14.0-18.0); Lymphocytes Absolute Auto 1.1 X10*3/uL (1.2-4.9); Lymphocytes Percent Auto 31.9 % (20-40); Mean Corpuscular HGB Conc 35.1 g/dl (31.0-36.0); Mean Corpuscular Hemoglobin 29.1 pg (27.0-33.0); Mean Corpuscular Volume 83.1 fL (80.0-98.0); Mean Platelet Volume 12.3 fL (9.4-12.4); Monocytes Absolute Auto 0.3 X10*3/uL (0.1-1.2); Monocytes Percent Auto 9.1 % (2-11); Neutrophils Absolute Auto 1.9 x10*3/uL (2.0-8.3); Neutrophils Percent Auto 54.9 % (45-73); Platelet Count 174 X10*3/uL (160-400); Red Cell Distribution Width 11.9 % (11.0-16.0); White Blood Count 3.4 X10*3/uL (4.8-10.8)
[2024-10-16 09:21] LABS: Estimated Average Glucose 103 mg/dL; Hemoglobin A1C 144.5907 umol/L; Hemoglobin A1c % 5.2 % (<6.0); Total Hemoglobin (HGBA1C) 4350.6421 umol/L
[2024-10-16 10:07] LABS: Alanine Aminotransferase 28 U/L (0-40); Albumin Level 4.2 g/dL (3.5-5.0); Alkaline Phosphatase 44 U/L (39-117); Anion Gap 11 (12-20); Aspartate Amino Transferase 24 U/L (5-37); Bilirubin Total 0.7 mg/dL (0.0-1.0); Blood Urea Nitrogen 16 mg/dL (9-16); C Reactive Protein < 0.10 mg/dL (< or = 0.50); Calcium 9.4 mg/dL (8.4-10.2); Carbon Dioxide 23 mmol/L (22-29); Chloride 110 mmol/L (96-108); Cholesterol 190 mg/dL (<200); Estimated Glomerular Filt Rate > 60; Glucose Random 98 mg/dL (60-115); HDL Cholesterol 50 mg/dL (>40); Iron 78 mcg/dL (45-160); LDL Cholesterol Calculated 129 mg/dL (<100); Percent Iron Saturation 31 % (15-50); Potassium 4.4 mmol/L (3.3-5.1); Sodium 140 mmol/L (135-145); Total Iron Binding Capacity 248 mcg/dL (228-428); Total Protein 7.2 g/dL (6.5-8.0); Triglycerides 58 mg/dL (<150); Unsaturated Iron Binding 170 ug/dL
[2024-10-16 10:27] LABS: Folate 10.3 ng/mL (> or = 4.0); Vitamin B12 636 pg/mL (200-900)
[2024-10-16 10:53] LABS: Ferritin 128 ng/mL (20-250); Insulin 6 uU/mL (2-29); TSH reflex Free T4 1.09 uIU/mL (0.32-4.0); Vitamin D 25-OH Total 24.4 ng/mL (>30)
[2024-10-19 13:23] LABS: Zinc 90 mcg/dL (60-130)
[2024-10-20 13:34] LABS: Vitamin A 33 mcg/dL (38-98)
[2024-10-21 07:09] LABS: Vitamin B1 <6 nmol/L (8-30)
== END 2024-10-16 08:01 | disposition home or self-care (01) ==
LOC: HO.XRAY 08:00
PROVIDERS: Visit Provider Surgery
DX: E66.811 Obesity, class 1 (principal); E66.09 Other obesity due to excess calories; I10 Essential (primary) hypertension; Z68.32 Body mass index [BMI] 32.0-32.9, adult; Z13.1 Encounter for screening for diabetes mellitus
CPT/HCPCS: 36415; 71046; 80053; 80061; 82306; 82607; 82728; 82746; 83036; 83525; 83540; 84425; 84443; 84590; 84630; 85025; 86140

== ENCOUNTER → 2024-10-16 08:24 | Outpatient (BNV) | payer OTHER, SELFPAY | PROVIDERS: Visit Provider Radiology Diagnostic Radiology | DX: E66.811 Obesity, class 1 (principal); E66.01 Morbid (severe) obesity due to excess calories | CPT/HCPCS: 71046 ==

== ENCOUNTER 2024-10-21 12:09 | Outpatient (AMB) | payer OTHER, SELFPAY ==
--- NOTE | 2024-10-21 12:00 | A.OFFWM_ITS ---
Intake Intake Visit Reasons: VIDEO BH Intake Allergies No Known Allergies Allergy (Verified 09/27/24 12:22) [facility] Medical History (Updated 09/27/24 @ 15:24 by Norris Recio MD) Hypertension Anxiety Depression BMI 32.0-32.9,adult Obesity Family History (Updated 08/31/24 @ 13:07 by YUKI Moreno) Mother Diabetes Social History (Updated 08/31/24 @ 13:07 by YUKI Moreno) Household Members: None Alcohol intake: current Alcohol intake frequency: holidays/special occasions only Patient Tobacco Use Status: Never used Tobacco Behavioral Health Assessment Weight Management Therapy Therapy Notes Details The patient is a 39-year-old male presenting for a behavioral health assessment as part of the surgical weight loss program. 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 He is prescribed Bupropion XL 300mg by his outpatient mental health prescriber, Carlos Dixon, at the [facility]. The patient denies any history of inpatient mental health care or crises and has no concerns regarding suicidal ideation (SI), self-harm, or harm to others. There is no evidence of stress or emotional eating, and scores from the Binge Eating Scale (BES) suggest a low risk for binge eating behavior. Additionally, the patient?s PHQ-9 scores show no active symptoms or concerns related to depression. The mental status exam is within normal limits, indicating that the patient?s functioning is not impaired. At this time, the patient is cleared from a behavioral health standpoint. Presenting Concerns Referral Source WMP-Provider, Had initial visit with Dr Santos on Reason for referral Completion of behavioral health assessment as part of process for weight-loss surgery. PT interested initially in gastric balloon. Precipitating Event Obesity. Living Situation Current Living Situation Own At risk of losing current housing? No Satisfied with current living situation? Yes Comments PT lives with her 2 children and his fiance. Food/Weight/Diet Expectations of change PT is interested in weight-loss surgery to be back at his target weight around 190 lbs and develop better habits. History/Relationship with food Currently he's preparing his meals In the past, he was eating out a lot, and eating fast food for lunch most of the days. was snacking a lot. Example of meals before starting the program: Breakfast: chicken stone ranch quesadilla with hashbrowns, a donut, orange juice, and a coffee. Lunch: fast food. a whooper/full meal. or leftovers, pasta. Dinner: pasta or rice with a meat. Pizza, take out 3-4 x week. Snacks: multiple. Greenlandic Drinks/Liquids: coffee with sugar/creamer. Soda 1x day. Juice 1 glass of orange juice on the morning History/Relationship with weight PT reports she has always been in good shape since a child, and has been in need to maintain the physical standards from the . However, the last 3 years his routine has changed back. In the last 10 years, the patient's Lowest weight was 210Lbs and highest 247Lbs. History/Relationship with dieting Gym membership, eating choices. Portion control. Counting steps. Binge Eating Do you frequently eat large amounts of food in short periods of time, not feeling physically hungry? No Do you feel out of control when you eat a large amount of food in a short period of time? No Do you eat large amounts of food rapidly and typically alone? No Night Eating Do you wake up at least once during the night to eat? No If you wake up in the night, do you find that it is necessary to eat something in order to fall back asleep? No Do you have little or no appetite in the morning and feel very hungry in the evening, often overeating between dinner and when you go to bed? No Social History Family history and relationship PT is engaged and they have been together for about 12 years, they have a 13 year old together. Parents are alive, has 2 brothers and a sister. 2 of his siblings live in [place]. parents live in the state. PT reports he's close to his parents and has a good relationship with siblings. 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 Developmental history and status None reported. currently WNL. Social support Fianc?. Family. Community support Counselor with the [facility], service is as needed. Buddhism/Spirituality Episcopalian. Doesn't practice. Cultural/Ethnic information PT was born in [place]. Been in [place] since age 11. Legal Involvement and History Current or historical involvement with the legal system? None Education Highest grade completed Bachelor's degree. Preferred learning style Auditory and Verbal Currently enrolled in educational program? No Interested in further educational program? 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 Employment Employment Status [employer] (Works for [employer]) Wants help to find employment? No Meaningful activities Workout, go for runs/walks, traveling, work on cars or anything with an engine on it. Financial Situation Describe current financial situation Comfortable Service Service? Yes (Active in [place]. Does 1 weekend at month. ) Mental Health and Addiction Treatment Current/Past substance abuse? No Comments Alcohol: cut drinking 2 months ago. As doing about 6 beers in a week. Cigarettes/Tobacco: None Cannabis/Edibles: None Current/Past addictive behavior concerns? No Psychiatric history PT [facility] Gets prescribed to Bupropion XL 300mg by outpatient [facility] prescriber Carlos Dixon at the [facility]. PT reported some trauma events when deployed but is not sure about formal MH diagnosis. Denies any MH inpatient or crisis, no history or concern with SI/SA, self-harm or other-harm. Medical and Physical Health Summary Additional Medical History not covered in history None Sexual History concerns None Physical exam in the last year? Yes (upcoming on 10/27/24. Also does perioric medical assessments with the .) Pain Screening Current pain? No Pain in the last few months? No Medications Is the patient compliant with medications? Yes Does the patient have Flores Guardian in place? Not applicable Does the patient use complimentary health approaches? No Trauma/Abuse History History of trauma? Yes Related Trauma Past Questionnaires PHQ-9 Over the last 2 weeks, how often have you been bothered by any of the following problems? 1. Little interest or pleasure in doing things: not at all 2. Feeling down, depressed, or hopeless: not at all 3. Trouble falling or staying asleep, or sleeping too much: not at all 4. Feeling tired or having little energy: not at all 5. Poor appetite or overeating: not at all 6. Feeling bad about yourself - or that you are a failure or have let yourself or your family down: not at all 7. Trouble concentrating on things, such as reading the newspaper or watching television: not at all 8. Moving or speaking so slowly that other people could have noticed. Or the opposite - being so fidgety or restless that you have been moving around a lot more than usual: not at all 9. Thoughts that you would be better off or of hurting yourself in some way: not at all Total score: 0 Depression Screening Interpretation: Negative Depression Screening Done: Yes 93791 - PHQ-9 Billing: Yes Source: Developed by Drs. Gold De León, Elana Arboleda, Ollie Gutiérrez and colleagues, with an educational myranda from [employer]. Binge Eating Scale Group 1 A. I don't feel self-conscious about my wt. or body size when I'm with others. B. I feel concerned about how I look to others, but it normally does not make me fell disappointed with myself C. I do get self-conscious about my appearance and wt. which makes me feel disappointed in myself. D. I feel very self-conscious about my wt. and frequently I feel intense shame and disgust for myself. I try to avoid social contacts because of my self- consciousness. Response Group 1: B Group 2 A. I don't have any difficulty eating slowly in the proper manner. B. Although I seem to gobble down foods, I don't end up feeling stuffed because of eating to much. C. At times, I tend to eat quickly and then, I feel uncomfortably full afterwards. D. I have the habit of bolting down my food, without really chewing it. When this happens I usually feel uncomfortably stuffed because I've eaten to much. Response Group 2: A Group 3 A. I feel capable to control my eating urges when I want to. B. I feel like I have failed to control my eating more than the average person. C. I feel utterly helpless when it comes to feeling in control of my eating urges. D. Because I feel so helpless about controlling my eating I have become very desperate about trying to get control. Response Group 3: A Group 4 A. I don't have the habit of eating when I'm bored. B. I sometimes eat when I'm bored, but often I'm able to get busy and get my mind off food. C. I have a regular habit of eating when I'm bored, but occasionally, I can use some other activity to get my mind off eating. D. I have a strong habit of eating when I'm bored. Nothing seems to help me breath the habit. Response Group 4: B Group 5 A. I'm usually physically hungry when I eat something. B. Occasionally, I eat something on impulse even though I really am not hungry. C. I have the regular habit of eating foods, that I might not really enjoy, to satisfy a hungry feeling even though physically, I don't need the food. D. Although I'm not physically hungry, I get a hungry feeling in my mouth that only seems to be satisfied when I eat a food, like sandwich, that fills my mouth. Sometimes, when I eat the food to satisfy my mouth hunger, I then spit the food out so I won't gain weight. Response Group 5: A Group 6 A. I don't feel any guilt or self-hate after I overeat. B. After I overeat, occasionally I feel guilt or self-hate. C. Almost all the time I experience strong guilt or self-hate after I overeat. Response Group 6: B Group 7 A. I don't lose total control of my eating when dieting even after periods when I overeat. B. Sometimes when I eat a forbidden food on a diet, I feel like I blew it and eat even more. C. Frequently, I have the habit of saying to myself, I've blown it now, why not go all the way, when I overeat on a diet. When that happens I eat more. D. I have a regular habit of starting a strict diets for myself but I break the diets by going on an eating binge. My life seems to be either a feast or famine. Response Group 7: B Group 8 A. I rarely eat so much food that I feel uncomfortably stuffed afterwards. B. Usually about once a month, I each such a quantity of food, I end up feeling very stuffed. C. I have regular periods during the month when I eat large amounts of food, either at mealtime or at snacks. D. I eat so much food that I regularly feel quite uncomfortable after eating and sometimes a bit nauseous. Response Group 8: A Group 9 A. My level of calorie intake does not go up very high or go down very low on a regular basis. B. Sometimes after I overeat, I will try to reduce my caloric intake to almost nothing to compensate for the excess calories I've eaten. C. I have a regular habit of overeating during the night. It seems that my routine is not to be hungry in the morning but overeat in the evening. D. In my adult years, I have had week-long periods where I practically starve myself. This follows periods when I overeat. It seems I live a life of either feast or famine. Response Group 9: C Group 10 A. I usually am able to stop eating when I want to. I know when enough is enough. B. Every so often, I experience a compulsion to eat which I can't seem to control. C. Frequently, I experience strong urges to eat which I seem unable to control, but at other times I can control my eating urges. D. I feel incapable of controlling urges to eat. I have a fear of not being able to stop eating voluntarily. Response Group 10: A Group 11 A. I don't have any problem stopping eating when I feel full. B. I usually can stop eating when I feel full but occasionally overeat leaving me feeling uncomfortably stuffed. C. I have a problem stopping eating once I start and usually I feel uncomfortably stuffed after I eat a meal. D. Because I have a problem not being able to stop eating when I want, I sometimes have to induce vomiting to relieve my stuffed feeling. Response Group 11: A Group 12 A. I seem to eat just as much when I'm with others, Family social gatherings as when I'm by myself. B. Sometimes, when I'm with other persons, I don't eat as much as I want to eat because I'm self-conscious about my eating. C. Frequently, I eat only a small amount of food when others are present, because I'm very embarrassed about my eating. D. I feel so ashamed about overeating that I pick times to overeat when I know no one will see me. I feel like a closet eater. Response Group 12: A Group 13 A. I eat three meals a day with only an occasional between meal snack. B. I eat 3 meals a day, but I also normally snack between meals. C. When I am snacking heavily, I get in the habit of skipping regular meals. D. There are regular periods when I seem to be continually eating, with no planned meals. Response Group 13: B Group 14 A. I don't think much about trying to control unwanted eating urges. B. At least some of the time, I feel my thoughts are pre-occupied with trying to control my eating urges. C. I feel that frequently I spend much time thinking about how much I ate or about trying not to eat anymore. D. It seems to me that most of my waking hours are pre-occupied by thoughts about eating or not eating. I feel like I'm constantly struggling not to eat. Response Group 14: A Group 15 A. I don't think about food a great deal. B. I have strong craving for food but they last only for brief periods of time. C. I have days when I can't seem to think about anything else but food. D. Most of my days seem to be pre-occupied with thoughts about food. I feel like I live to eat. Response Group 15: A Group 16 A. I usually know whether or not I'm physically hungry. I take the right portion of food to satisfy me. B. Occasionally, I feel uncertain about knowing whether or not I'm physically hungry. A these times it's hard to know how much food I should take to satisfy me. C. Even though I might know how many calories I should eat, I don't have any idea what is a normal amount of food for me. 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 Next appointment: 2-4 weeks post-op. Telehealth Telehealth Telehealth Platform: [facility] Location of provider rendering services: other Location of patient: other Patient Identification confirmed using: Name, : Yes Telehealth method: video Patient verbally consented to treatment: Yes Patient verbally consented to billing insurance company: Yes Patient informed of any privacy concerns related to visit: Yes Minutes spent on Phone/Video with Pt.: 60 Coding Level of Care Code New Pt Tele Psy Diag Eval (27831) Patient Type New Diagnoses Trauma and stressor-related disorder F43.9 Additional Codes PHQ-9 - 98454 - PHQ-9 Billing: Yes ([id number]) Time Spent (min) 60
== END 2024-10-21 14:26 | disposition home or self-care (01) ==
LOC: HO.HBST 12:09
PROVIDERS: Visit Provider Counselor Mental Health
DX: F43.9 Reaction to severe stress, unspecified (principal)
CPT/HCPCS: 90791

== ENCOUNTER → 2024-10-21 12:09 | Outpatient (BNVA) | payer OTHER, SELFPAY | PROVIDERS: Visit Provider Counselor Mental Health ==

== ENCOUNTER 2024-11-05 08:14 | Outpatient (REF) | payer OTHER, SELFPAY ==
--- NOTE | ~2024-11-05 | US_ITS ---
EXAMINATION: US ABDOMEN COMPLETE WITH LIVER ELASTOGRAPHY HISTORY: E66.811 - Obesity, class 1 TECHNIQUE: Real-time grayscale ultrasound imaging of the abdomen was performed and images were reviewed. COMPARISON: Correlation is made with a CT of the abdomen without contrast dated 01/16/2020. FINDINGS: Liver: The right lobe of the liver measures 13.8 cm in size. The left lobe of the liver measures 5.6 cm in size. The liver demonstrates increased echotexture, consistent with steatosis. No focal mass or intrahepatic biliary ductal dilatation is identified. There is normal hepatopedal flow in the portal vein. Ultrasound elastography of the liver was performed with 10 separate measurements of the liver parenchyma with the patient in the supine position. Measurements were obtained approximately 2 cm below David's capsule and perpendicular to the capsule. Images are of satisfactory quality. The median shear wave velocity is 1.40 m/s. The interquartile range/median (IQR/median) is 0.05. Gallbladder and biliary tree: The gallbladder is distended. There is a 6 mm calculus in the gallbladder neck. There is no wall thickening or pericholecystic fluid. There is no sonographic Holm sign. The common bile duct is normal in caliber measuring 5 mm. Kidneys: The right kidney measures 11.9 cm in length. The left kidney measures 11.1 cm in length. The kidneys are unremarkable, without evidence of masses, hydronephrosis, or calculi. Pancreas: The pancreatic head, neck, and body are unremarkable. The pancreatic tail is obscured by bowel gas. Spleen: The spleen is normal in size and contour, measuring 12.1 cm in length. Abdominal aorta and inferior vena cava: The visualized portions of the abdominal aorta and inferior vena cava are normal in caliber. There is no free fluid in the abdomen. US/US abdomen comp w elastography IMPRESSION: Hepatic steatosis. Distended gallbladder with cholelithiasis. No evidence of acute cholecystitis. The median shear wave velocity in the liver is 1.40 m/s, corresponding to a median liver stiffness of 5.93 kPa. The IQR/median value is 0.05. This is indicative of a quality data set. Findings are indicative of a low elastography value which rules out advanced chronic liver disease in asymptomatic patients. REFERENCE: Society of Radiologists in Ultrasound Liver Stiffness Thresholds (2020): LIVER STIFFNESS THRESHOLDS: *Shear wave velocity less than 1.3 m/s (Liver Stiffness equal or less than 5 kPa): High probability of being normal. *Shear wave velocity less than 1.7 m/s (Liver Stiffness less than 9 kPa): In the absence of other known clinical signs, rules out compensated advanced chronic liver disease. *Shear wave velocity between 1.7-2.1 m/s (Liver Stiffness 9-13 kPa): Suggestive of compensated advanced chronic liver disease but need further test for confirmation. *Shear wave velocity between 2.1-2.4 m/s (Liver Stiffness 13-17 kPa): Rules in compensated advanced chronic liver disease. *Shear wave velocity greater than 2.4 m/s (Liver Stiffness over 17 kPa): Suggestive of clinically significant portal hypertension. QUALITY OF DATA SET: *IQR/Median value equal or less than 0.15 implies a quality data set. *IQR/Median value over 0.15 implies a poor quality data set. SIGNIFICANT CHANGE FROM PRIOR EXAM: Significant change if liver stiffness measurement is 10% or greater from prior exam. OTHER CONSIDERATIONS: The stage of liver fibrosis may be overestimated in the setting of acute hepatitis, liver inflammation, elevated liver function tests, hepatic vascular congestion, obstructive cholestasis, non-fasting state, and infiltrative diseases such as amyloidosis and lymphoma. In some patients with NAFLD, the liver stiffness thresholds for compensated advanced chronic liver disease may be lower. In causes other than viral hepatitis and NAFLD, liver stiffness thresholds are not well established. Electronically signed by: Gold Parkinson MD 11/05/2024 10:02 AM [facility]
--- OUTSIDE RECORDS SUMMARY | 2024-11-05 08:25 | XMS_ITS ---
Author Name [facility] [place] Organization [facility] [place] [place] Address [address] [place] [address] Care Team Providers Care Skull Splitter Name Role Phone JENNI CARRASCO Primary Care [...] Policy Hale's Name Patient's Relationship to Policy Ahle Selected Encounter This section includes the information on record at [place] for the Encounter. Date/Time Encounter Type Encounter Description Reason Pro vider Source Oct 27, 2024 03:45 PM Outpatient Encounter PRIMARY CARE/MEDICINE I[facility] Encounter Template Text not used by [place] Plan of Treatment: Future Appointments (+ 6 [...] 20 appointments. The data comes from all [place] treatment facilities. Appointment Date/Time Appointment Type Appointme nt Facility Name Nov 05, 2024 08:00 AM AMBULATORY - MEDICINE [place] [facility] Nov 10, 2024 03:30 PM [facility] Active, Pending, and Scheduled Orders This section includes a listing of several types of active, pending, and scheduled orders, including clinic medications orders, diagnostic test orders, procedure orders and consult orders; where the start date of the order is 45 days before the date of the Encounter or 45 days after the date of theEncounter. The data comes from all [place] treatment facilities. Test Date/Time Test Type Test Details Facility Name Oct 27, 2024 07:56 PM Consult Order COMMUNITY CARE-GEN SURGERY Cons Internal Combustion Engineer's [facility] Social History: Smoking Status (Most current) and Tobacco Use (All prior to encounter date) This section includes the most current, and the historical, smoking and tobacco- related health factors from the [place] facility where the Encounter took place. Current Smoking Status This section includes the most current smoking, or tobacco-related health factor, from the [place] facility where the Encounter took place. Date/Time Current Smoking Status Comment Facil ity January 02, 2023 03:00 PM VA-TOBACCO [facility] USED [facility] Tobacco Use History This section includes a history of the smoking, or tobacco-related health factors, that were collected on or before the date of the Encounter. The data comes from the [place] facility where the Encounter took place. Date/Time Smoking Status/Tobacco Use Comment F acility Sep 20, 2019 04:42 PM VA-TOBACCO FORMER USER [place] [facility] [place] [facility] Sep 20, 2019 04:42 PM VA-TOBACCO QUIT 1 TO < 5 YRS [place] [facility] [place] [facility] Jul 31, 2017 11:06 AM LIFETIME NON-TOBACCO USER [place] [facility] [place] [facility] Sep 04, 2010 11:01 AM LIFETIME [facility] Encounter Notes: All associated encounter notes This [...] LPN LPN Signed: 10/27/2024 15:46 [place] [place]
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
--- OUTSIDE RECORDS SUMMARY | 2024-11-05 08:25 | XMS_ITS | Encounter Summary ---
Author Name [facility] [place] Organization [facility] [place] Address [address] [place] [address] Care Team Providers Care Vasc Tech Name Role Phone JENNI CARRASCO Primary Care [...] section includes the information on record at [place] for the Encounter. Date/Time Encounter Type Encounter Description Reason Pro vider Source Oct 27, 2024 03:30 PM Outpatient Encounter PRIMARY CARE/MEDICINE E Encounter Template Text not used by [place] Plan of Treatment: Future Appointments (+ 6 months) and Future Tests (+/- 45 days) The Plan of Treatment section includes future care activities for the patient from all [place] treatmentfacilities. This section includes future appointments and future orders which are active, pending or scheduled. Future Appointments This section includes appointments that were scheduled to occur 6 months from the date of the Encounter, up to a maximum of 20 appointments. The data comes from all [place] treatment facilities. Appointment Date/Time Appointment Type Appointme nt Facility Name Nov 05, 2024 08:00 AM AMBULATORY - MEDICINE [place] [facility] Nov 10, 2024 03:30 PM AMBULATORY - PS[place]CHIATRY [place] [facility] Active, Pending, and [...] of theEncounter. The data comes from all [place] treatment facilities. Test Date/Time Test Type Test Details Facility Name Oct 27, 2024 07:56 PM Consult Order COMMUNITY CARE-GEN SURGERY Cons [employer] Estate R[facility] Agent[facility] [place] Vital Signs: All taken on the encounter date This section contains inpatient and outpatient Vital Signs collected on the date of the Encounter. Date/Time Temperature Pulse Blood Pressure Respiratory Rate SP02 Pain Height Weight Body Mass Index Source Oct 27, 2024 03:44 PM 97.7 61 140/83 19 97 71 232 32 [facility] Social History: Smoking Status (Most current) and Tobacco Use (All prior to encounter date) This section includes the most current, and the historical, smoking and tobacco- related health factors from the [place] facility where the Encounter took place. Current Smoking Status This section includes the most current smoking, or tobacco-related health factor, from the [place] facility where the Encounter took place. Date/Time Current Smoking Status Comment Maurilio teague Apr 29, 2024 01:00 PM VA-TOBACCO NEVER USED [place]
--- OUTSIDE RECORDS SUMMARY | 2024-11-05 08:25 | XMS_ITS ---
Author Name [facility] [place] Organization [facility] [place] Address [address] [place] [address] Care Team Providers Care Roller Maker Name Role Phone JENNI CARRASCO Primary [...] care activities for the patient from all [place] treatmentfacilities. This section includes future appointments and [...] AM AMBULATORY - MEDICINE [place] [facility] [place] [facility] Nov 10, 2024 03:30 PM AMBULATORY - PSYCHIATRY [place] [facility] [place] [facility] Active, Pending, and Scheduled Orders This [...] PM Consult Order COMMUNITY CARE-GEN SURGERY Cons [employer] [facility] Social History: Smoking Status [...] 02, 2023 03:00 PM VA-TOBACCO NEVER USED [place] [facility] Tobacco Use History This section includes a history of the smoking, or tobacco-related health factors, that were collected on or before the date of the Encounter. The data comes from the [place] facility where the Encounter took place. Date/Time Smoking Status/Tobacco Use Comment F acility Sep 20, 2019 04:42 PM VA-TOBACCO FORMER USER [place] [facility] [place] [facility] Sep 20, 2019 04:42 PM VA-TOBACCO QUIT 1 TO < 5 YRS [place] [facility] [place] [facility] Jul 31, 2017 11:06 AM LIFETIME NON-TOBACCO USER [place] [facility] [place] [facility] Sep 04, 2010 11:01 AM LIFETIME NON-TOBACCO USER [place] [facility] [place] [facility] Encounter Notes: All associated encounter [...] APPT ON 10/27/24 /sudheer/ ALEXEY CRUZ ADVANCED TRADER Signed: 10/25/2024 09:58 ALEXEY CRUZ [place]
--- OUTSIDE RECORDS SUMMARY | 2024-11-05 08:25 | XMS_ITS | Continuity of Care Document ---
Author Name [facility] Organization [facility] Care Team Providers Care Rn Imaging Name Role Phone [facility] Unavailable Unavailable Problems Combined list of problems [...] tendinitis, right knee Inactive 04/10/20 22 Condition [facility] Encounter for immunization Active 03/20/20 22 Condition [facility] visit for: services physical Active Condition DoD visit for: ears / hearing exam Active Condition DoD visit for: examination of subpopulation Inactive Condition DoD visit for: services physical accession Active Condition DoD visit for: ears, nose, and throat exam Inactive Condition DoD Adjustment disorder with mixed anxiety and depressed mood (SNOMED CT [id number]) Active Condition [facility] Chronic low back pain Active Condition [facility] Essential hypertension Active Condition [facility] Exposure to potentially hazardous substance Active Condition Oct 23, 2023 Entered By: LOUIS GLYNN EN A Comment: Connect Snomed Code to ICD 10 Code refer to note dated 07/18/23 [facility] Exposure to Potentially Hazardous Substance ([facility] [id number]) Active Condition [facility] History of surgery Active Condition Oct 17, 2011 Entered By: TOI KNOX Comment: -- vasectomy by Urology group in [place] 08/04 [facility] History of traumatic [...] in service [facility] Diagnosis: ICD-10-CM F43.9 Reaction to severe stress, unspecified Active Diagnosis [facility] Diagnosis: ICD-10-CM H90.3 Sensorineural hearing loss, bilateral Active Diagnosis [facility] Diagnosis: ICD-10-CM M54.50 Low back pain, unspecified Active Diagnosis [facility] Diagnosis: ICD-10-CM F10.99 Alcohol use, unsp with unspecified alcohol-induced disorder Active Diagnosis [facility] Diagnosis: ICD-10-CM F43.12 Post-traumatic stress disorder, chronic Active Diagnosis [facility] Diagnosis: ICD-10-CM I10 Essential (primary) hypertension Active Diagnosis [facility] Diagnosis: ICD-10-CM Z56.0 Unemployment, unspecified Active Diagnosis [facility] Diagnosis: ICD-10-CM F43.23 Adjustment disorder with mixed anxiety and depressed mood Active Diagnosis [facility] Diagnosis: ICD-10-CM Z71.89 Other specified counseling [facility] Diagnosis: ICD-10-CM G47.00 Insomnia, unspecified [facility] Diagnosis: ICD-10-CM Z77.29 Contact with and exposure to other hazardous substances Active Diagnosis [facility] Medications Combined list of outpatient medications [...] FOR BLOOD PRESSURE /HEART ORAL ACTIVE 04/23/2025 [id number] Briseida CARRASCO 2023 90 [facility] ATENOLOL 25MG TAB TAKE ONE-HALF OF A TABLET BY MOUTH ONCE DAILY FOR BLOOD PRESSURE /HEART ORAL DISCONT INUED 09/02/2024 [id number] TOI JARRELL 2023 15 [facility] azithromyci n 250 mg oral tablet 0 total refill(s ) Ordered 2021 No Facilit y Access BUPROPION HCL 150MG 24HR TAB,SA TAKE ONE TABLET BY MOUTH ONCE DAILY ORAL DISCONT INUED (EDIT) 12/19/2024 [id number] 4 CASH PRADO 2023 60 [facility] BUPROPION HCL 150MG 24HR TAB,SA TAKE ONE TABLET BY MOUTH ONCE DAILY ORAL DISCONT INUED 09/29/2024 [id number] CASH PRADO 2023 60 [facility] BUPROPION HCL 300MG 24HR TAB,SA TAKE ONE TABLET BY MOUTH EVERY MORNING ORAL DISCONT INUED BY FARHEEN R 02/13/2025 [id number] CASH PRADO 2023 90 [facility] FLUOXETINE HCL 10MG CAP TAKE ONE CAPSULE BY MOUTH ONCE DAILY FOR 7 DAYS, THEN TAKE TWO CAPSULES ONCE DAILY FOR DEPRESSI ON AND ANXIETY ORAL ACTIVE 11/23/2024 [id number] 5 EVE CASH 2024 93 [facility] HYDROCORTIS ONE 2.5% CREAM,TOP APPLY A THIN LAYER TOPICALL Y TWICE DAILY FOR ATOPIC DERMATIT IS TOPICA L ACTIVE 11/26/2024 [id number] 5 Briseida CARRASCO 2024 90 [place] HYDROCORTIS ONE ACETATE 1%/PRAMOXIN E HCL 1% AEROSOL,RTL INSERT 1 APPLICAT ORFUL RECTALLY THREE TIMES DAILY NEEDED FOR HEMORRHO IDS RECTAL ACTIVE 04/30/2025 [id number] 4 Briseida CARRASCO 2023 20 [place] IBUPROFEN 600MG TAB TAKE ONE TABLET BY MOUTH EVERY 8 HOURS NEEDED TAKE WITH FOOD ORAL ACTIVE 10/28/2025 [id number] 5 Briseida CARRASCO 2024 500 [place] [...] AT BEDTIME NEEDED SLEEP ORAL ACTIVE 01/02/2025 [id number] 5 EVE CASH 2024 120 [facility] NALTREXONE (EQV-REVIA) 50MG TAB TAKE ONE TABLET BY MOUTH ONCE DAILY CRAVINGS ORAL DISCONT INUED BY PROVIDE R 02/13/2025 [id number] EVE, CASH 2023 90 [facility] NALTREXONE (EQV-REVIA) 50MG TAB TAKE ONE TABLET BY MOUTH ONCE DAILY FOR ALCOHOLI SM ORAL DISCONT INUED (EDIT) 12/19/2024 [id number] 4 EVE CASH 2023 30 [facility] TOPIRAMATE 25MG TAB TAKE ONE TABLET BY MOUTH ONCE DAILY FOR 1 WEEK, THEN TAKE TWO TABLETS ONCE DAILY ORAL ACTIVE 11/26/2024 [id number] 5 Briseida CARRASCO 2024 53 [facility] IELD TRAZODONE HCL 100MG TAB TAKE ONE-HALF TABLET BY MOUTH AT BEDTIME FOR SLEEP ORAL DISCONT INUED BY PROVIDE R 12/19/2024 [id number] 4 EVE CASH 2023 45 [facility] TRAZODONE HCL 100MG TAB TAKE ONE-HALF TABLET BY MOUTH AT BEDTIME FOR 7 DAYS, THEN TAKE ONE TABLET AT BEDTIME FOR SLEEP ORAL DISCONT INUED (EDIT) 08/05/2024 [id number] 4 CASH PRADO 2022 60 [facility] Allergies, Adverse Reactions, Alerts Combined list of allergies from Department of Defense and Veterans Affairs facilities. It does not include entries that were removed or entered in error. Substance Category Reaction Severity Reaction type Status Date Reported Comments Source No Known Allergies Drug allergy (disorder) active 12/07/2022 [facility] Immunizations Combined list of available immunizations from the Department of Defense and Veterans Affairs facilities. Immunization Series Date Given Administered By Site Reaction Lot Number CVX Code Drug [employer] Status Comments Source TDAP 2023 SHERMAN ALVARADO RIGHT DELTO ID [id number] complet ed [facility] IELD INFLUENZA, UNSPECIFIED FORMULATION 2022 88 complet ed [facility] anthrax vaccine 1 2021 ERICKA PERKINS [id number] [employer] [place] (MIP) complet ed anthrax vaccine DoD SARS-COV-2 (COVID-19) vaccine, mRNA, spike protein, LNP, preservative free, 30 mcg/0.3mL dose 3 2020 [id number] Transcribed (TRS) complet ed SARS-COV- 2 (COVID-19 ) vaccine, mRNA, spike protein, LNP, preservat kenn free, 30 mcg/0.3mL dose DoD Influenza, injectable, quadrivalent, preservative free 1 2020 [id number] 150 Transcribed (TRS) complet ed Influenza , injectabl e, quadrival ent, preservat kenn free DoD measles/mumps /rubella virus vaccine [facility] [id number] [employer] complet ed measles/m umps/rube lla virus vaccine 05/31/21 Given Ambulat ory Pharmac y measles, mumps and rubella virus vaccine 3 2020 NICHOLASASHA COBURNNAH E [id number] [facility] (MSD) complet ed measles, mumps and rubella virus vaccine DoD COVID Vaccine Pfizer 2020 [facility] Arm [id number] [employer] complet ed COVID Vaccine Pfizer 12/29/20 Given Ambulat ory Pharmac y COVID-19, mRNA, LNP-S, PF, 30 mcg/0.3 mL dose 2020 [employer] (PFR) Not Given COVID-19, mRNA, LNP-S, PF, 30 mcg/0.3 mL dose DoD SARS-COV-2 (COVID-19) vaccine, mRNA, spike protein, LNP, preservative free, 30 mcg/0.3mL dose 2 2020 Unknown, Provider [id number] [employer] (PFR) complet ed SARS-COV- 2 (COVID-19 ) vaccine, mRNA, spike protein, LNP, preservat kenn free, 30 mcg/0.3mL dose DoD COVID Vaccine Pfizer [facility] [id number] 208 [employer] complet ed COVID Vaccine Pfizer 12/03/20 Given Ambulat ory Pharmac y COVID-19, mRNA, LNP-S, PF, 30 mcg/0.3 mL dose 2020 [employer] (PFR) Not Given COVID-19, mRNA, LNP-S, PF, 30 mcg/0.3 mL dose DoD SARS-COV-2 (COVID-19) vaccine, mRNA, spike protein, LNP, preservative free, 30 mcg/0.3mL dose 1 2020 Unknown, Provider [id number] Pfizer, Inc (PFR) complet ed SARS-COV- 2 (COVID-19 ) vaccine, mRNA, spike protein, LNP, preservat kenn free, 30 mcg/0.3mL dose DoD influenza, injectable, quadrivalent 2019 Sean ht Arm [id number] 158 [employer] complet ed influenza , injectabl e, quadrival ent 05/29/20 Given Ambulat ory Pharmac y influenza, injectable, quadrivalent, contains preservative 1 2019 ANA TINAJERO [id number] 158 [employer] (SEQ) complet ed influenza , injectabl e, quadrival ent, contains preservat kenn DoD influenza, injectable, quadrivalent 2019 [id number] 350 158 [employer] complet ed influenza , injectabl e, quadrival ent 10/30/19 Given Ambulat ory Pharmac y influenza, injectable, quadrivalent, contains preservative 1 2019 [id number] 350 158 [employer] (SEQ) complet ed influenza , injectabl e, quadrival ent, contains preservat kenn DoD INFLUENZA, SEASONAL, INJECTABLE 2018 141 complet ed [facility] tetanus, diphtheria, acellular pertu is 2017 [id number] 115 [employer] complet ed tetanus, diphtheri a, acellular pertussis 07/25/18 Given Ambulat ory Pharmac y tetanus toxoid, reduced diphtheria toxoid, and acellular pertu is vaccine, adsorbed 1 2017 [id number] 115 [employer] (SKB) complet ed tetanus toxoid, reduced diphtheri a toxoid, and acellular pertussis vaccine, adsorbed DoD influenza, seasonal, injectable-pf 2017 [id number] 140 [employer] complet ed influenza , seasonal, injectabl e-pf 06/13/18 Given Ambulat ory Pharmac y Influenza, seasonal, injectable, preservative free 1 2017 [id number] 140 [employer] (SEQ) comple t ed Influenza , seasonal, injectabl e, preservat kenn free DoD INFLUENZA, SEASONAL, INJECTABLE 2016 141 complet ed recieved with [employer] [facility] influenza, seasonal, injectable-pf 2016 [id number] 140 [employer] complet ed influenza , seasonal, injectabl e-pf 06/20/17 Given Ambulat ory Pharmac y Influenza, seasonal, injectable, preservative free 1 2016 [id number] 140 [employer] (SEQ) comple t ed Influenza , seasonal, injectabl e, preservat kenn free DoD influenza, seasonal, injectable-pf 2015 [id number] 140 [employer] complet ed influenza , seasonal, injectabl e-pf 07/27/16 Given Ambulat ory Pharmac y Influenza, seasonal, injectable, preservative free 1 2015 [id number] 140 [facility] [employer] (CSL) complet ed Influenza , seasonal, injectabl e, preservat kenn free [facility] influenza virus vaccine, live 2011 [id number] 111 Medimmune Inc [facility] t ed influenza virus vaccine, live 06/06/12 Given Ambulat ory Pharmac y influenza virus vaccine, live, attenuated, for intranasal use 1 2011 [id number] 111 MedImmune, Inc. (MED) complet ed influenza virus vaccine, live, attenuate d, for intranasa l use DoD FLU,3 YRS (HISTORICAL) 2010 88 complet ed [facility] influenza virus vaccine, live 2010 [id number] 111 Medimmune Inc comple t ed influenza virus vaccine, live 06/30/11 Given Ambulat ory Pharmac y influenza virus vaccine, live, attenuated, for intranasal use 1 2010 [id number] 111 Med[employer], Inc. (MED) complet ed influenza virus vaccine, live, attenuate d, for intranasa l use DoD FLU,3 YRS (HISTORICAL) 2010 88 complet ed Site: Right Deltoid [facility] tuberculin purified protein derivative 2008 UNKNOWN 96 Unknown complet ed tuberculi n purified protein derivativ e 06/14/09 Given Ambulat ory Pharmac y influenza virus vaccine,split 2008 [id number] 15 sanofi pasteur complet ed influenza virus vaccine,s plit 06/14/09 Given Ambulat ory Pharmac y influenza virus vaccine, split virus (incl. purified surface antigen)-reti red CODE 1 2008 [id number] 15 Sanofi Pasteur ([facility]) complet [...] y tetanus, diphtheria, acellular pertu is 2007 [id number] 115 Unknown complet ed tetanus, diphtheri a, [...] acellular pertu is vaccine, adsorbed 1 2007 [id number] 115 Unknown (UNK) comple t ed tetanus [...] B vaccine 2 2005 [id number] 104 [place] (SKB) complet ed hepatitis A and hepatitis B vaccine DoD tuberculin purified protein derivative 2005 [id number] 96 [facility] complet ed tuberculi n purified protein derivativ e 03/28/06 Given Ambulat ory Pharmac y tuberculin purified protein derivative 2003 [id number] 96 Unknown complet ed tuberculi n purified protein derivativ e 02/03/04 Given Ambulat ory Pharmac y meningococcal polysaccharid e (MPSV4) 2003 [id number] 32 Unknown complet ed meningoco ccal polysacch aride (MPSV4) 02/03/04 Given Ambulat ory Pharmac y poliovirus vaccine, inactivated 2003 [id number] 10 sanofi pasteur complet ed polioviru s vaccine, inactivat ed 02/03/04 Given Ambulat ory Pharmac y tetanus-dipht h toxoids (Td) adult/adol 2003 [id number] 09 sanofi pasteur complet ed tetanus-d iphth toxoids (Td) adult/ado l 02/03/04 Given Ambulat ory Pharmac y measles/mumps /rubella virus vaccine 2003 [id number] 03 Merck & Company Inc complet ed measles/m umps/rube lla virus vaccine 02/03/04 Given Ambulat ory Pharmac y influenza virus vaccine,split 2003 [id number] 15 Unknown complet ed influenza virus vaccine,s plit 02/03/04 Given Ambulat ory Pharmac y measles, mumps and rubella virus vaccine 1 2003 [id number] 03 Merck (MSD) complet ed measles, mumps and rubella virus vaccine DoD tetanus and diphtheria toxoids, adsorbed, preservative free, for adult use (2 Lf of tetanus toxoid and 2 Lf of diphtheria toxoid) 1 2003 [id number] 09 Sanofi Pasteur (PMC) complet ed tetanus and diphtheri a toxoids, adsorbed, preservat kenn free, for adult use (2 Lf of tetanus toxoid and 2 Lf of diphtheri a toxoid) DoD poliovirus vaccine, inactivated 1 2003 [id number] 10 Sanofi Pasteur (PMC) complet ed polioviru s vaccine, inactivat ed DoD influenza virus vaccine, split virus (incl. purified surface antigen)-reti red CODE 1 2003 [id number] 15 Unknown (UNK) comple t ed influenza virus vaccine, split virus (incl. purified surface antigen)- retired CODE DoD meningococcal polysaccharid e vaccine (MPSV4) 1 2003 [id number] 32 Unknown (UNK) comple t ed meningoco ccal polysacch aride vaccine (MPSV4) DoD hepatitis A-hepatitis B vaccine 2003 [id number] 104 Unknown complet ed hepatitis A-hepatit is B vaccine 02/02/04 Given Ambulat ory Pharmac y hepatitis A and hepatitis B vaccine 1 2003 [id number] 104 Unknown (UNK) complet ed hepatitis [...] Mar 19, 2024 09:32 AM Reporting Lab: [facility] [address] [address] Performing Lab: [facility] [address] [address] [facility] BASIC METABOLI C PANEL (fasting ) GLUCOSE [MASS/VOLU ME] IN SERUM OR PLASMA 106 mg/dL 65 - 100 03/19 H Specimen Type: SERUM No comment entered. Ordering Provider: HUEMRA CARRASCO Report Released Date/Time: Mar 19, 2024 09:32 AM Reporting Lab: [facility] [address] [address] Performing Lab: [facility] [place] [facility] [address] [address] [facility] [facility] BASIC METABOLI C PANEL (fasting ) SODIUM [MOLES/VOL UME] IN SERUM OR PLASMA 138 mmol/L 135 - 145 03/19 Specimen Type: SERUM No comment entered. Ordering Provider: HUMERA CARRASCO Report Released Date/Time: Mar 19, 2024 09:32 AM Reporting Lab: [facility] [place] [facility] [address] [address] Performing Lab: [facility] [place] [facility] [address] [address] [facility] [place] [facility] BASIC METABOLI C PANEL (fasting ) POTASSIUM [MOLES/VOL UME] IN SERUM OR PLASMA 4.3 mmol/L 3.5 - 5.0 03/19 Specimen Type: SERUM No comment entered. Ordering Provider: HUMERA CARRASCO Report Released Date/Time: Mar 19, 2024 09:32 AM Reporting Lab: [facility] [place] [facility] [address] [address] Performing Lab: [facility] [place] [facility] [address] [address] [facility] [place] [facility] BASIC METABOLI C PANEL (fasting ) CHLORIDE [MOLES/VOL UME] IN SERUM OR PLASMA 106 mmol/L 100 - 110 03/19 Specimen Type: SERUM No comment entered. Ordering Provider: HUMERA CARRASCO Report Released Date/Time: Mar 19, 2024 09:32 AM Reporting Lab: [facility] [place] [facility] [address] [address] Performing Lab: [facility] [place] [address] [address] [facility] [place] [facility] BASIC METABOLI C PANEL (fasting ) CARBON DIOXIDE, TOTAL [MOLES/VOL UME] IN SERUM OR PLASMA 25 meq/L 20 - 30 03/19 Specimen Type: SERUM No comment entered. Ordering Provider: HUMERA CARRASCO Report Released Date/Time: Mar 19, 2024 09:32 AM Reporting Lab: [facility] [place] [address] [address] Performing Lab: [facility] [place] [address] [address] [facility] [place] [facility] BASIC METABOLI C PANEL (fasting ) CREATININE [MASS/VOLU ME] IN SERUM OR PLASMA 0.92 mg/dL 0.50 - 1.40 03/19 Specimen Type: SERUM No comment entered. Ordering Provider: HUMERA CARRASCO Report Released Date/Time: Mar 19, 2024 09:32 AM Reporting Lab: [facility] [place] [facility] [address] [address] Performing Lab: [facility] [place] [facility] [address] [address] [facility] [place] [facility] BASIC METABOLI C PANEL (fasting ) GLOMERULAR FILTRATION RATE/1.73 SQ M.PREDICTE D [VOLUME RATE/AREA] IN SERUM, PLASMA OR BLOOD BY CREATININE -BASED FORMULA (CKD-EPI 2020) >90mL/mi n 60 03/19 Specimen Type: SERUM No comment entered. Ordering Provider: HUMERA CARRASCO Report Released Date/Time: Mar 19, 2024 09:32 AM Reporting Lab: [facility] [place] [facility] [address] [address] Performing Lab: [facility] [place] [facility] [address] [address] [facility] [place] [facility] CBC LEUKOCYTES [#/VOLUME] IN BLOOD BY AUTOMATED COUNT 5.92 10*3/uL 4.50 - 11.00 03/19 Specimen Type: BLOOD No comment entered. Ordering Provider: HUMERA CARRASCO Report Released Date/Time: Mar 19, 2024 09:32 AM Reporting Lab: [facility] [place] [facility] [address] [address] Performing Lab: [facility] [place] [address] [place] [address] [facility] [place] [facility] CBC ERYTHROCYT ES [#/VOLUME] IN BLOOD BY AUTOMATED COUNT 5.62 10*6/uL 4.23 - 5.66 03/19 Specimen Type: BLOOD No comment entered. Ordering Provider: HUMERA CARRASCO Report Released Date/Time: Mar 19, 2024 09:32 AM Reporting Lab: [facility] [place] [facility] [address] [address] Performing Lab: [facility] [place] [facility] [address] [address] [facility] [place] [facility] CBC HEMOGLOBIN [MASS/VOLU ME] IN BLOOD 16.5 g/dL 12.8 - 17 03/19 Specimen Type: BLOOD No comment entered. Ordering Provider: HUMERA CARRASCO Report Released Date/Time: Mar 19, 2024 09:32 AM Reporting Lab: [facility] [place] [address] [address] Performing Lab: [facility] [place] [address] [address] [facility] [place] [facility] CBC HEMATOCRIT [VOLUME FRACTION] OF BLOOD BY AUTOMATED COUNT 46.9 39.2 - 50.4 03/19 Specimen Type: BLOOD No comment entered. Ordering Provider: HUMERA CARRASCO Report Released Date/Time: Mar 19, 2024 09:32 AM Reporting Lab: [facility] [place] [facility] [address] [address] Performing Lab: [facility] [place] [address] [address] [facility] [place] [facility] CBC MCV [ENTITIC VOLUME] BY AUTOMATED COUNT 83.5 fL 82 - 99 03/19 Specimen Type: BLOOD No comment entered. Ordering Provider: HUMERA CARRASCO Report Released Date/Time: Mar 19, 2024 09:32 AM Reporting Lab: [facility] [place] [address] [address] Performing Lab: [facility] [place] [facility] [address] [address] [facility] [place] [facility] CBC MCHC [MASS/VOLU ME] BY AUTOMATED COUNT 35.2 g/dL 30.8 - 35.1 03/19 H Specimen Type: BLOOD No comment entered. Ordering Provider: HUMERA CARRASCO Report Released Date/Time: Mar 19, 2024 09:32 AM Reporting Lab: [facility] [place] [facility] [address] [address] Performing Lab: [facility] [place] [facility] [address] [address] [facility] [place] [facility] CBC PLATELETS [#/VOLUME] IN BLOOD BY AUTOMATED COUNT 179 10*3/uL 140 - 360 03/19 Specimen Type: BLOOD No comment entered. Ordering Provider: HUMERA CARRASCO Report Released Date/Time: Mar 19, 2024 09:32 AM Reporting Lab: [facility] [place] [facility] [address] [address] Performing Lab: [facility] [place] [facility] [address] [address] [facility] [place] [facility] CBC ERYTHROCYT E DISTRIBUTI ON WIDTH [RATIO] BY AUTOMATED COUNT 11.9 12.0 - 16.0 03/19 L Specimen Type: BLOOD No comment entered. Ordering Provider: HUMERA CARRASCO Report Released Date/Time: Mar 19, 2024 09:32 AM Reporting Lab: [facility] [place] [facility] [address] [address] Performing Lab: [facility] [place] [facility] [address] [address] [facility] [place] [facility] CBC MCH [ENTITIC MASS] BY AUTOMATED COUNT 29.4 pg 26.2 - 32.6 03/19 Specimen Type: BLOOD No comment entered. Ordering Provider: HUMERA CARRASCO Report Released Date/Time: Mar 19, 2024 09:32 AM Reporting Lab: [facility] [place] [facility] [address] [address] Performing Lab: [facility] [address] [address] [facility] HEMOGLOB IN A1C PANEL HEMOGLOBIN A1C/HEMOGL OBIN.TOTAL [...] Mar 19, 2024 09:32 AM Reporting Lab: [address] [address] Performing Lab: [address] [address] [facility] LIPID PANEL FASTING CHOLESTERO L [MASS/VOLU ME] IN SERUM OR PLASMA 203 mg/dL 03/19 H Specimen Type: SERUM No comment entered. Ordering Provider: HUMERA CARRASCO Report Released Date/Time: Mar 19, 2024 09:32 AM Reporting Lab: [address] [address] Performing Lab: [address] [address] [facility] LIPID PANEL FASTING TRIGLYCERI DE [MASS/VOLU ME] IN SERUM OR PLASMA 63 mg/dL 0 - 150 03/19 Specimen Type: SERUM No comment entered. Ordering Provider: HUMERA CARRASCO Report Released Date/Time: Mar 19, 2024 09:32 AM Reporting Lab: [address] [address] Performing Lab: [address] [address] [facility] LIPID PANEL FASTING CHOLESTERO L IN LDL [MASS/VOLU ME] IN SERUM OR PLASMA BY CALCULATIO N 137 mg/dL 0 - 129 03/19 H Specimen Type: SERUM No comment entered. Ordering Provider: HUMERA CARRASCO Report Released Date/Time: Mar 19, 2024 09:32 AM Reporting Lab: [facility] [place] [facility] [address] [address] Performing Lab: [facility] [place] [facility] [address] [address] [facility] [place] [facility] LIPID PANEL FASTING CHOLESTERO L.TOTAL/CH OLESTEROL IN HDL [MASS RATIO] IN SERUM OR PLASMA 3.8 03/19 Specimen Type: SERUM No comment entered. Ordering Provider: HUMERA CARRASCO Report Released Date/Time: Mar 19, 2024 09:32 AM Reporting Lab: [facility] [place] [facility] [address] [facility] [address] Performing Lab: [facility] [place] [facility] [address] [facility] [address] [facility] [facility] LIPID PANEL FASTING CHOLESTERO L IN HDL [MASS/VOLU ME] IN SERUM OR PLASMA 53 mg/dL 40 - 60 03/19 Specimen Type: SERUM No comment entered. Ordering Provider: HUMERA CARRASCO Report Released Date/Time: Mar 19, 2024 09:32 AM Reporting Lab: [facility] [place] [facility] [address] [facility] [address] Performing Lab: [facility] [place] [facility] [address] [facility] [address] [facility] [place] [facility] LIVER FUNCTION PROTEIN [MASS/VOLU ME] IN SERUM OR PLASMA 6.6 g/dL 6.0 - 8.3 03/19 Specimen Type: SERUM No comment entered. Ordering Provider: HUMERA CARRASCO Report Released Date/Time: Mar 19, 2024 09:32 AM Reporting Lab: [facility] [place] [facility] [address] [facility] [address] Performing Lab: [facility] [place] [facility] [address] [facility] [address] [facility] [place] [facility] LIVER FUNCTION ALBUMIN [MASS/VOLU ME] IN SERUM OR PLASMA 3.9 g/dL 3.5 - 5.0 03/19 Specimen Type: SERUM No comment entered. Ordering Provider: HUMERA CARRASCO Report Released Date/Time: Mar 19, 2024 09:32 AM Reporting Lab: [facility] [place] [facility] [address] [address] Performing Lab: [facility] [place] [facility] [address] [facility] [address] [facility] [place] [facility] LIVER FUNCTION ALKALINE PHOSPHATAS E [ENZYMATIC ACTIVITY/V OLUME] IN SERUM OR PLASMA 51 U/L 40 - 150 03/19 Specimen Type: SERUM No comment entered. Ordering Provider: HUMERA CARRASCO Report Released Date/Time: Mar 19, 2024 09:32 AM Reporting Lab: [facility] [place] [facility] [address] [address] Performing Lab: [facility] [place] [facility] [address] [facility] [address] [facility] [place] [facility] LIVER FUNCTION ASPARTATE AMINOTRANS FERASE [ENZYMATIC ACTIVITY/V OLUME] IN SERUM OR PLASMA 16 U/L 5 - 34 03/19 Specimen Type: SERUM No comment entered. Ordering Provider: HUMERA CARRASCO Report Released Date/Time: Mar 19, 2024 09:32 AM Reporting Lab: [facility] [place] [facility] [address] [address] Performing Lab: [facility] [place] [facility] [address] [facility] [address] [facility] [place] [facility] LIVER FUNCTION ALANINE AMINOTRANS FERASE [ENZYMATIC ACTIVITY/V OLUME] IN SERUM OR PLASMA 35 U/L 03/19 Specimen Type: SERUM No comment entered. Ordering Provider: HUMERA CARRASCO Report Released Date/Time: Mar 19, 2024 09:32 AM Reporting Lab: [facility] [place] [facility] [address] [address] Performing Lab: [facility] [place] [facility] [address] [facility] [address] [facility] [place] [facility] LIVER FUNCTION BILIRUBIN. TOTAL [MASS/VOLU ME] IN SERUM OR PLASMA 0.5 mg/dL 0.2 - 1.2 03/19 Specimen Type: SERUM No comment entered. Ordering Provider: HUMERA CARRASCO Report Released Date/Time: Mar 19, 2024 09:32 AM Reporting Lab: [facility] [place] [facility] [address] [address] Performing Lab: [facility] [place] [facility] [address] [address] [facility] [place] [facility] SSD[facility] TSH THYROTROPI N [UNITS/VOL UME] IN SERUM OR PLASMA 0.99 u[IU]/mL 0.35 - 5.00 03/19 Specimen Type: SERUM No comment entered. Ordering Provider: HUMERA CARRASCO Report Released Date/Time: Mar 19, 2024 09:32 AM Reporting Lab: [facility] [place] [facility] [address] [address] Performing Lab: [facility] [place] [facility] [address] [address] [facility] [place] [facility] SSD[facility] HEPATITI S B SURFACE ANTIBODY (HBsAb)- WH HEPATITIS B VIRUS SURFACE AB [PRESENCE] IN SERUM BY IMMUNOASSA Y REACTIVE 12/26 Specimen Type: SERUM Comment: A 'Reactive' result indicates HBsAb results >/= 12.0 mIU/mL and immunity to HBV infection. Ordering Provider: BRIANNA CEJA SA Report Released Date/Time: December 26, 2022 09:31 AM Reporting Lab: [facility] [facility] [address] [facility] [address] Performing Lab: [facility] [address] [address] [facility] [place] [facility] SSD[facility] MMRV (IGG) IMMUNE STATUS PANEL MEASLES [...] December 26, 2022 09:31 AM Reporting Lab: [facility] [address] [facility] [address] Performing Lab: [facility] TRN [place] [facility] [address] [facility] [address] [facility] MMRV (IGG) IMMUNE STATUS PANEL MUMPS VIRUS [...] December 26, 2022 09:31 AM Reporting Lab: [facility]ITAL[facility] BAPTISTTRN [place] [facility] [address] [facility] [address] Performing Lab: [facility]ITAL[facility] BAPTISTTRN [place] [facility] [address] [facility] [address] [facility] MMRV (IGG) IMMUNE STATUS PANEL RUBELLA VIRUS [...] December 26, 2022 09:31 AM Reporting Lab: [facility] BAPTISTTRN [place] [facility] [address] [address] Performing Lab: [facility] [address] [facility] [address] [facility] MMRV (IGG) IMMUNE STATUS PANEL VARICELLA ZOSTER [...] December 26, 2022 09:31 AM Reporting Lab: [address] [address] Performing Lab: [address] [address] [facility] T-SPOT TB PANEL MYCOBACTER IUM TUBERCULOS IS [...] additional information , please refer to http://educ ation.Yippy .Explore Engage/faq/FA Q215 (This link is being provided for information al/ educational purposes only.) Test Performed by [facility], [employer], [address] [place], [place] Reed Marcum M.D., Ph.D., Director of Laboratorie s , CLIA [id number] TEST PERFORMED AT: , Ordering Provider: BRIANNA CEJA SA Report Released Date/Time: December 26, 2022 09:31 AM Reporting Lab: [facility] [address] [facility] [address] Performing Lab: [facility] [address] [address] [facility] T-SPOT TB PANEL MYCOBACTER IUM TUBERCULOS IS [...] additional information , please refer to http://educ atAxiata.Yippy .Explore Engage/faq/FA Q283 (This link is being provided for information al/ educational purposes only.) Test Performed by [employer], [address] [place], [place] Reed Marcum M.D., Ph.D., Director of Laboratorie s , CLIA [id number] TEST PERFORMED AT: , Ordering Provider: BRIANNA CEJA SA Report Released Date/Time: December 26, 2022 09:31 AM Reporting Lab: [facility] [address] [facility] [address] Performing Lab: [facility] [address] T-SPOT TB PANEL MYCOBACTER IUM TUBERCULOS IS [...] additional information , please refer to http://educ ation.Yippy .com/faq/FA Q215 (This link is being provided for information al/ educational purposes only.) Test Performed by [employer], [employer] [facility], [address] [place] [address] Reed Marcum M.D., Ph.D., Director of Laboratorie s , [place] [id number] TEST PERFORMED AT: , Ordering Provider: BRIANNA CEJA SA Report Released Date/Time: December 26, 2022 09:31 AM Reporting Lab: [address] [address] Performing Lab: [facility] [address] [facility], [address] [place] [address] [facility] T-SPOT TB PANEL MITOGEN STIMULATED GAMMA INTERFERON [...] additional information , please refer to http://educ ation.Yippy .com/faq/FA Q215 (This link is being provided for information al/ educational purposes only.) Test Performed by [employer], [facility], [address] [place] [address] Reed Marcum M.D., Ph.D., Director of Laboratorie s , [facility] [id number] TEST PERFORMED AT: , Ordering Provider: BRIANNA CEJA SA Report Released Date/Time: December 26, 2022 09:31 AM Reporting Lab: [facility] [address] [facility] [address] Performing Lab: [facility] [address] [facility], [address] [place] [address] [facility] T-SPOT TB PANEL GAMMA INTERFERON NEGATIVE CONTROL [...] additional information , please refer to http://educ ation.Yippy .com/faq/FA Q215 (This link is being provided for information al/ educational purposes only.) Test Performed by [employer], [facility], [address] [place] [address] Reed Marcum M.D., Ph.D., Director of Laboratorie s , [facility] [id number] TEST PERFORMED AT: , Ordering Provider: BRIANNA CEJA SA Report Released Date/Time: December 26, 2022 09:31 AM Reporting Lab: [facility] [address] [facility] [address] Performing Lab: [facility] [address] [address] [facility] Infect us Disease HIV-1/2 AG/AB 4G CDD LC NEGATIVE 11/28 Result Comment: Performed At: [facility] [address] [place] [address] KATHY BROWN PHD Ph:[phone] [address] [place] [address] Toi Wor[place] Infect us Disease Source of Test.LC PostDepS torage (11/28/22 9:01 AM) 11/28 [facility] Toi [place] Vital Signs Combined list of inpatient and outpatient Vital Signs from Department of Defense and Veterans Affairs, ranging from 12 months to all on record, depending upon the facility. Vital Sign Value Date Comments Source SYSTOLIC BLOOD PRESSURE 140 10/28/19 25 15:44:15 [facility] DIASTOLIC BLOOD PRESSURE 83 025 15:44:15 [facility] PULSE OXIMETRY 97 10/27/2024 15:44:15 [facility] WEIGHT 232 10/27/2024 15:44:15 [facility] BMI 32 kg/m2 10/27/2024 15:44:15 [facility] HEIGHT 71 10/27/2024 15:44:15 [facility] TEMPERATURE 97.7 10/27/2024 15:44:15 [facility] PULSE 61 10/27/2024 15:44:15 [facility] RESPIRATION 19 10/27/2024 15:44:15 [facility] SYSTOLIC BLOOD PRESSURE 129 04/29/20 24 13:09:35 [facility] DIASTOLIC BLOOD PRESSURE 83 024 13:09:35 [facility] PULSE OXIMETRY 97 04/29/2024 13:09:35 [facility] WEIGHT 250 04/29/2024 13:09:35 [facility] BMI 35 kg/m2 04/29/2024 13:09:35 [facility] PULSE 65 04/29/2024 13:09:35 [facility] SYSTOLIC BLOOD PRESSURE 125 11/27/19 24 15:15:15 [facility] DIASTOLIC BLOOD PRESSURE 76 024 15:15:15 [facility] PULSE OXIMETRY 95 11/27/2023 15:15:15 [facility] WEIGHT 230 11/27/2023 15:15:15 [facility] BMI 32 kg/m2 11/27/2023 15:15:15 [facility] HEIGHT 71 11/27/2023 15:15:15 [facility] TEMPERATURE 97.9 11/27/2023 15:15:15 [facility] PULSE 70 11/27/2023 15:15:15 [facility] RESPIRATION 20 11/27/2023 15:15:15 [facility] Peripheral Pulse Rate 99 bpm 11/28/2022 12:23:00 0108A-[facility] Toi Snider Temperature Temporal Artery 36.5 Greta 11/28/2022 12:23:00 0108A-[facility] Toi Snider Systolic Blood Pressure 136 mm[Hg] 11/29/19 23 12:23:00 0108A-[facility] Diastolic Blood Pressure 87 mm[Hg] 023 12:23:00 0108A-[facility] Toi Moise-Garfield Mean Arterial Pressure, Calc 108 mm[Hg] 11/29/2022 15:33:00 0108A-[facility] Toi Snider Temperature Oral 36.5 Greta 11/29/2022 15:33:00 0108A-[facility] Toi Moise-Garfield Peripheral Pulse Rate 70 bpm 11/29/2022 15:33:00 0108A-[facility] Toi Moise-Garfield Systolic Blood Pressure 135 mm[Hg] 11/30/19 23 15:33:00 0108A-[facility] Toi Moise-Garfield Diastolic Blood Pressure 95 mm[Hg] 023 15:33:00 0108A-[facility] [place] Systolic Blood Pressure 130 mm[Hg] 11/30/19 23 12:29:00 0108A-[facility] Toi Moise-Garfield Diastolic Blood Pressure 84 mm[Hg] 023 12:29:00 0108A-[facility] Toi Snider Temperature Temporal Artery 36.2 Greta 11/29/2022 12:29:00 0108A-[facility] Toi Moise-Elin Peripheral Pulse Rate 76 bpm 11/29/2022 12:29:00 [place]10[place]-[facility] Toi LirianoGarfield Encounters Combined list of: 1) Encounters from Department of Veterans Affairs facilities going backup to the last 18 months, not all VA inpatient encounters are included; 2) Encounters from the Department of Defense facilities going backup to 280 months. Location Location Details Encounter Type Encounter Number Reason For Visit Attending Provider ADM Date DC Date Status Disposition Source [facility] Solitario Hernandez SD(IEP Hearing Conservat ion Exam) OUTPATIENT [id number] 43rd [address] CEJA 04/01 Released w/o Limitations [facility] Solitario Hernandez SD(IEP Hearing Conserv ation Exam) [facility]P Opt[facility] ) OUTPATIENT [id number] ALISA BROWNE 04/11 Released w/o Limitations [facility] KHUSHBU Perez(IEP Optomet ry) [facility] OUTPATIENT [id number] AUGUSTIN BAIRES 07/12 Released w/o Limitations [facility] ) [facility] Welch([facility] Deploymen t Clinic) OUTPATIENT [id number] Notes Entered by: ALEXANDR MCKEON 29 May 2020 1105 ------- ------- ------- ------- -- BAIELE NEWBY 05/29 Released w/o Limitations [facility] Welch([facility] Deploym ent Clinic) Tamie Reaves [place]([facility] OUTPATIENT [id number] Notes Entered by: ABBY SOLIS 30 May 2021 1448 ------- ------- ------- ------- -- post deploym ent AYLA LOERA 05/30 Released w/o Limitations [place] Re[place]([facility] [place]aves [place]([facility]) OUTPATIENT [id number] Notes Entered by: JUAN PETERSON 31 May 2021 0756 ------- ------- ------- ------- -- MARIUSZ ANDERSON 05/31 Released w/o Limitations [place] [place]([facility] S06D Trudy) OUTPATIENT [id number] 6 HUNG Ratliff 05/31 Released w/o Limitations [place]ie Reaves [place]([facility] S06D Bayard) [facility] Deploymen t Clinic) OUTPATIENT [id number] Notes Entered by: NGUYEN SANDOVAL 25 Jan 2022 0821 ------- ------- ------- ------- -- [facility] SAUDI ANA CORDOVA 01/25 Released w/o Limitations [facility] Deploy ent [facility]) [facility]) OUTPATIENT [id number] 3 F2F FLU LIKE SYMPTOM S USAR [phone] NIKOS SPEARS 01/28 Released w/o Limitations [facility]) [facility]) OUTPATIENT [id number] F2F Sore throat ZZZBM_CRAW ASHER, ZZZBM_DOUG LAS NISSA 01/29 Sick at Home/Quarter s [facility]) Theater Facility OUTPATIENT [id number] Theater Provider 03/19 Released w/o Limitations Theater Fac[facility] OUTPATIENT [id number] Theater Provider 04/08 Released w/o Limitations [facility] OUTPATIENT [id number] Theater Provider 04/11 Released w/o Limitations Theater [facility] OUTPATIENT [id number] Theater Provider 06/29 Sick at Home/Quarter s Theater Facilit y Theater Facility OUTPATIENT [id number] Theater Provider 07/02 Released w/o Limitations Theater Fac[facility] y Theater [facility] OUTPATIENT [id number] Theater Provider 07/10 Released w/o Limitations Theater Facilit y Theater Facility OUTPATIENT [id number] Theater Provider 07/16 Released w/o Limitations Theater Facilit y Theater Facility OUTPATIENT [id number] Theater Provider 07/17 Released w/o Limitations Theater Facilit y Theater Facility OUTPATIENT [id number] Theater Provider 07/30 Released w/o Limitations Theater Facilit y Theater [facility] OUTPATIENT [id number] Theater Provider 07/31 Released w/o Limitations Theater Facilit y Theater Facility OUTPATIENT [id number] Theater Provider 08/29 Released w/o Limitations Theater Fac[facility] y [facility] OUTPATIENT [id number] Theater Provider 10/28 Released w/o Limitations Theater Facilit y Theater Facility OUTPATIENT [id number] Theater Provider 11/04 Released w/o Limitations Theater Facilit y [facility] [place] [facility] COMMUNITY/ WORK REINTEGRAT ION [id number] Diagnos is: ICD-10- CM Z56.0 Unemplo yment, unspeci fied RAHUL HERNANDEZST HUIZAR BAILEE 05/07 [facility] [place] [facility] [place] [facility] Outpatient Encounter [id number] 05/08 [facility] [place] [facility] Outpatient Encounter [id number] Diagnos is: ICD-10- CM Z77.29 Contact with and exposur e to other hazardo us substan dionne JUAN JOSE THOMAS SA 05/10 [facility] UNLISTED PSYC SVC/THERAP Y [id number] Diagnos is: ICD-10- CM Z77.29 Contact with and exposur e to other hazardo us substan dionne SATINDER BALDERAS 05/10 [facility] [place] [facility] Outpatient [facility]counter [id number] 05/20 [place] [facility] [place] [facility] [place] [facility] COMMUNITY/ WORK REINTEGRAT ION [id number] Diagnos is: ICD-10- CM Z56.0 Unemplo yment, unspeci HUNG Loving 05/21 [facility] [place] [facility] [place] [facility] CASE MANAGEMENT [id number] Diagnos is: ICD-10- CM F43.23 Adjustm ent disorde r with mixed anxiety and depress ed mood KRISTOPHER QUINONES 05/21 [facility] En[facility] [id number] 05/21 [facility] En[facility] [id number] 05/22 [facility] [place] En[facility] [id number] 05/25 [facility] COMMUNITY/ WORK REINTEGRAT ION [id number] Diagnos is: ICD-10- CM Z56.0 Unemplo yment, unspeci fied ST GAYE HERRON 05/27 [facility] Encounter [id number] Diagnos is: ICD-10- CM G47.00 Insomni a, unspeci fiREFUGIO Hair 06/12 [facility] En[facility] [id number] 06/23 [facility] CASE MANAGEMENT [id number] Diagnos is: ICD-10- CM F43.23 Adjustm ent disorde r with mixed anxiety and depress ed mood KRISTOPHER QUINONES 06/24 [facility] En[facility] [id number] 07/02 [facility] Encounter [id number] 07/11 [facility] [place] [place] OFF/OP EST MAY X REQ PHY/QHP [id number] Diagnos is: ICD-10- CM 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23 Adjustm ent disorde r with mixed anxiety and depress ed mood KRISTOPHER QUINONES 07/24 [facility] [place] OFFICE O/P EST HI 40-54 MIN [id number] Diagnos is: ICD-10- CM F43.12 Post-tr aumatic stress disorde r, chronic Susan PRADO 08/04 [facility] COMMUNITY/ WORK REINTEGRAT ION [id number] Diagnos is: ICD-10- CM Z56.0 Unemplo yment, unspeci fied ST GAYE HERRON 08/26 [facility] En[facility] [id number] 08/27 [facility] En[facility] [id number] 08/27 [facility] COMMUNITY/ WORK REINTEGRAT ION [id number] Diagnos is: ICD-10- CM Z56.0 Unemplo yment, unspeci fied ST GAYE HERRON 08/28 [facility] En[facility] [id number] Susan LONDONO 09/01 [facility] En[facility] [id number] 09/01 [facility] En[facility] [id number] 09/01 [facility] En[facility] [id number] JORGE MCKEON 09/01 [facility] En[facility] [id number] 09/01 [facility] En[facility] [id number] 09/01 [facility] En[facility] [id number] 09/02 [facility] [place] OFF/OP EST MAY X REQ PHY/QHP [id number] Diagnos is: ICD-10- CM I10 Essenti al (primar y) hyperte nsion CHRISTIANO,ER IC K 09/02 [place] [facility] En[facility] [id number] 09/02 [facility] [id number] 09/03 [facility] En[facility] [id number] 09/25 [facility] OFFICE O/P EST MOD 30 MIN [id number] Diagnos is: ICD-10- CM F43.12 Post-tr aumatic stress disorde r, chronic EVE,M MORIS 09/29 [facility] [id number] 10/08 [facility] En[facility] [id number] 10/15 [facility] O/P EST MOD 30 MIN [id number] Diagnos is: ICD-10- CM F43.12 Post-tr aumatic stress disorde r, chronic EVE,M MORIS 10/23 [facility] [id number] 10/28 [facility] [id number] 11/18 [facility] En[facility] [id number] 11/24 [facility] [place] OFFICE O/P EST MOD 30 MIN [id number] 1BY. 21 Diagnos is: ICD-10- CM I10 Essenti al (primar y) hyperte nsion DANILO,KE NDRA C 11/26 [place] [facility] [facility] Outpatient Encounter [id number] 11/26 [facility] OFF[facility] O/P EST MOD 30 MIN [id number] Diagnos is: ICD-10- CM F43.12 Post-tr aumatic stress disorde r, chronic Susan PRADO MORIS 12/18 [facility] Outpatient Encounter [id number] 01/13 [facility] Outpatient Encounter [id number] 01/14 [facility] OFF[facility] O/P EST MOD 30 MIN [id number] Diagnos is: ICD-10- CM F43.12 Post-tr aumatic stress disorde r, chronic EVE,M MORIS 01/15 [facility] O/P EST MOD 30 MIN [id number] Diagnos is: ICD-10- CM F10.99 Alcohol use, unsp with unspeci fied alcohol -induce d disordSusan Carlos 02/12 [facility] Encounter [id number] 02/18 [facility] Encounter [id number] 03/02 [facility] Encounter [id number] 03/15 [facility] Encounter [id number] 04/19 [facility] Encounter [id number] 04/21 [facility] OFFICE O/P EST MOD 30 MIN [id number] 1BY. 40 Diagnos is: ICD-10- CM M54.50 Low back pain, unspeci fied MARILOU CARRASCO 04/29 [place] [facility] Out[facility] Encounter [id number] 05/18 [facility] [place] [id number] Diagnos is: ICD-10- CM H90.3 Sensori neural hearing loss, bilater LIANG Rodrigez 05/18 [facility] Out[facility] Encounter [id number] 05/19 [facility] Encounter [id number] 05/20 [facility] Encounter [id number] 05/21 [facility] Encounter [id number] BRAULIO WAHL 08/02 [facility] Out[facility] Encounter [id number] 08/31 [facility] Out[facility] Encounter [id number] 08/31 [facility] Encounter [id number] 09/21 [facility] Out[facility] Encounter [id number] SUSAN SEPULVEDA YS 09/23 [facility] Out[facility] Encounter [id number] SUSAN SEPULVEDA YS 09/24 [facility] Out[facility] Encounter [id number] CECILIA DAVID 09/24 [facility] Encounter [id number] 09/26 [facility] OFFICE O/P EST HI 40 MIN [id number] Diagnos is: ICD-10- CM F43.9 Reactio n to severe stress, unspeci cristyuzair Susan PRADO MORIS 10/04 [facility] Outpatient Encounter [id number] 10/25 [facility] [place] Outpatient Encounter [id number] 19 10/27 [place] [facility] Outpatient Encounter [id number] 10/27 [place] [facility] Procedures Combined list of: 1) Procedures from Department of Veterans Affairs facilities going back up to thelast 18 months, not all [place] non-surgical procedures are included; 2) All procedures from the Department of Defense facilities. Procedure Procedure Type Code Date Perfomer Comments Sourc e PHYS/OTH QUALIFIED [facility]ELTER QUALIFIED,EDUCATIO N,TRAIN,LICENSURE/ REGULATION (WHEN APPLICABLE) EDUC SER RENDERED TO PATS IN A GRP SETTING (EG,,OBESI TY,OR DIABETIC INSTRUCT) 2008 [facility] COLLECTION OF VENOUS BLOOD BY VENIPUNCTURE 2008 [facility] SCREENING TEST OF VISUAL ACUITY, QUANTITATIVE, BILATERAL 2020 [facility] EAR PROTECTOR ATTENUATION MEASUREMENTS 2020 [facility] INDIVIDUAL PSYCHOTHERAPY, INSIGHT ORIENTED, BEHAVIOR MODIFYING AND/OR SUPPORTIVE, IN AN OFFICE OR OUTPATIENT FACILITY, APPROXIMATELY 20 TO 30 MINUTES [id number] WITH THE PATIENT 2007 [facility] INFLUENZA VIRUS VACCINE, TRIVALENT (IIV3), SPLIT VIRUS, PRESERVATIVE FREE, 0.5 ML DOSAGE, FOR INTRAMUSCULAR USE 2007 [facility] PURE TONE AUDIOMETRY (THRESHOLD); AIR ONLY 2007 [facility] SCREENING TEST OF VISUAL ACUITY, QUANTITATIVE, BILATERAL 2021 [facility] INFLUENZA VIRUS VACCINE, QUADRIVALENT (IIV4), SPLIT VIRUS, PRESERVATIVE FREE, 0.5 ML DOSAGE, FOR INTRAMUSCULAR USE 2019 [facility] HEPATITIS A AND HEPATITIS B VACCINE (HEPA-HEPB), ADULT DOSAGE, FOR INTRAMUSCULAR USE 2005 [facility] SCREENING TEST OF VISUAL ACUITY, QUANTITATIVE, BILATERAL 2005 [facility] PATIENT EDUCATION, NOT OTHERWISE CLASSIFIED, NON-PHYSICIAN PROVIDER, GROUP, PER SESSION 2005 [facility] VENIPUNCTURE,AGE 2 YEARS/OLDER,NECESS ITATING THE SKILL OF A PHYSICIAN/OTHER QUALIFIED [facility]ELTER (SEP PROC),FOR DIAGNOSTIC/THERAPE UTIC PURPOSES (NOT TO BE USED FOR ROUTINE VENIPUNCTURE) 2003 [facility] Physical Therapy Service Evaluation Low Complexity Physical Therapy Service Evaluation Low Complexity 19619 2021 Theater Provider [facility] Physical Therapy: ___ Se ion Segments, 15 Minutes Each Physical Therapy: ___ Session Segments, 15 Minutes Each 29049 2021 Theater Provider [facility] Musculoskeletal Needle Insertion Without Injection 1 Or 2 Muscles Musculoskeletal Needle Insertion Without Injection 1 Or 2 Muscles 24833 2021 Theater Provider [facility] Physical Therapy Service Evaluation Moderate Complexity Physical Therapy Service Evaluation Moderate Complexity 66258 2021 Theater Provider [facility] Physical Therapy: ___ Se ion Segments, 15 Minutes Each Physical Therapy: ___ Session Segments, 15 Minutes Each 26752 2021 Theater Provider [facility] Anthrax Vaccine Anthrax Vaccine 64600 2021 Theater Provider [facility] Threshold Audiogram (Pure Tone) Threshold Audiogram (Pure Tone) 57520 2008 EDD WATTS III [facility] Special Physician Services Analysis Of Computerized Data Special Physician Services Analysis Of Computerized Data 10659 2008 EDD WATTS III [facility] Physician Supervised Group Educational Services 2008 EDD WATTS [facility] ENT Services 82219 2008 EDD WATTS III [facility] Audiometry Group Testing Audiometry Group Testing 60881 2008 EDD WATTS III [facility] Clinical Social Work Individual Outpatient Counseling 30 Minutes Clinical Social Work Individual Outpatient Counseling 30 Minutes 08452 2007 MAKENNA CORONA [facility] Determination Of Refractive State Determination Of Refractive State 22551 2005 ALISA BROWNE Screening Test Of Visual Acuity, Quantitative, Bilateral Screening Test Of Visual Acuity, Quantitative, Bilateral 96645 2005 ALISA BROWNE [facility] Physician Supervised Services Provision Of Special Supplies Physician Supervised Services Provision Of Special Supplies 26221 2005 PREETI ROWE [facility] Ear mold/insert, not disposable, any type 2005 PREETI RWOE [facility] Patient education, not otherwise cla ified, non-physician provider, group, per se ion 2005 PREETI ROWE [facility] Audiometry Group Testing Audiometry Group Testing 51875 2005 PREETI ROWE [facility] Preventive Medicine Administration Of Health Risk Questionnaire Patient-Focused Preventive Medicine Administration Of Health Risk Questionnaire Patient-Focused 05559 BAILEE GREGORY [facility] Influenza Split Virus Vaccine IM With Preservative Quadrivalent 0.50mL Dosage Influenza Split Virus Vaccine IM With Preservative Quadrivalent 0.50mL Dosage 55362 BAILEE GREGORY Influenza, Inj., quad., contains preservative (Afluria); Series #: 1; 0.5 mL; IM; Right Arm; Mfg: Seqirus; Lot: [id number]; VIS given (Carolyn: 04/08/2019). DoD Immunization Administration By Injection, One Vaccine Immunization Administration By Injection, One Vaccine 66450 BAILEE GREGORYAN [facility] Adaptive Behavior A e ment System, 2nd Edition (ABAS-II) Adaptive Behavior Assessment System, 2nd Edition (ABAS-II) 36025 ANA CORDOVA PHQ9, GAD7, AND PCL5 ALL SCORED 0. SM DENIES ANY SUICIDAL OR HOMICIDAL IDEATION. SEVERITY NONE [facility] Anthrax Vaccine For Subcutaneous Or Intramuscular Use Anthrax Vaccine For Subcutaneous Or Intramuscular Use 20122 ANA CORDOVA Anthrax; Series #: 1; 0.5 mL; IM; Left Arm; Mfg: [facility] [employer]; Lot: [id number]; VIS given (Carolyn: 09/01/2019). DoD Vaccines Viral Measles, Mumps and Rubella, Live Vaccines Viral Measles, Mumps and Rubella, Live 75040 MARIUSZ RODRIGES MMR; Series #: 3; 0.5 mL; SC; Left Arm; Mfg: Merck; Lot: [id number]; VIS given (Carolyn: 03/30/2021). DoD A e ment & Intervention Blood Pre ure Measured Assessment & Intervention Blood Pressure Measured 2000F MARIUSZ RODRIGES Venipuncture Venipuncture 11314 MARIUSZ RODRIGES Screening Test Of Visual Acuity, Quantitative, Bilateral Screening Test Of Visual Acuity, Quantitative, Bilateral 88086 MARIUSZ RODRIGES [facility] Audiometry Group Testing Audiometry Group Testing 32185 PAULINA HUNTER Ear Protector Attenuation Measurements Ear Protector Attenuation Measurements 21944 PAULINA HUNTER No data available for this section Ambulato ry Pharmacy Social History Combined list of available smoking, tobacco, and other social history from Department of Defense and Veterans Affairs facilities. Social History Type Response Date Comment [facility] Tobacco smoking status [facility]-TO[facility] NEVER USED 04/29/2024 [facility] History of tobacco use [place]-TOBACCO NEVER USED 01/02/2023 [facility] [place] [facility] Sex Representation Male 12/12/2021 Unknow n Organization [facility] of [facility] [place] [facility] History of tobacco use LIFETIME NON-TOBACCO USER 07/31/2017 [facility] [place] [facility] History of tobacco use LIFETIME NON-TOBACCO USER [facility]04[facility] This section is an empty social history section. [facility] Sexual Orientation Ambula tory Pharmacy Gender identity [...] Plan No data available for this section 11/05/2024 Ambulatory Pharmacy Plan of Care List of future care activities from Department of Veterans Affairs facilities. Additional future care activities may be listed in the Assessment and Plan section. Date/Time Care Activity Care Activity Detail Facili ty 11/05/2024 AMBULATORY - MEDICINE AMBULATORY - MEDICI NE [facility] [place] [facility] 11/10/2024 AMBULATORY - PSYCHIATRY AMBULATORY - PSYC HIATRY [facility] [place] [facility] 10/27/2024 Consult Order [facility] SURGERY Cons [employer] Supervisor's Choice [facility] Functional Status Combined list of recent functional and cognitive assessments recorded at Department of Defense and Veterans Affairs ([place]).[place] Functional [place] Measurement (FIM) Scale: 1 = Total Assistance (Subject = 0% +), 2 = Maximal Assistance (Subject = 25% +), 3 = Moderate Assistance (Subject = 50% +), 4 = Minimal Assistance (Subject = 75% +), 5 = Supervision, 6 = Modified [place] (Device), 7 = Complete [place] (Timely, Safely). Assessment Date/Time Source Assessment Type Assessment Skill Assessment Score Assessment Details No data available for this section
== END 2024-11-05 08:15 | disposition home or self-care (01) ==
LOC: HO.US 08:14
PROVIDERS: PCP Family Medicine; Visit Provider Surgery
DX: E66.09 Other obesity due to excess calories (principal); Z68.32 Body mass index [BMI] 32.0-32.9, adult; I10 Essential (primary) hypertension
CPT/HCPCS: 76700; 76981

== ENCOUNTER → 2024-11-05 08:16 | Outpatient (BNV) | payer OTHER, SELFPAY | PROVIDERS: PCP Family Medicine; Visit Provider Radiology Diagnostic Radiology | DX: E66.811 Obesity, class 1 (principal) | CPT/HCPCS: 76700 ==

== ENCOUNTER 2024-11-26 15:18 | Day surgery (SDC) | payer OTHER, SELFPAY ==
--- OUTSIDE RECORDS SUMMARY | 2024-11-04 12:13 | XMS_ITS ---
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 Date/Time Encounter Type Encounter Description Reason Pro vider Source Oct 27, 2024 03:45 PM Outpatient Encounter PRIMARY CARE/MEDICINE IHE Encounter Template Text not used by [place] Plan of Treatment: Future Appointments (+ 6 [...] 20 appointments. The data comes from all [place] treatment facilities. Appointment Date/Time Appointment Type Appointme nt Facility Name Nov 05, 2024 08:00 AM [facility]ULAT[facility] [place] [facility] [place] [facility] Nov 10, 2024 03:30 PM [facility] Active, Pending, and Scheduled Orders This section includes a listing of several types of active, pending, and scheduled orders, including clinic medications orders, diagnostic test orders, procedure orders and consult orders; where the start date of the order is 45 days before the date of the Encounter or 45 days after the date of theEncounter. The data comes from all [place] treatment facilities. Test Date/Time Test Type Test Details Facility Name Oct 27, 2024 07:56 PM Consult Order COMMUNITY CARE-GEN SURGERY Cons Talent Development Consultant[facility] Social History: Smoking Status (Most current) and Tobacco Use (All prior to encounter date) This section includes the most current, and the historical, smoking and tobacco- related health factors from the [place] facility where the Encounter took place. Current Smoking Status This section includes the most current smoking, or tobacco-related health factor, from the [place] facility where the Encounter took place. Date/Time Current Smoking Status Comment Facil ity January 02, 2023 03:00 PM VA-TOBACCO NEVER USED [facility] Tobacco Use History This section includes a history of the smoking, or tobacco-related health factors, that were collected on or before the date of the Encounter. The data comes from the [place] facility where the Encounter took place. Date/Time Smoking Status/Tobacco Use Comment F acility Sep 20, 2019 04:42 PM VA-TOBACCO FORMER USER [place] [facility] [place] [facility] Sep 20, 2019 04:42 PM VA-TOBACCO QUIT 1 TO < 5 YRS [facility] [place] [facility] Jul 31, 2017 11:06 AM LIFETIME NON-TOBACCO USER [place] [facility] [place] [facility] Sep 04, 2010 11:01 AM [facility] Encounter Notes: All associated encounter notes This section contains the clinical notes associated to the Encounter. Date/Time Encounter Note(s) Provider Source Oct 27, 2024 03:45 PM PREVENTIVE MEDICIN E NURSING NOTE: LOCAL TITLE: CLINICAL REMINDERS/NURSING STANDARD TITLE: PREVENTIVE MEDICINE NURSING NOTE DATE OF NOTE: OCT 27, 2024@15:45 ENTRY DATE: OCT 27, 2024@15:45:16 AUTHOR: HENRIQUE SEPULVEDA EXP COSIGNER: URGENCY: STATUS: COMPLETED Advance Directive Screen MH AD: Patient does not have a completed advance directive on file at any facility, [facility] or outside. S/he is not interested in completing one at this time. The patient received education about Advance Directives and written notification of his/her rights. Depression Screening: Perform PHQ-2 A PHQ-2 screen was performed. The score was 0 which is a negative screen for depression. Over the past two weeks, how often have you been bothered by the following problems? 1. Little interest or pleasure in doing things Not at all 2. Feeling down, depressed, or hopeless Not at all Pneumococcal Conjugate Vaccine (PCV15/PCV20/PCV21): Refuses PCV vaccine Immunization: PNEUMOCOCCAL CONJUGATE, UNSPECIFIED FORMULATION Refusal Reason: PATIENT DECISION Patient refuses all immunization(s) in the PneumoPCV group Date Documented: 10/27/24 15:45 Influenza Immunization: Deferral / Refusal The patient declines to receive the recommended dose of seasonal influenza vaccine. Immunization: INFLUENZA, UNSPECIFIED FORMULATION Refusal Reason: PATIENT DECISION Patient refuses all immunization(s) in the FLU group Date Documented: 10/27/24 15:45 COVID-19 Immunization: Refused Moderna Monovalent COVID-19 vaccine Immunization: COVID-19 (MODERNA), MRNA, LNP-S, PF, 50 MCG/0.5 ML (AGES 12+ YEARS) Refusal Reason: PATIENT DECISION Patient refuses all immunization(s) in the COVID-19 group Date Documented: 10/27/24 15:46 HTN Assess for Elevated BP>=140/90: The patient was counseled on the importance of regular exercise and/or physical activity in the control of blood pressure. The patient was counseled on the importance of diet and weight loss/ control in the regulation of blood pressure. Sexual Orientation: The patient thinks of their sexual orientation as: Straight or Heterosexual /es/ GALLO SEPULVEDA LPN LPN Signed: 10/27/2024 15:46 GALLO SEPULVEDA [place]
--- OUTSIDE RECORDS SUMMARY | 2024-11-04 12:13 | XMS_ITS ---
Author Name [facility] Address [address] [place] [address] Care Team Providers Care Cotton Baler Name Role Phone JENNI CARRASCO Primary Care [...] section includes the information on record at [place] for the Encounter. Date/Time Encounter Type Encounter Description Reason Pro vider Source Oct 25, 2024 09:57 AM Outpatient Encounter PRIMARY CARE/MEDICINE [facility] Encounter Template Text not used by [place] Plan of Treatment: Future Appointments (+ 6 months) and Future Tests (+/- 45 days) The Plan of Treatment section includes future care activities for the patient from all [place] treatmentfacilities. This section includes future appointments and future orders which are active, pending or scheduled. Future Appointments This section includes appointments that were scheduled to occur 6 months from the date of the Encounter, up to a maximum of 20 appointments. The data comes from all [place] treatment facilities. Appointment Date/Time Appointment Type Appointme nt Facility Name Oct 27, 2024 03:30 PM [facility]BULATORY - [facility]ICINE [facility] Nov 05, 2024 08:00 AM AM[facility]ULATORY - MEDICINE [facility] [place] [facility] Nov 10, 2024 03:30 PM AMBULATORY - PSYCHIATRY [facility] [place] [facility] Active, Pending, and Scheduled Orders This section includes a listing of several types of active, pending, and scheduled orders, including clinic medications orders, diagnostic test orders, procedure orders and consult orders; where the start date of the order is 45 days before the date of the Encounter or 45 days after the date of theEncounter. The data comes from all [place] treatment facilities. 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 Current Smoking Status This section includes the most current smoking, or tobacco-related health factor, from the [place] facility where the Encounter took place. Date/Time Current Smoking Status Comment Facil ity January 02, 2023 03:00 PM VA-TOBACCO NEVER USED [place] [facility] Tobacco Use History This section includes a history of the smoking, or tobacco-related health factors, that were collected on or before the date of the Encounter. The data comes from the [place] facility where the Encounter took place. Date/Time Smoking Status/Tobacco Use Comment F acility Sep 20, 2019 04:42 PM VA-TOBACCO FORMER USER [place] [facility] [place] [facility] Sep 20, 2019 04:42 PM VA-TOBACCO QUIT 1 TO < 5 YRS [facility] [place] [facility] Jul 31, 2017 11:06 AM LIFETIME NON-TOBACCO USER [facility] [place] [facility] Sep 04, 2010 11:01 AM LIFETIME NON-TOBACCO USER [facility] [place] [facility] Encounter Notes: All associated encounter notes This section contains the clinical notes associated to the Encounter. Date/Time Encounter Note(s) Provider Source Oct 25, 2024 09:57 AM PRIMARY CARE TELEP [place] ENCOUNTER NOTE: LOCAL TITLE: TELEPHONE NOTE/PRIMARY CARE STANDARD TITLE: PRIMARY CARE TELEPHONE ENCOUNTER NOTE DATE OF NOTE: OCT 25, 2024@09:57 ENTRY DATE: OCT 25, 2024@09:57:48 AUTHOR: ALEXEY CRUZ EXP COSIGNER: URGENCY: STATUS: COMPLETED LM ON VM RE UPCOMING APPT ON 10/27/24 /sudheer/ ALEXEY CRUZ [employer] Signed: 10/25/2024 09:58 ALEXEY CRUZ CHAUNCEY
--- OUTSIDE RECORDS SUMMARY | 2024-11-04 12:14 | XMS_ITS | Continuity of Care Document ---
Author Name [facility] Organization [facility] Care Team Providers Care Family Intervention Specialist Name Role Phone [facility] Unavailable Unavailable Problems Combined list of problems [...] tendinitis, right hip Inactive 04/10/20 22 Condition [facility] Patellar tendinitis, right knee Inactive 04/10/20 22 Condition [facility] Encounter for immunization Active 03/20/20 22 Condition DoD Adjustment disorder with mixed anxiety and depressed mood (SNOMED CT [id number]) Active Condition [facility] Chronic low back pain Active Condition [facility] Essential hypertension Active Condition [facility] Exposure to potentially hazardous substance Active Condition Oct 23, 2023 Entered By: LOUIS GLYNN EN A Comment: Connect Snomed Code to ICD 10 Code refer to note dated 07/18/23 [facility] Exposure to Potentially Hazardous Substance ([facility] [id number]) Active Condition [facility] History of surgery Active Condition Oct 17, 2011 Entered By: TOI KNOX Comment: -- vasectomy by [facility]rology [facility] in [place] 08/04 [facility] History of traumatic brain injury Active Condition Oct 27, 2024 Entered By: JENNI CARRASCO Comment: hx concussion [facility] HL - Hearing loss Active Condition Se p 2023 Entered By: JENNI CARRASCO Comment: bilateral d/t noise exposure in service [facility] Insomnia Active Condition [facility] Obesity Active Condition Apr 29 Entered By: JENNI CARRASCO Comment: 11/27/23 BMI 32Mar 2024 Entered By: JENNI CARRASCO Comment: 10/27/24 BMI 35 [facility] Tinnitus Active Condition Apr 29 Entered By: JENNI CARRASCO Comment: bilateralSep 2023 Entered By: JENNI CARRASCO Comment: hx noise exposure in service [facility] visit for: services [...] M54.50 Low back pain, unspecified Active Diagnosis [facility] Diagnosis: ICD-10-CM F10.99 Alcohol use, unsp with unspecified alcohol-induced disorder Active Diagnosis [facility] Diagnosis: ICD-10-CM F43.12 Post-traumatic stress disorder, chronic Active Diagnosis [facility] Diagnosis: ICD-10-CM I10 Essential (primary) hypertension Active Diagnosis [facility] Diagnosis: ICD-10-CM Z56.0 Unemployment, unspecified Active Diagnosis [facility] Diagnosis: ICD-10-CM F43.23 Adjustment disorder with mixed anxiety and depressed mood Active Diagnosis [facility] Diagnosis: ICD-10-CM Z71.89 Other specified counseling Active [facility] Diagnosis: ICD-10-CM G47.00 Insomnia, unspecified [facility] Diagnosis: ICD-10-CM Z77.29 Contact with and exposure to other hazardous substances Active Diagnosis [facility] Medications Combined list of outpatient medications [...] FOR BLOOD PRESSURE /HEART ORAL ACTIVE 04/23/2025 [id number] Briseida CARRASCO 2023 90 [facility] ATENOLOL 25MG TAB TAKE ONE-HALF OF A TABLET BY MOUTH ONCE DAILY FOR BLOOD PRESSURE /HEART ORAL DISCONT INUED 09/02/2024 [id number] TOI JARRELL 2023 15 [facility] azithromyci [facility] 250 mg oral tablet 0 total refill(s ) Ordered 2021 No Facilit y Access BUPROPION HCL 150MG 24HR TAB,SA TAKE ONE TABLET BY MOUTH ONCE DAILY ORAL DISCONT INUED (EDIT) 12/19/2024 [id number] CASH PRADO 2023 60 [facility] BUPROPION HCL 150MG 24HR TAB,SA TAKE ONE TABLET BY MOUTH ONCE DAILY ORAL DISCONT INUED 09/29/2024 [id number] CASH PRADO 2023 60 [facility] BUPROPION HCL 300MG 24HR TAB,SA TAKE ONE TABLET BY MOUTH EVERY MORNING ORAL DISCONT INUED BY FARHEEN R 02/13/2025 [id number] CASH PRADO 2023 90 [facility] FLUOXETINE HCL 10MG CAP TAKE ONE CAPSULE BY MOUTH ONCE DAILY FOR 7 DAYS, THEN TAKE TWO CAPSULES ONCE DAILY FOR DEPRESSI ON AND ANXIETY ORAL ACTIVE 11/23/2024 [id number] 5 EVE CASH 2024 93 [facility] HYDROCORTIS ONE 2.5% CREAM,TOP APPLY A THIN LAYER TOPICALL Y TWICE DAILY FOR ATOPIC DERMATIT IS TOPICA L ACTIVE 11/26/2024 [id number] 5 Briseida CARRASCO 2024 90 [place] HYDROCORTIS ONE ACETATE 1%/PRAMOXIN E HCL 1% AEROSOL,RTL INSERT 1 APPLICAT ORFUL RECTALLY THREE TIMES DAILY NEEDED FOR HEMORRHO IDS RECTAL ACTIVE 04/30/2025 [id number] Briseida CARRASCO 2023 20 [place] IBUPROFEN 600MG TAB TAKE ONE TABLET BY MOUTH EVERY 8 HOURS NEEDED TAKE WITH FOOD ORAL ACTIVE 10/28/2025 [id number] 5 Briseida CARRASCO 2024 500 [place] ibuprofen 800 mg oral tablet [...] AT BEDTIME NEEDED SLEEP ORAL ACTIVE 01/02/2025 [id number] EVE CASH 2024 120 [facility] NALTREXONE (EQV-REVIA) 50MG TAB TAKE ONE TABLET BY MOUTH ONCE DAILY CRAVINGS ORAL DISCONT INUED BY PROVIDE R 02/13/2025 [id number] EVE, CASH 2023 90 [facility] NALTREXONE (EQV-REVIA) 50MG TAB TAKE ONE TABLET BY MOUTH ONCE DAILY FOR ALCOHOLI SM ORAL DISCONT INUED (EDIT) 12/19/2024 [id number] 4 EVE CASH 2023 30 [facility] TOPIRAMATE 25MG TAB TAKE ONE TABLET BY MOUTH ONCE DAILY FOR 1 WEEK, THEN TAKE TWO TABLETS ONCE DAILY ORAL ACTIVE 11/26/2024 [id number] 5 Briseida CARRASCO 2024 53 [facility] IELD TRAZODONE HCL 100MG TAB TAKE ONE-HALF TABLET BY MOUTH AT BEDTIME FOR SLEEP ORAL DISCONT INUED BY PROVIDE R 12/19/2024 [id number] EVE CASH 2023 45 [facility] TRAZODONE HCL 100MG TAB TAKE ONE-HALF TABLET BY MOUTH AT BEDTIME FOR 7 DAYS, THEN TAKE ONE TABLET AT BEDTIME FOR SLEEP ORAL DISCONT INUED (EDIT) 08/05/2024 [id number] CASH PRADO 2022 60 [facility] Allergies, Adverse Reactions, Alerts Combined list of allergies from Department of Defense and Veterans Affairs facilities. It does not include entries that were removed or entered in error. Substance Category Reaction Severity Reaction type Status Date Reported Comments Source No Known Allergies Drug allergy (disorder) active 12/07/2022 [facility] Immunizations Combined list of available immunizations from the Department of Defense and Veterans Affairs facilities. 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 Status Comments Source TDAP 2023 SHERMAN ALVARADO RIGHT DELTO ID [id number] complet ed [facility] IELD INFLUENZA, UNSPECIFIED FORMULATION 2022 88 complet ed [facility] anthrax vaccine 1 2021 ERICKA PERKINS [id number] [employer] Rembrandt (MIP) complet ed anthrax vaccine DoD SARS-COV-2 (COVID-19) vaccine, mRNA, spike protein, LNP, preservative free, 30 mcg/0.3mL dose 3 2020 [id number] Transcribed (TRS) complet ed SARS-COV- 2 (COVID-19 ) vaccine, mRNA, spike protein, LNP, preservat kenn free, 30 mcg/0.3mL dose DoD Influenza, injectable, quadrivalent, preservative free 1 2020 [id number] Transcribed (TRS) complet ed Influenza , injectabl e, quadrival ent, preservat kenn free DoD measles/mumps /rubella virus vaccine [facility] [id number] [employer] complet ed measles/m umps/rube lla virus vaccine 05/31/21 Given Ambulat ory Pharmac y measles, mumps and rubella virus vaccine 3 2020 NICHOLASASHA COBURNNAH E [id number] Vayyar (MSD) complet ed measles, mumps and rubella virus vaccine DoD COVID Vaccine Pfizer 2020 [facility] Arm [id number] PFIZER complet ed COVID Vaccine Pfizer 12/29/20 Given Ambulat ory Pharmac y COVID-19, mRNA, LNP-S, PF, 30 mcg/0.3 mL dose 2020 [employer] (PFR) Not Given COVID-19, mRNA, LNP-S, PF, 30 mcg/0.3 mL dose DoD SARS-COV-2 (COVID-19) vaccine, mRNA, spike protein, LNP, preservative free, 30 mcg/0.3mL dose 2 2020 Unknown, Provider [id number] Analiza (PFR) complet ed SARS-COV- 2 (COVID-19 ) vaccine, mRNA, spike protein, LNP, preservat kenn free, 30 mcg/0.3mL dose DoD COVID Vaccine Pfizer [facility] [id number] 208 PFIZER complet ed COVID Vaccine Pfizer 12/03/20 Given Ambulat ory Pharmac y COVID-19, mRNA, LNP-S, PF, 30 mcg/0.3 mL dose 2020 [employer] (PFR) Not Given COVID-19, mRNA, LNP-S, PF, 30 mcg/0.3 mL dose DoD SARS-COV-2 (COVID-19) vaccine, mRNA, spike protein, LNP, preservative free, 30 mcg/0.3mL dose 1 2020 Unknown, Provider [id number] Pfizer, Inc (PFR) complet ed SARS-COV- 2 (COVID-19 ) vaccine, mRNA, spike protein, LNP, preservat kenn free, 30 mcg/0.3mL dose DoD influenza, injectable, quadrivalent 2019 Sean ht Arm [id number] 158 Seqirus complet ed influenza , injectabl e, quadrival ent 05/29/20 Given Ambulat ory Pharmac y influenza, injectable, quadrivalent, contains preservative 1 2019 ANA TINAJERO [id number] 158 [employer] (SEQ) complet ed influenza , injectabl e, quadrival ent, contains preservat kenn DoD influenza, injectable, quadrivalent 2019 [id number] 350 158 [employer] complet ed influenza , injectabl e, quadrival ent 10/30/19 Given Ambulat ory Pharmac y influenza, injectable, quadrivalent, contains preservative 1 2019 [id number] 350 158 [employer] (SEQ) complet ed influenza , injectabl e, quadrival ent, contains preservat kenn DoD INFLUENZA, SEASONAL, INJECTABLE 2018 141 complet ed [facility] tetanus, diphtheria, acellular pertu is 2017 [id number] 115 [employer] complet ed tetanus, diphtheri a, acellular pertussis 07/25/18 Given Ambulat ory Pharmac y tetanus toxoid, reduced diphtheria toxoid, and acellular pertu is vaccine, adsorbed 1 2017 [id number] 115 Smithine (SKB) complet ed tetanus toxoid, reduced diphtheri a toxoid, and acellular pertussis vaccine, adsorbed DoD influenza, seasonal, injectable-pf 2017 [id number] 140 Se[employer] complet ed influenza , seasonal, injectabl e-pf 06/13/18 Given Ambulat ory Pharmac y Influenza, seasonal, injectable, preservative free 1 2017 [id number] 140 Seqirus (SEQ) comple t ed Influenza , seasonal, injectabl e, preservat kenn free DoD INFLUENZA, SEASONAL, INJECTABLE 2016 141 complet ed recieved with [employer] [facility] influenza, seasonal, injectable-pf 2016 [id number] 140 Se[employer]irus complet ed influenza , seasonal, injectabl e-pf 06/20/17 Given Ambulat ory Pharmac y Influenza, seasonal, injectable, preservative free 1 2016 [id number] 140 Seqirus (SEQ) comple t ed Influenza , seasonal, injectabl e, preservat kenn free DoD influenza, seasonal, injectable-pf 2015 [id number] 140 CSL Behring complet ed influenza , seasonal, injectabl e-pf 07/27/16 Given Ambulat ory Pharmac y Influenza, seasonal, injectable, preservative free 1 2015 [id number] 140 [facility] [employer] (CSL) complet ed Influenza , seasonal, injectabl e, preservat kenn free [facility] influenza virus vaccine, live 2011 [id number] 111 Medimmune Inc [facility] t ed influenza virus vaccine, live 06/06/12 Given Ambulat ory Pharmac y influenza virus vaccine, live, attenuated, for intranasal use 1 2011 [id number] 111 MedImmune, Inc. (MED) complet ed influenza virus vaccine, live, attenuate d, for intranasa l use DoD FLU,3 YRS (HISTORICAL) 2010 88 complet ed [facility] influenza virus vaccine, live 2010 [id number] 111 Medimmune Inc comple t ed influenza virus vaccine, live 06/30/11 Given Ambulat ory Pharmac y influenza virus vaccine, live, attenuated, for intranasal use 1 2010 [id number] 111 MedImmune, Inc. (MED) complet ed influenza virus vaccine, live, attenuate d, for intranasa l use DoD FLU,3 YRS (HISTORICAL) 2010 88 complet ed Site: Right Deltoid [facility] tuberculin purified protein derivative 2008 UNKNOWN 96 Unknown complet ed tuberculi n purified protein derivativ e 06/14/09 Given Ambulat ory Pharmac y influenza virus vaccine,split 2008 [id number] 15 sanofi pasteur complet ed influenza virus vaccine,s plit 06/14/09 Given Ambulat ory Pharmac y influenza virus vaccine, split virus (incl. purified surface antigen)-reti red CODE 1 2008 [id number] 15 Sanofi Pasteur ([facility]) complet ed influenza virus vaccine, split virus [...] y tetanus, diphtheria, acellular pertu is 2007 [id number] 115 Unknown complet ed tetanus, diphtheri a, [...] acellular pertu is vaccine, adsorbed 1 2007 [id number] 115 Unknown (UNK) comple t ed tetanus [...] B vaccine 2 2005 [id number] 104 [place] (SKB) complet ed hepatitis A and hepatitis B vaccine DoD tuberculin purified protein derivative 2005 [id number] 96 [facility] complet ed tuberculi n purified protein derivativ e 03/28/06 Given Ambulat ory Pharmac y tuberculin purified protein derivative 2003 [id number] 96 Unknown complet ed tuberculi n purified protein derivativ e 02/03/04 Given Ambulat ory Pharmac y meningococcal polysaccharid e (MPSV4) 2003 [id number] 32 Unknown complet ed meningoco ccal polysacch aride (MPSV4) 02/03/04 Given Ambulat ory Pharmac y poliovirus vaccine, inactivated 2003 [id number] 10 sanofi pasteur complet ed polioviru s vaccine, inactivat ed 02/03/04 Given Ambulat ory Pharmac y tetanus-dipht h toxoids (Td) adult/adol 2003 [id number] 09 sanofi pasteur complet ed tetanus-d iphth toxoids (Td) adult/ado l 02/03/04 Given Ambulat ory Pharmac y measles/mumps /rubella virus vaccine 2003 [id number] 03 Merck & Company Inc complet ed measles/m umps/rube lla virus vaccine 02/03/04 Given Ambulat ory Pharmac y influenza virus vaccine,split 2003 [id number] 15 Unknown complet ed influenza virus vaccine,s plit 02/03/04 Given Ambulat ory Pharmac y measles, mumps and rubella virus vaccine 1 2003 [id number] 03 Merck (MSD) complet ed measles, mumps and rubella virus vaccine DoD tetanus and diphtheria toxoids, adsorbed, preservative free, for adult use (2 Lf of tetanus toxoid and 2 Lf of diphtheria toxoid) 1 2003 [id number] 09 Sanofi Pasteur ([facility]) complet ed tetanus and diphtheri a toxoids, adsorbed, preservat kenn free, for adult use (2 Lf of tetanus toxoid and 2 Lf of diphtheri a toxoid) DoD poliovirus vaccine, inactivated 1 2003 [id number] 10 Sanofi Pasteur ([facility]) complet ed polioviru s vaccine, inactivat ed DoD influenza virus vaccine, split virus (incl. purified surface antigen)-reti red CODE 1 2003 [id number] 15 Unknown (UNK) comple t ed influenza virus vaccine, split virus (incl. purified surface antigen)- retired CODE DoD meningococcal polysaccharid e vaccine (MPSV4) 1 2003 [id number] 32 Unknown (UNK) comple t ed meningoco ccal polysacch aride vaccine (MPSV4) DoD hepatitis A-hepatitis B vaccine 2003 [id number] 104 Unknown complet ed hepatitis A-hepatit is B vaccine 02/02/04 Given Ambulat ory Pharmac y hepatitis A and hepatitis B vaccine 1 2003 [id number] 104 Unknown (UNK) complet ed hepatitis [...] Mar 19, 2024 09:32 AM Reporting Lab: [facility] [address] [facility] [address] Performing Lab: [facility] [address] [facility] [address] [facility] LIVER FUNCTION ALBUMIN [MASS/VOLU ME] IN SERUM OR PLASMA 3.9 g/dL 3.5 - 5.0 03/19 Specimen Type: SERUM No comment entered. Ordering Provider: HUMERA CARRASCO Report Released Date/Time: Mar 19, 2024 09:32 AM Reporting Lab: [facility] [address] [facility] [address] Performing Lab: [facility] [facility] [address] [facility] [address] [facility] LIVER FUNCTION ALKALINE PHOSPHATAS E [ENZYMATIC ACTIVITY/V OLUME] IN SERUM OR PLASMA 51 U/L 40 - 150 03/19 Specimen Type: SERUM No comment entered. Ordering Provider: HUMERA CARRASCO Report Released Date/Time: Mar 19, 2024 09:32 AM Reporting Lab: [facility] [facility] [address] [facility] [address] Performing Lab: [facility] [facility] [address] [facility] [address] [facility] LIVER FUNCTION ASPARTATE AMINOTRANS FERASE [ENZYMATIC ACTIVITY/V OLUME] IN SERUM OR PLASMA 16 U/L 5 - 34 03/19 Specimen Type: SERUM No comment entered. Ordering Provider: HUMERA CARRASCO Report Released Date/Time: Mar 19, 2024 09:32 AM Reporting Lab: [facility] [facility] [address] [facility] [address] Performing Lab: [facility] [facility] [address] [facility] [address] [facility] LIVER FUNCTION ALANINE AMINOTRANS FERASE [ENZYMATIC ACTIVITY/V OLUME] IN SERUM OR PLASMA 35 U/L 03/19 Specimen Type: SERUM No comment entered. Ordering Provider: HUMERA CARRASCO Report Released Date/Time: Mar 19, 2024 09:32 AM Reporting Lab: [facility] [facility] [address] [facility] [address] Performing Lab: [facility] [facility] [address] [facility] [address] [facility] LIVER FUNCTION BILIRUBIN. TOTAL [MASS/VOLU ME] IN SERUM OR PLASMA 0.5 mg/dL 0.2 - 1.2 03/19 Specimen Type: SERUM No comment entered. Ordering Provider: HUMERA CARRASCO Report Released Date/Time: Mar 19, 2024 09:32 AM Reporting Lab: [facility] [facility] [address] [facility] [address] Performing Lab: [facility] [place] [facility] [address] [facility] [address] [facility] BASIC METABOLI C PANEL (fasting ) UREA NITROGEN [MASS/VOLU ME] IN SERUM OR PLASMA 15 mg/dL 7 - 25 03/19 Specimen Type: SERUM No comment entered. Ordering Provider: HUMERA CARRASCO Report Released Date/Time: Mar 19, 2024 09:32 AM Reporting Lab: [facility] [place] [facility] [address] [facility] [address] Performing Lab: [facility] [place] [address] [address] [facility] BASIC METABOLI C PANEL (fasting ) GLUCOSE [MASS/VOLU ME] IN SERUM OR PLASMA 106 mg/dL 65 - 100 03/19 H Specimen Type: SERUM No comment entered. Ordering Provider: HUMERA CARRASCO Report Released Date/Time: Mar 19, 2024 09:32 AM Reporting Lab: [facility] [place] [facility] [address] [facility] [address] Performing Lab: [facility] [place] [address] [address] [facility] [facility] BASIC METABOLI C PANEL (fasting ) SODIUM [MOLES/VOL UME] IN SERUM OR PLASMA 138 mmol/L 135 - 145 03/19 Specimen Type: SERUM No comment entered. Ordering Provider: HUMERA CARRASCO Report Released Date/Time: Mar 19, 2024 09:32 AM Reporting Lab: [facility] [place] [facility] [address] [facility] [address] Performing Lab: [facility] [place] [address] [address] [facility] [place] [facility] BASIC METABOLI C PANEL (fasting ) POTASSIUM [MOLES/VOL UME] IN SERUM OR PLASMA 4.3 mmol/L 3.5 - 5.0 03/19 Specimen Type: SERUM No comment entered. Ordering Provider: HUMERA CARRASCO Report Released Date/Time: Mar 19, 2024 09:32 AM Reporting Lab: [facility] [address] [facility] [address] Performing Lab: [facility]TRN [facility]USE[address] [address] [facility] BASIC METABOLI C PANEL (fasting ) CHLORIDE [MOLES/VOL UME] IN SERUM OR PLASMA 106 mmol/L 100 - 110 03/19 Specimen Type: SERUM No comment entered. Ordering Provider: HUMERA CARRASCO Report Released Date/Time: Mar 19, 2024 09:32 AM Reporting Lab: [facility] [address] Performing Lab: [facility] [address] [facility] BASIC METABOLI C PANEL (fasting ) CARBON DIOXIDE, TOTAL [MOLES/VOL UME] IN SERUM OR PLASMA 25 meq/L 20 - 30 03/19 Specimen Type: SERUM No comment entered. Ordering Provider: HUMERA CARRASCO Report Released Date/Time: Mar 19, 2024 09:32 AM Reporting Lab: [facility] [address] Performing Lab: [facility] [address] [facility] BASIC METABOLI C PANEL (fasting ) CREATININE [MASS/VOLU ME] IN SERUM OR PLASMA 0.92 mg/dL 0.50 - 1.40 03/19 Specimen Type: SERUM No comment entered. Ordering Provider: HUMERA CARRASCO Report Released Date/Time: Mar 19, 2024 09:32 AM Reporting Lab: [facility] [address] Performing Lab: [facility] [address] [facility] BASIC METABOLI C PANEL (fasting ) GLOMERULAR FILTRATION RATE/1.73 SQ M.PREDICTE D [VOLUME RATE/AREA] IN SERUM, PLASMA OR BLOOD BY CREATININE -BASED FORMULA (CKD-EPI 2020) >90mL/mi n 60 03/19 Specimen Type: SERUM No comment entered. Ordering Provider: HUMERA CARRASCO Report Released Date/Time: Mar 19, 2024 09:32 AM Reporting Lab: [facility] [address] [address] Performing Lab: [address] [id number] [place] [address] LIPID PANEL FASTING CHOLESTERO L [MASS/VOLU ME] IN SERUM OR PLASMA 203 mg/dL 03/19 H Specimen Type: SERUM No comment entered. Ordering Provider: HUMERA CARRASCO Report Released Date/Time: Mar 19, 2024 09:32 AM Reporting Lab: [facility] [address] [address] Performing Lab: [facility] [address] [address] [facility] LIPID PANEL FASTING TRIGLYCERI DE [MASS/VOLU ME] IN SERUM OR PLASMA 63 mg/dL 0 - 150 03/19 Specimen Type: SERUM No comment entered. Ordering Provider: HUMERA CARRASCO Report Released Date/Time: Mar 19, 2024 09:32 AM Reporting Lab: [facility] [address] [address] Performing Lab: [facility] [address] [address] [facility] LIPID PANEL FASTING CHOLESTERO L IN LDL [MASS/VOLU ME] IN SERUM OR PLASMA BY CALCULATIO N 137 mg/dL 0 - 129 03/19 H Specimen Type: SERUM No comment entered. Ordering Provider: HUMERA CARRASCO Report Released Date/Time: Mar 19, 2024 09:32 AM Reporting Lab: [facility] [place] [facility] [address] [facility] [address] Performing Lab: [facility] [place] [facility] [address] [facility] [address] [facility] [facility] LIPID PANEL FASTING CHOLESTERO L.TOTAL/CH OLESTEROL IN HDL [MASS RATIO] IN SERUM OR PLASMA 3.8 03/19 Specimen Type: SERUM No comment entered. Ordering Provider: HUMERA CARRASCO Report Released Date/Time: Mar 19, 2024 09:32 AM Reporting Lab: [facility] [address] [facility] [address] Performing Lab: [facility]USE[facility] [address] [facility] [address] [facility] LIPID PANEL FASTING CHOLESTERO L IN HDL [MASS/VOLU ME] IN SERUM OR PLASMA 53 mg/dL 40 - 60 03/19 Specimen Type: SERUM No comment entered. Ordering Provider: HUMERA CARRASCO Report Released Date/Time: Mar 19, 2024 09:32 AM Reporting Lab: [facility]N [facility] [address] [facility] [address] Performing Lab: [facility] [address] [facility] [address] [facility] HOSPITALRL [facility] TSH THYROTROPI N [UNITS/VOL UME] IN SERUM OR PLASMA 0.99 u[IU]/mL 0.35 - 5.00 03/19 Specimen Type: SERUM No comment entered. Ordering Provider: HUMERA CARRASCO Report Released Date/Time: Mar 19, 2024 09:32 AM Reporting Lab: [facility] [place] [facility] [address] [facility] [address] Performing Lab: [facility] [address] [facility] [address] [facility] HEMOGLOB IN A1C PANEL HEMOGLOBIN A1C/HEMOGL OBIN.TOTAL [...] Mar 19, 2024 09:32 AM Reporting Lab: [facility] [place] [facility] [address] [facility] [address] Performing Lab: [facility] [place] [facility] [address] [facility] [address] [facility] [place] [facility] CBC LEUKOCYTES [#/VOLUME] IN BLOOD BY AUTOMATED COUNT 5.92 10*3/uL 4.50 - 11.00 03/19 Specimen Type: BLOOD No comment entered. Ordering Provider: HUMERA CARRASCO Report Released Date/Time: Mar 19, 2024 09:32 AM Reporting Lab: [facility] [place] [facility] [address] [facility] [address] Performing Lab: [facility] [place] [facility] [address] [facility] [address] [facility] [place] [facility] CBC ERYTHROCYT ES [#/VOLUME] IN BLOOD BY AUTOMATED COUNT 5.62 10*6/uL 4.23 - 5.66 03/19 Specimen Type: BLOOD No comment entered. Ordering Provider: HUMERA CARRASCO Report Released Date/Time: Mar 19, 2024 09:32 AM Reporting Lab: [facility] [place] [facility] [address] [facility] [address] Performing Lab: [facility] [place] [facility] [address] [facility] [address] [facility] [place] TS [facility] CBC HEMOGLOBIN [MASS/VOLU ME] IN BLOOD 16.5 g/dL 12.8 - 17 03/19 Specimen Type: BLOOD No comment entered. Ordering Provider: HUMERA CARRASCO Report Released Date/Time: Mar 19, 2024 09:32 AM Reporting Lab: [facility] [place] [facility] [address] [facility] [address] Performing Lab: [facility] [place] [facility] [address] [facility] [address] [facility] [place] [facility] CBC HEMATOCRIT [VOLUME FRACTION] OF BLOOD BY AUTOMATED COUNT 46.9 39.2 - 50.4 03/19 Specimen Type: BLOOD No comment entered. Ordering Provider: HUMERA CARRASCO Report Released Date/Time: Mar 19, 2024 09:32 AM Reporting Lab: [facility] [place] [facility] [address] [facility] [address] Performing Lab: [facility] [place] [facility] [address] [facility] [address] [facility] [place] [facility] CBC MCV [ENTITIC VOLUME] BY AUTOMATED COUNT 83.5 fL 82 - 99 03/19 Specimen Type: BLOOD No comment entered. Ordering Provider: HUMERA CARRASCO Report Released Date/Time: Mar 19, 2024 09:32 AM Reporting Lab: [facility] [place] [facility] [address] [facility] [address] Performing Lab: [facility] [place] [facility] [address] [facility] [address] [facility] [place] [facility] CBC MCHC [MASS/VOLU ME] BY AUTOMATED COUNT 35.2 g/dL 30.8 - 35.1 03/19 H Specimen Type: BLOOD No comment entered. Ordering Provider: HUMERA CARRASCO Report Released Date/Time: Mar 19, 2024 09:32 AM Reporting Lab: [facility] [place] [facility] [address] [facility] [address] Performing Lab: [facility] [place] [facility] [address] [facility] [address] [facility] [place] [facility] CBC PLATELETS [#/VOLUME] IN BLOOD BY AUTOMATED COUNT 179 10*3/uL 140 - 360 03/19 Specimen Type: BLOOD No comment entered. Ordering Provider: HUMERA CARRASCO Report Released Date/Time: Mar 19, 2024 09:32 AM Reporting Lab: [facility] [place] [facility] [address] [facility] [address] Performing Lab: [facility] [place] [address] [address] [facility]RE[facility]PO[facility] HOSPITALN MASSUSE [facility] CBC ERYTHROCYT E DISTRIBUTI ON WIDTH [RATIO] BY AUTOMATED COUNT 11.9 12.0 - 16.0 03/19 L Specimen Type: BLOOD No comment entered. Ordering Provider: HUMERA CARRASCO Report Released Date/Time: Mar 19, 2024 09:32 AM Reporting Lab: [facility]PITALRATMORE COMM[facility] HOSPITALTRN [facility]ITALUSE[address] [address] Performing Lab: [facility]OSPITALRL TRN [facility]PITALUSETS [address] [address] [facility]ITALRE[facility]POINTE HOSPITALN [facility]ITALUSE [facility] CBC MCH [ENTITIC MASS] BY AUTOMATED COUNT 29.4 pg 26.2 - 32.6 03/19 Specimen Type: BLOOD No comment entered. Ordering Provider: HUMERA CARRASCO Report Released Date/Time: Mar 19, 2024 09:32 AM Reporting Lab: [facility]ITALRE[facility]POINTE HOSPITALN [facility]ITALUSE[address] [address] Performing Lab: [facility]OSPITALRL TRN [facility]ITALUSE[address] [address] [facility] T-SPOT TB PANEL MYCOBACTER IUM TUBERCULOS [...] additional information , please refer to http://educ ation.Levlr .[employer]/faq/FA Q215 (This link is being provided for information al/ educational purposes only.) Test Performed by [employer], [facility], [address] [place] [address] Reed aMrcum M.D., Ph.D., Director of Laboratorie s , [place] [id number] TEST PERFORMED AT: , Ordering Provider: BRIANNA CEJA SA Report Released Date/Time: December 26, 2022 09:31 AM Reporting Lab: [facility] [address] [facility] [address] Performing Lab: [facility] [address] [address] [facility] T-SPOT TB PANEL MYCOBACTER IUM TUBERCULOS [...] additional information , please refer to http://educ Tabber/faq/FA Q215 (This link is being provided for information al/ educational purposes only.) Test Performed by [employer], [address] [place] [address] Reed Marcum M.D., Ph.D., Director of Laboratorie s , [facility] [id number] TEST PERFORMED AT: , Ordering Provider: BRIANNA CEJA SA Report Released Date/Time: December 26, 2022 09:31 AM Reporting Lab: [facility] [address] [facility] [address] Performing Lab: [facility] [address] [address] [facility] T-SPOT TB PANEL MYCOBACTER IUM TUBERCULOS [...] For additional information , please refer to http://1-800-DENTIST/faq/FA Q215 (This link is being provided for information al/ educational purposes only.) Test Performed by [employer], [address] [place] [address] [place] Reed Marcum M.D., Ph.D., Director of Laboratorie s , CLIA [id number] TEST PERFORMED AT: , Ordering Provider: BRIANNA CEJA SA Report Released Date/Time: December 26, 2022 09:31 AM Reporting Lab: [facility] [address] [facility] [address] Performing Lab: [facility] [address] [address] [facility] T-SPOT TB PANEL MITOGEN STIMULATED GAMMA [...] additional information , please refer to http://educ ation.Levlr .com/faq/FA Q234 (This link is being provided for information al/ educational purposes only.) Test Performed by [employer], [facility], [address] [place] [address] Reed Marcum M.D., Ph.D., Director of Laboratorie s , CLIA [id number] TEST PERFORMED AT: , Ordering Provider: BRIANNA CEJA SA Report Released Date/Time: December 26, 2022 09:31 AM Reporting Lab: [facility] [address] [facility] [address] Performing Lab: [address] [address] [facility] T-SPOT TB PANEL GAMMA INTERFERON NEGATIVE [...] additional information , please refer to http://educ ation.Levlr .com/faq/FA Q215 (This link is being provided for information al/ educational purposes only.) Test Performed by [employer], [facility], [address] [place] [address] Reed Marcum M.D., Ph.D., Director of Laboratorie s , CLIA [id number] TEST PERFORMED AT: , Ordering Provider: BRIANNA CEJA SA Report Released Date/Time: December 26, 2022 09:31 AM Reporting Lab: [facility] [address] [facility] [address] Performing Lab: [facility] [address] [facility], [address] [place] [address] [facility] HEPATITI S B SURFACE ANTIBODY (HBsAb)- WH HEPATITIS B VIRUS SURFACE AB [PRESENCE] IN SERUM BY IMMUNOASSA Y REACTIVE 12/26 Specimen Type: SERUM Comment: A 'Reactive' result indicates HBsAb results >/= 12.0 mIU/mL and immunity to HBV infection. Ordering Provider: BRIANNA CEJA SA Report Released Date/Time: December 26, 2022 09:31 AM Reporting Lab: [facility] [address] [facility] [address] Performing Lab: [facility] [address] [facility] [address] [facility] MMRV (IGG) IMMUNE STATUS PANEL MEASLES [...] December 26, 2022 09:31 AM Reporting Lab: [address] [address] Performing Lab: [address] [address] [facility] MMRV (IGG) IMMUNE STATUS PANEL MUMPS [...] December 26, 2022 09:31 AM Reporting Lab: [address] [address] Performing Lab: [facility] [address] [facility] MMRV (IGG) IMMUNE STATUS PANEL RUBELLA [...] December 26, 2022 09:31 AM Reporting Lab: [address] [address] Performing Lab: [address] [address] [facility] MMRV (IGG) IMMUNE STATUS PANEL VARICELLA [...] December 26, 2022 09:31 AM Reporting Lab: [address] [address] Performing Lab: [address] [address] [facility] Infectio us Disease HIV-1/2 AG/AB 4G CDD LC NEGATIVE 11/28 Result Comment: Performed At: [facility] [id number] [place] [address] [address] [place] [address] KATHY BROWN PHD Ph:[phone] [address] [place] [address] Toi Wor[place] Infectio us Disease Source of Test.LC PostDepS torage (11/28/22 9:01 AM) 11/28 N [facility] Toi [place] Vital Signs Combined list of inpatient and outpatient Vital Signs from Department of Defense and Veterans Affairs, ranging from 12 months to all on record, depending upon the facility. Vital Sign Value Date Comments Source SYSTOLIC BLOOD PRESSURE 140 10/28/19 25 15:44:15 [facility] DIASTOLIC BLOOD PRESSURE 83 025 15:44:15 [facility] PULSE OXIMETRY 97 10/27/2024 15:44:15 [facility] WEIGHT 232 10/27/2024 15:44:15 [facility] BMI 32 kg/m2 10/27/2024 15:44:15 [facility] HEIGHT 71 10/27/2024 15:44:15 [facility] TEMPERATURE 97.7 10/27/2024 15:44:15 [facility] PULSE 61 10/27/2024 15:44:15 [facility] RESPIRATION 19 10/27/2024 15:44:15 [facility] SYSTOLIC BLOOD PRESSURE 129 04/29/20 24 13:09:35 [facility] DIASTOLIC BLOOD PRESSURE 83 024 13:09:35 [facility] PULSE OXIMETRY 97 04/29/2024 13:09:35 [facility] WEIGHT 250 04/29/2024 13:09:35 [facility] BMI 35 kg/m2 04/29/2024 13:09:35 [facility] PULSE 65 04/29/2024 13:09:35 [facility] SYSTOLIC BLOOD PRESSURE 125 11/27/19 24 15:15:15 [facility] DIASTOLIC BLOOD PRESSURE 76 024 15:15:15 [facility] PULSE OXIMETRY 95 11/27/2023 15:15:15 [facility] WEIGHT 230 11/27/2023 15:15:15 [facility] BMI 32 kg/m2 11/27/2023 15:15:15 [facility] HEIGHT 71 11/27/2023 15:15:15 [facility] TEMPERATURE 97.9 11/27/2023 15:15:15 [facility] PULSE 70 11/27/2023 15:15:15 [facility] RESPIRATION 20 11/27/2023 15:15:15 [facility] Peripheral Pulse Rate 99 bpm 11/28/2022 12:23:00 [place] [place] Sn[place] Temperature Temporal Artery 36.5 Greta 11/28/2022 12:23:00 [facility] [place] Sn[place] Systolic Blood Pressure 136 mm[Hg] 11/29/19 23 12:23:00 0108A-[facility] LirianoStehekin Diastolic Blood Pressure 87 mm[Hg] 023 12:23:00 [facility] [place] Moise-Stehekin Mean Arterial Pressure, Calc 108 mm[Hg] 11/29/2022 15:33:00 [facility] [place] Snider Temperature Oral 36.5 Greta 11/29/2022 15:33:00 [facility] [place]i Moise-Stehekin Peripheral Pulse Rate 70 bpm 11/29/2022 15:33:00 [facility] [place]i Moise-Stehekin Systolic Blood Pressure 135 mm[Hg] 11/30/19 23 15:33:00 [facility] [place] Moise-Stehekin Diastolic Blood Pressure 95 mm[Hg] 023 15:33:00 0108A-[facility] Moise-Stehekin Systolic Blood Pressure 130 mm[Hg] 11/30/19 23 12:29:00 [facility] [place] Moise-Stehekin Diastolic Blood Pressure 84 mm[Hg] 023 12:29:00 [facility] [place]i Snider Temperature Temporal Artery 36.2 Greta 11/29/2022 12:29:00 [facility] [place]i Moise-Elin Peripheral Pulse Rate 76 bpm 11/29/2022 12:29:00 [place] [place]i LirianoStehekin Encounters Combined list of: 1) Encounters from Department of Veterans Affairs facilities going backup to the last 18 months, not all VA inpatient encounters are included; 2) Encounters from the Department of Defense facilities going backup to 280 months. Location Location Details Encounter Type Encounter Number Reason For Visit Attending Provider ADM Date DC Date Status Disposition Source [facility] Solitario Hernandez [place](IE[place] Hearing Conservat ion Exam) OUTPATIENT [id number] 43rd 22[address] BR[address] CEJA 04/01 Released w/o Limitations [facility] [place]ario [place](IE[place] Hearing Conserv [facility]ion Exam) [facility] [place] [facility] ) OUTPATIENT [id number] ALISA BROWNE 04/11 Released w/o Limitations [facility] KHUSHBU Perez(IEP Optomet ry) [facility] OUTPATIENT [id number] AUGUSTIN BAIRES 07/12 Released w/o Limitations [facility] ) [facility] De[facility]) OUTPATIENT [id number] Notes Entered by: ALEXANDR MCKEON 29 May 2020 1105 ------- ------- ------- ------- -- BAILEE NEWBY 05/29 Released w/o Limitations [facility] [place]([facility] Deploym ent Clinic) Tamie Reaves [place]([facility] OUTPATIENT [id number] Notes Entered by: ABBY SOLIS 30 May 2021 1448 ------- ------- ------- ------- -- post deploym ent AYLA LOERA 05/30 Released w/o Limitations [place] [place]) OUTPATIENT [id number] Notes Entered by: JUAN PETERSON 31 May 2021 0756 ------- ------- ------- ------- -- MARIUSZ ANDERSON 05/31 Released w/o Limitations [place] [place] S[facility]D Trudy) OUTPATIENT [id number] 6 HUNG Ratliff 05/31 Released w/o Limitations [place]([facility] S[facility] Frohna) [facility] [place] De[facility] t [facility]) OUTPATIENT [id number] Notes Entered by: NGUYEN SANDOVAL 25 Jan 2022 0821 ------- ------- ------- ------- -- [facility] SA[facility] ANA CORDOVA 01/25 Released w/o Limitations [facility] [place](SR P Deploy ent Clinic) [facility]) OUTPATIENT [id number] 3 F2F FLU LIKE SYMPTOM S USAR 105 596 1820 NIKOS SPEARS 01/28 Released w/o Limitations [facility] [place]([facility]) [facility]) OUTPATIENT [id number] F2F Sore throat ZZZBM_CRAW ASHER, ZZZBM_DOUG LAS NISSA 01/29 Sick at Home/Quarter s [facility] [place]([facility]) Theater Facility OUTPATIENT [id number] Theater Provider 03/19 Released w/o Limitations Theater Facilit y Theater Facility OUTPATIENT [id number] Theater Provider 04/08 Released w/o Limitations Theater Fac[facility] OUTPATIENT [id number] Theater Provider 04/11 Released w/o Limitations Theater Facilit y Theater Facility OUTPATIENT [id number] Theater Provider 06/29 Sick at Home/Quarter s Theater Facilit y Theater Facility OUTPATIENT [id number] Theater Provider 07/02 Released w/o Limitations Theater Facilit y Theater Facility OUTPATIENT [id number] Theater Provider 07/10 Released w/o Limitations Theater Facilit y Theater Facility OUTPATIENT [id number] Theater Provider 07/16 Released w/o Limitations Theater Facilit y Theater Facility OUTPATIENT [id number] Theater Provider 07/17 Released w/o Limitations Theater Facilit y Theater Facility OUTPATIENT [id number] Theater Provider 07/30 Released w/o Limitations Theater Facilit y Theater Facility OUTPATIENT [id number] Theater Provider 07/31 Released w/o Limitations Theater Facilit y Theater Facility OUTPATIENT [id number] Theater Provider 08/29 Released w/o Limitations Theater Facilit y Theater Facility OUTPATIENT [id number] Theater Provider 10/28 Released w/o Limitations Theater Facilit y Theater Facility OUTPATIENT [id number] Theater Provider 11/04 Released w/o Limitations Theater Facilit y [facility] [place] [facility] COMMUNITY/ WORK REINTEGRAT ION [id number] Diagnos is: ICD-10- CM Z56.0 Unemplo yment, unspeci fied RAHUL HERNANDEZST HUIZAR BAILEE 05/07 [facility] [place] [facility] [place] [facility] Outpatient Encounter [id number] 05/08 [facility] [place] [place] [facility] Outpatient Encounter [id number] Diagnos is: ICD-10- CM Z77.29 Contact with and exposur e to other hazardo us substan dionne JUAN JOSE THOMAS SA 05/10 [facility] UNLISTED PSYC SVC/THERAP Y [id number] Diagnos is: ICD-10- CM Z77.29 Contact with and exposur e to other hazardo us substan dionne SATINDER BALDERAS 05/10 [facility] [place] [place] [facility] Outpatient Encounter [id number] 05/20 [facility] [place] [facility] [place] [place] [facility] COMMUNITY/ WORK REINTEGRAT ION [id number] Diagnos is: ICD-10- CM Z56.0 Unemplo yment, unspeci HUNG Loving 05/21 [facility] [place] [facility] [place] [facility] CASE MANAGEMENT [id number] Diagnos is: ICD-10- CM F43.23 Adjustm ent disorde r with mixed anxiety and depress ed mood KRISTOPHER QUINONES 05/21 [facility] En[facility] [id number] 05/21 [facility] En[facility] [id number] 05/22 [facility] En[facility] [id number] 05/25 [facility] COMMUNITY/ WORK REINTEGRAT ION [id number] Diagnos is: ICD-10- CM Z56.0 Unemplo yment, unspeci fied ST GAYE HERRON 05/27 [facility] En[facility] [id number] Diagnos is: ICD-10- CM G47.00 Insomni a, unspeci fiREFUGIO Hair 06/12 [facility] En[facility] [id number] 06/23 [facility] CASE MANAGEMENT [id number] Diagnos is: ICD-10- CM F43.23 Adjustm ent disorde r with mixed anxiety and depress ed mood KRISTOPHER QUINONES 06/24 [facility] En[facility] [id number] 07/02 [facility] En[facility] [id number] 07/11 [facility] [place] [facility] OFF/OP EST MAY X REQ PHY/QHP [id number] Diagnos is: ICD-10- CM 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 NGUYEN More 07/11 [facility] OFFICE O/P EST LOW 20-29 MIN [id number] Diagnos is: ICD-10- CM M54.50 Low back pain, unspeci fiREFUGIO Hair 07/11 [facility] [place] [facility] OFFICE O/P EST LOW 20-29 MIN [id number] Diagnos is: ICD-10- CM F43.23 Adjustm ent disorde r with mixed anxiety and depress ed mood CHRYSTAL TOI Rodriguez 07/18 [facility] [place] [facility] CASE MANAGEMENT [id number] Diagnos is: ICD-10- CM F43.23 Adjustm ent disorde r with mixed anxiety and depress ed mood KRISTOPHER QUINONES 07/24 [facility] [place] [facility] OFFICE O/P EST HI 40-54 MIN [id number] Diagnos is: ICD-10- CM F43.12 Post-tr aumatic stress disorde r, chronic Susan PRADO 08/04 [facility] [place] [facility] COMMUNITY/ WORK REINTEGRAT ION [id number] Diagnos is: ICD-10- CM Z56.0 Unemplo yment, unspeci fied ST GAYE HERRON 08/26 [facility] En[facility] [id number] 08/27 [facility] En[facility] [id number] 08/27 [facility] COMMUNITY/ WORK REINTEGRAT ION [id number] Diagnos is: ICD-10- CM Z56.0 Unemplo yment, unspeci fied ST GAYE HERRON 08/28 [facility] En[facility] [id number] Susan LONDONO 09/01 [facility] [id number] 09/01 [facility] [id number] 09/01 [facility] [id number] JORGE MCKEON 09/01 [facility] [id number] 09/01 [facility] [id number] 09/01 [facility] En[facility] [id number] 09/02 [facility] [place] OFF/OP EST MAY X REQ PHY/QHP [id number] Diagnos is: ICD-10- CM I10 Essenti al (primar y) hyperte nsion CHRISTIANO,ER IC K 09/02 [place] [facility] Encounter [id number] 09/02 [facility] [id number] 09/03 [facility] [id number] 09/25 [facility] OFFICE O/P EST MOD 30 MIN [id number] Diagnos is: ICD-10- CM F43.12 Post-tr aumatic stress disorde r, chronic EVE,M MORIS 09/29 [facility] [facility] En[facility] [id number] 10/08 [facility] En[facility] [id number] 10/15 [facility] OFFICE O/P EST MOD 30 MIN [id number] Diagnos is: ICD-10- CM F43.12 Post-tr aumatic stress disorde r, chronic EVE,M MORIS 10/23 [facility] En[facility] [id number] 10/28 [facility] En[facility] [id number] 11/18 [facility] En[facility] [id number] 11/24 [facility] [place] OFFICE O/P EST MOD 30 MIN [id number] 1BY. 21 Diagnos is: ICD-10- CM I10 Essenti al (primar y) hyperte nsion DANILO,KE NDRA C 11/26 [place] [facility] Outpatient Encounter [id number] 11/26 [facility] OFFICE O/P EST MOD 30 MIN [id number] Diagnos is: ICD-10- CM F43.12 Post-tr aumatic stress disorde r, chronic Susan PRADO MORIS 12/18 [facility] Outpatient Encounter [id number] 01/13 [facility] Outpatient Encounter [id number] 01/14 [facility] OFFICE O/P EST MOD 30 MIN [id number] Diagnos is: ICD-10- CM F43.12 Post-tr aumatic stress disorde r, chronic EVE,M MORIS 01/15 [facility] OFFICE O/P EST MOD 30 MIN [id number] Diagnos is: ICD-10- CM F10.99 Alcohol use, unsp with unspeci fied alcohol -induce d disordSusan Carlos 02/12 [facility] En[facility] [id number] 02/18 [facility] En[facility] [id number] 03/02 [facility] En[facility] [id number] 03/15 [facility] En[facility] [id number] 04/19 [facility] En[facility] [id number] 04/21 [facility] OFFICE O/P EST MOD 30 MIN [id number] 1BY. 40 Diagnos is: ICD-10- CM M54.50 Low back pain, unspeci fied MARILOU CARRASCO 04/29 [place] [facility] [id number] 05/18 [facility] [place] [id number] Diagnos is: ICD-10- CM H90.3 Sensori neural hearing loss, bilater LIANG Rodrigez 05/18 [facility] En[facility] [id number] 05/19 [facility] En[facility] [id number] 05/20 [facility] En[facility] [id number] 05/21 [facility] En[facility] [id number] BRAULIO WAHL 08/02 [facility] En[facility] [id number] 08/31 [facility] En[facility] [id number] 08/31 [facility] En[facility] [id number] 09/21 [facility] En[facility] [id number] SUSAN SEPULVEDA YS 09/23 [facility] En[facility] [id number] SUSAN SEPULVEDA YS 09/24 [facility] En[facility] [id number] CECILIA DAVID 09/24 [facility] En[facility] [id number] 09/26 [facility] OFFICE O/P EST HI 40 MIN [id number] Diagnos is: ICD-10- CM F43.9 Reactio n to severe stress, unspeci cristyuzair Susan PRADO MORIS 10/04 [facility] En[facility] [id number] 10/25 [facility] [place] Outpatient Encounter [id number] 19 10/27 [place] [facility] Encounter [id number] 10/27 [facility] Procedures Combined list of: 1) Procedures from Department of Veterans Affairs facilities going back up to thelast 18 months, not all [place] non-surgical procedures are included; 2) All procedures from the Department of Defense facilities. Procedure Procedure Type Code Date Perfomer Comments Sourc e No data available for this section [facility] PHYS/OTH QUALIFIED HEALTH TRUCK RENTAL CLERK QUALIFIED,EDUCATIO N,TRAIN,LICENSURE/ REGULATION (WHEN APPLICABLE) EDUC SER RENDERED TO PATS IN A GRP SETTING (EG,,OBESI TY,OR DIABETIC INSTRUCT) 2008 [facility] COLLECTION OF VENOUS BLOOD BY VENIPUNCTURE 2008 [facility] SCREENING TEST OF VISUAL ACUITY, QUANTITATIVE, BILATERAL 2020 [facility] EAR PROTECTOR ATTENUATION MEASUREMENTS 2020 [facility] INDIVIDUAL PSYCHOTHERAPY, INSIGHT ORIENTED, BEHAVIOR MODIFYING AND/OR SUPPORTIVE, IN AN OFFICE OR OUTPATIENT FACILITY, APPROXIMATELY 20 TO 30 MINUTES [id number]-[id number] WITH THE PATIENT 2007 [facility] INFLUENZA VIRUS VACCINE, TRIVALENT (IIV3), SPLIT VIRUS, PRESERVATIVE FREE, 0.5 ML DOSAGE, FOR INTRAMUSCULAR USE 2007 [facility] PURE TONE AUDIOMETRY (THRESHOLD); AIR ONLY 2007 [facility] SCREENING TEST OF VISUAL ACUITY, QUANTITATIVE, BILATERAL 2021 [facility] INFLUENZA VIRUS VACCINE, QUADRIVALENT (IIV4), SPLIT VIRUS, PRESERVATIVE FREE, 0.5 ML DOSAGE, FOR INTRAMUSCULAR USE 2019 [facility] HEPATITIS A AND HEPATITIS B VACCINE (HEPA-HEPB), ADULT DOSAGE, FOR INTRAMUSCULAR USE 2005 [facility] SCREENING TEST OF VISUAL ACUITY, QUANTITATIVE, BILATERAL 2005 [facility] PATIENT EDUCATION, NOT OTHERWISE CLASSIFIED, NON-PHYSICIAN PROVIDER, GROUP, PER SESSION 2005 [facility] VENIPUNCTURE,AGE 2 YEARS/OLDER,NECESS ITATING THE SKILL OF A PHYSICIAN/OTHER QUALIFIED HEALTH TRUCK RENTAL CLERK (SEP PROC),FOR DIAGNOSTIC/THERAPE UTIC PURPOSES (NOT TO BE USED FOR ROUTINE VENIPUNCTURE) 2003 [facility] Physical Therapy Service Evaluation Low Complexity Physical Therapy Service Evaluation Low Complexity 42769 2021 Theater Provider [facility] Physical Therapy: ___ Se ion Segments, 15 Minutes Each Physical Therapy: ___ Session Segments, 15 Minutes Each 08101 2021 Theater Provider [facility] Musculoskeletal Needle Insertion Without Injection 1 Or 2 Muscles Musculoskeletal Needle Insertion Without Injection 1 Or 2 Muscles 98202 2021 Theater Provider [facility] Physical Therapy Service Evaluation Moderate Complexity Physical Therapy Service Evaluation Moderate Complexity 18295 2021 Theater Provider [facility] Physical Therapy: ___ Se ion Segments, 15 Minutes Each Physical Therapy: ___ Session Segments, 15 Minutes Each 16517 2021 Theater Provider [facility] Anthrax Vaccine Anthrax Vaccine 40518 2021 Theater Provider [facility] Threshold Audiogram (Pure Tone) Threshold Audiogram (Pure Tone) 83963 2008 EDD WATTS III [facility] Special Physician Services Analysis Of Computerized Data Special Physician Services Analysis Of Computerized Data 84268 2008 EDD WATTS III [facility] Physician Supervised Group Educational Services 2008 EDD WATTS III [facility] ENT Services ENT Services 71720 2008 EDD WATTS III [facility] Audiometry Group Testing Audiometry Group Testing 88429 2008 EDD WATTS III [facility] Clinical Social Work Individual Outpatient Counseling 30 Minutes Clinical Social Work Individual Outpatient Counseling 30 Minutes 87543 2007 MAKENNA CORONA [facility] Determination Of Refractive State Determination Of Refractive State 87181 2005 ALISA BROWNE [facility] Screening Test Of Visual Acuity, Quantitative, Bilateral Screening Test Of Visual Acuity, Quantitative, Bilateral 87469 2005 ALISA BROWNE [facility] Physician Supervised Services Provision Of Special Supplies Physician Supervised Services Provision Of Special Supplies 49923 2005 PREETI ROWE [facility] Ear mold/insert, not disposable, any type 2005 PREETI ROWE [facility] Patient education, not otherwise cla ified, non-physician provider, group, per se ion 2005 PREETI ROWE [facility] Audiometry Group Testing Audiometry Group Testing 56713 2005 PREETI ROWE [facility] Preventive Medicine Administration Of Health Risk Questionnaire Patient-Focused Preventive Medicine Administration Of Health Risk Questionnaire Patient-Focused 58737 BAILEE GREGORY [facility] Influenza Split Virus Vaccine IM With Preservative Quadrivalent 0.50mL Dosage Influenza Split Virus Vaccine IM With Preservative Quadrivalent 0.50mL Dosage 83456 BAILEE GREGORY Influenza, Inj., quad., contains preservative (Afluria); Series #: 1; 0.5 mL; IM; Right Arm; Mfg: Seq[employer]; Lot: [id number]; VIS given (Carolyn: 04/08/2019). DoD Immunization Administration By Injection, One Vaccine Immunization Administration By Injection, One Vaccine 84625 BAILEE GREGORYAN [facility] Adaptive Behavior A e ment System, 2nd Edition (ABAS-II) Adaptive Behavior Assessment System, 2nd Edition (ABAS-II) 25473 ANA CORDOVA PHQ9, GAD7, AND PCL5 ALL SCORED 0. SM DENIES ANY SUICIDAL OR HOMICIDAL IDEATION. SEVERITY NONE [facility] Anthrax Vaccine For Subcutaneous Or Intramuscular Use Anthrax Vaccine For Subcutaneous Or Intramuscular Use 68468 ANA CORDOVA Anthrax; Series #: 1; 0.5 mL; IM; Left Arm; Mfg: [facility] [facility]; Lot: [id number]; VIS given (Carolyn: 09/01/2019). [facility] Vaccines Viral Measles, Mumps and Rubella, Live Vaccines Viral Measles, Mumps and Rubella, Live 09594 MARIUSZ RODRIGES MMR; Series #: 3; 0.5 mL; SC; Left Arm; Mfg: [employer]; Lot: [id number]; VIS given (Carolyn: 03/30/2021). DoD A e ment & Intervention Blood Pre ure Measured Assessment & Intervention Blood Pressure Measured 2000F MARIUSZ RODRIGES [facility] Venipuncture Venipuncture 01265 MARIUSZ RODRIGES [facility] Screening Test Of Visual Acuity, Quantitative, Bilateral Screening Test Of Visual Acuity, Quantitative, Bilateral 70727 MARIUSZ RODRIGES [facility] Audiometry Group Testing Audiometry Group Testing 22807 PAULINA HUNTER [facility] Ear Protector Attenuation Measurements Ear Protector Attenuation Measurements 87285 PAULINA HUNTER Social History Combined list of available smoking, tobacco, and other social history from Department of Defense and Veterans Affairs facilities. Social History Type Response Date Comment Sour e Tobacco smoking status [facility]TO[facility] NEVER USED 04/29/2024 [facility] History of tobacco use [facility]-TO[facility] NEVER USED 01/02/2023 [facility] [place] [facility] Sex Representation Male 12/12/2021 Unknow n Organization [facility] of [facility] 09/20/2019 [facility] [place] [facility] History of tobacco use LIFETIME NON-TOBACCO USER 07/31/2017 [facility] [place] [facility] History of tobacco use LIFETIME NON-TOBACCO USER 09/04/2010 [facility] Sexual Orientation Ambula tory Pharmacy Gender identity Ambulator y Pharmacy This section is an empty social history section. [facility] Assessment and Plan Combined list of future care activities from Department of Defense and Veterans Affairs facilities (e.g., assessment and plan notes, appointments, orders, and referrals). Additional future care activities may be listed in the Plan of Care section. Result Assessment and Plan Date Source Assessment and Plan No data available for this section 11/04/2024 Ambulatory Pharmacy Plan of Care List of future care activities from Department of Veterans Affairs facilities. Additional future care activities may be listed in the Assessment and Plan section. Date/Time Care Activity Care Activity Detail Facili ty 11/05/2024 [facility] [place] [facility] 11/10/2024 AMBULATORY - PSYCHIATRY AMBULATORY - PSYC [facility] [place] [facility] 10/27/2024 Consult Order [facility]GERY Cons Applied Psychology Chair's Choice [facility] Functional Status Combined list of recent functional and cognitive assessments recorded at Department of Defense and Veterans Affairs ([place]).PA Functional [place] Measurement (FIM) Scale: 1 = Total Assistance (Subject = 0% +), 2 = Maximal Assistance (Subject = 25% +), 3 = Moderate Assistance (Subject = 50% +), 4 = Minimal Assistance (Subject = 75% +), 5 = Supervision, 6 = Modified [place] (Device), 7 = Complete [place] (Timely, Safely). Assessment Date/Time Source Assessment Type Assessment Skill Assessment Score Assessment Details No data available for this section
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
--- OUTSIDE RECORDS SUMMARY | 2024-11-04 12:14 | XMS_ITS | Encounter Summary ---
Author Name [facility] [place] [facility] [place] Organization [facility] [place] Address [address] [place] [address] Care Team Providers Care Ancillary Services Manager Name Role Phone JENNI CARRASCO Primary Care [...] section includes the information on record at [place] for the Encounter. Date/Time Encounter Type Encounter Description Reason Pro vider Source Oct 27, 2024 03:30 PM Outpatient Encounter PRIMARY CARE/MEDICINE E Encounter Template Text not used by [place] Plan of Treatment: Future Appointments (+ 6 months) and Future Tests (+/- 45 days) The Plan of Treatment section includes future care activities for the patient from all [place] treatmentfacilities. This section includes future appointments and future orders which are active, pending or scheduled. Future Appointments This section includes appointments that were scheduled to occur 6 months from the date of the Encounter, up to a maximum of 20 appointments. The data comes from all [place] treatment facilities. Appointment Date/Time Appointment Type Appointme nt Facility Name Nov 05, 2024 08:00 AM AMBULATORY - MEDICINE [place] [facility] Nov 10, 2024 03:30 PM AMBULATORY - PS[place]CHIATRY [place] [facility] [place] [facility] Active, Pending, and Scheduled Orders This section includes a listing of several types of active, pending, and scheduled orders, including clinic medications orders, diagnostic test orders, procedure orders and consult orders; where the start date of the order is 45 days before the date of the Encounter or 45 days after the date of theEncounter. The data comes from all [place] treatment facilities. Test Date/Time Test Type Test Details Facility Name Oct 27, 2024 07:56 PM Consult Order COMMUNITY CARE-GEN SURGERY Cons Senior Landscape Architect's Choice [place] Vital Signs: All taken on the encounter date This section contains inpatient and outpatient Vital Signs collected on the date of the Encounter. Date/Time Temperature Pulse Blood Pressure Respiratory Rate SP02 Pain Height Weight Body Mass Index Source Oct 27, 2024 03:44 PM 97.7 61 140/83 19 97 71 232 32 [facility] Social History: Smoking Status (Most current) and Tobacco Use (All prior to encounter date) This section includes the most current, and the historical, smoking and tobacco- related health factors from the [place] facility where the Encounter took place. Current Smoking Status This section includes the most current smoking, or tobacco-related health factor, from the [place] facility where the Encounter took place. Date/Time Current Smoking Status Comment Maurilio teague Apr 29, 2024 01:00 PM VA-TOBACCO NEVER USED [place]
--- NOTE | 2024-11-24 14:48 | HO.ANESPROP2 ---
Documented by User: Roseanne Martinez NP 11/24/24 14:48 HPI - Anesthesia Eval Consult details Narrative: 39yo M for Upper Endoscopy PMF Active Problems Active Problems: All Active Problems Vitamin B1 deficiency (Acute) Vitamin D deficiency (Acute) Vitamin A deficiency (Acute) Hypertension (Acute) Anxiety (Acute) Depression (Acute) BMI 32.0-32.9,adult (Acute) Obesity (Acute) Past Medical History Medical History (Updated 10/26/24 @ 22:02 by Norris Recio MD) Hypertension Anxiety Depression BMI 32.0-32.9,adult Obesity Family History Family History (Updated 08/31/24 @ 13:07 by YUKI Moreno) Mother Diabetes Surgical History Surgical History (Updated 11/26/24 @ 15:27 by Ewelina Martinez RN) No pertinent past surgical history Social History Social History (Updated 08/31/24 @ 13:07 by YUKI Moreno) Household Members: None Are you a primary career development coordinator to a significant other at home: No Do you presently have visiting nurse or other home services: No Alcohol intake: current Alcohol intake frequency: a few times a month Patient Tobacco Use Status: Never used Tobacco Meds Allergies Allergy/AdvReac Type Severity Reaction Status Date / Time No Known Allergies Allergy Verified 11/26/24 15:27 Home Medications ?Medication ?Instructions ?Recorded ?Confirmed ?Last Taken ?Type atenolol 25 mg tablet 25 mg PO DAILY 08/31/24 11/26/24 11/26/24 History bupropion HCl 300 mg 24 hr tablet, 300 mg PO QAM 08/31/24 11/26/24 11/26/24 History extended release Assessment and Plan Assessment Anesthesia Assessment: Chart Reviewed Documented by User: Cory Fernandez MD 11/26/24 15:47 PMFSH Past Medical History Medical History (Updated 10/26/24 @ 22:02 by Norris Recio MD) Hypertension Anxiety Depression BMI 32.0-32.9,adult Obesity Family History Family History (Updated 08/31/24 @ 13:07 by YUKI Moreno) Mother Diabetes Family history of problems with anesthesia: No Surgical History Surgical History (Updated 11/26/24 @ 15:27 by Ewelina Martinez RN) No pertinent past surgical history History of Problems with Anesthesia: No Social History Social History (Updated 08/31/24 @ 13:07 by YUKI Moreno) Household Members: None Are you a primary career development coordinator to a significant other at home: No Do you presently have visiting nurse or other home services: No Alcohol intake: current Alcohol intake frequency: a few times a month Patient Tobacco Use Status: Never used Tobacco Meds Allergies Allergy/AdvReac Type Severity Reaction Status Date / Time No Known Allergies Allergy Verified 11/26/24 15:27 Home Medications ?Medication ?Instructions ?Recorded ?Confirmed ?Last Taken ?Type atenolol 25 mg tablet 25 mg PO DAILY 08/31/24 11/26/24 11/26/24 History bupropion HCl 300 mg 24 hr tablet, 300 mg PO QAM 08/31/24 11/26/24 11/26/24 History extended release Exam Airway Mallampati Class: I TM Dist: >3cm Neck ROM: Full Loose/Missing/Broken Teeth: No Heart: ok Lungs: ok Assessment and Plan Assessment Anesthesia Assessment: Anesthesia Plan Discussed Final Anesthetic Review Family History of Problems with Anesthesia: No History of Problems with Anesthesia: No NPO: Yes ASA Class: III Final Preanesthetic Review: No Changes in Pt Med Stat, Meds/Allgs Chart Reviewed, Consent Obtained/Reviewed and Anes Risks/Benef Reviewed Patient Risk: Intermediate Procedure Risk: Intermediate Anesthetic Plan Anesthetic Plan: Agree w/ Assess. and Plan and TIVA Disposition: Standard PACU and Inp. Admit - ICU
[2024-11-26 15:31] VITALS: BP 149/92; PULSE 73; RESP 16; TEMP 36.8; O2SAT 99; BMI 31.2
[2024-11-26] MEDS: Lactated Ringers 1,000 ML 80 ML IVCONT (15:43)
--- NOTE | 2024-11-26 15:44 | MHC.SHP ---
Pre-Procedural Eval Section A - 24 Hr Update-Section A only Date of Service: 11/26/24 The patient is an INPATIENT: No The patient has been examined within 24 hours of the surgical procedure. The History & Physical has been completed within 30 days and I have reviewed it.: No Section B - Complete if H&P > 30 days Chief Complaint: Obesity, unspecified Relevant Family History (Specify if Yes): No Relevant Social History: None Present Medications: None Medical History: No relevant PMH History of Previous Operations: No relevant previous surgery Allergies: Allergies Allergy/AdvReac Type Severity Reaction Status Date / Time No Known Allergies Allergy Verified 11/26/24 15:27 Review of Systems Sugical H&P ROS: Negative: Constitution, Cardiovascular, Respiratory, Neurological, Psychiatric, Hem-Onc, Allergic/Immunologic, Gastrointestinal, Genitourinary, Musculoskeletal, Integumentary, Endocrine and Eyes/Ears/Nose/Throat Exam Surgical H&P Exam: Normal: HEENT, Normal: Heart, Normal: Lungs, Normal: Extremities, Normal: Abdomen, Normal: Skin and Normal: Neurological Plan Diagnosis/Plan: Unchanged (EGD to assess the stomach's anatomy. Risks of bleeding and perforation were discussed with the patient and he is in agreement with the plan.) I have reviewed the history and physical and performed a pertinent physical examination on my patient. No changes have occurred unless specified. Time Spent With Patient Time: Total time managing care of this patient today ____ minutes.
--- NOTE | 2024-11-26 15:46 | PM.OP ---
Brief Operative Note Date of Service: 11/26/24 Pre-op diagnosis: Obesity Post-op diagnosis: same Procedure: PROCEDURE DATE: 11/26/2024 PREOPERATIVE DIAGNOSIS: Obesity POSTOPERATIVE DIAGNOSIS: ?Same as above. 1) Esophagitis grade II, 2) small diaphragmatic hernia PROCEDURE: Xqrmllps-qrbenj-wiostrxzwxyu with biopsies Surgeon: ?Ted Recio M.D.. Ph.D. Product Analyst: None ? Anesthesia: IV sedation Estimated blood loss: ?Minimal FINDINGS AND PROCEDURE: ? OPERATIVE INDICATIONS: ?The patient is a 39 year old male known to me who is interested in bariatric surgery. Based on this information I recommended an upper endoscopy to evaluate the stomach's anatomy. Risks and complications of the surgery were discussed with the patient in advance particularly the possibility of perforation or bleeding that may require surgical intervention. The patient understood the risks and was in agreement with the plan. ? PROCEDURE: After informed consent was obtained by the patient, the patient was ?transferred to the Operating Room and was placed in the supine position.? After successful induction of IV sedation, a mouth block was inserted and the patient was placed in the left lateral decubitus position. An upper endoscopy was performed next, the oropharynx and esophagus appeared within the normal limits. There was a small hiatal hernia. The z-line was irregular with tongues of gastric mucosa protruding into the esophagus in 50% circumference. Two biopsies were obtained from the distal esophagus 2-3 cm proximal to the GE junction and two additional biopsies from the GE junction. The stomach was entered and it appeared to be of normal size. There was no gastritis. There was small amount of bile. There was no stricture or ulcer. A biopsy was obtained from the gastric fundus and the antrum. No significant bleeding was noted from any of the biopsy sites. Retroflexion of the scope confirmed the presence of a small diaphragmatic hernia. The scope was then advanced into the duodenum which appeared to be normal as well. At that point the duodenum ?and the stomach were decompressed and the scope was withdrawn from the patient's mouth. The patient extubated and was transferred in stable condition to the Recovery Room for further care. I was present and performed all steps of the procedure. There were no residents to assist with this case. Ted Recio M.D., Ph.D. Surgeon: Norris Recio MD Anesthesia: MAC Was an Product Analyst used for this Procedure?: No Estimated blood loss (mL): 0 IV fluids (mL): 400 Urine output (mL): 0 (No Mckeon to record output) Pathology: other (1) antrum x1, 2) fundus x1, 3) GE junction x2, 4) distal esophagus x2) Condition: stable Disposition: PACU
[2024-11-26 16:10] VITALS: BP 123/68; PULSE 85; RESP 18; TEMP 36.4; O2SAT 96
[2024-11-26 16:25] VITALS: BP 122/64; PULSE 80; RESP 18; O2SAT 96
[2024-11-26 16:40] VITALS: BP 124/64; PULSE 80; RESP 16; TEMP 36.1; O2SAT 98
== END 2024-11-26 16:51 | disposition home or self-care (01) ==
PROVIDERS: PCP Family Medicine; Visit Provider Surgery
PROC: 0DJ08ZZ Inspection of Upper Intestinal Tract, Via Natural or Artificial Opening Endoscopic (ICD-10-PCS; CPT 43235; principal; 2024-11-26 16:00)
DX: E66.09 Other obesity due to excess calories (principal); Z68.33 Body mass index [BMI] 33.0-33.9, adult; K20.80 Other esophagitis without bleeding; K22.89 Other specified disease of esophagus; K44.9 Diaphragmatic hernia without obstruction or gangrene; I10 Essential (primary) hypertension; F32.A Depression, unspecified; F41.9 Anxiety disorder, unspecified; Z79.899 Other long term (current) drug therapy
CPT/HCPCS: 43239; 88305; 88313; 88342; J2003; J2704; J3010

== ENCOUNTER → 2024-11-26 15:18 | Outpatient (BNV) | payer OTHER, SELFPAY | PROVIDERS: PCP Family Medicine; Visit Provider Surgery | DX: K20.90 Esophagitis, unspecified without bleeding (principal) | CPT/HCPCS: 43239 ==

== ENCOUNTER 2024-12-10 08:22 | Outpatient (AMB) | payer OTHER, SELFPAY ==
--- OUTSIDE RECORDS SUMMARY | 2024-12-10 08:40 | XMS_ITS | Encounter Summary ---
Author Name [facility] [place] Organization [facility] Address [address] [place] [address] Care Team Providers Care Correctional Counselor/Case Manager Name Role Phone JENNI CARRASCO Primary [...] section includes the information on record at [place] for the Encounter. Date/Time Encounter Type Encounter Description Reason Provider Source Oct 27, 2024 03:30 PM OFFICE O/P EST MOD 30 MIN PRIMARY CARE/MEDICINE ICD-10-CM E66.09 Other obesity due to excess calories JENNI CARRASCO Encounter Template Text not used by [place] Assessments - Encounter Diagnoses This section includes the primary and secondary diagnoses documented for the Encounter. Date/Time Primary/Secondary Diagnosis Diagnosis Name Provider Source Nov 29, 2024 03:32 PM PRIMARY Other obesity due to excess calories JENNI CARRASCO Nov 29, 2024 03:32 PM SECONDARY Atopic dermatitis, unspecified JENNI CARRASCO Nov 29, 2024 03:32 PM SECONDARY Essential (primary) hypertension JENNI CARRASCO Plan of Treatment: Future Appointments (+ 6 months) and Future Tests (+/- 45 days) The Plan of Treatment section includes future care activities for the patient from all [place] [facility]. This section includes future appointments and future orders which are active, pending or scheduled. Future Appointments This section includes appointments that were scheduled to occur 6 months from the date of the Encounter, up to a maximum of 20 appointments. The data comes from all [facility]. Appointment Date/Time Appointment Type Appointme nt Facility Name Nov 05, 2024 08:00 AM [facility] [place] [facility] Nov 10, 2024 03:30 PM AMBULATORY - [place]IATRY [place] [facility] [place] [facility] Dec 15, 2024 03:30 PM [facility] Active, Pending, and Scheduled Orders This section includes a listing of several types of active, pending, and scheduled orders, including clinic medications orders, diagnostic test orders, procedure orders and consult orders; where the start date of the order is 45 days before the date of the Encounter or 45 days after the date of theEncounter. The data comes from all [facility]. Test Date/Time Test Type Test Details Facility Name Oct 27, 2024 07:56 PM Consult Order COMMUNITY CARE-GEN SURGERY Cons [employer] [facility] Vital Signs: All taken on the encounter date This section contains inpatient and outpatient Vital Signs collected on the date of the Encounter. Date/Time Temperature Pulse Blood Pressure Respiratory Rate SP02 Pain Height Weight Body Mass Index Source Oct 27, 2024 03:44 PM 97.7 61 140/83 19 97 71 232 32 [facility] Social History: Smoking Status (Most current) and Tobacco Use (All prior to encounter date) This section includes the most current, and the historical, smoking and tobacco- related health factors from the [place] facility where the Encounter took place. Current Smoking Status This section includes the most current smoking, or tobacco-related health factor, from the [place] facility where the Encounter took place. Date/Time Current Smoking Status Comment Facil ity Apr 29, 2024 01:00 PM [place]-TOBACCO NEVER USED [facility] Encounter Notes: All associated encounter notes This section contains the clinical notes associated to the Encounter. Date/Time Encounter Note(s) Provider Source Oct 27, 2024 03:39 PM PRIMARY CARE NURSE PRACTITIONER OUTPATIENT NOTE: LOCAL TITLE: NURSE PRACTITIONER OUTPATIENT NOTE STANDARD TITLE: PRIMARY CARE NURSE PRACTITIONER OUTPATIENT NOTE DATE OF NOTE: OCT 27, 2024@15:39 ENTRY DATE: OCT 27, 2024@15:39:17 AUTHOR: JENNI CARRASCO COSIGNER: URGENCY: STATUS: COMPLETED PRIMARY CARE VISIT MEL TORRI COOLEY, is a 39 y/o UNKNOWN BY PATIENT MALE [place] who [place] today at the [place] [facility]. TYPE OF VISIT: Face to face HPI: HTN - stable on atenolol. Denies CP, palpitations, peripheral edema. obesity - BMI 35. Working out regularly, eating healthy, monitoring calorie intake. Wants to lose another 30-40# but struggles with hunger. Interested in medication options. rash to back of neck, recurrent, very itchy Recent labs reviewed and all medications were reconciled during this visit. HISTORY: PERIOD OF SERVICE - [facility] FROM Jul TO Jul COMBAT SERVICE INDICATED: Yes VITAL SIGNS: Blood Pressure: 140/83 (10/27/2024 15:44) Pain: 0 (09/02/2023 15:17) Patient Height: 71 in [180.3 cm] (10/27/2024 15:44) Patient Weight: 232 lb [105.23 kg] (10/27/2024 15:44) Pulse: 61 (10/27/2024 15:44) Respiration: 19 (10/27/2024 15:44) Temperature: 97.7 F [36.5 C] (10/27/2024 15:44) REVIEW OF SYSTEMS: see HPI PHYSICAL EXAMINATION: General: Well-appearing [place] in no obvious distress. Obese. Mental Status: Alert and oriented x4. Neck: Supple. No lymphadenopathy. Thyroid unremarkable. Lungs: CTAB. Normal chest excursion. Eupneic respirations. CV: Heart tones S1, S2. RRR. No M/G/R. No peripheral edema. GI: Abdomen is soft and nontender. No palpable mass or organomegaly. Integument: Patchy, erythematous macular rash to posterior neck Psych: Normal mood and affect. Normal judgment. Cooperative with exam, follows commands. ALLERGIES: Patient has answered [facility] - see end of note PREVENTIVE MEDICINE GOALS Info Only: [facility] Video Connect Capable DUE NOW Advance Directive Screen MH AD Nov 26 Depression Screening Mar 21 Mental Health Treatment Plan DUE NOW Pneumococcal Conjugate Vaccine (PCV15/PCDUE NOW Influenza Immunization DUE NOW Medication Reconciliation DUE NOW COVID-19 Immunization DUE NOW Sexual Orientation Sep 02 (Optional) Whole Health Documentation DUE NOW ASSESSMENT/PLAN: Active problems - Computerized Problem List is the source for the followin. dermatitis posterior neck, recurrent - unknown etiology. Start hydrocortisone cream BID until resolved. 2. Essential hypertension - stable, continue Rx 3. Obesity - BMI 35. Ineligible for most medication options per [place] policy. Discussed alternatives, start Topamax x 4 weeks for appetite suppression. FOLLOW UP: Return to clinic 4 weeks and/or sooner PRN UPCOMING APPOINTMENTS: 11/10/2024 15:30 [facility] MHC BOTTOM IRONER 1 No barriers noted; patient understands and agrees to current treatment plan. If patient has any questions, concerns or changes in current health status he/she will call or come in to the VA. HM: Info Only: VA Video Connect Capable: Influenza Immunization: Deferral / Refusal The patient declines to receive the recommended dose of seasonal influenza vaccine. Immunization: INFLUENZA, UNSPECIFIED FORMULATION Refusal Reason: PATIENT DECISION Patient refuses all immunization(s) in the FLU group Date Documented: 11/29/24 15:27 Medication Reconciliation: Outpatient: Has the patient been taking medications as documented in the EMLR? YES: The patient has been taking medications as documented in the EMLR. Essential Medication List for Review used to complete this medication reconciliation. INCLUDED IN THIS LIST: Alphabetical list of active outpatient prescriptions dispensed from this VA (local) and dispensed from another VA or DoD facility (remote) as well as [...] with a VA or non-VA provider. /sudheer/ SOLEDAD VENTURA CERTIFIED NURSE PRACTITIONER Signed: 11/29/2024 15:31 JENNI CARRASCO [facility]
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
--- OUTSIDE RECORDS SUMMARY | 2024-12-10 08:41 | XMS_ITS | Continuity of Care Document ---
Author Name [facility] Organization [facility] Care Team Providers Care Box Estimator Name Role Phone [facility] Unavailable Unavailable Problems Combined list of problems from Department of Defense and Veterans Affairs facilities. It does not include entries that were removed or entered in error. Problem Status Onset Date Problem Type Date of Resolution Comments Source Adjustment disorder with mixed anxiety and depressed mood (SNOMED CT 134691134) Active Condition [facility] Chronic low back pain Active Condition [facility] Essential hypertension Active Condition [facility] Exposure to potentially hazardous substance Active Condition Oct 23, 2023 Entered By: RODGER GLYNN Comment: Connect Snomed Code to ICD 10 Code refer to note dated 07/18/23 [facility] Exposure to Potentially Hazardous Substance (SCT 490236098181028) Active Condition [facility] History of surgery Active Condition Oct 17, 2011 Entered By: LEXI KNOX Comment: -- vasectomy [facility] in [place] 08/04 [facility] History of traumatic brain injury Active Condition Oct 27, 2024 Entered By: JENNI CARRASCO Comment: hx concussion [facility] HL - Hearing loss Active Condition Apr 29, 2024 Entered By: JENNI CARRASCO Comment: bilateral d/t noise exposure in service [facility] Insomnia Active Condition [facility] Obesity Active Condition Apr 29 Entered By: JENNI CARRASCO Comment: 11/27/23 BMI 32Mar 2024 Entered By: JENNI CARRASCO Comment: 10/27/24 BMI 35 [facility] Tinnitus Active Condition Apr 29 Entered By: JENNI CARRASCO Comment: bilateralSep 2023 Entered By: JENNI CARRASCO Comment: hx noise exposure in service [facility] Diagnosis: ICD-10-CM E66.09 Other obesity due to excess calories Active Diagnosis [place] Diagnosis: ICD-10-CM F43.9 Reaction to severe stress, unspecified Active Diagnosis [facility] Diagnosis: ICD-10-CM H90.3 Sensorineural hearing loss, bilateral Active Diagnosis [facility] Diagnosis: ICD-10-CM M54.50 Low back pain, unspecified Active Diagnosis [place] Diagnosis: ICD-10-CM F10.99 Alcohol use, unsp with unspecified alcohol-induced disorder Active Diagnosis [facility] Diagnosis: ICD-10-CM F43.12 Post-traumatic stress disorder, chronic [facility] Diagnosis: ICD-10-CM I10 Essential (primary) hypertension Active Diagnosis [place] Diagnosis: ICD-10-CM Z56.0 Unemployment, unspecified Active Diagnosis [facility] Diagnosis: ICD-10-CM F43.23 Adjustment disorder with mixed anxiety and depressed mood Active [facility] Diagnosis: ICD-10-CM Z71.89 Other specified counseling Active Diagnosis [facility] Diagnosis: ICD-10-CM G47.00 Insomnia, unspecified Active Diagnosis [facility] Medications Combined list of outpatient medications [...] FOR BLOOD PRESSURE /HEART ORAL ACTIVE 04/23/2025 [id number] Briseida CARRASCO 2023 90 [facility] IELD ATENOLOL 25MG TAB TAKE ONE-HALF OF A TABLET BY MOUTH ONCE DAILY FOR BLOOD PRESSURE /HEART ORAL DISCONT INUED 09/02/2024 [id number] CHRYSTAL LEXI Rodriguez 2023 15 [facility] azithromyci n 250 mg oral tablet 0 total refill(s ) Ordered 2021 No Facilit y Access BUPROPION HCL 150MG 24HR TAB,SA TAKE ONE TABLET BY MOUTH ONCE DAILY ORAL DISCONT INUED (EDIT) 12/19/2024 [id number] CASH PRADO 2023 60 [facility] BUPROPION HCL 150MG 24HR TAB,SA TAKE ONE TABLET BY MOUTH ONCE DAILY ORAL DISCONT INUED 09/29/2024 [id number] CASH PRADO 2023 60 [facility] BUPROPION HCL 300MG 24HR TAB,SA TAKE ONE TABLET BY MOUTH EVERY MORNING ORAL DISCONT INUED BY PROVIDE R 02/13/2025 [id number] CASH PRADO 2023 90 [facility] FLUOXETINE HCL 10MG CAP TAKE ONE CAPSULE BY MOUTH ONCE DAILY FOR 7 DAYS, THEN TAKE TWO CAPSULES ONCE DAILY FOR DEPRESSI ON AND ANXIETY ORAL DISCONT INUED (EDIT) 11/23/2024 [id number] CASH PRADO 2024 93 [facility] FLUOXETINE HCL 20MG CAP TAKE ONE CAPSULE BY MOUTH ONCE DAILY FOR DEPRESSI ON AND ANXIETY ORAL SUSPEND ED 11/11/2025 [id number] CASH PRADO 2024 30 [facility] HYDROCORTIS ONE 2.5% CREAM,TOP APPLY A THIN LAYER TOPICALL Y TWICE DAILY FOR ATOPIC DERMATIT IS TOPICA L 11/26/2024 [id number] Briseida CARRASCO 2024 90 [place] HYDROCORTIS ONE ACETATE 1%/PRAMOXIN E HCL 1% AEROSOL,RTL INSERT 1 APPLICAT ORFUL RECTALLY THREE TIMES DAILY NEEDED FOR HEMORRHO IDS RECTAL ACTIVE 04/30/2025 [id number] 5 Briseida CARRASCO 2023 20 [place] IBUPROFEN 600MG TAB TAKE ONE TABLET BY MOUTH EVERY 8 HOURS NEEDED TAKE WITH FOOD ORAL ACTIVE 10/28/2025 [id number] 5 Briseida CARRASCO 2024 500 [place] [...] AT BEDTIME NEEDED SLEEP ORAL ACTIVE 01/02/2025 [id number] CASH PRADO 2024 120 [facility] NALTREXONE (EQV-REVIA) 50MG TAB TAKE ONE TABLET BY MOUTH ONCE DAILY CRAVINGS ORAL DISCONT INUED BY PROVIDE R 02/13/2025 [id number] CASH PRADO 2023 90 [facility] NALTREXONE (EQV-REVIA) 50MG TAB TAKE ONE TABLET BY MOUTH ONCE DAILY FOR ALCOHOLI SM ORAL DISCONT INUED (EDIT) 12/19/2024 [id number] CASH PRADO 2023 30 [facility] TOPIRAMATE 100MG TAB TAKE ONE TABLET BY MOUTH ONCE DAILY WEIGHT MANAGEME NT ORAL SUSPEND ED 11/20/2025 [id number] 5 Briseida CARRASCO 2024 90 [place] TOPIRAMATE 25MG TAB TAKE ONE TABLET BY MOUTH ONCE DAILY FOR 1 WEEK, THEN TAKE TWO TABLETS ONCE DAILY ORAL DISCONT INUED (EDIT) 11/26/2024 [id number] 5 Briseida CARRASCO 2024 53 [place] TRAZODONE HCL 100MG TAB TAKE ONE-HALF TABLET BY MOUTH AT BEDTIME FOR SLEEP ORAL DISCONT INUED BY PROVIDE R 12/19/2024 [id number] CASH PRADO 2023 45 [facility] TRAZODONE HCL 100MG TAB TAKE ONE-HALF TABLET BY MOUTH AT BEDTIME FOR 7 DAYS, THEN TAKE ONE TABLET AT BEDTIME FOR SLEEP ORAL DISCONT INUED (EDIT) 08/05/2024 [id number] CASH PRADO 2022 60 [facility] Immunizations Combined list of available immunizations from the Department of Defense and [facility] Affairs facilities. Immunization Series Date Given Administered By Site Reaction Lot Number CVX Code Drug Design Release Engineer Status Comments Source TDAP 2023 SHERMAN ALVARADO RIGHT DELTO ID [id number] 115 complet ed [facility] [place], [facility] IELD INFLUENZA, UNSPECIFIED FORMULATION 2022 88 complet ed HISTORICA L INFORMATI ON - FROM PATIENT'S RECALL, [facility] measles/mumps /rubella virus vaccine 2020 zzLef t Arm [id number] [employer] complet ed measles/m umps/rube lla virus vaccine 05/31/21 Given Ambulat ory Pharmac y COVID Vaccine Pfizer 2020 zzRig ht Arm [id number] PFIZER complet ed COVID Vaccine Pfizer 12/29/20 Given Ambulat ory Pharmac y COVID Vaccine Pfizer 2020 zzLef t Arm [id number] PFIZER complet ed COVID Vaccine Pfizer 12/03/20 Given Ambulat ory Pharmac y influenza, injectable, quadrivalent 2019 zzRig ht Arm [id number] 158 Seqirus complet ed influenza , injectabl e, quadrival ent 05/29/20 Given Ambulat ory Pharmac y influenza, injectable, quadrivalent 2019 [id number] 158 [employer] complet ed influenza , injectabl e, quadrival ent 10/30/19 Given Ambulat ory Pharmac y INFLUENZA, SEASONAL, INJECTABLE 2018 141 complet ed [facility] tetanus, diphtheria, acellular pertu is 2017 [id number] GlaxoSmithK[employer] ne complet ed tetanus, diphtheri a, acellular pertussis 07/25/18 Given Ambulat ory Pharmac y influenza, seasonal, injectable-pf 2017 [id number] 140 [employer] complet ed influenza , seasonal, injectabl e-pf 06/13/18 Given Ambulat ory Pharmac y INFLUENZA, SEASONAL, INJECTABLE 2016 141 complet ed [place] [facility] influenza, seasonal, injectable-pf 2016 [id number] 140 [employer] complet ed influenza , seasonal, injectabl e-pf 06/20/17 Given Ambulat ory Pharmac y influenza, seasonal, injectable-pf 2015 [id number] 140 CSL Behring complet ed influenza , seasonal, injectabl e-pf 07/27/16 Given Ambulat ory Pharmac y influenza virus vaccine, live 2011 [id number] Med[employer] Inc comple t ed influenza virus vaccine, live 06/06/12 Given Ambulat ory Pharmac y FLU,3 YRS (HISTORICAL) 2010 88 complet ed [facility] influenza virus vaccine, live 2010 [id number] 111 [email or web address] comple t ed influenza virus vaccine, live 06/30/11 Given Ambulat ory Pharmac y FLU,3 YRS (HISTORICAL) 2010 88 complet ed Site: Right Deltoid [facility] tuberculin purified protein derivative 2008 UNKNOWN 96 Unknown complet ed tuberculi n purified protein derivativ e 06/14/09 Given Ambulat ory Pharmac y influenza virus vaccine,split 2008 [id number] 15 sanofi pasteur complet ed influenza virus vaccine,s plit 06/14/09 Given Ambulat ory Pharmac y influenza virus vaccine,split 2007 UNK 15 Unknown complet ed influenza virus vaccine,s plit 07/27/08 Given Ambulat ory Pharmac y tuberculin purified protein derivative 2007 [id number] 96 Unknown complet ed tuberculi n purified protein derivativ e 04/10/08 Given Ambulat ory Pharmac y tetanus, diphtheria, acellular pertu is 2007 [id number] 115 Unknown complet ed tetanus, diphtheri a, acellular pertussis 04/10/08 Given Ambulat ory Pharmac y typhoid Vi capsular polysaccharid e vac 2007 [id number] 101 Unknown complet ed typhoid Vi capsular polysacch aride vac 04/10/08 Given Ambulat ory Pharmac y hepatitis A adult vaccine 2006 [id number] 52 Unknown complet ed hepatitis A adult vaccine 12/07/06 Given Ambulat ory Pharmac y hepatitis B adult vaccine 2006 [id number] 43 Unknown complet ed hepatitis B adult vaccine 12/07/06 Given Ambulat ory Pharmac y hepatitis A-hepatitis B vaccine 2005 [id number] 104 GlaxoSmithKli ne complet ed hepatitis A-hepatit is B vaccine 04/02/06 Given Ambulat ory Pharmac y tuberculin purified protein derivative 2005 [id number] 96 [facility] complet ed tuberculi n purified protein derivativ e 03/28/06 Given Ambulat ory Pharmac y tuberculin purified protein derivative 2003 [id number] 96 Unknown complet ed tuberculi n purified protein derivativ e 02/03/04 Given Ambulat ory Pharmac y meningococcal polysaccharid e (MPSV4) 2003 [id number] 32 Unknown complet ed meningoco ccal polysacch aride (MPSV4) 02/03/04 Given Ambulat ory Pharmac y poliovirus vaccine, inactivated 2003 [id number] 10 sanofi pasteur complet ed polioviru s vaccine, inactivat ed 02/03/04 Given Ambulat ory Pharmac y tetanus-dipht h toxoids (Td) adult/adol 2003 [id number] 09 sanofi pasteur complet ed tetanus-d iphth toxoids (Td) adult/ado l 02/03/04 Given Ambulat ory Pharmac y measles/mumps /rubella virus vaccine 2003 [id number] 03 Merck & Company Inc complet ed measles/m umps/rube lla virus vaccine 02/03/04 Given Ambulat ory Pharmac y influenza virus vaccine,split 2003 [id number] 15 Unknown complet ed influenza virus vaccine,s plit 02/03/04 Given Ambulat ory Pharmac y hepatitis A-hepatitis B vaccine 2003 [id number] 104 Unknown complet ed hepatitis A-hepatit is B vaccine 02/02/04 Given Ambulat ory Pharmac y Results Combined list of recent chemistry, hematology [...] Mar 19, 2024 09:32 AM Reporting Lab: [facility] [place] [facility] [address] [address] Performing Lab: [facility] [address] [facility] [facility] [address] [facility] LIVER FUNCTION ALBUMIN [MASS/VOLU ME] IN SERUM OR PLASMA 3.9 g/dL 3.5 - 5.0 03/19 Specimen Type: SERUM No comment entered. Ordering Provider: HUMERA CARRASCO Report Released Date/Time: Mar 19, 2024 09:32 AM Reporting Lab: [facility] [facility] [address] [address] Performing Lab: [facility] [place] [facility] [address] [facility] [facility] [address] [facility] [facility] LIVER FUNCTION ALKALINE PHOSPHATAS E [ENZYMATIC ACTIVITY/V OLUME] IN SERUM OR PLASMA 51 U/L 40 - 150 03/19 Specimen Type: SERUM No comment entered. Ordering Provider: HUMERA CARRASCO Report Released Date/Time: Mar 19, 2024 09:32 AM Reporting Lab: [facility] [place] [facility] [address] [facility] [address] Performing Lab: [facility] [facility] [address] [facility] [address] [facility] LIVER FUNCTION ASPARTATE AMINOTRANS FERASE [ENZYMATIC ACTIVITY/V OLUME] IN SERUM OR PLASMA 16 U/L 5 - 34 03/19 Specimen Type: SERUM No comment entered. Ordering Provider: HUMERA CARRASCO Report Released Date/Time: Mar 19, 2024 09:32 AM Reporting Lab: [facility] [place] [facility] [address] [address] Performing Lab: [facility] [place] [facility] [address] [address] [facility] [facility] LIVER FUNCTION ALANINE AMINOTRANS FERASE [ENZYMATIC ACTIVITY/V OLUME] IN SERUM OR PLASMA 35 U/L 03/19 Specimen Type: SERUM No comment entered. Ordering Provider: HUMERA CARRASCO Report Released Date/Time: Mar 19, 2024 09:32 AM Reporting Lab: [facility] [place] [facility] [address] [address] Performing Lab: [facility] [place] [facility] [address] [address] [facility] LIVER FUNCTION BILIRUBIN. TOTAL [MASS/VOLU ME] IN SERUM OR PLASMA 0.5 mg/dL 0.2 - 1.2 03/19 Specimen Type: SERUM No comment entered. Ordering Provider: HUMERA CARRASCO Report Released Date/Time: Mar 19, 2024 09:32 AM Reporting Lab: [facility] [place] [facility] [address] [address] Performing Lab: [facility] [address] [address] [facility] BASIC METABOLI C PANEL (fasting ) UREA NITROGEN [MASS/VOLU ME] IN SERUM OR PLASMA 15 mg/dL 7 - 25 03/19 Specimen Type: SERUM No comment entered. Ordering Provider: HUMERA CARRASCO Report Released Date/Time: Mar 19, 2024 09:32 AM Reporting Lab: [facility] [place] [facility] [address] [address] Performing Lab: [facility] [place] [facility] [address] [address] [facility] BASIC METABOLI C PANEL (fasting ) GLUCOSE [MASS/VOLU ME] IN SERUM OR PLASMA 106 mg/dL 65 - 100 03/19 H Specimen Type: SERUM No comment entered. Ordering Provider: HUMERA CARRASCO Report Released Date/Time: Mar 19, 2024 09:32 AM Reporting Lab: [facility] [place] [facility] [address] [address] Performing Lab: [facility] [place] [facility] [address] [facility] [address] [facility] [facility] BASIC METABOLI C PANEL (fasting ) SODIUM [MOLES/VOL UME] IN SERUM OR PLASMA 138 mmol/L 135 - 145 03/19 Specimen Type: SERUM No comment entered. Ordering Provider: HUMERA CARRASCO Report Released Date/Time: Mar 19, 2024 09:32 AM Reporting Lab: [facility] [place] [facility] [address] [address] Performing Lab: [facility] [place] [address] [address] [facility] [place] [facility] BASIC METABOLI C PANEL (fasting ) POTASSIUM [MOLES/VOL UME] IN SERUM OR PLASMA 4.3 mmol/L 3.5 - 5.0 03/19 Specimen Type: SERUM No comment entered. Ordering Provider: HUMERA CARRASCO Report Released Date/Time: Mar 19, 2024 09:32 AM Reporting Lab: [facility] [place] [facility] [address] [facility] [address] Performing Lab: [facility] [place] [address] [address] [facility] [place] [facility] BASIC METABOLI C PANEL (fasting ) CHLORIDE [MOLES/VOL UME] IN SERUM OR PLASMA 106 mmol/L 100 - 110 03/19 Specimen Type: SERUM No comment entered. Ordering Provider: HUMERA CARRASCO Report Released Date/Time: Mar 19, 2024 09:32 AM Reporting Lab: [facility] [place] [facility] [address] [facility] [facility] [address] Performing Lab: [facility] [place] [address] [address] [facility] [place] [facility] BASIC METABOLI C PANEL (fasting ) CARBON DIOXIDE, TOTAL [MOLES/VOL UME] IN SERUM OR PLASMA 25 meq/L 20 - 30 03/19 Specimen Type: SERUM No comment entered. Ordering Provider: HUMERA CARRASCO Report Released Date/Time: Mar 19, 2024 09:32 AM Reporting Lab: [facility]KEGEETRN [facility]USE[address] [address] Performing Lab: [facility]ITALUSE[address] [address] [facility]ERN [facility]ITALUSE [facility] BASIC METABOLI C PANEL (fasting ) CREATININE [MASS/VOLU ME] IN SERUM OR PLASMA 0.92 mg/dL 0.50 - 1.40 03/19 Specimen Type: SERUM No comment entered. Ordering Provider: HUMERA CARRASCO Report Released Date/Time: Mar 19, 2024 09:32 AM Reporting Lab: [facility]ERN [address] [address] Performing Lab: [facility]ITAL[facility] [address] [facility] BASIC METABOLI C PANEL (fasting ) GLOMERULAR FILTRATION RATE/1.73 SQ M.PREDICTE D [VOLUME RATE/AREA] IN SERUM, PLASMA OR BLOOD BY CREATININE -BASED FORMULA (CKD-EPI 2020) >90mL/mi n 60 03/19 Specimen Type: SERUM No comment entered. Ordering Provider: HUMERA CARRASCO Report Released Date/Time: Mar 19, 2024 09:32 AM Reporting Lab: [facility] [address] Performing Lab: [facility] [address] [facility]ERN [facility] LIPID PANEL FASTING CHOLESTERO L [MASS/VOLU ME] IN SERUM OR PLASMA 203 mg/dL 03/19 H Specimen Type: SERUM No comment entered. Ordering Provider: HUMERA CARRASCO Report Released Date/Time: Mar 19, 2024 09:32 AM Reporting Lab: [facility] [address] Performing Lab: [facility] [place] [facility] [address] [facility] [address] [facility] LIPID PANEL FASTING TRIGLYCERI DE [MASS/VOLU ME] IN SERUM OR PLASMA 63 mg/dL 0 - 150 03/19 Specimen Type: SERUM No comment entered. Ordering Provider: HUMERA CARRASCO Report Released Date/Time: Mar 19, 2024 09:32 AM Reporting Lab: [facility] [place] [facility] [address] [address] Performing Lab: [place] [facility] [facility]ITALUSE[facility] [address] [facility] [address] [facility] LIPID PANEL FASTING CHOLESTERO L IN LDL [MASS/VOLU ME] IN SERUM OR PLASMA BY CALCULATIO N 137 mg/dL 0 - 129 03/19 H Specimen Type: SERUM No comment entered. Ordering Provider: HUMERA CARRASCO Report Released Date/Time: Mar 19, 2024 09:32 AM Reporting Lab: [place] [facility] [address] [facility] [address] Performing Lab: [place] [facility]ITAL[facility] [address] [facility] [address] [facility] LIPID PANEL FASTING CHOLESTERO L.TOTAL/CH OLESTEROL IN HDL [MASS RATIO] IN SERUM OR PLASMA 3.8 03/19 Specimen Type: SERUM No comment entered. Ordering Provider: HUMERA CARRASCO Report Released Date/Time: Mar 19, 2024 09:32 AM Reporting Lab: [facility] [place] [facility] [address] [facility] [address] Performing Lab: [facility] [facility] [address] [facility] [facility] [address] [facility] LIPID PANEL FASTING CHOLESTERO L IN HDL [MASS/VOLU ME] IN SERUM OR PLASMA 53 mg/dL 40 - 60 03/19 Specimen Type: SERUM No comment entered. Ordering Provider: HUMERA CARRASCO Report Released Date/Time: Mar 19, 2024 09:32 AM Reporting Lab: [facility]ITAL[facility] [address] [facility] [address] Performing Lab: [place] [facility] [address] [facility] [address] [facility] [place] [facility] TSH THYROTROPI N [UNITS/VOL UME] IN SERUM OR PLASMA 0.99 u[IU]/mL 0.35 - 5.00 03/19 Specimen Type: SERUM No comment entered. Ordering Provider: HUMERA CARRASCO Report Released Date/Time: Mar 19, 2024 09:32 AM Reporting Lab: [place] [facility] [address] Performing Lab: [place] [facility] [address] [facility]RCENTR[facility]KEGEETRN [place] [facility] HEMOGLOB IN A1C PANEL HEMOGLOBIN A1C/HEMOGL [...] Mar 19, 2024 09:32 AM Reporting Lab: [facility]ITAL[facility] [address] [facility] [address] Performing Lab: [facility]N [facility] [address] [facility]ERN [place] [facility] CBC LEUKOCYTES [#/VOLUME] IN BLOOD BY AUTOMATED COUNT 5.92 10*3/uL 4.50 - 11.00 03/19 Specimen Type: BLOOD No comment entered. Ordering Provider: HUMERA CARRASCO Report Released Date/Time: Mar 19, 2024 09:32 AM Reporting Lab: [facility] [place] [facility] [address] [address] Performing Lab: [facility] [place] [facility] [address] [facility] [address] [facility] [place] [facility] CBC ERYTHROCYT ES [#/VOLUME] IN BLOOD BY AUTOMATED COUNT 5.62 10*6/uL 4.23 - 5.66 03/19 Specimen Type: BLOOD No comment entered. Ordering Provider: HUMERA CARRASCO Report Released Date/Time: Mar 19, 2024 09:32 AM Reporting Lab: [facility] [place] [facility] [address] [facility] [address] Performing Lab[facility] [place] [facility] [address] [facility] [address] [facility] [place] [facility] CBC HEMOGLOBIN [MASS/VOLU ME] IN BLOOD 16.5 g/dL 12.8 - 17 03/19 Specimen Type: BLOOD No comment entered. Ordering Provider: HUMERA CARRASCO Report Released Date/Time: Mar 19, 2024 09:32 AM Reporting Lab: [facility] [place] [facility] [address] [facility] [address] Performing Lab: [facility] [place] [facility] [address] [facility] [address] [facility] [place] [facility] CBC HEMATOCRIT [VOLUME FRACTION] OF BLOOD BY AUTOMATED COUNT 46.9 39.2 - 50.4 03/19 Specimen Type: BLOOD No comment entered. Ordering Provider: HUMERA CARRASCO Report Released Date/Time: Mar 19, 2024 09:32 AM Reporting Lab: [facility] [address] [facility] [address] Performing Lab: [facility] [address] [address] [facility] CBC MCV [ENTITIC VOLUME] BY AUTOMATED COUNT 83.5 fL 82 - 99 03/19 Specimen Type: BLOOD No comment entered. Ordering Provider: HMUERA CARRASCO Report Released Date/Time: Mar 19, 2024 09:32 AM Reporting Lab: [facility] [address] [facility] [address] Performing Lab: [facility] [address] [facility] [address] [facility] CBC MCHC [MASS/VOLU ME] BY AUTOMATED COUNT 35.2 g/dL 30.8 - 35.1 03/19 H Specimen Type: BLOOD No comment entered. Ordering Provider: HUMERA CARRASCO Report Released Date/Time: Mar 19, 2024 09:32 AM Reporting Lab: [facility] [address] [address] Performing Lab: [facility] [address] [address] [facility] CBC PLATELETS [#/VOLUME] IN BLOOD BY AUTOMATED COUNT 179 10*3/uL 140 - 360 03/19 Specimen Type: BLOOD No comment entered. Ordering Provider: HUMERA CARRASCO Report Released Date/Time: Mar 19, 2024 09:32 AM Reporting Lab: [facility] [address] [facility] [address] Performing Lab: [facility] [address] [facility] [address] [facility] CBC ERYTHROCYT E DISTRIBUTI ON WIDTH [RATIO] BY AUTOMATED COUNT 11.9 12.0 - 16.0 03/19 L Specimen Type: BLOOD No comment entered. Ordering Provider: HUMERA CARRASCO Report Released Date/Time: Mar 19, 2024 09:32 AM Reporting Lab: [facility] [address] [facility] [address] Performing Lab: [facility] [address] [facility] [address] [facility] CBC MCH [ENTITIC MASS] BY AUTOMATED COUNT 29.4 pg 26.2 - 32.6 03/19 Specimen Type: BLOOD No comment entered. Ordering Provider: HUMERA CARRASCO Report Released Date/Time: Mar 19, 2024 09:32 AM Reporting Lab: [facility] [address] [address] Performing Lab: [facility] [address] [address] [facility] T-SPOT TB PANEL MYCOBACTER IUM TUBERCULOS [...] additional information , please refer to http://educ ation.CloudLock .com/faq/FA Q215 (This link is being provided for information al/ educational purposes only.) Test Performed by [employer], [email or web address], [address] [place] [address] Reed Marcum M.D., Ph.D., Director of Laboratorie s , [place] [id number] TEST PERFORMED AT: , Ordering Provider: BRIANNA CEJA SA Report Released Date/Time: December 26, 2022 09:31 AM Reporting Lab: [facility] [address] [facility] [address] Performing Lab: [facility] [address] [address] [facility] T-SPOT TB PANEL MYCOBACTER IUM TUBERCULOS [...] additional information , please refer to http://educ ation.CloudLock .com/faq/FA Q215 (This link is being provided for information al/ educational purposes only.) Test Performed by [employer], [email or web address], [address] [place] [address] Reed Marcum M.D., Ph.D., Director of Laboratorie s , [facility] [id number] TEST PERFORMED AT: , Ordering Provider: BRIANNA CEJA SA Report Released Date/Time: December 26, 2022 09:31 AM Reporting Lab: [facility] [address] [facility] [address] Performing Lab: [facility] [address] [address] [facility] T-SPOT TB PANEL MYCOBACTER IUM TUBERCULOS [...] in conjunction with each individual' s epidemiolog ica history, current medical status, and results of [...] additional information , please refer to http://educ ation.CloudLock .com/faq/FA Q215 (This link is being provided for information al/ educational purposes only.) Test Performed by [employer], [email or web address], [address] [place] [address] Reed Marcum M.D., Ph.D., Director of Laboratorie s , [facility] [id number] TEST PERFORMED AT: , Ordering Provider: BRIANNA CEJA SA Report Released Date/Time: December 26, 2022 09:31 AM Reporting Lab: [facility] [address] [facility] [address] Performing Lab: [facility] [address] [address] [facility] T-SPOT TB PANEL MITOGEN STIMULATED GAMMA [...] additional information , please refer to http://educ ation.CloudLock .doo/faq/FA Q215 (This link is being provided for information al/ educational purposes only.) Test Performed by [employer], [email or web address], [address] [place] [address] Reed Marcum M.D., Ph.D., Director of Laboratorie s , CLIA [id number] TEST PERFORMED AT: , Ordering Provider: BRIANNA CEJA SA Report Released Date/Time: December 26, 2022 09:31 AM Reporting Lab: [facility] [address] [address] Performing Lab: [facility] [address] [address] [facility] T-SPOT TB PANEL GAMMA INTERFERON NEGATIVE [...] in conjunction with each individual' s epidemiolog ica history, current medical status, and results of [...] additional information , please refer to http://educ ation.CloudLock .doo/faq/FA Q215 (This link is being provided for information al/ educational purposes only.) Test Performed by [employer], [email or web address], [address] [place] [address] Reed Marcum M.D., Ph.D., Director of Laboratorie s , CLIA [id number] TEST PERFORMED AT: , Ordering Provider: BRIANNA CEJA SA Report Released Date/Time: December 26, 2022 09:31 AM Reporting Lab: [facility] [address] [facility] [address] Performing Lab: [facility] [address] HEPATITI S B SURFACE ANTIBODY (HBsAb)- WH HEPATITIS B VIRUS SURFACE AB [PRESENCE] IN SERUM BY IMMUNOASSA Y REACTIVE 12/26 Specimen Type: SERUM Comment: A 'Reactive' result indicates HBsAb results >/= 12.0 mIU/mL and immunity to HBV infection. Ordering Provider: BRIANNA CEJA SA Report Released Date/Time: December 26, 2022 09:31 AM Reporting Lab: [facility] [address] [facility] [address] Performing Lab: [facility] [address] [facility] [address] [facility] MMRV (IGG) IMMUNE STATUS PANEL MEASLES [...] December 26, 2022 09:31 AM Reporting Lab: [facility] [address] [facility] [address] Performing Lab: [address] [address] [facility] MMRV (IGG) IMMUNE STATUS PANEL MUMPS [...] December 26, 2022 09:31 AM Reporting Lab: [address] [address] Performing Lab: [address] [address] [facility] MMRV (IGG) IMMUNE STATUS PANEL RUBELLA [...] December 26, 2022 09:31 AM Reporting Lab: [address] [address] Performing Lab: [address] [address] [facility] MMRV (IGG) IMMUNE STATUS PANEL VARICELLA [...] December 26, 2022 09:31 AM Reporting Lab: [facility] [address] [facility] [address] Performing Lab: [facility] [address] [facility] [address] [facility] Infect us Disease HIV-1/2 AG/AB 4G CDD LC NEGATIVE 11/28 Result Comment: Performed At: [address] [place] [address] FOR DISEASE DETECTION [address] [place] [address] KATHY BROWN PHD Ph:[phone] 63 [facility] Lexi Worthington Infect us Disease Source of Test.LC PostDepS torage (11/28/22 9:01 AM) 11/[address] [facility] Lexi Worthington Vital Signs Combined list of inpatient and outpatient Vital Signs from Department of Defense and Veterans Affairs, ranging from 12 months to all on record, depending upon the facility. Vital Sign Value Date Comments Source Peripheral Pulse Rate 99 bpm 11/28/2022 12:23:[address] [place] [address] Lexi Snider Temperature Temporal Artery 36.5 Greta 11/28/2022 12:23:[address] [place] [address] Lexi Snider Systolic Blood Pressure 136 mm[Hg] 11/29/19 23 12:23:[address] [place] [address] Lexi Snider Diastolic Blood Pressure 87 mm[Hg] 023 12:23:[address] [place] [address] Lexi Snider Mean Arterial Pressure, Calc 108 mm[Hg] 11/29/2022 15:33:[address] [facility] Lexi Snider Temperature Oral 36.5 Greta 11/29/2022 15:33:[address] [facility] Lexi Snider Peripheral Pulse Rate 70 bpm 11/29/2022 15:33:[address] [facility] Lxei Snider Systolic Blood Pressure 135 mm[Hg] 11/30/19 23 15:33:00 0108AEDER Snider Diastolic Blood Pressure 95 mm[Hg] 023 15:33:00 [facility] Lexi Snider Systolic Blood Pressure 130 mm[Hg] 11/30/19 23 12:29:00 0108A[facility] Lexi Snider Diastolic Blood Pressure 84 mm[Hg] 023 12:29:00 [facility] Lexi Snider Temperature Temporal Artery 36.2 Greta 11/29/2022 12:29:00 010-[facility] Lexi Snider Peripheral Pulse Rate 76 bpm 11/29/2022 12:29:[address] [place] [address] Lexi Snider SYSTOLIC BLOOD PRESSURE 140 10/28/19 25 15:44:15 [facility] DIASTOLIC BLOOD PRESSURE 83 025 15:44:15 [facility] PULSE OXIMETRY 97 10/27/2024 15:44:15 [facility] WEIGHT 232 10/27/2024 15:44:15 [facility] BMI 32 kg/m2 10/27/2024 15:44:15 [facility] HEIGHT 71 10/27/2024 15:44:15 [facility] TEMPERATURE 97.7 10/27/2024 15:44:15 [facility] PULSE 61 10/27/2024 15:44:15 [facility] RESPIRATION 19 10/27/2024 15:44:15 [facility] SYSTOLIC BLOOD PRESSURE 129 04/29/20 24 13:09:35 [facility] DIASTOLIC BLOOD PRESSURE 83 024 13:09:35 [facility] PULSE OXIMETRY 97 04/29/2024 13:09:35 [facility] WEIGHT 250 04/29/2024 13:09:35 [facility] BMI 35 kg/m2 04/29/2024 13:09:35 [facility] PULSE 65 04/29/2024 13:09:35 [facility] Encounters Combined list of: 1) Encounters from Department of Veterans Affairs facilities going backup to the last 18 months, not all [place] inpatient encounters are included; 2) Encounters from the Department of Defense facilities going backup to 280 months. Location Location Details Encounter Type Encounter Number Reason For Visit Attending Provider ADM Date DC Date Status Disposition Source [facility] Outpatient Encounter [id number] Diagnos is: ICD-10- CM G47.00 Insomni a, unspeci REFUGIO Kumari 06/12 [facility] Outpatient Encounter [id number] 06/23 [facility] CASE MANAGEMENT [id number] Diagnos is: ICD-10- CM F43.23 Adjustm ent disorde r with mixed anxiety and depress ed mood KRISTOPHER QUINONES 06/24 [facility] Outpatient Encounter [id number] 07/02 [facility] Outpatient Encounter [id number] 07/11 [facility] OFF/OP EST MAY X REQ PHY/QHP [id number] Diagnos is: ICD-10- CM Z71.89 Other specifi ed compliance counsel NGUYEN More 07/11 [facility] OFFICE O/P EST LOW 20-29 MIN [id number] Diagnos is: ICD-10- CM M54.50 Low back pain, unspeci REFUGIO Kumari 07/11 [facility] OFFICE O/P EST LOW 20-29 MIN [id number] Diagnos is: ICD-10- CM F43.23 Adjustm ent disorde r with mixed anxiety and depress ed mood LEXI JARRELL 07/18 [facility] CASE MANAGEMENT [id number] Diagnos is: ICD-10- CM F43.23 Adjustm ent disorde r with mixed anxiety and depress ed mood KRISTOPHER QUINONES 07/24 [facility] OFFICE O/P EST HI 40-54 MIN [id number] Diagnos is: ICD-10- CM F43.12 Post-tr aumatic stress disorde r, Susan Shields 08/04 [facility]/ WORK REINTEGRAT ION [id number] Diagnos is: ICD-10- CM Z56.0 Unemplo yment, unspeci fied [facility] En[facility] [id number] 08/27 [facility] En[facility] [id number] 08/27 [facility]ITY/ WORK REINTEGRAT ION [id number] Diagnos is: ICD-10- CM Z56.0 Unemplo yment, unspeci uzair [facility] 08[facility]28 [facility] En[facility] [id number] Susan LONDONO 09/01 [facility] En[facility] [id number] 09/01 [facility] En[facility] [id number] 09/01 [facility] En[facility] [id number] JORGE MCKEON 09/01 [facility] En[facility] [id number] 09/01 [facility] En[facility] [id number] 09/01 [facility] En[facility] [id number] 09/02 [facility] [place] OFF/OP EST MAY X REQ PHY/QHP [id number] Diagnos is: ICD-10- CM I10 Essenti al (primar y) hyperte nsion CHRISTIANO,ER IC K 09/02 [place] [facility] Encounter [id number] 09/02 [facility] En[facility] [id number] 09/03 [facility] En[facility] [id number] 09/25 [facility] OFFICE O/P EST MOD 30 MIN [id number] Diagnos is: ICD-10- CM F43.12 Post-tr aumatic stress disorde r, chronic EVE,Susan MORIS 09/29 [facility] En[facility] [id number] 10/08 [facility] En[facility] [id number] 10/15 [facility] OFF[facility] O/P EST MOD 30 MIN [id number] Diagnos is: ICD-10- CM F43.12 Post-tr aumatic stress disorde r, chronic EVE,Susan MORIS 10/23 [facility] [id number] 10/28 [facility] En[facility] [id number] 11/18 [facility] En[facility] [id number] 11/24 [facility] OFFICE O/P EST MOD 30 MIN [id number] 1BY. 21 Diagnos is: ICD-10- CM I10 Essenti al (primar y) hyperte nsion MARILOU CARRASCO C 11/26 [place] [facility] Out[facility] Encounter [id number] 11/26 [facility] OFFICE O/P EST MOD 30 MIN [id number] Diagnos is: ICD-10- CM F43.12 Post-tr aumatic stress disorde r, chronic Susan PRADO MORIS 12/18 [facility] En[facility] [id number] 01/13 [facility] En[facility] [id number] 01/14 [facility] OFFICE O/P EST MOD 30 MIN [id number] Diagnos is: ICD-10- CM F43.12 Post-tr aumatic stress disorde r, Susan Shields MORIS 01/15 [facility] OFFICE O/P EST MOD 30 MIN [id number] Diagnos is: ICD-10- CM F10.99 Alcohol use, unsp with unspeci fied alcohol -induce d disorde r Susan PRADO MORIS 02/12 [facility] En[facility] [id number] 02/18 [facility] Encounter [id number] 03/02 [facility] En[facility] [id number] 03/15 [facility] Encounter [id number] 04/19 [facility] En[facility] [id number] 04/21 [facility] OFFICE O/P EST MOD 30 MIN [id number] Diagnos is: ICD-10- CM M54.50 Low back pain, unspeci fied MARILOU CARRASCO DIANNEDimas Rigo 04/29 [place] [facility] Out[facility] Encounter [id number] 05/18 [facility] [place] [id number] Diagnos is: ICD-10- CM H90.3 Sensori neural hearing loss, bilater LIANG Rodrigez 05/18 [facility] En[facility] [id number] 05/19 [facility] En[facility] [id number] 05/20 [facility] En[facility] [id number]/21 [facility] Encounter [id number] BRAULIO WAHL 08/02 [facility] Encounter [id number] 08/31 [facility] En[facility] [id number] 08/31 [facility] Encounter [id number] 09/21 [facility] En[facility] [id number] SUSAN SEPULVEDA YS 09/23 [facility] En[facility] [id number] SUSAN SEPULVEDA YS 09/24 [facility] Encounter [id number] CECILIA DAVID 09/24 [facility] En[facility] [id number] 09/26 [facility] OFF[place] O/[place] HI 40 MIN [id number] Diagnos is: ICD-10- CM F43.9 Reactio n to severe stress, unspeci fiSusan Briggs 10/04 [facility] En[facility] [id number] 10/20 [facility] En[facility] [id number] 10/25 [facility] OFFICE O/P EST MOD 30 MIN [id number] Diagnos is: ICD-10- CM E66.09 Other obesity due to excess calorie MARILOU Werner 10/27 [place] [facility] Out[facility] Encounter [id number] 10/27 [facility] En[facility] [id number] 11/19 [facility] Outpatient Encounter [id number] CECILIA DAVID 11/22 [facility] Outpatient Encounter [id number] COCO RKISTOPHERSUSAN YS 11/26 [facility] Outpatient Encounter [id number] CECILIA DAVID 11/26 [facility] Procedures Combined list of: 1) Procedures from Department of Veterans Affairs facilities going back up to thelast 18 months, not all VA non-surgical procedures are included; 2) All procedures from the Department of Defense facilities. Procedure Procedure Type Code Date Perfomer Comments Sourc e No data available for this section Ambulatory P harmacy Social History Combined list of available smoking, tobacco, and other social history from Department of Defense and Veterans Affairs facilities. Social History Type Response Date Comment Sourc e Tobacco smoking status [facility]-TO[facility]ACCO NEVER USED 04/29/2024 [facility] History of tobacco use [place] NEVER USED 01/02/2023 [facility] Sex Representation Male (finding) 12/12/2021 Un known Organization History of tobacco use [facility] 1 TO < 5 YRS 09/20/2019 [facility] [place] [facility] History of tobacco use LIFETIME NON-TOBACCO USER 07/31/2017 [facility] [place] [facility] History of tobacco use LIFETIME NON-TOBACCO USER 09/04/2010 [facility] [place] [facility] Sexual Orientation Ambula tory Pharmacy Gender [...] Plan No data available for this section 12/10/2024 Ambulatory Pharmacy Plan of Care List of future care activities from [facility] facilities. Additional future care activities may be listed in the Assessment and Plan section. Date/Time Care Activity Care Activity Detail Facili ty 12/15/2024 AMBULATORY - PSYCHIATRY AMBULATORY - [facility] Functional Status Combined list of recent functional and cognitive assessments recorded at [facility] Functional [place] Measurement (FIM) Scale: 1 = Total Assistance (Subject = 0% +), 2 = Maximal Assistance (Subject = 25% +), 3 = Moderate Assistance (Subject = 50% +), 4 = Minimal Assistance (Subject = 75% +), 5 = Supervision, 6 = Modified [place] (Device), 7 = Complete [place] (Timely, Safely). Assessment Date/Time Source Assessment Type Assessment Skill Assessment Score Assessment Details No data available for this section
--- NOTE | 2024-12-10 11:37 | MHC.OFFVISWM ---
VS Expanded 12/10/24 11:47 Height 5 ft 11 in Weight 217 lb 2 oz BMI 30.3 Body Fat % 27.3 Body Fat Mass 59.2 Fat Free Mass 158 Visceral Fat Rating 13 Body Water % 52.5 Body Water Mass 114 Basal Metabolic Rate/Score 1,902 Intake Visit Reasons: TV Pre Op LSG 12/23/24 *SEE COMMENTS* Allergies No Known Allergies Allergy (Verified 12/10/24 11:37) Medication List - Last Reconciled 12/10/24 by Norris Recio MD atenolol 25 mg PO DAILY bupropion HCl XL 300 mg PO QAM cholecalciferol (vitamin D3) 125 mcg PO DAILY ondansetron 4 mg PO Q12H pantoprazole 40 mg PO DAILY polyethylene glycol 3350 17 grams PO DAILY sucralfate 10 mL PO BID thiamine HCl (vitamin B1) 100 mg PO DAILY topiramate 100 mg PO DAILY vitamin A palmitate 10,000 units PO DAILY HPI HPI TV Pre Op LSG 12/23/24 *SEE COMMENTS*: Details: Start time: 11.34am, End time: 12.04pm ?I spent 25 minutes speaking with the patient on the phone plus an additional 5 minutes reviewing and updating records for a total of 30 minutes HPI Comments Details: Overall weight loss: 23.5lbs, or 9.76% TBWL Is doing 2 Celebrate Rebuild protein shakes (1 scoop in almond milk), 2 Celebrate protein bars and one meal (10 forks of protein, 5 forks of vegetables, 5 forks of rice) Exercise: running or walking indoors x4-5/week [facility] Medical History (Updated 10/26/24 @ 22:02 by Norris Recio MD) Hypertension Anxiety Depression BMI 32.0-32.9,adult Obesity Surgical History (Updated 12/07/24 @ 15:59 by Nichole Guerrier, FREYA) History of esophagogastroduodenoscopy (EGD) (11/26/24) Family History (Updated 08/31/24 @ 13:07 by YUIK Moreno) Mother Diabetes Social History (Updated 12/08/24 @ 08:42 by Nichole Guerrier, RN) Household Members: Significant Other, Family and Children Housing: House Are you a primary client care coordinator to a significant other at home: No Do you presently have visiting nurse or other home services: No Alcohol intake: current Alcohol intake frequency: does not drink Patient Tobacco Use Status: Never used Tobacco e-Cigarette/Vaping Use: Never Used Telehealth Telehealth Telehealth Platform: Telephone Location of provider rendering services: practice address Location of patient: address on file Patient Identification confirmed using: Name, : Yes Telehealth method: voice only Patient verbally consented to treatment: Yes Patient verbally consented to billing insurance company: Yes Patient informed of any privacy concerns related to visit: Yes Minutes spent on Phone/Video with Pt.: 30 Assessment & Plan Assessment & Plan (1) Obesity: Code(s): E66.9 - Obesity, unspecified Category: Medical Qualifiers: Obesity type: due to excess calories Obesity classification: adult class 1 (BMI 30 - 34.9) Serious obesity comorbidity presence: with serious comorbidity Body mass index: BMI 32.0-32.9 Qualified Code(s): E66.811 - Obesity, class 1; E66.09 - Other obesity due to excess calories; Z68.32 - Body mass index [BMI] 32.0-32.9, adult Plan: 1. Plan for lap sleeve gastrectomy including upper GI endoscopy. All tests has been completed and reviewed and the patient is cleared for the surgery. ?If diaphragmatic or ventral hernias are present at time of surgery, these will be repaired laparoscopically as well. Risks and complications were discussed in detail including possible conversion to an open procedure, anastomotic leak, bleeding requiring transfusion, small bowel obstruction, , DVT and pulmonary embolism, cardiac, or pulmonary complications, as long-term complications such as anastomotic ulcer, insufficient weight loss and vitamin deficiencies. I emphasized the importance of close follow-up, adherence to instructions and good communication. So far he has proven to be an excellent communicator and very compliant with all our directions accomplishing a great weight loss. I believe that he is an excellent candidate and he is ready. 2. Preop prescriptions were provided and explained the purpose of each one. Need to be purchased preop. Start Pantoprazole now as you get it from the pharmacy, 1 pill per day. Sucralfate and Zofran are for after surgery as needed. 3. Bowel prep: please do 7 packets ?of Miralax mixing each one with a an 8oz glass of water, crystal light, gatorade zero, or propel ?on 12/21/24 and the same amount on 12/22/24. The Miralax you begin with one packet at a time in 8oz water or crystal light, gatorade zero, or propel ?as early in the day as you can and you do them back to back until you finish them. Continue the protein shakes during ?the bowel prep. 4. Needs to purchase 1oz medicine cups . 5. Needs to purchase Children's liquid Tylenol for postop pain control. 6. Avoid aspirin, motrin, Advil, Aleve, Meloxicam, Excedrin, Ibuprofen, Naproxyn. Tylenol is OK. 7. He needs to purchase the Celebrate multivitamins from the hospital's gift shop, chewable or pills whatever you prefer. 8. Will do basic preop blood work-up today fasting for 12 hours and is scheduled to see the Anesthesiologist prior to the day of surgery. 9. Importance of adherence to postop folllow-up and recommendations was underscored and he understands that. 10. Stop food and bars as of Friday12/18/24 and continue with 2 Celebrate REBUILD protein shakes (ONE scoop EACH in 8oz almond milk) at 7am-9am, 10am-12pm and three more Celebrate REBUILD protein shakes with TWO scoops EACH in 8oz of almond milk at 1pm-3pm, 4pm-6pm and 7pm-9pm. 11. No soups, broths or V8 12. The patient's?medical?history has been reviewed and they are considered low risk for post op DVT and therefore DVT prophylaxis is not considered necessary. Travel after surgery was reviewed. The patient has not disclosed any travel plans during the first 30 days after surgery and they have been advised that within the first 30 days after surgery any bus, plane, train or car travel over 2 hours in duration is contraindicated due to the possibility of developing blood clots from immobility. Any travel, needs to include periods of ambulation of 10 minutes in duration every 2 hours.? Patient was instructed to discuss any plans for travel during this period with their bariatric surgeon.? 13. As of tomorrow, please check your blood pressure daily in the morning. If your blood pressure is: Below 120/70: do not take the Atenolol 121/71 to 135/85: take HALF Atenolol Over 136/86: take the whole Atenolol 14. Please take at the day of surgery the following medications: ATENOLOL, if the blood pressure that day is high enough to justify it based on the parameters at the previous bullet point. 15. Absolutely no smoking or vaping, or marijuana until the surgery and for at least the first 4 weeks. Only nicotine patches are allowed. 16. Send me weight measurements today 12/10/24, on Friday12/20/24 and then on 12/23/24, the day of surgery before you go to the hospital. 17. Avoid any steroids by mouth for any reason. Let me know if someone prescribes them to you 18. These instructions supersede anything else you read in the handbook, anything you watched in videos or classes or you were told by any other provider. If there is any conflict, you follow the above instructions and nothing else. Orders: Orders TSH reflex Free T4 Today E66.09 - Other obesity due to excess calories, E66.811 - Obesity, class 1, I10 - Essential (primary) hypertension, Z68.32 - Body mass index [BMI] 32.0-32.9, adult Vitamin A Today E66.09 - Other obesity due to excess calories, E66.811 - Obesity, class 1, I10 - Essential (primary) hypertension, Z68.32 - Body mass index [BMI] 32.0-32.9, adult Prothrombin Time INR Today E66.09 - Other obesity due to excess calories, E66.811 - Obesity, class 1, I10 - Essential (primary) hypertension, Z68.32 - Body mass index [BMI] 32.0-32.9, adult Type and Screen Today E66.09 - Other obesity due to excess calories, E66.811 - Obesity, class 1, I10 - Essential (primary) hypertension, Z68.32 - Body mass index [BMI] 32.0-32.9, adult C Reactive Protein Today E66.09 - Other obesity due to excess calories, E66.811 - Obesity, class 1, I10 - Essential (primary) hypertension, Z68.32 - Body mass index [BMI] 32.0-32.9, adult Complete Blood Count Auto Diff Today E66.09 - Other obesity due to excess calories, E66.811 - Obesity, class 1, I10 - Essential (primary) hypertension, Z68.32 - Body mass index [BMI] 32.0-32.9, adult Ferritin Today E66.09 - Other obesity due to excess calories, E66.811 - Obesity, class 1, I10 - Essential (primary) hypertension, Z68.32 - Body mass index [BMI] 32.0-32.9, adult Zinc Today E66.09 - Other obesity due to excess calories, E66.811 - Obesity, class 1, I10 - Essential (primary) hypertension, Z68.32 - Body mass index [BMI] 32.0-32.9, adult Comprehensive Met. Panel Today E66.09 - Other obesity due to excess calories, E66.811 - Obesity, class 1, I10 - Essential (primary) hypertension, Z68.32 - Body mass index [BMI] 32.0-32.9, adult Hemoglobin A1c Today E66.09 - Other obesity due to excess calories, E66.811 - Obesity, class 1, I10 - Essential (primary) hypertension, Z68.32 - Body mass index [BMI] 32.0-32.9, adult Vitamin B1 Today E66.09 - Other obesity due to excess calories, E66.811 - Obesity, class 1, I10 - Essential (primary) hypertension, Z68.32 - Body mass index [BMI] 32.0-32.9, adult Lipid Panel Today E66.09 - Other obesity due to excess calories, E66.811 - Obesity, class 1, I10 - Essential (primary) hypertension, Z68.32 - Body mass index [BMI] 32.0-32.9, adult Vitamin B12 Today E66.09 - Other obesity due to excess calories, E66.811 - Obesity, class 1, I10 - Essential (primary) hypertension, Z68.32 - Body mass index [BMI] 32.0-32.9, adult Partial Thromboplastin Time Today E66.09 - Other obesity due to excess calories, E66.811 - Obesity, class 1, I10 - Essential (primary) hypertension, Z68.32 - Body mass index [BMI] 32.0-32.9, adult Vitamin D 25-OH Total Today E66.09 - Other obesity due to excess calories, E66.811 - Obesity, class 1, I10 - Essential (primary) hypertension, Z68.32 - Body mass index [BMI] 32.0-32.9, adult Insulin Today E66.09 - Other obesity due to excess calories, E66.811 - Obesity, class 1, I10 - Essential (primary) hypertension, Z68.32 - Body mass index [BMI] 32.0-32.9, adult IRON PROFILE Today E66.09 - Other obesity due to excess calories, E66.811 - Obesity, class 1, I10 - Essential (primary) hypertension, Z68.32 - Body mass index [BMI] 32.0-32.9, adult Medications: New pantoprazole 40 mg PO DAILY 90 tabs 0RF K21.9 - Gastro-esophageal reflux disease without esophagitis ondansetron Only take one every 12 hours as needed if you have nausea 4 mg PO Q12H 20 tabs 0RF nausea and vomiting R11.0 - Nausea polyethylene glycol 3350 Mix each measuring cup with 8oz of water, Crystal light, or Gatorade zero, or Propel and do 7 measuring cups on 12/21/24 and another 7 measuring cups on 12/22/24 17 grams PO DAILY 238 grams 0RF Z01.818 - Encounter for other preprocedural examination sucralfate 10 mL PO BID 600 mL 2RF K21.9 - Gastro-esophageal reflux disease without esophagitis
[2024-12-10 11:47] VITALS: BMI 30.3
== END 2024-12-10 12:05 | disposition home or self-care (01) ==
LOC: HO.HBS 08:22
PROVIDERS: PCP Family Medicine; Visit Provider Surgery
DX: E66.811 Obesity, class 1 (principal); E66.09 Other obesity due to excess calories; Z68.32 Body mass index [BMI] 32.0-32.9, adult
CPT/HCPCS: 99499

== ENCOUNTER 2024-12-22 09:29 | Outpatient (REF) | payer OTHER, SELFPAY ==
--- NOTE | ~2024-12-22 | FL_ITS ---
EXAMINATION: XR FLUOROSCOPY UPPER GI SERIES CLINICAL INFORMATION: Obesity, class I. Patient has no complaints. COMPARISON: None TECHNIQUE: Fluoroscopic air contrast upper GI examination was performed utilizing standard techniques with thin and thick barium and effervescent granules. Numerous spot images were obtained. Several fluoroscopic image hold cine sequences were also obtained. FINDINGS: UPPER GI SERIES: Lateral cine images of the oropharynx and hypopharynx demonstrate normal swallow mechanism with normal epiglottic inversion and soft palate elevation. No laryngeal penetration, glottic or subglottic aspiration identified. No nasopharyngeal reflux present. Hypopharyngeal structures appear normal without evidence of mass or diverticulum. There was no significant cricopharyngeal achalasia. Dual and single contrast images of the esophagus demonstrate normal caliber, contour, and mucosal pattern. No evidence of stricture, mass, or ulcerations identified. Esophageal peristalsis demonstrated subtle feline contraction pattern, suggesting chronic reflux. Esophageal peristalsis was otherwise grossly normal. No evidence of hiatus hernia identified. Normal appearing GE junction. Mild gastroesophageal reflux identified during the exam to the level of the bret. Dual contrast and single contrast images of the stomach demonstrated normal contour and mucosal pattern without evidence of mass, ulceration, or other abnormality. Contrast freely passed into the gastric antrum and duodenal bulb without delay. Single and air-contrast images of the duodenal bulb demonstrate no abnormality. The duodenal sweep has a normal appearance, course, and mucosal fold appearance. FLUOROSCOPY TIME: 2 minutes, 40 seconds Number of Spot Images:9 Number of cines obtained: 7 DOSE AREA PRODUCT: 2750 uGy-m2 (microgray-meter squared) FL/FL upper GI w air IMPRESSION: 1. Feline contraction pattern of the esophagus, suggesting chronic reflux. Esophageal peristalsis otherwise normal. 2. Mild gastroesophageal reflux identified to the level of the bret. 3. No significant hiatus hernia. 4. Normal-appearing stomach, duodenal bulb, and duodenum. Electronically signed by: Kai Scruggs MD 12/22/2024 10:29 AM EDT
--- OUTSIDE RECORDS SUMMARY | 2024-12-22 10:12 | XMS_ITS | Continuity of Care Document ---
Author Name [facility] Organization [facility] Care Team Providers Care Stand In Name Role Phone [facility] Unavailable Unavailable Problems [...] tendinitis, right knee Inactive 04/10/20 22 Condition [facility] Encounter for immunization Active 03/20/20 22 Condition [facility] visit for: services physical Active Condition Do[facility] visit for: ears / hearing exam Active Condition Do[facility] visit for: examination of subpopulation Inactive Condition DoD visit for: services physical accession Active Condition DoD visit for: ears, nose, and throat exam Inactive Condition DoD Adjustment disorder with mixed anxiety and depressed mood (SNOMED CT 695776999) Active Condition [facility] Chronic low back pain Active Condition [facility] Essential hypertension Active Condition [facility] Exposure to potentially hazardous substance Active Condition Oct 23, 2023 Entered By: LOUIS GLYNN EN A Comment: Connect Snomed Code to ICD 10 Code refer to note dated 07/18/23 [facility] Exposure to Potentially Hazardous Substance ([facility] [id number]) Active Condition [facility]ULEIKA KHOURY [facility] History of surgery Active Condition Oct 17, 2011 Entered By: LEXI KNOX Comment: -- [facility] [place] [facility] History of traumatic brain injury Active Condition Oct 27, 2024 Entered By: JENNI CARRASCO Comment: hx concussion [facility] HL - Hearing loss Active Condition Se p 2023 Entered By: JENNI CARRASCO Comment: bilateral d/t noise exposure in service [facility] Insomnia Active Condition [facility] Obesity Active Condition Apr 29 Entered By: JENNI CARRASCO Comment: 11/27/23 BMI 32Mar 2024 Entered By: JENNI CARRASCO Comment: 10/27/24 BMI 35 [facility] Tinnitus Active Condition Apr 29 Entered By: JENNI CARRASCO Comment: bilateralSep 2023 Entered By: JENNI CARRASCO Comment: hx noise exposure in service [facility] Diagnosis: ICD-10-CM E66.09 Other obesity due to excess calories Active Diagnosis [facility] Diagnosis: ICD-10-CM F43.9 Reaction to severe stress, unspecified [facility] Diagnosis: ICD-10-CM H90.3 Sensorineural hearing loss, bilateral Active Diagnosis [facility] Diagnosis: ICD-10-CM M54.50 Low back pain, unspecified Active Diagnosis [facility] Diagnosis: ICD-10-CM F10.99 Alcohol use, unsp with unspecified alcohol-induced disorder Active Diagnosis [facility] Diagnosis: ICD-10-CM F43.12 Post-traumatic stress disorder, chronic Active Diagnosis [facility] Diagnosis: ICD-10-CM I10 Essential (primary) hypertension Active Diagnosis [facility] Diagnosis: ICD-10-CM Z56.0 Unemployment, unspecified Active Diagnosis [facility] Diagnosis: ICD-10-CM F43.23 Adjustment disorder with mixed anxiety and depressed mood Active Diagnosis [facility] Diagnosis: ICD-10-CM Z71.89 Other specified counseling Active Diagnosis [facility] Medications Combined list of outpatient medications [...] FOR BLOOD PRESSURE /HEART ORAL ACTIVE 04/23/2025 [id number] Briseida CARRASCO 2023 90 [facility] IELD ATENOLOL 25MG TAB TAKE ONE-HALF OF A TABLET BY MOUTH ONCE DAILY FOR BLOOD PRESSURE /HEART ORAL DISCONT INUED 09/02/2024 [id number] LEXI JARRELL 2023 15 [facility] azithromyci n 250 mg oral tablet 0 total refill(s ) Ordered 2021 No Facilit y Access BUPROPION HCL 150MG 24HR TAB,SA TAKE ONE TABLET BY MOUTH ONCE DAILY ORAL DISCONT INUED (EDIT) 12/19/2024 [id number] CASH PRADO 2023 60 [facility] BUPROPION HCL 150MG 24HR TAB,SA TAKE ONE TABLET BY MOUTH ONCE DAILY ORAL DISCONT INUED 09/29/2024 [id number] CASH PRADO 2023 60 [facility] BUPROPION HCL 300MG 24HR TAB,SA TAKE ONE TABLET BY MOUTH EVERY MORNING ORAL DISCONT INUED BY PROVIDE R 02/13/2025 [id number] CASH PRADO 2023 90 [facility] FLUOXETINE HCL 10MG CAP TAKE ONE CAPSULE BY MOUTH ONCE DAILY FOR 7 DAYS, THEN TAKE TWO CAPSULES ONCE DAILY FOR DEPRESSI ON AND ANXIETY ORAL DISCONT INUED (EDIT) 11/23/2024 [id number] CASH PRADO 2024 93 [facility] FLUOXETINE HCL 20MG CAP TAKE ONE CAPSULE BY MOUTH ONCE DAILY FOR DEPRESSI ON AND ANXIETY ORAL ACTIVE 11/11/2025 [id number] 5 CASH PRADO 2024 30 [facility] HYDROCORTIS ONE 2.5% CREAM,TOP APPLY A THIN LAYER TOPICALL Y TWICE DAILY FOR ATOPIC DERMATIT IS TOPICA L 11/26/2024 [id number] 5 Briseida CARRASCO 2024 90 [place] HYDROCORTIS ONE ACETATE 1%/PRAMOXIN E HCL 1% AEROSOL,RTL INSERT 1 APPLICAT ORFUL RECTALLY THREE TIMES DAILY NEEDED FOR HEMORRHO IDS RECTAL ACTIVE 04/30/2025 [id number] 5 Briseida CARRASCO 2023 20 [place] IBUPROFEN 600MG TAB TAKE ONE TABLET BY MOUTH EVERY 8 HOURS NEEDED TAKE WITH FOOD ORAL ACTIVE 10/28/2025 [id number] Briseida CARRASCO 2024 500 [place] [...] AT BEDTIME NEEDED SLEEP ORAL ACTIVE 01/02/2025 [id number] CASH PRADO 2024 120 [facility] NALTREXONE (EQV-REVIA) 50MG TAB TAKE ONE TABLET BY MOUTH ONCE DAILY CRAVINGS ORAL DISCONT INUED BY PROVIDE R 02/13/2025 [id number] CASH PRADO 2023 90 [facility] NALTREXONE (EQV-REVIA) 50MG TAB TAKE ONE TABLET BY MOUTH ONCE DAILY FOR ALCOHOLI SM ORAL DISCONT INUED (EDIT) 12/19/2024 [id number] EVE, CASH 2023 30 [facility] TOPIRAMATE 100MG TAB TAKE ONE TABLET BY MOUTH ONCE DAILY WEIGHT MANAGEME NT ORAL SUSPEND ED 11/20/2025 [id number] 5 Briseida CARRASCO 2024 90 [place] TOPIRAMATE 25MG TAB TAKE ONE TABLET BY MOUTH ONCE DAILY FOR 1 WEEK, THEN TAKE TWO TABLETS ONCE DAILY ORAL DISCONT INUED (EDIT) 11/26/2024 [id number] 5 Briseida CARRASCO 2024 53 [place] TRAZODONE HCL 100MG TAB TAKE ONE-HALF TABLET BY MOUTH AT BEDTIME FOR SLEEP ORAL DISCONT INUED BY PROVIDE R 12/19/2024 [id number] 4 CASH PRADO 2023 45 [facility] TRAZODONE HCL 100MG TAB TAKE ONE-HALF TABLET BY MOUTH AT BEDTIME FOR 7 DAYS, THEN TAKE ONE TABLET AT BEDTIME FOR SLEEP ORAL DISCONT INUED (EDIT) 08/05/2024 [id number] 4 CASH PRADO 2022 60 [facility] Allergies, Adverse Reactions, Alerts Combined list of allergies from Department of Defense and Veterans Affairs facilities. It does not include entries that were removed or entered in error. Substance Category Reaction Severity Reaction type Status Date Reported Comments Source No Known Allergies Drug allergy (disorder) active 12/07/2022 [facility] [place] Immunizations Combined list of available immunizations from the Department of Defense and Veterans Affairs facilities. 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 [employer] [facility] ([facility]) complet ed anthrax vaccine DoD SARS-COV-2 (COVID-19) vaccine, mRNA, spike protein, LNP, preservative free, 30 mcg/0.3mL dose 3 2020 [id number] Transcribed (TRS) complet ed SARS-COV- 2 (COVID-19 ) vaccine, mRNA, spike protein, LNP, preservat kenn free, 30 mcg/0.3mL dose DoD Influenza, injectable, quadrivalent, preservative free 1 2020 [id number] Transcribed (TRS) complet ed Influenza , injectabl e, quadrival ent, preservat kenn free DoD measles/mumps /rubella virus [id number] [employer] complet ed measles/m umps/rube lla virus vaccine 05/31/21 Given Ambulat ory Pharmac y measles, mumps and rubella virus vaccine 3 2020 NICHOLASJUAN COBURN E [id number] Merck (MSD) complet ed measles, mumps and rubella virus vaccine DoD COVID Vaccine Pfizer 2020 Sean Arm [id number] PFIZER complet ed COVID Vaccine Pfizer 12/29/20 Given Ambulat ory Pharmac y COVID-19, mRNA, LNP-S, PF, 30 mcg/0.3 mL dose 2020 [employer] [place] (PFR) Not Given COVID-19, mRNA, LNP-S, PF, 30 mcg/0.3 mL dose DoD SARS-COV-2 (COVID-19) vaccine, mRNA, spike protein, LNP, preservative free, 30 mcg/0.3mL dose 2 2020 Unknown, Provider [id number] [employer] (PFR) complet ed SARS-COV- 2 (COVID-19 ) vaccine, mRNA, spike protein, LNP, preservat kenn free, 30 mcg/0.3mL dose DoD COVID Vaccine Pfizer 2020 Osirisef t Arm [id number] 208 PFIZER complet ed COVID Vaccine Pfizer 12/03/20 Given Ambulat ory Pharmac y COVID-19, mRNA, LNP-S, PF, 30 mcg/0.3 mL dose 2020 ASHA EXENDIS [facility] (PFR) Not Given COVID-19, mRNA, LNP-S, PF, 30 mcg/0.3 mL dose DoD SARS-COV-2 (COVID-19) vaccine, mRNA, spike protein, LNP, preservative free, 30 mcg/0.3mL dose 1 2020 Unknown, Provider [id number] [employer] (PFR) complet ed SARS-COV- 2 (COVID-19 ) vaccine, mRNA, spike protein, LNP, preservat kenn free, 30 mcg/0.3mL dose DoD influenza, injectable, quadrivalent 2019 Sean Arm [id number] 158 [employer] complet ed influenza , injectabl e, quadrival ent 05/29/20 Given Ambulat ory Pharmac y influenza, injectable, quadrivalent, contains preservative 1 2019 ANA TINAJERO [id number] 158 [employer] (SEQ) complet ed influenza , injectabl e, quadrival ent, contains preservat kenn DoD influenza, injectable, quadrivalent 2019 [id number] 350 158 [employer] complet ed influenza , injectabl e, quadrival ent 10/30/19 Given Ambulat ory Pharmac y influenza, injectable, quadrivalent, contains preservative 1 2019 [id number] 350 158 [employer] (SEQ) complet ed influenza [...] vaccine, adsorbed DoD influenza, seasonal, injectable-pf 2017 [id number] 140 [employer] complet ed influenza , seasonal, injectabl e-pf 06/13/18 Given Ambulat ory Pharmac y Influenza, seasonal, injectable, preservative free 1 2017 [id number] 140 [employer] (SEQ) comple t ed Influenza , seasonal, injectabl e, preservat kenn free DoD INFLUENZA, SEASONAL, INJECTABLE 2016 141 complet ed [place] influenza, seasonal, injectable-pf 2016 [id number] 140 [employer] complet ed influenza , seasonal, injectabl e-pf 06/20/17 Given Ambulat ory Pharmac y Influenza, seasonal, injectable, preservative free 1 2016 [id number] 140 [employer] (SEQ) comple t ed Influenza , seasonal, injectabl e, preservat kenn free DoD influenza, seasonal, injectable-pf 2015 [id number] 140 CSL Behring complet ed influenza , seasonal, injectabl e-pf 07/27/16 Given Ambulat ory Pharmac y Influenza, seasonal, injectable, preservative free 1 2015 [id number] 140 CSL [employer] Inc. (CSL) complet ed Influenza , seasonal, injectabl e, preservat kenn free DoD influenza virus vaccine, live 2011 [id number] 111 Medimmune Inc comple t ed influenza virus vaccine, live 06/06/12 Given Ambulat ory Pharmac y influenza virus vaccine, live, attenuated, for intranasal use 1 2011 [id number] 111 MedImmune, Inc. (MED) complet ed influenza virus vaccine, live, attenuate d, for intranasa l use DoD FLU,3 YRS (HISTORICAL) 2010 88 complet ed [facility] influenza virus vaccine, live 2010 [id number] 111 Medimmune Inc comple t ed influenza virus vaccine, live 06/30/11 Given Ambulat ory Pharmac y influenza virus vaccine, live, attenuated, for intranasal use 1 2010 [id number] 111 MedImmune, Inc. (MED) complet ed influenza virus vaccine, live, attenuate d, for intranasa l use DoD FLU,3 YRS (HISTORICAL) 2010 88 complet ed Site: Right Deltoid [facility] tuberculin purified protein derivative 2008 UNKNOWN 96 Unknown complet ed tuberculi n purified protein derivativ e 06/14/09 Given Ambulat ory Pharmac y influenza virus vaccine,split 2008 [id number] 15 sanofi pasteur complet ed influenza virus vaccine,s plit 06/14/09 Given Ambulat ory Pharmac y influenza virus vaccine, split virus (incl. purified surface antigen)-reti red CODE 1 2008 [id number] 15 Sanofi Pasteur ([facility]MC) complet ed influenza [...] y tetanus, diphtheria, acellular pertu is 2007 [id number] 115 Unknown complet ed tetanus, diphtheri a, [...] acellular pertu is vaccine, adsorbed 1 2007 [id number] 115 Unknown (UNK) comple t ed tetanus [...] A-hepatitis B vaccine 2005 [id number] 104 [employer] complet ed hepatitis A-hepatit is B vaccine 04/02/06 Given Ambulat ory Pharmac y hepatitis A and hepatitis B vaccine 2 2005 [id number] 104 [facility] (SKB) complet ed hepatitis A and hepatitis B vaccine DoD tuberculin purified protein derivative 2005 [id number] 96 [facility] complet ed tuberculi n purified protein derivativ e 03/28/06 Given Ambulat ory Pharmac y tuberculin purified protein derivative 2003 [id number] 96 Unknown complet ed tuberculi n purified protein derivativ e 02/03/04 Given Ambulat ory Pharmac y meningococcal polysaccharid e (MPSV4) 2003 [id number] 32 Unknown complet ed meningoco ccal polysacch aride (MPSV4) 02/03/04 Given Ambulat ory Pharmac y poliovirus vaccine, inactivated 2003 [id number] 10 sanofi pasteur complet ed polioviru s vaccine, inactivat ed 02/03/04 Given Ambulat ory Pharmac y tetanus-dipht h toxoids (Td) adult/adol 2003 [id number] 09 sanofi pasteur complet ed tetanus-d iphth toxoids (Td) adult/ado l 02/03/04 Given Ambulat ory Pharmac y measles/mumps /rubella virus vaccine 2003 [id number] 03 Merck & Company Inc complet ed measles/m umps/rube lla virus vaccine 02/03/04 Given Ambulat ory Pharmac y influenza virus vaccine,split 2003 [id number] 15 Unknown complet ed influenza virus vaccine,s plit 02/03/04 Given Ambulat ory Pharmac y measles, mumps and rubella virus vaccine 1 2003 [id number] 03 Merck (MSD) complet ed measles, mumps and rubella virus vaccine DoD tetanus and diphtheria toxoids, adsorbed, preservative free, for adult use (2 Lf of tetanus toxoid and 2 Lf of diphtheria toxoid) 1 2003 [id number] 09 Sanofi Pasteur ([facility]) complet ed tetanus and diphtheri a toxoids, adsorbed, preservat kenn free, for adult use (2 Lf of tetanus toxoid and 2 Lf of diphtheri a toxoid) DoD poliovirus vaccine, inactivated 1 2003 [id number] 10 Sanofi Pasteur ([facility]) complet ed polioviru s vaccine, inactivat ed DoD influenza virus vaccine, split virus (incl. purified surface antigen)-reti red CODE 1 2003 [id number] 15 Unknown (UNK) comple t ed influenza virus vaccine, split virus (incl. purified surface antigen)- retired CODE DoD meningococcal polysaccharid e vaccine (MPSV4) 1 2003 [id number] 32 Unknown (UNK) comple t ed meningoco ccal polysacch aride vaccine (MPSV4) DoD hepatitis A-hepatitis B vaccine 2003 [id number] 104 Unknown complet ed hepatitis A-hepatit is B vaccine 02/02/04 Given Ambulat ory Pharmac y hepatitis A and hepatitis B vaccine 1 2003 [id number] 104 Unknown (UNK) complet ed hepatitis [...] Mar 19, 2024 09:32 AM Reporting Lab: [address] [address] Performing Lab: [address] [address] [facility] LIVER FUNCTION ALBUMIN [MASS/VOLU ME] IN SERUM OR PLASMA 3.9 g/dL 3.5 - 5.0 03/19 Specimen Type: SERUM No comment entered. Ordering Provider: HUMERA CARRASCO Report Released Date/Time: Mar 19, 2024 09:32 AM Reporting Lab: [facility] [place] [facility] [address] [address] Performing Lab: [facility] [facility] [address] [address] [facility] LIVER FUNCTION ALKALINE PHOSPHATAS E [ENZYMATIC ACTIVITY/V OLUME] IN SERUM OR PLASMA 51 U/L 40 - 150 03/19 Specimen Type: SERUM No comment entered. Ordering Provider: HUMERA CARRASCO Report Released Date/Time: Mar 19, 2024 09:32 AM Reporting Lab: [facility] [place] [facility] [address] [address] Performing Lab: [facility] [place] [facility] [address] [address] [facility] LIVER FUNCTION ASPARTATE AMINOTRANS FERASE [ENZYMATIC ACTIVITY/V OLUME] IN SERUM OR PLASMA 16 U/L 5 - 34 03/19 Specimen Type: SERUM No comment entered. Ordering Provider: HUMERA CARRASCO Report Released Date/Time: Mar 19, 2024 09:32 AM Reporting Lab: [facility] [place] [facility] [address] [address] Performing Lab: [facility] [facility] [address] [address] [facility] LIVER FUNCTION ALANINE AMINOTRANS FERASE [ENZYMATIC ACTIVITY/V OLUME] IN SERUM OR PLASMA 35 U/L 03/19 Specimen Type: SERUM No comment entered. Ordering Provider: HUMERA CARRASCO Report Released Date/Time: Mar 19, 2024 09:32 AM Reporting Lab: [facility] [facility] [address] [address] Performing Lab: [facility]AMATRN [facility] [address] [address] [facility] LIVER FUNCTION BILIRUBIN. TOTAL [MASS/VOLU ME] IN SERUM OR PLASMA 0.5 mg/dL 0.2 - 1.2 03/19 Specimen Type: SERUM No comment entered. Ordering Provider: HUMERA CARRASCO Report Released Date/Time: Mar 19, 2024 09:32 AM Reporting Lab: [facility]ITALRL TRN [facility]USE[facility] [address] [address] Performing Lab: [facility]ITAL[facility] CENTERN [address] [address] [facility] BASIC METABOLI C PANEL (fasting ) UREA NITROGEN [MASS/VOLU ME] IN SERUM OR PLASMA 15 mg/dL 7 - 25 03/19 Specimen Type: SERUM No comment entered. Ordering Provider: HUMERA CARRASCO Report Released Date/Time: Mar 19, 2024 09:32 AM Reporting Lab: [facility]ERN [facility] [address] [address] Performing Lab: [facility]ITALRENCOM[facility] ALABAMATRN [facility]ITALUSE[address] [address] [facility] BASIC METABOLI C PANEL (fasting ) GLUCOSE [MASS/VOLU ME] IN SERUM OR PLASMA 106 mg/dL 65 - 100 03/19 H Specimen Type: SERUM No comment entered. Ordering Provider: HUMERA CARRASCO Report Released Date/Time: Mar 19, 2024 09:32 AM Reporting Lab: [facility]ITALRENCOM[facility] AL[facility]AMATRN [facility]ITALUSEST[facility] [address] [address] Performing Lab: [facility]ITALRENCOM[facility] ALABAMATRN [facility]ITALUSE[address] [address] [facility] BASIC METABOLI C PANEL (fasting ) SODIUM [MOLES/VOL UME] IN SERUM OR PLASMA 138 mmol/L 135 - 145 03/19 Specimen Type: SERUM No comment entered. Ordering Provider: HUMERA CARRASCO Report Released Date/Time: Mar 19, 2024 09:32 AM Reporting Lab: [facility] [place] [facility] [address] [address] Performing Lab: [facility] [place] [facility] [address] [address] [facility] BASIC METABOLI C PANEL (fasting ) POTASSIUM [MOLES/VOL UME] IN SERUM OR PLASMA 4.3 mmol/L 3.5 - 5.0 03/19 Specimen Type: SERUM No comment entered. Ordering Provider: HUMERA CARRASCO Report Released Date/Time: Mar 19, 2024 09:32 AM Reporting Lab: [facility] [place] [facility] [address] [address] Performing Lab: [facility] [place] [facility] [address] [address] [facility]ITALRL W[facility]N [facility] [facility] BASIC METABOLI C PANEL (fasting ) CHLORIDE [MOLES/VOL UME] IN SERUM OR PLASMA 106 mmol/L 100 - 110 03/19 Specimen Type: SERUM No comment entered. Ordering Provider: HUMERA CARRASCO Report Released Date/Time: Mar 19, 2024 09:32 AM Reporting Lab: [facility] [place] [facility] [address] [address] Performing Lab: [facility] [place] [facility] [address] [address] [facility] BASIC METABOLI C PANEL (fasting ) CARBON DIOXIDE, TOTAL [MOLES/VOL UME] IN SERUM OR PLASMA 25 meq/L 20 - 30 03/19 Specimen Type: SERUM No comment entered. Ordering Provider: HUMERA CARRASCO Report Released Date/Time: Mar 19, 2024 09:32 AM Reporting Lab: [facility] [place] [facility] [address] [address] Performing Lab: [facility] [place] [facility] [address] [address] [facility] BASIC METABOLI C PANEL (fasting ) CREATININE [MASS/VOLU ME] IN SERUM OR PLASMA 0.92 mg/dL 0.50 - 1.40 03/19 Specimen Type: SERUM No comment entered. Ordering Provider: HUMERA CARRASCO Report Released Date/Time: Mar 19, 2024 09:32 AM Reporting Lab: [facility]ITALRBIBB MEDICAL CENTERN [address] [address] Performing Lab: [facility] [address] [address] [facility] BASIC METABOLI C PANEL (fasting ) GLOMERULAR FILTRATION RATE/1.73 SQ M.PREDICTE D [VOLUME RATE/AREA] IN SERUM, PLASMA OR BLOOD BY CREATININE -BASED FORMULA (CKD-EPI 2020) >90mL/mi n 60 03/19 Specimen Type: SERUM No comment entered. Ordering Provider: HUMERA CARRASCO Report Released Date/Time: Mar 19, 2024 09:32 AM Reporting Lab: [facility]ITALRBIBB MEDICAL CENTERN [address] [address] Performing Lab: [facility]ITALRBIB[facility] MEDICAL CENTERN [address] [address] [facility] LIPID PANEL FASTING CHOLESTERO L [MASS/VOLU ME] IN SERUM OR PLASMA 203 mg/dL 03/19 H Specimen Type: SERUM No comment entered. Ordering Provider: HUMERA CARRASCO Report Released Date/Time: Mar 19, 2024 09:32 AM Reporting Lab: [facility]ITALRBIB[facility] CENTERN [address] [address] Performing Lab: [facility] HOSPITALRL [facility]N [facility]ITALUSE[address] [address] [facility] LIPID PANEL FASTING TRIGLYCERI DE [MASS/VOLU ME] IN SERUM OR PLASMA 63 mg/dL 0 - 150 03/19 Specimen Type: SERUM No comment entered. Ordering Provider: HUMERA CARRASCO Report Released Date/Time: Mar 19, 2024 09:32 AM Reporting Lab: [facility]ITALRBIB[facility] MEDICAL CENTERN [address] [address] Performing Lab: [facility] [place] [facility] [address] [address] [facility] LIPID PANEL FASTING CHOLESTERO L IN LDL [MASS/VOLU ME] IN SERUM OR PLASMA BY CALCULATIO N 137 mg/dL 0 - 129 03/19 H Specimen Type: SERUM No comment entered. Ordering Provider: HUMERA CARRASCO Report Released Date/Time: Mar 19, 2024 09:32 AM Reporting Lab: [facility] [place] [facility] [address] [address] Performing Lab: [facility] [place] [facility] [address] [address] [facility] LIPID PANEL FASTING CHOLESTERO L.TOTAL/CH OLESTEROL IN HDL [MASS RATIO] IN SERUM OR PLASMA 3.8 03/19 Specimen Type: SERUM No comment entered. Ordering Provider: HUMERA CARRASCO Report Released Date/Time: Mar 19, 2024 09:32 AM Reporting Lab: [facility] [place] [facility] [address] [address] Performing Lab: [facility] [place] [facility] [address] [address] [place] [facility] [facility] [facility] LIPID PANEL FASTING CHOLESTERO L IN HDL [MASS/VOLU ME] IN SERUM OR PLASMA 53 mg/dL 40 - 60 03/19 Specimen Type: SERUM No comment entered. Ordering Provider: HUMERA CARRASCO Report Released Date/Time: Mar 19, 2024 09:32 AM Reporting Lab: [facility] [place] [facility] [address] [address] Performing Lab: [facility] [place] [facility] [address] [address] [facility] [place] [facility] TSH THYROTROPI N [UNITS/VOL UME] IN SERUM OR PLASMA 0.99 u[IU]/mL 0.35 - 5.00 03/19 Specimen Type: SERUM No comment entered. Ordering Provider: HUMERA CARRASCO Report Released Date/Time: Mar 19, 2024 09:32 AM Reporting Lab: [facility] [address] [address] Performing Lab: [facility] [address] [address] [facility] [facility] HEMOGLOB IN A1C PANEL HEMOGLOBIN A1C/HEMOGL [...] Mar 19, 2024 09:32 AM Reporting Lab: [facility] [address] [address] Performing Lab: [facility] [address] [facility]ITAL[facility]ITALUSE [facility] CBC LEUKOCYTES [#/VOLUME] IN BLOOD BY AUTOMATED COUNT 5.92 10*3/uL 4.50 - 11.00 03/19 Specimen Type: BLOOD No comment entered. Ordering Provider: HUMERA CARRASCO Report Released Date/Time: Mar 19, 2024 09:32 AM Reporting Lab: [facility] [place] [address] [address] Performing Lab: [facility] [address] [address] [facility]ITALRBIB[facility]ENTERN [facility] CBC ERYTHROCYT ES [#/VOLUME] IN BLOOD BY AUTOMATED COUNT 5.62 10*6/uL 4.23 - 5.66 03/19 Specimen Type: BLOOD No comment entered. Ordering Provider: HUMERA CARRASCO Report Released Date/Time: Mar 19, 2024 09:32 AM Reporting Lab: [facility] [place] [facility] [address] [address] Performing Lab: [facility] [place] [facility] [address] [address] [facility] [place] [facility] CBC HEMOGLOBIN [MASS/VOLU ME] IN BLOOD 16.5 g/dL 12.8 - 17 03/19 Specimen Type: BLOOD No comment entered. Ordering Provider: HUMERA CARRASCO Report Released Date/Time: Mar 19, 2024 09:32 AM Reporting Lab: [facility] [place] [facility] [address] [address] Performing Lab: [facility] [place] [facility] [address] [address] [facility] [place] [facility] CBC HEMATOCRIT [VOLUME FRACTION] OF BLOOD BY AUTOMATED COUNT 46.9 39.2 - 50.4 03/19 Specimen Type: BLOOD No comment entered. Ordering Provider: HUMERA CARRASCO Report Released Date/Time: Mar 19, 2024 09:32 AM Reporting Lab: [facility] [place] [facility] [address] [address] Performing Lab: [facility] [place] [facility] [address] [address] [facility] [place] [facility] CBC MCV [ENTITIC VOLUME] BY AUTOMATED COUNT 83.5 fL 82 - 99 03/19 Specimen Type: BLOOD No comment entered. Ordering Provider: HUMERA CARRASCO Report Released Date/Time: Mar 19, 2024 09:32 AM Reporting Lab: [facility] [place] [facility] [address] [address] Performing Lab: [facility] [place] [facility] [address] [address] [facility] [place] [facility] CBC MCHC [MASS/VOLU ME] BY AUTOMATED COUNT 35.2 g/dL 30.8 - 35.1 03/19 H Specimen Type: BLOOD No comment entered. Ordering Provider: HUMERA CARRASCO Report Released Date/Time: Mar 19, 2024 09:32 AM Reporting Lab: [facility] [place] [facility] [address] [address] Performing Lab: [facility] [place] [facility] [address] [address] [facility] [place] [place] [facility] CBC PLATELETS [#/VOLUME] IN BLOOD BY AUTOMATED COUNT 179 10*3/uL 140 - 360 03/19 Specimen Type: BLOOD No comment entered. Ordering Provider: HUMERA CARRASCO Report Released Date/Time: Mar 19, 2024 09:32 AM Reporting Lab: [facility] [place] [facility] [address] [address] Performing Lab: [facility] [place] [place] [facility] [address] [address] [facility] [place] [facility] CBC ERYTHROCYT E DISTRIBUTI ON WIDTH [RATIO] BY AUTOMATED COUNT 11.9 12.0 - 16.0 03/19 L Specimen Type: BLOOD No comment entered. Ordering Provider: HUMERA CARRASCO Report Released Date/Time: Mar 19, 2024 09:32 AM Reporting Lab: [facility] [place] [facility] [address] [address] Performing Lab: [facility] [place] [facility] [address] [address] [facility] [place] [facility] CBC MCH [ENTITIC MASS] BY AUTOMATED COUNT 29.4 pg 26.2 - 32.6 03/19 Specimen Type: BLOOD No comment entered. Ordering Provider: HUMERA CARRASCO Report Released Date/Time: Mar 19, 2024 09:32 AM Reporting Lab: [facility] [place] [facility] [address] [address] Performing Lab: [facility] [place] [facility] [address] [address] [place] [facility] [facility] T-SPOT TB PANEL MYCOBACTER IUM TUBERCULOS [...] additional information , please refer to http://educ ation.Playground Sessions .[employer]/faq/FA Q215 (This link is being provided for information al/ educational purposes only.) Test Performed by Jiongji AppErin, Adcade [facility], [address] [place] [address] Reed Marcum M.D., Ph.D., Director of Laboratorie s , CLIA [id number] TEST PERFORMED AT: , Ordering Provider: BRIANNA CEJA SA Report Released Date/Time: December 26, 2022 09:31 AM Reporting Lab: [facility] [address] [address] Performing Lab: [facility] [address] [address] [facility] T-SPOT TB PANEL MYCOBACTER IUM TUBERCULOS [...] additional information , please refer to http://educ ation.Playground Sessions .[employer]/faq/FA Q215 (This link is being provided for information al/ educational purposes only.) Test Performed by Jiongji AppErin, Adcade [facility], [address] [place] [address] Reed Marcum M.D., Ph.D., Director of Laboratorie s , CLIA [id number] TEST PERFORMED AT: , Ordering Provider: BRIANNA CEJA SA Report Released Date/Time: December 26, 2022 09:31 AM Reporting Lab: [facility] [address] [address] Performing Lab: [facility] [address] [address] [facility] T-SPOT TB PANEL MYCOBACTER IUM TUBERCULOS [...] For additional information , please refer to http://BioScience/faq/FA Q215 (This link is being provided for information al/ educational purposes only.) Test Performed by TorqBak, Adcade [facility], [address] [place] [address] Reed Marcum M.D., Ph.D., Director of Laboratorie s , CLIA [id number] TEST PERFORMED AT: , Ordering Provider: BRIANNA CEJA SA Report Released Date/Time: December 26, 2022 09:31 AM Reporting Lab: [facility] [address] [address] Performing Lab: [facility] [address] [address] [facility] T-SPOT TB PANEL MITOGEN STIMULATED GAMMA [...] For additional information , please refer to http://Ciapple .[employer] Exchange/faq/FA Q215 (This link is being provided for information al/ educational purposes only.) Test Performed by eigital [employer], [address] [place], [place] Reed Marcum M.D., Ph.D., Director of Laboratorie s , CLIA [id number] TEST PERFORMED AT: , Ordering Provider: BRIANNA CEJA SA Report Released Date/Time: December 26, 2022 09:31 AM Reporting Lab: [facility] Spoken CommunicationsUSEST. [facility] [address] [address] Performing Lab: [facility] [address] [address] [facility] T-SPOT TB PANEL GAMMA INTERFERON NEGATIVE [...] additional information , please refer to http://educ ation.Playground Sessions .[employer]/faq/FA T384 (This link is being provided for information al/ educational purposes only.) Test Performed by Jiongji [employer], [address] [place], [place] Reed Marcum M.D., Ph.D., Director of Laboratorie s , CLIA [id number] TEST PERFORMED AT: , Ordering Provider: BRIANNA CEJA SA Report Released Date/Time: December 26, 2022 09:31 AM Reporting Lab: [facility] [address] [address] Performing Lab: [facility] 825 [facility], [address] [place] [address] [facility] HEPATITI S B SURFACE ANTIBODY (HBsAb)- WH HEPATITIS B VIRUS SURFACE AB [PRESENCE] IN SERUM BY IMMUNOASSA Y REACTIVE 12/26 Specimen Type: SERUM Comment: A 'Reactive' result indicates HBsAb results >/= 12.0 mIU/mL and immunity to HBV infection. Ordering Provider: BRIANNA CEJA SA Report Released Date/Time: December 26, 2022 09:31 AM Reporting Lab: [facility] [address] [address] Performing Lab: [facility] [address] [address] [facility] MMRV (IGG) IMMUNE STATUS PANEL MEASLES [...] December 26, 2022 09:31 AM Reporting Lab: [facility] [address] [address] Performing Lab: [facility] [address] [address] [facility] MMRV (IGG) IMMUNE STATUS PANEL MUMPS [...] December 26, 2022 09:31 AM Reporting Lab: [facility] [address] [address] Performing Lab: [facility] [address] [facility] [address] [facility] MMRV (IGG) IMMUNE STATUS PANEL RUBELLA [...] December 26, 2022 09:31 AM Reporting Lab: [address] [address] Performing Lab: [facility] [address] [address] [facility] MMRV (IGG) IMMUNE STATUS PANEL VARICELLA [...] December 26, 2022 09:31 AM Reporting Lab: [facility] [address] [address] Performing Lab: [facility] [address] [facility] [address] [facility] Infectio us Disease HIV-1/2 AG/AB 4G CDD LC NEGATIVE 11/28 Result Comment: Performed At: 1 [facility] [id number] [facility] [facility] [address] [place] [address] KATHY STEPHANIE PHD Ph:[phone] [address] [place] [address] Lexi MoiseJody Worthington Infectio us Disease Source of Test.LC PostDepS torage (11/28/22 9:01 AM) 11/28 [facility] Lexi Suma- Elin Vital Signs Combined list of inpatient and outpatient Vital Signs from Department of Defense and Veterans Affairs, ranging from 12 months to all on record, depending upon the facility. Vital Sign Value Date Comments Source Peripheral Pulse Rate 99 bpm 11/28/2022 12:23:[address] [place] [address] Lexi LirianoElin Temperature Temporal Artery 36.5 Greta 11/28/2022 12:23:[address] [place] [address] [place]i [place]inaaumonmelvinH[place] Systolic Blood Pressure 136 mm[Hg] 11/29/19 23 12:23:[address] [place] [address] [place] Diastolic Blood Pressure 87 mm[Hg] 023 12:23:[address] [place] [address] [place] Mean Arterial Pressure, Calc 108 mm[Hg] 11/29/2022 15:33:[address] [place] [address] Lexi OlsonmonmelvinElin Temperature Oral 36.5 Greta 11/29/2022 15:33:[address] [place] [address] [place]i MedinaaumonmelvinH[place] Peripheral Pulse Rate 70 bpm 11/29/2022 15:33:[address] [place] [address] [place]i [place] Systolic Blood Pressure 135 mm[Hg] 11/30/19 23 15:33:[address] [place] [address] [place]i [place] Diastolic Blood Pressure 95 mm[Hg] 023 15:33:[address] [place] [address] [place]i [place] Systolic Blood Pressure 130 mm[Hg] 11/30/19 23 12:29:[address] [place] [address] [place]i [place] Diastolic Blood Pressure 84 mm[Hg] 023 12:29:[address] [place] [address] Lexi MedinaaucyndiElin Temperature Temporal Artery 36.2 Greta 11/29/2022 12:29:[address] [place] [address] [place]i [place] Peripheral Pulse Rate 76 bpm 11/29/2022 12:29:[address] [place] [address] Lexi [place] SYSTOLIC BLOOD PRESSURE 140 10/28/19 25 15:44:15 [facility] DIASTOLIC BLOOD PRESSURE 83 025 15:44:15 [facility] PULSE OXIMETRY 97 10/27/2024 15:44:15 [facility] WEIGHT 232 10/27/2024 15:44:15 [facility] BMI 32 kg/m2 10/27/2024 15:44:15 [facility] HEIGHT 71 10/27/2024 15:44:15 [facility] TEMPERATURE 97.7 10/27/2024 15:44:15 [facility] PULSE 61 10/27/2024 15:44:15 [facility] RESPIRATION 19 10/27/2024 15:44:15 [facility] SYSTOLIC BLOOD PRESSURE 129 04/29/20 24 13:09:35 [facility] DIASTOLIC BLOOD PRESSURE 83 024 13:09:35 [facility] PULSE OXIMETRY 97 04/29/2024 13:09:35 [facility] WEIGHT 250 04/29/2024 13:09:35 [facility] BMI 35 kg/m2 04/29/2024 13:09:35 [facility] PULSE 65 04/29/2024 13:09:35 [facility] Encounters Combined list of: 1) Encounters from Department of Veterans Affairs facilities going backup to the last 18 months, not all VA inpatient encounters are included; 2) Encounters from the Department of Defense facilities going backup to 280 months. Location Location Details Encounter Type Encounter Number Reason For Visit Attending Provider ADM Date DC Date Status Disposition Source [facility] KHUSHBU Buchanan(IEP Hearing Conservat ion Exam) OUTPATIENT [id number] 43rd [address] CEJA 04/01 Released w/o Limitations [facility] KHUSHBU Buchanan(IEP Hearing Conserv [facility]ion Exam[facility] KHUSHBU Buchanan(IEP Optometry ) OUTPATIENT [id number] ALISA BROWNE 04/11 [facility] w/o Limitations [facility] KHUSHBU Buchanan(IEP Optomet ry) [facility] OUTPATIENT [id number] AUGUSTIN BAIRES 07/12 Released w/o Limitations [facility] [place]([facility] Deploymen t Clinic) OUTPATIENT [id number] Notes Entered by: ALEXANDR MCKEON 29 May 2020 1105 ------- ------- ------- ------- -- BAILEE NEWBY 05/29 Released w/o Limitations [facility] [place]([facility] De[facility]m ent Clinic) [place] OUTPATIENT [id number] Notes Entered by: ABBY SOLIS 30 May 2021 1448 ------- ------- ------- ------- -- post deploym ent AYLA LOERA 05/30 Released w/o Limitations [place] [place]) OUTPATIENT [id number] Notes Entered by: JUAN PETERSON 31 May 2021 0756 ------- ------- ------- ------- -- MARIUSZ ANDERSON 05/31 [place]ased w/o Limitations [place] [place] S[facility] Trudy) OUTPATIENT [id number] HUNG Ratliff 05/31 Released w/o Limitations [place]([facility] [place]) [facility] [place]([facility] Deploymen t Clinic) OUTPATIENT [id number] 6 Notes Entered by: NGUYEN SANDOVAL 25 Jan 2022 0821 ------- ------- ------- ------- -- MOB SAUDI ANA MON 01/25 Released w/o Limitations [facility] [place]([facility] Deploym ent Clinic) [facility] [place]([facility]) OUTPATIENT [id number] 3 F2F FLU LIKE SYMPTOM S USAR [phone] NIKOS SPEARS 01/28 Released w/o Limitations [facility] [place]([facility]) [facility] [place]([facility]) OUTPATIENT [id number] F2F Sore throat [facility]CRAW ASHER, ZZZBM_DOUG LAS NISSA 01/29 Sick at Home/Quarter s [facility] [place]([facility]) Theater Facility OUTPATIENT [id number] Theater Provider 03/19 Released w/o Limitations [facility] OUTPATIENT [id number] Theater Provider 04/08 Released w/o Limitations [facility] OUTPATIENT [id number] Theater Provider 04/11 Released w/o Limitations [facility] OUTPATIENT [id number] Theater Provider 06/29 Sick at Home/Quarter s Theater [facility] OUTPATIENT [id number] Theater Provider 07/02 Released w/o Limitations Theater [facility] OUTPATIENT [id number] Theater Provider 07/10 Released w/o Limitations Theater Fac[facility] y Theater Facility OUTPATIENT [id number] Theater Provider 07/16 Released w/o Limitations Theater Fac[facility] y Theater Facility OUTPATIENT [id number] Theater Provider 07/17 Released w/o Limitations Theater Facilit y Theater Facility OUTPATIENT [id number] Theater Provider 07/30 Released w/o Limitations Theater Fac[facility] y [facility] Facility OUTPATIENT [id number] Theater Provider 07/31 Released w/o Limitations Theater Fac[facility] y [facility] OUTPATIENT [id number] Theater Provider 08/29 Released w/o Limitations Theater Fac[facility] OUTPATIENT [id number] Theater Provider 10/28 Released w/o Limitations Theater Facilit y Theater Facility OUTPATIENT [id number] Theater Provider 11/04 Released w/o Limitations Theater Facilit y [facility] Outpatient Encounter [id number] 06/23 [facility] CASE MANAGEMENT [id number] Diagnos is: ICD-10- CM F43.23 Adjustm ent disorde r with mixed anxiety and depress ed mood KRISTOPHER QUINONES 06/24 [facility] En[facility] [id number] 07/02 [facility] Outpatient Encounter [id number] 07/11 [facility] OFF/OP EST MAY X REQ PHY/QHP [id number] Diagnos is: ICD-10- CM Z71.89 Other specifi ed intellectual property counsel NGUYEN More 07/11 [facility] OFFICE O/P EST LOW 20-29 MIN [id number] Diagnos is: ICD-10- CM M54.50 Low back pain, unspeci REFUGIO Kumari 07/11 [facility] OFFICE O/P EST LOW 20-29 MIN [id number] Diagnos is: ICD-10- CM F43.23 Adjustm ent disorde r with mixed anxiety and depress ed mood CHRYSTALLEXI 07/18 [facility] CASE MANAGEMENT [id number] Diagnos is: ICD-10- CM F43.23 Adjustm ent disorde r with mixed anxiety and depress ed mood KRISTOPHER QUINONES 07/24 [facility] OFFICE O/P EST HI 40-54 MIN [id number] Diagnos is: ICD-10- CM F43.12 Post-tr aumatic stress disorde r, anand PRADOSusan MORIS 08/04 [facility] COMMUNITY/ WORK REINTEGRAT ION [id number] Diagnos is: ICD-10- CM Z56.0 Unemplo yment, unspeci mehdi [facility] En[facility] [id number] 08/27 [facility] En[facility] [id number] 08/27 [facility] COMMUNITY/ WORK REINTEGRAT ION [id number] Diagnos is: ICD-10- CM Z56.0 Unemplo yment, unspeci mehdi [facility] En[facility] [id number] Susan LONDONO 09/01 [facility] En[facility] [id number] 09/01 [facility] En[facility] [id number] 09/01 [facility] Encounter [id number] LINDAJORGE 09/01 [facility] Encounter [id number] 09/01 [facility] Encounter [id number] 09/01 [facility] Encounter [id number] 09/02 [facility] [place] OFF/OP EST DECEMBER X REQ PHY/QHP [id number] Diagnos is: ICD-10- CM I10 Essenti al (primar y) hyperte nsion CHRISTIANO,ER IC K 09/02 [place] [facility] En[facility] [id number] 09/02 [facility] En[facility] [id number] 09/03 [facility] En[facility] [id number] 09/25 [facility] OFFICE O/P EST MOD 30 MIN [id number] Diagnos is: ICD-10- CM F43.12 Post-tr aumatic stress disorde r, chronic EVEM MORIS 09/29 [facility] [id number] 10/08 [facility] [id number] 10/15 [facility] O/P EST MOD 30 MIN [id number] Diagnos is: ICD-10- CM F43.12 Post-tr aumatic stress disorde r, chronic EVESusan MORIS 10/23 [facility] En[facility] [id number] 10/28 [facility] [id number] 11/18 [facility] Outpatient Encounter [id number] 11/[address] [facility] OFFICE O/P EST MOD 30 MIN [id number] 1BY. 21 Diagnos is: ICD-10- CM I10 Essenti al (primar y) hyperte MARILOU Talbot 11/26 [place] [facility] En[facility] [id number] [facility] OFFICE O/P EST MOD 30 MIN [id number] Diagnos is: ICD-10- CM F43.12 Post-tr aumatic stress disorde r, chronic EVESusan MORIS 12/18 [facility] [id number] 01/13 [facility] [id number] 01/14 [facility] [facility] OFF[facility] O/P EST MOD 30 MIN [id number] Diagnos is: ICD-10- CM F43.12 Post-tr aumatic stress anand champion M MORIS 01/15 [facility] O/P EST MOD 30 MIN [id number] Diagnos is: ICD-10- CM F10.99 Alcohol use, unsp with unspeci fied alcohol -induce d Susan Preston MOIRS 02/12 [facility] En[facility] [id number] 02/18 [facility] En[facility] [id number] 03/02 [facility] En[facility] [id number] 03/15 [facility] En[facility] [id number] 04/19 [facility] En[facility] [id number] 04/21 [facility] [place] OFFICE O/P EST MOD 30 MIN [id number] 1BY. 40 Diagnos is: ICD-10- CM M54.50 Low back pain, unspeci fied MARILOU CARRASCO 04/29 [place] [facility] Encounter [id number] 05/18 [facility] [place] [id number] Diagnos is: ICD-10- CM H90.3 Sensori neural hearing loss, bilater LIANG RodrigezSMITHA SUMNERE 05/18 [facility] En[facility] [id number] 1.05/19 [facility] [id number] 05/20 [facility] [id number]/21 [facility] En[facility] [id number] BRAULIO WAHL 08/02 [facility] En[facility] [id number] 08/31 [facility] En[facility] [id number] 08/31 [facility] En[facility] [id number] 09/21 [facility] En[facility] [id number] SUSAN SEPULVEDA 09/23 [facility] Encounter [id number] SUSAN SEPULVEDA 09/24 [facility] En[facility] [id number] CECILIA DAVID 09/24 [facility] En[facility] [id number] 09/26 [facility] OFF[facility] O/P EST HI 40 MIN [id number] Diagnos is: ICD-10- CM F43.9 Reactio n to severe stress, unspeci fiSusan Briggs 10/04 [facility] En[facility] [id number] 10/20 [facility] En[facility] [id number] 10/25 [facility] OFFICE O/P EST MOD 30 MIN [id number] Diagnos is: ICD-10- CM E66.09 Other obesity due to excess calorie MARILOU Werner 10/27 [place] [facility] Encounter [id number] 10/27 [facility] En[facility] [id number] 11/19 [facility] Encounter [id number] CECILIA DAVID 11/22 [facility] Encounter [id number] SUSAN SEPULVEDA 11/26 [facility] Encounter [id number] CECILIA DAVID 11/26 [facility] Out[facility] Encounter [id number] 12/15 [facility] Procedures Combined list of: 1) Procedures from Department of Veterans Affairs facilities going back up to thelast 18 months, not all VA non-surgical procedures are included; 2) All procedures from the Department of Defense facilities. Procedure Procedure Type Code Date Perfomer Comments Sourc e No data available for this section [facility] PHYS/OTH QUALIFIED HEALTH PROGRAM ANALYST QUALIFIED,EDUCATIO N,TRAIN,LICENSURE/ REGULATION (WHEN APPLICABLE) EDUC SER RENDERED TO PATS IN A GRP SETTING (EG,,OBESI TY,OR DIABETIC INSTRUCT) 009 [facility] COLLECTION OF VENOUS BLOOD BY VENIPUNCTURE 009 [facility] SCREENING TEST OF VISUAL ACUITY, QUANTITATIVE, BILATERAL 022 [facility] INFLUENZA VIRUS VACCINE, QUADRIVALENT (IIV4), SPLIT VIRUS, PRESERVATIVE FREE, 0.5 ML DOSAGE, FOR INTRAMUSCULAR USE 020 [facility] HEPATITIS A AND HEPATITIS B VACCINE (HEPA-HEPB), ADULT DOSAGE, FOR INTRAMUSCULAR USE 006 [facility] SCREENING TEST OF VISUAL ACUITY, QUANTITATIVE, BILATERAL 006 [facility] PATIENT EDUCATION, NOT OTHERWISE CLASSIFIED, NON-PHYSICIAN PROVIDER, GROUP, PER SESSION 006 [facility] VENIPUNCTURE,AGE 3 YEARS/OLDER,NECESS ITATING THE SKILL OF A PHYSICIAN/OTHER QUALIFIED HEALTH PROGRAM ANALYST (SEP PROC),FOR DIAGNOSTIC/THERAPE UTIC PURPOSES (NOT TO BE USED FOR ROUTINE VENIPUNCTURE) 004 [facility] SCREENING TEST OF VISUAL ACUITY, QUANTITATIVE, BILATERAL [facility] EAR PROTECTOR ATTENUATION MEASUREMENTS [facility] INDIVIDUAL PSYCHOTHERAPY, INSIGHT ORIENTED, BEHAVIOR MODIFYING AND/OR SUPPORTIVE, IN AN OFFICE OR OUTPATIENT FACILITY, APPROXIMATELY 20 TO 30 MINUTES [id number] WITH THE PATIENT [facility] INFLUENZA VIRUS VACCINE, TRIVALENT (IIV3), SPLIT VIRUS, PRESERVATIVE FREE, 0.5 ML DOSAGE, FOR INTRAMUSCULAR USE [facility] PURE TONE AUDIOMETRY (THRESHOLD); AIR ONLY [facility] Physical Therapy: ___ Se ion Segments, 15 Minutes Each Physical Therapy: ___ Session Segments, 15 Minutes Each [id number] Theater Provider DoD Physical Therapy: ___ Se ion Segments, 15 Minutes Each Physical Therapy: ___ Session Segments, 15 Minutes Each [id number] 022 Theater Provider [facility] Threshold Audiogram (Pure Tone) Threshold Audiogram (Pure Tone) 93806 EDD WATTS III [facility] Analysis Of Computerized Data [facility] Analysis Of Computerized Data 37582 EDD WATTS III, Dr.-Supervised Group Educational Services EDD WATTS III [facility] ENT Services ENT Services 37839 EDD WATTS III Audiometry Group Testing Audiometry Group Testing 78768 EDD WATTS III Social Work Individual Outpatient Counseling 20-30 Minutes Social Work Individual Outpatient Counseling 20-30 Minutes 10493 MAKENNA CORONA [facility] Determination Of Refractive State Determination Of Refractive State 18069 ALISA BROWNE Screening Test Of Visual Acuity, Quantitative, Bilateral Screening Test Of Visual Acuity, Quantitative, Bilateral [address]Supervised Services Provision Of Special Supplies -Supervised Services Provision Of Special Supplies 95042 PREETI ROWE [facility] Ear mold/insert, not disposable, any type PREETI ROWE [facility] Patient education, not otherwise cla ified, non-physician provider, group, per se ion PREETI ROWE [facility] Audiometry Group Testing Audiometry Group Testing 87793 006 PREETI ROWE [facility] Immunization Administration One Vaccine Immunization Administration One Vaccine 52793 BAILEE GREGORY [facility] Vaccines Viral Measles, Mumps and Rubella, Live Vaccines Viral Measles, Mumps and Rubella, Live 03239 MARIUSZ RODRIGES MMR; Series #: 3; 0.5 mL; SC; Left Arm; Mfg: [employer]; Lot: [id number]; VIS given (Carolyn: 03/30/2021). DoD A e ment & Intervention Blood Pre ure Measured Assessment & Intervention Blood Pressure Measured 2000F MARIUSZ RODRIGES [facility] Venipuncture Venipuncture 87221 MARIUSZ RODRIGES [facility] Screening Test Of Visual Acuity, Quantitative, Bilateral Screening Test Of Visual Acuity, Quantitative, Bilateral 05792 MARIUSZ RODRIGES [facility] Audiometry Group Testing Audiometry Group Testing 00175 PAULINA HUNTER Ear Protector Attenuation Measurements Ear Protector Attenuation Measurements 00379 PAULINA HUNTER Social History Combined list of available smoking, tobacco, and other social history from Department of Defense and Veterans Affairs facilities. Social History Type Response Date Comment [facility] e Tobacco smoking status [facility]-TO[facility]AC[facility] NEVER USED 04/29/2024 [place] History of tobacco use [facility]-TOBACCO NEVER USED 01/02/2023 [facility] Sex Representation Male (finding) 12/12/2021 Un known Organization History of tobacco use HI-TOBACCO QUIT 1 TO < 5 YRS 09/20/2019 [facility] History of tobacco use LIFETIME NON-TOBACCO USER 07/31/2017 [facility] History of tobacco use LIFETIME NON-TOBACCO USER 09/04/2010 [facility] Sexual Orientation Ambula tory Pharmacy Gender identity Ambulator y Pharmacy This section is an empty social history section. [facility] Assessment and Plan Combined list of future care activities from Department of Defense and Veterans Affairs facilities (e.g., assessment and plan notes, appointments, orders, and referrals). Additional future care activities may be listed in the Plan of Care section. Result Assessment and Plan Date Source Assessment and Plan No data available for this section 12/22/2024 [facility] Functional Status Combined list of recent functional and cognitive assessments recorded at Department of Defense and Veterans Affairs ([facility]).[facility] Functional Covert Measurement (FIM) Scale: 1 = Total Assistance (Subject = 0% +), 2 = Maximal Assistance (Subject = 25% +), 3 = Moderate Assistance (Subject = 50% +), 4 = Minimal Assistance (Subject = 75% +), 5 = Supervision, 6 = Modified Covert (Device), 7 = Complete Covert (Timely, Safely). Assessment Date/Time Source Assessment Type Assessment Skill Assessment Score Assessment Details No data available for this section
== END 2024-12-22 09:30 | disposition home or self-care (01) ==
LOC: HO.XRAY 09:29
PROVIDERS: PCP Family Medicine; Visit Provider Surgery
DX: E66.811 Obesity, class 1 (principal); E66.09 Other obesity due to excess calories; Z68.32 Body mass index [BMI] 32.0-32.9, adult; I10 Essential (primary) hypertension
CPT/HCPCS: 74246

== ENCOUNTER → 2024-12-22 09:31 | Outpatient (BNV) | payer OTHER, SELFPAY | PROVIDERS: PCP Family Medicine; Visit Provider Radiology Diagnostic Radiology | DX: E66.811 Obesity, class 1 (principal) | CPT/HCPCS: 74246 ==

== ENCOUNTER 2024-12-23 08:03 | Inpatient (IN) | payer OTHER, SELFPAY ==
[2024-12-08 08:39] VITALS: BMI 28.6
[2024-12-10 13:46] LABS: MANUAL DIFF FLAG NO
[2024-12-10 14:08] LABS: Basophils Percent Auto 0.2 % (0-2); Eosinophils Absolute Auto 0.1 X10*3/uL (0.0-0.4); Hemoglobin 15.9 g/dl (14.0-18.0); Imm Gran Abs Auto 0.01 X10*3/uL (0.00-0.03); Imm Gran Pct Auto 0.2 % (0.0-0.4); Lymphocytes Absolute Auto 1.2 X10*3/uL (1.2-4.9); Lymphocytes Percent Auto 25.9 % (20-40); Mean Corpuscular HGB Conc 36.1 g/dl (31.0-36.0); Mean Corpuscular Hemoglobin 29.5 pg (27.0-33.0); Mean Corpuscular Volume 81.6 fL (80.0-98.0); Mean Platelet Volume 11.7 fL (9.4-12.4); Monocytes Absolute Auto 0.4 X10*3/uL (0.1-1.2); Monocytes Percent Auto 8.1 % (2-11); Neutrophils Percent Auto 62.6 % (45-73); Platelet Count 176 X10*3/uL (160-400); Red Blood Count 5.39 X10*6/uL (4.60-5.80); Red Cell Distribution Width 12.2 % (11.0-16.0); White Blood Count 4.7 X10*3/uL (4.8-10.8)
[2024-12-10 14:12] LABS: INTERNATIONAL NORM RATIO 1.1 (0.9-1.1); Prothrombin Time 12.6 SEC (10.9-12.4)
[2024-12-10 14:15] LABS: Partial Thromboplastin Time 31.1 SEC (26.0-36.8)
[2024-12-10 14:32] LABS: Estimated Average Glucose 100 mg/dL; Hemoglobin A1c % 5.1 % (<6.0)
[2024-12-10 14:45] LABS: Alanine Aminotransferase 19 U/L (0-40); Anion Gap 10 (12-20); Aspartate Amino Transferase 16 U/L (5-37); Bilirubin Total 0.5 mg/dL (0.0-1.0); Blood Urea Nitrogen 14 mg/dL (9-16); C Reactive Protein < 0.04 mg/dL (< or = 0.50); Calcium 9.1 mg/dL (8.4-10.2); Carbon Dioxide 21 mmol/L (22-29); Chloride 114 mmol/L (96-108); Cholesterol 187 mg/dL (<200); Creatinine Clr Calc Pharmacy 113.2; Estimated Glomerular Filt Rate > 60; Glucose Random 94 mg/dL (60-115); HDL Cholesterol 46 mg/dL (>40); Iron 92 mcg/dL (45-160); LDL Cholesterol Calculated 128 mg/dL (<100); Percent Iron Saturation 39 % (15-50); Potassium 3.9 mmol/L (3.3-5.1); Sodium 141 mmol/L (135-145); Total Iron Binding Capacity 236 mcg/dL (228-428); Total Protein 6.4 g/dL (6.5-8.0); Triglycerides 68 mg/dL (<150); Unsaturated Iron Binding 144 ug/dL
[2024-12-10 14:59] LABS: Ferritin 115 ng/mL (20-250); Insulin 7 uU/mL (2-29); TSH reflex Free T4 1.67 uIU/mL (0.32-4.0); Vitamin B12 439 pg/mL (200-900); Vitamin D 25-OH Total 56.5 ng/mL (>30)
[2024-12-10 19:09] LABS: Alkaline Phosphatase 41 U/L (39-117)
[2024-12-14 00:59] LABS: Zinc 79 mcg/dL (60-130)
[2024-12-14 20:35] LABS: Vitamin A 35 mcg/dL (38-98)
[2024-12-20 16:28] LABS: Vitamin B1 22 nmol/L (8-30)
--- NOTE | 2024-12-21 14:00 | P.CONAN_ITS ---
Documented by User: Roseanne Martinez NP 12/21/24 14:01 HPI - Anesthesia Eval Consult details Narrative: 39yo M for Gastrectomy Sleeve,EGD,possibel Diaphragmatic Hernia,possible Ventral Hernia,possible Open PMFSH Active Problems Active Problems: All Active Problems Vitamin B1 deficiency (Acute) Vitamin D deficiency (Acute) Vitamin A deficiency (Acute) Hypertension (Acute) Anxiety (Acute) Depression (Acute) BMI 32.0-32.9,adult (Acute) Obesity (Acute) Past Medical History Medical History Hypertension Anxiety Depression BMI 32.0-32.9,adult Obesity Family History Family History Mother Diabetes Family history of problems with anesthesia: No Surgical History Surgical History History of esophagogastroduodenoscopy (EGD) (11/26/24) History of Problems with Anesthesia: No Social History Social History Household Members: Significant Other, Family and Children Housing: House Are you a primary pet care worker to a significant other at home: No Do you presently have visiting nurse or other home services: No Alcohol intake: current Alcohol intake frequency: does not drink Patient Tobacco Use Status: Never used Tobacco e-Cigarette/Vaping Use: Never Used Use of substances other than those prescribed or required for medical reasons: No Have you been hit, kicked, punched, or otherwise hurt by someone within the past year? If so, by whom?: No Are you DNR?: No Advance Directives: No Advance Directives Information Provided: Yes Advance Directives on File: No Healthcare Proxy: No Poor oral hygiene: No Meds Allergies Allergy/AdvReac Type Severity Reaction Status Date / Time No Known Allergies Allergy Verified 12/23/24 07:47 Home Medications ?Medication ?Instructions ?Recorded ?Confirmed ?Last Taken ?Type atenolol 25 mg tablet 25 mg PO DAILY 08/31/24 12/23/24 12/22/24 History bupropion HCl 300 mg 24 hr tablet, 300 mg PO QAM 08/31/24 12/10/24 12/22/24 History extended release topiramate 100 mg tablet 100 mg PO DAILY 12/08/24 12/10/24 12/23/24 History pantoprazole 40 mg tablet,delayed 40 mg PO DAILY@0612/23/24 12/23/24 Unknown History release Exam Height,Weight and Vital Signs: Height 5 ft 11 in Weight 92.986 kg Pertinent Lab Results Pertinent Lab Results: Laboratory Tests 12/10/24 12/10/24 13:35 13:44 WBC 4.7 L RBC 5.39 Hgb 15.9 Hct 44.0 MCV 81.6 MCH 29.5 MCHC 36.1 H RDW 12.2 Plt Count 176 MPV 11.7 Immature Gran % (Auto) 0.2 Neut % (Auto) 62.6 Lymph % (Auto) 25.9 Randolph % (Auto) 8.1 Eos % (Auto) 3.0 Baso % (Auto) 0.2 Lymph # (Auto) 1.2 Randolph # (Auto) 0.4 Eos # (Auto) 0.1 Baso # (Auto) 0.0 Abs Immat Gran (auto) 0.01 Absolute Neuts (auto) 3.0 Absolute Nucleated RBC 0.000 Nucleated RBC % (auto) 0.0 PT 12.6 H INR 1.1 APTT 31.1 Sodium 141 Potassium 3.9 Chloride 114 H Carbon Dioxide 21 L Anion Gap 10 L BUN 14 Creatinine 1.01 Estim Creat Clear Calc 113.2 Estimated GFR > 60 Random Glucose 94 Estimat Average Glucose 100 Hemoglobin A1c % 5.1 Insulin Level 7 Calcium 9.1 Iron 92 TIBC 236 % Saturation 39 Unsat Iron Binding 144 Ferritin 115 Total Bilirubin 0.5 AST 16 ALT 19 Alkaline Phosphatase 41 C-Reactive Protein < 0.04 Total Protein 6.4 L Albumin 4.0 Triglycerides 68 Cholesterol 187 LDL Cholesterol, Calc 128 H HDL Cholesterol 46 Vitamin A 35 L Vitamin B1 22 Vitamin B12 439 25-OH Vitamin D Total 56.5 TSH 1.67 Zinc 79 Blood Type A Positive Antibody Screen NEGATIVE Narrative Narrative: EKG 2024 Vent. Rate : 62 BPM Atrial Rate : 62 BPM P-R Int : 162 ms QRS Dur : 82 ms QT Int : 384 ms P-R-T Axes : 27 78 32 degrees QTcB Int : 389 ms Normal sinus rhythm Normal ECG No previous ECGs available Assessment and Plan Assessment Anesthesia Assessment: Chart Reviewed Final Anesthetic Review Family History of Problems with Anesthesia: No History of Problems with Anesthesia: No Documented by User: Kate Barillas MD 12/23/24 11:21 HPI - Anesthesia Eval Consult details Narrative: 39yo M for EGD, Laparoscopic Sleeve Gastrectomy, possible Diaphragmatic Hernia repair, possible Ventral Hernia repair, possible Open PMFSH Past Medical History Medical History Hypertension Anxiety Depression BMI 32.0-32.9,adult Obesity Family History Family History Mother Diabetes Family history of problems with anesthesia: No Surgical History Surgical History History of esophagogastroduodenoscopy (EGD) (11/26/24) History of Problems with Anesthesia: No Social History Social History Household Members: Significant Other, Family and Children Housing: House Are you a primary pet care worker to a significant other at home: No Do you presently have visiting nurse or other home services: No Alcohol intake: current Alcohol intake frequency: does not drink Patient Tobacco Use Status: Never used Tobacco e-Cigarette/Vaping Use: Never Used Use of substances other than those prescribed or required for medical reasons: No Have you been hit, kicked, punched, or otherwise hurt by someone within the past year? If so, by whom?: No Are you DNR?: No Advance Directives: No Advance Directives Information Provided: Yes Advance Directives on File: No Healthcare Proxy: No Poor oral hygiene: No Meds Allergies Allergy/AdvReac Type Severity Reaction Status Date / Time No Known Allergies Allergy Verified 12/23/24 07:47 Home Medications ?Medication ?Instructions ?Recorded ?Confirmed ?Last Taken ?Type atenolol 25 mg tablet 25 mg PO DAILY 08/31/24 12/23/24 12/22/24 History bupropion HCl 300 mg 24 hr tablet, 300 mg PO QAM 08/31/24 12/10/24 12/22/24 History extended release topiramate 100 mg tablet 100 mg PO DAILY 12/08/24 12/10/24 12/23/24 History pantoprazole 40 mg tablet,delayed 40 mg PO DAILY@0630 12/23/24 12/23/24 Unknown History release Exam Height,Weight and Vital Signs: Height 5 ft 11 in Weight 92.986 kg Vital Signs Temp Pulse Resp BP Pulse Ox O2 Del Method 12/23/24 07:59 98.0 F 68 17 125/75 100 Room Air Pertinent Lab Results Pertinent Lab Results: Laboratory Tests 12/10/24 12/10/24 13:35 13:44 WBC 4.7 L RBC 5.39 Hgb 15.9 Hct 44.0 MCV 81.6 MCH 29.5 MCHC 36.1 H RDW 12.2 Plt Count 176 MPV 11.7 Immature Gran % (Auto) 0.2 Neut % (Auto) 62.6 Lymph % (Auto) 25.9 Randolph % (Auto) 8.1 Eos % (Auto) 3.0 Baso % (Auto) 0.2 Lymph # (Auto) 1.2 Randolph # (Auto) 0.4 Eos # (Auto) 0.1 Baso # (Auto) 0.0 Abs Immat Gran (auto) 0.01 Absolute Neuts (auto) 3.0 Absolute Nucleated RBC 0.000 Nucleated RBC % (auto) 0.0 PT 12.6 H INR 1.1 APTT 31.1 Sodium 141 Potassium 3.9 Chloride 114 H Carbon Dioxide 21 L Anion Gap 10 L BUN 14 Creatinine 1.01 Estim Creat Clear Calc 113.2 Estimated GFR > 60 Random Glucose 94 Estimat Average Glucose 100 Hemoglobin A1c % 5.1 Insulin Level 7 Calcium 9.1 Iron 92 TIBC 236 % Saturation 39 Unsat Iron Binding 144 Ferritin 115 Total Bilirubin 0.5 AST 16 ALT 19 Alkaline Phosphatase 41 C-Reactive Protein < 0.04 Total Protein 6.4 L Albumin 4.0 Triglycerides 68 Cholesterol 187 LDL Cholesterol, Calc 128 H HDL Cholesterol 46 Vitamin A 35 L Vitamin B1 22 Vitamin B12 439 25-OH Vitamin D Total 56.5 TSH 1.67 Zinc 79 Blood Type A Positive Antibody Screen NEGATIVE Airway Mallampati Class: II TM Dist: >3cm Neck ROM: Full Loose/Missing/Broken Teeth: Yes (Missing molars. Denies broken or loose teeth. Bridge back intact) Heart: RRR Lungs: CTAB Assessment and Plan Assessment Anesthesia Assessment: Anesthesia Plan Discussed and Chart Reviewed Final Anesthetic Review Family History of Problems with Anesthesia: No History of Problems with Anesthesia: No NPO: Yes ASA Class: II Final Preanesthetic Review: No Changes in Pt Med Stat, Meds/Allgs Chart Reviewed, Consent Obtained/Reviewed and Anes Risks/Benef Reviewed Patient Risk: Intermediate Procedure Risk: Intermediate Assessment/Block/Sedation in SS: Assess/Block/Sedation-SS Anesthetic Plan Anesthetic Plan: GA Disposition: Standard PACU and Inp. Admit - Standard Bed
[2024-12-23] VITALS (9 sets, daily range): BP systolic 107–140; BP diastolic 49–82; PULSE 68–99; RESP 14–18; TEMP 35.9–37.2; O2SAT 96–100; BMI 27.9
[2024-12-23] MEDS: Aprepitant 32 MG/4.4 ML VIAL IVPUSH (08:06)
[2024-12-23] MEDS: Lactated Ringers 1,000 ML 999 ML IV (08:06)
--- OUTSIDE RECORDS SUMMARY | 2024-12-23 08:08 | XMS_ITS | Continuity of Care Document ---
Author Name [facility] Organization [facility] Care Team Providers Care Store Stock Associate Name Role Phone [facility] Unavailable Unavailable Problems Combined list of problems [...] tendinitis, right knee Inactive 04/10/20 22 Condition [facility] Encounter for immunization Active 03/20/20 22 Condition [facility] visit for: services physical Active Condition DoD visit for: ears / hearing exam Active Condition DoD visit for: examination of subpopulation Inactive Condition DoD visit for: services physical accession Active Condition DoD visit for: ears, nose, and throat exam Inactive Condition DoD Adjustment disorder with mixed anxiety and depressed mood (SNOMED CT [id number]) Active Condition [facility] Chronic low back pain Active Condition [facility] Essential hypertension Active Condition [facility] Exposure to potentially hazardous substance Active Condition Oct 23, 2023 Entered By: LOUIS GLYNN EN A Comment: Connect Snomed Code to ICD 10 Code refer to note dated 07/18/23 [facility] Exposure to Potentially Hazardous Substance ([facility] [id number]) Active Condition [facility] History of surgery Active Condition Oct 17, 2011 Entered By: LEXI KNOX Comment: -- [facility] in [place] [facility] History of traumatic [...] obesity due to excess calories Active Diagnosis [place] Diagnosis: ICD-10-CM F43.9 Reaction to severe stress, unspecified Active Diagnosis [facility] Diagnosis: ICD-10-CM H90.3 Sensorineural hearing loss, bilateral Active Diagnosis [facility] Diagnosis: ICD-10-CM M54.50 Low back pain, unspecified Active Diagnosis [place] Diagnosis: ICD-10-CM F10.99 Alcohol use, unsp with unspecified alcohol-induced disorder Active Diagnosis [facility] Diagnosis: ICD-10-CM F43.12 Post-traumatic stress disorder, chronic Active Diagnosis [facility] Diagnosis: ICD-10-CM I10 Essential (primary) hypertension Active Diagnosis [place] Diagnosis: ICD-10-CM Z56.0 Unemployment, unspecified [facility] Diagnosis: ICD-10-CM F43.23 Adjustment disorder with mixed anxiety and depressed mood Active Diagnosis [facility] Diagnosis: ICD-10-CM Z71.89 Other specified counseling Active Diagnosis [facility] Medications Combined list of outpatient medications [...] FOR BLOOD PRESSURE /HEART ORAL ACTIVE 04/23/2025 [id number] Briseida CARRASCO 2023 90 [facility] IELD ATENOLOL 25MG TAB TAKE ONE-HALF OF A TABLET BY MOUTH ONCE DAILY FOR BLOOD PRESSURE /HEART ORAL DISCONT INUED 09/02/2024 [id number] LEXI JARRELL 2023 15 [facility] azithromyci n 250 mg oral tablet 0 total refill(s ) Ordered 2021 No Facilit y Access BUPROPION HCL 150MG 24HR TAB,SA TAKE ONE TABLET BY MOUTH ONCE DAILY ORAL DISCONT INUED (EDIT) 12/19/2024 [id number] CASH PRADO 2023 60 [facility] BUPROPION HCL 150MG 24HR TAB,SA TAKE ONE TABLET BY MOUTH ONCE DAILY ORAL DISCONT INUED 09/29/2024 [id number] CASH PRADO 2023 60 [facility] BUPROPION HCL 300MG 24HR TAB,SA TAKE ONE TABLET BY MOUTH EVERY MORNING ORAL DISCONT INUED BY PROVIDE R 02/13/2025 [id number] CASH PRADO 2023 90 [facility] FLUOXETINE HCL 10MG CAP TAKE ONE CAPSULE BY MOUTH ONCE DAILY FOR 7 DAYS, THEN TAKE TWO CAPSULES ONCE DAILY FOR DEPRESSI ON AND ANXIETY ORAL DISCONT INUED (EDIT) 11/23/2024 [id number] CASH PRADO 2024 93 [facility] FLUOXETINE HCL 20MG CAP TAKE ONE CAPSULE BY MOUTH ONCE DAILY FOR DEPRESSI ON AND ANXIETY ORAL ACTIVE 11/11/2025 [id number] CASH PRADO 2024 30 [facility] HYDROCORTIS ONE 2.5% CREAM,TOP APPLY A THIN LAYER TOPICALL Y TWICE DAILY FOR ATOPIC DERMATIT IS TOPICA L 11/26/2024 [id number] Briseida CARRASCO 2024 90 [place] HYDROCORTIS ONE ACETATE 1%/PRAMOXIN E HCL 1% AEROSOL,RTL INSERT 1 APPLICAT ORFUL RECTALLY THREE TIMES DAILY NEEDED FOR HEMORRHO IDS RECTAL ACTIVE 04/30/2025 [id number] Briseida CARRASCO 2023 20 [place] IBUPROFEN 600MG TAB TAKE ONE TABLET BY MOUTH EVERY 8 HOURS NEEDED TAKE WITH FOOD ORAL ACTIVE 10/28/2025 [id number] 5 Briseida CARRASCO 2024 500 [place] [...] AT BEDTIME NEEDED SLEEP ORAL ACTIVE 01/02/2025 [id number] 5 CASH PRADO 2024 120 [facility] NALTREXONE (EQV-REVIA) 50MG TAB TAKE ONE TABLET BY MOUTH ONCE DAILY CRAVINGS ORAL DISCONT INUED BY PROVIDE R 02/13/2025 [id number] CASH PRADO 2023 90 [facility] NALTREXONE (EQV-REVIA) 50MG TAB TAKE ONE TABLET BY MOUTH ONCE DAILY FOR ALCOHOLI SM ORAL DISCONT INUED (EDIT) 12/19/2024 [id number] EVE, CASH 2023 30 [facility] TOPIRAMATE 100MG TAB TAKE ONE TABLET BY MOUTH ONCE DAILY WEIGHT MANAGEME NT ORAL SUSPEND ED 11/20/2025 [id number] 5 Briseida CARRASCO 2024 90 [place] TOPIRAMATE 25MG TAB TAKE ONE TABLET BY MOUTH ONCE DAILY FOR 1 WEEK, THEN TAKE TWO TABLETS ONCE DAILY ORAL DISCONT INUED (EDIT) 11/26/2024 [id number] 5 Briseida CARRASCO 2024 53 [place] TRAZODONE HCL 100MG TAB TAKE ONE-HALF TABLET BY MOUTH AT BEDTIME FOR SLEEP ORAL DISCONT INUED BY PROVIDE R 12/19/2024 [id number] CASH PRADO 2023 45 [facility] TRAZODONE HCL 100MG TAB TAKE ONE-HALF TABLET BY MOUTH AT BEDTIME FOR 7 DAYS, THEN TAKE ONE TABLET AT BEDTIME FOR SLEEP ORAL DISCONT INUED (EDIT) 08/05/2024 [id number] CASH PRADO 2022 60 [facility] Allergies, Adverse Reactions, Alerts Combined list of allergies from Department of Defense and Veterans Affairs facilities. It does not include entries that were removed or entered in error. Substance Category Reaction Severity Reaction type Status Date Reported Comments Source No Known Allergies Drug allergy (disorder) active 12/07/2022 [facility] [place] Immunizations Combined list of available immunizations from the Department of Defense and Veterans Affairs facilities. Immunization Series Date Given Administered By Site Reaction Lot Number CVX Code Drug Product Advisor Status Comments Source TDAP 2023 SHERMAN ALVARADO RIGHT DELTO ID [id number] complet ed [place], [facility] IELD INFLUENZA, UNSPECIFIED FORMULATION 2022 88 complet ed HISTORICA L INFORMATI ON - FROM PATIENT'S RECALL, [facility] anthrax vaccine 1 2021 ERICKA PERKINS [id number] [facility] [employer] [facility] complet ed anthrax vaccine DoD SARS-COV-2 (COVID-19) vaccine, mRNA, spike protein, LNP, preservative free, 30 mcg/0.3mL dose 3 2020 [id number] Transcribed (TRS) complet ed SARS-COV- 2 (COVID-19 ) vaccine, mRNA, spike protein, LNP, preservat kenn free, 30 mcg/0.3mL dose DoD Influenza, injectable, quadrivalent, preservative free 1 2020 [id number] Transcribed (TRS) complet ed Influenza , injectabl e, quadrival ent, preservat kenn free DoD measles/mumps /rubella virus vaccine 2020 [facility] [id number] [employer] complet ed measles/m umps/rube lla virus vaccine 05/31/21 Given Ambulat ory Pharmac y measles, mumps and rubella virus vaccine 3 2020 NICHOLASJUAN COBURN E [id number] Merck (MSD) complet ed measles, mumps and rubella virus vaccine DoD COVID Vaccine Pfizer 2020 Sean Arm [id number] PFIZER complet ed COVID Vaccine Pfizer 12/29/20 Given Ambulat ory Pharmac y COVID-19, mRNA, LNP-S, PF, 30 mcg/0.3 mL dose 2020 [employer] [place] (PFR) Not Given COVID-19, mRNA, LNP-S, PF, 30 mcg/0.3 mL dose DoD SARS-COV-2 (COVID-19) vaccine, mRNA, spike protein, LNP, preservative free, 30 mcg/0.3mL dose 2 2020 Unknown, Provider [id number] [employer] (PFR) complet ed SARS-COV- 2 (COVID-19 ) vaccine, mRNA, spike protein, LNP, preservat kenn free, 30 mcg/0.3mL dose DoD COVID Vaccine Pfizer 2020 Osirisef t Arm [id number] PFIZER complet ed COVID Vaccine Pfizer 12/03/20 Given Ambulat ory Pharmac y COVID-19, mRNA, LNP-S, PF, 30 mcg/0.3 mL dose 2020 ASHA [employer] [facility] (PFR) Not Given COVID-19, mRNA, LNP-S, PF, 30 mcg/0.3 mL dose DoD SARS-COV-2 (COVID-19) vaccine, mRNA, spike protein, LNP, preservative free, 30 mcg/0.3mL dose 1 2020 Unknown, Provider [id number] [employer] (PFR) complet ed SARS-COV- 2 (COVID-19 ) vaccine, mRNA, spike protein, LNP, preservat kenn free, 30 mcg/0.3mL dose DoD influenza, injectable, quadrivalent 2019 Sean Arm [id number] 158 [employer] complet ed influenza , injectabl e, quadrival ent 05/29/20 Given Ambulat ory Pharmac y influenza, injectable, quadrivalent, contains preservative 1 2019 ANA TINAJERO [id number] 158 [employer] (SEQ) complet ed influenza , injectabl e, quadrival ent, contains preservat kenn DoD influenza, injectable, quadrivalent 2019 [id number] 350 158 [employer] complet ed influenza , injectabl e, quadrival ent 10/30/19 Given Ambulat ory Pharmac y influenza, injectable, quadrivalent, contains preservative 1 2019 [id number] 350 158 [employer] (SEQ) complet ed influenza [...] vaccine, adsorbed DoD influenza, seasonal, injectable-pf 2017 [id number] 140 [employer] complet ed influenza , seasonal, injectabl e-pf 06/13/18 Given Ambulat ory Pharmac y Influenza, seasonal, injectable, preservative free 1 2017 [id number] 140 [employer] (SEQ) comple t ed Influenza , seasonal, injectabl e, preservat kenn free DoD INFLUENZA, SEASONAL, INJECTABLE 2016 141 complet ed [place] influenza, seasonal, injectable-pf 2016 [id number] 140 [employer] complet ed influenza , seasonal, injectabl e-pf 06/20/17 Given Ambulat ory Pharmac y Influenza, seasonal, injectable, preservative free 1 2016 [id number] 140 [employer] (SEQ) comple t ed Influenza , seasonal, injectabl e, preservat kenn free DoD influenza, seasonal, injectable-pf 2015 [id number] 140 CSL Behring complet ed influenza , seasonal, injectabl e-pf 07/27/16 Given Ambulat ory Pharmac y Influenza, seasonal, injectable, preservative free 1 2015 [id number] 140 CSL [employer] (CSL) complet ed Influenza , seasonal, injectabl e, preservat kenn free DoD influenza virus vaccine, live 2011 [id number] 111 Medimmune Inc comple t ed influenza virus vaccine, live 06/06/12 Given Ambulat ory Pharmac y influenza virus vaccine, live, attenuated, for intranasal use 1 2011 [id number] 111 MedImmune, Inc. (MED) complet ed influenza virus vaccine, live, attenuate d, for intranasa l use DoD FLU,3 YRS (HISTORICAL) 2010 88 complet ed [facility] influenza virus vaccine, live 2010 [id number] 111 Medimmune Inc comple t ed influenza virus vaccine, live 06/30/11 Given Ambulat ory Pharmac y influenza virus vaccine, live, attenuated, for intranasal use 1 2010 [id number] 111 Med[employer] Inc. (MED) complet ed influenza virus vaccine, live, attenuate d, for intranasa l use DoD FLU,3 YRS (HISTORICAL) 2010 88 complet ed Site: Right Deltoid [facility] tuberculin purified protein derivative 2008 UNKNOWN 96 Unknown complet ed tuberculi n purified protein derivativ e 06/14/09 Given Ambulat ory Pharmac y influenza virus vaccine,split 2008 [id number] 15 sanofi pasteur complet ed influenza virus vaccine,s plit 06/14/09 Given Ambulat ory Pharmac y influenza virus vaccine, split virus (incl. purified surface antigen)-reti red CODE 1 2008 [id number] 15 Sanofi Pasteur (PMC) complet ed influenza [...] y tetanus, diphtheria, acellular pertu is 2007 [id number] 115 Unknown complet ed tetanus, diphtheri a, [...] acellular pertu is vaccine, adsorbed 1 2007 [id number] 115 Unknown (UNK) comple t ed tetanus [...] A-hepatitis B vaccine 2005 [id number] 104 [employer] complet ed hepatitis A-hepatit is B vaccine 04/02/06 Given Ambulat ory Pharmac y hepatitis A and hepatitis B vaccine 2 2005 [id number] 104 [facility] (SKB) complet ed hepatitis A and hepatitis B vaccine DoD tuberculin purified protein derivative [id number] [facility] complet ed tuberculi n purified protein derivativ e 03/28/06 Given Ambulat ory Pharmac y tuberculin purified protein derivative 2003 [id number] 96 Unknown complet ed tuberculi n purified protein derivativ e 02/03/04 Given Ambulat ory Pharmac y meningococcal polysaccharid e (MPSV4) 2003 [id number] 32 Unknown complet ed meningoco ccal polysacch aride (MPSV4) 02/03/04 Given Ambulat ory Pharmac y poliovirus vaccine, inactivated 2003 [id number] 10 sanofi pasteur complet ed polioviru s vaccine, inactivat ed 02/03/04 Given Ambulat ory Pharmac y tetanus-dipht h toxoids (Td) adult/adol 2003 [id number] 09 sanofi pasteur complet ed tetanus-d iphth toxoids (Td) adult/ado l 02/03/04 Given Ambulat ory Pharmac y measles/mumps /rubella virus vaccine 2003 [id number] 03 Merck & Company Inc complet ed measles/m umps/rube lla virus vaccine 02/03/04 Given Ambulat ory Pharmac y influenza virus vaccine,split 2003 [id number] 15 Unknown complet ed influenza virus vaccine,s plit 02/03/04 Given Ambulat ory Pharmac y measles, mumps and rubella virus vaccine 1 2003 [id number] 03 Merck (MSD) complet ed measles, mumps and rubella virus vaccine DoD tetanus and diphtheria toxoids, adsorbed, preservative free, for adult use (2 Lf of tetanus toxoid and 2 Lf of diphtheria toxoid) 1 2003 [id number] 09 Sanofi Pasteur ([facility]) complet ed tetanus and diphtheri a toxoids, adsorbed, preservat kenn free, for adult use (2 Lf of tetanus toxoid and 2 Lf of diphtheri a toxoid) DoD poliovirus vaccine, inactivated 1 2003 [id number] 10 Sanofi Pasteur ([facility]) complet ed polioviru s vaccine, inactivat ed DoD influenza virus vaccine, split virus (incl. purified surface antigen)-reti red CODE 1 2003 [id number] 15 Unknown (UNK) comple t ed influenza virus vaccine, split virus (incl. purified surface antigen)- retired CODE DoD meningococcal polysaccharid e vaccine (MPSV4) 1 2003 [id number] 32 Unknown (UNK) comple t ed meningoco ccal polysacch aride vaccine (MPSV4) DoD hepatitis A-hepatitis B vaccine 2003 [id number] 6 104 Unknown complet ed hepatitis A-hepatit is B vaccine 02/02/04 Given Ambulat ory Pharmac y hepatitis A and hepatitis B vaccine 1 2003 [id number] 6 104 Unknown (UNK) complet ed hepatitis [...] Mar 19, 2024 09:32 AM Reporting Lab: [address] [address] Performing Lab: [place] [address] [facility] [address] [facility]ITALRPICK[facility]ERN [facility]USE [facility] BASIC METABOLI C PANEL (fasting ) GLUCOSE [MASS/VOLU ME] IN SERUM OR PLASMA 106 mg/dL 65 - 100 03/19 H Specimen Type: SERUM No comment entered. Ordering Provider: HUMERA CARRASCO Report Released Date/Time: Mar 19, 2024 09:32 AM Reporting Lab: [facility]PITALRLAWRENCE MEDICAL CENTERTRN [facility]ITALUSE[facility] [address] [facility] [address] Performing Lab: [facility]PITALRLAWRENCE MEDICAL CENTERTRN [facility]ITALUSE[address] [address] [facility]N [facility]ITALUSE [facility] BASIC METABOLI C PANEL (fasting ) SODIUM [MOLES/VOL UME] IN SERUM OR PLASMA 138 mmol/L 135 - 145 03/19 Specimen Type: SERUM No comment entered. Ordering Provider: HUMERA CARRASCO Report Released Date/Time: Mar 19, 2024 09:32 AM Reporting Lab: [facility]PITALRLAWRENCE MEDICAL CENTERTRN [facility]ITALUSE[address] [address] Performing Lab: [facility]ITALRLAWRENCE MEDICAL CENTERTRN [facility]ITALUSE[address] [address] [facility]N [facility]ITALUSE [facility] BASIC METABOLI C PANEL (fasting ) POTASSIUM [MOLES/VOL UME] IN SERUM OR PLASMA 4.3 mmol/L 3.5 - 5.0 03/19 Specimen Type: SERUM No comment entered. Ordering Provider: HUMERA CARRASCO Report Released Date/Time: Mar 19, 2024 09:32 AM Reporting Lab: [facility] HOSPITALRL TRN [facility]ITALUSE[address] [address] Performing Lab: [facility]OSPITALRL TRN [facility]ITALUSE[address] [address] [facility]N [facility]ITALUSE [facility] BASIC METABOLI C PANEL (fasting ) CHLORIDE [MOLES/VOL UME] IN SERUM OR PLASMA 106 mmol/L 100 - 110 03/19 Specimen Type: SERUM No comment entered. Ordering Provider: HUMERA CARRASCO Report Released Date/Time: Mar 19, 2024 09:32 AM Reporting Lab: [facility] [place] [facility] [address] [facility] [address] Performing Lab: [facility]PITALUSETS [facility] [address] [facility] [address] [facility]OSPITALRL WSTRN [facility]OSPITALUSE [facility] BASIC METABOLI C PANEL (fasting ) CARBON DIOXIDE, TOTAL [MOLES/VOL UME] IN SERUM OR PLASMA 25 meq/L 20 - 30 03/19 Specimen Type: SERUM No comment entered. Ordering Provider: HUMERA CARRASCO Report Released Date/Time: Mar 19, 2024 09:32 AM Reporting Lab: [facility] HOSPITALRL WSTRN [facility]OSPITALUSETS [facility] [address] [facility] [address] Performing Lab: [facility]OSPITALRL TRN [facility]ITALUSEPECON[facility] [address] [facility] [address] [facility]ITALRPICKENS COUNTY MEDICAL CENTERN [facility]OSPITALUSE [facility] BASIC METABOLI C PANEL (fasting ) CREATININE [MASS/VOLU ME] IN SERUM OR PLASMA 0.92 mg/dL 0.50 - 1.40 03/19 Specimen Type: SERUM No comment entered. Ordering Provider: HUMERA CARRASCO Report Released Date/Time: Mar 19, 2024 09:32 AM Reporting Lab: [facility] HOSPITALRL TRN [facility]OSPITALUSETS [facility] [address] [facility] [address] Performing Lab: [facility]OSPITALRL WSTRN [facility]ITALUSE[address] [address] [facility]OSPITALRL [facility]ITALN [facility]OSPITALUSE [facility] BASIC METABOLI C PANEL (fasting ) GLOMERULAR FILTRATION RATE/1.73 SQ M.PREDICTE D [VOLUME RATE/AREA] IN SERUM, PLASMA OR BLOOD BY CREATININE -BASED FORMULA (CKD-EPI 2020) >90mL/mi n 60 03/19 Specimen Type: SERUM No comment entered. Ordering Provider: HUMERA CARRASCO Report Released Date/Time: Mar 19, 2024 09:32 AM Reporting Lab: [facility] [place] [facility] [address] [facility] [address] Performing Lab: [facility]OSPITALRL WSTRN [facility]ITALUSE[address] [address] [facility]OS[facility]ITALRL TRN [facility]OSPITALUSE [facility] CBC LEUKOCYTES [#/VOLUME] IN BLOOD BY AUTOMATED COUNT 5.92 10*3/uL 4.50 - 11.00 03/19 Specimen Type: BLOOD No comment entered. Ordering Provider: HUMERA CARRASCO Report Released Date/Time: Mar 19, 2024 09:32 AM Reporting Lab: [facility] [place] [facility] [address] [facility] [address] Performing Lab: [facility] [place] [facility] [address] [facility] [address] [facility] CBC ERYTHROCYT ES [#/VOLUME] IN BLOOD BY AUTOMATED COUNT 5.62 10*6/uL 4.23 - 5.66 03/19 Specimen Type: BLOOD No comment entered. Ordering Provider: HUMERA CARRASCO Report Released Date/Time: Mar 19, 2024 09:32 AM Reporting Lab: [facility] [place] [address] [address] Performing Lab: [facility] [place] [facility] [address] [facility] [address] [facility] CBC HEMOGLOBIN [MASS/VOLU ME] IN BLOOD 16.5 g/dL 12.8 - 17 03/19 Specimen Type: BLOOD No comment entered. Ordering Provider: HUMERA CARRASCO Report Released Date/Time: Mar 19, 2024 09:32 AM Reporting Lab: [facility] [place] [address] [address] Performing Lab: [facility] [place] [facility] [address] [facility] [address] [facility] [place] [facility] CBC HEMATOCRIT [VOLUME FRACTION] OF BLOOD BY AUTOMATED COUNT 46.9 39.2 - 50.4 03/19 Specimen Type: BLOOD No comment entered. Ordering Provider: HUMERA CARRASCO Report Released Date/Time: Mar 19, 2024 09:32 AM Reporting Lab: [facility] [place] [facility] [address] [facility] [address] Performing Lab: [facility] [place] [facility] [address] [facility] [address] [facility] [facility] CBC MCV [ENTITIC VOLUME] BY AUTOMATED COUNT 83.5 fL 82 - 99 03/19 Specimen Type: BLOOD No comment entered. Ordering Provider: HUMERA CARRASCO Report Released Date/Time: Mar 19, 2024 09:32 AM Reporting Lab: [facility] [place] [facility] [address] [facility] [address] Performing Lab: [facility] [place] [facility] [address] [facility] [address] [facility] CBC MCHC [MASS/VOLU ME] BY AUTOMATED COUNT 35.2 g/dL 30.8 - 35.1 03/19 H Specimen Type: BLOOD No comment entered. Ordering Provider: HUMERA CARRASCO Report Released Date/Time: Mar 19, 2024 09:32 AM Reporting Lab: [facility] [place] [address] [address] Performing Lab: [facility] [place] [address] [address] [facility] [place] [facility] CBC PLATELETS [#/VOLUME] IN BLOOD BY AUTOMATED COUNT 179 10*3/uL 140 - 360 03/19 Specimen Type: BLOOD No comment entered. Ordering Provider: HUMERA CARRASCO Report Released Date/Time: Mar 19, 2024 09:32 AM Reporting Lab: [facility] [place] [address] [address] Performing Lab: [facility] [place] [address] [address] [facility] [place] [facility] CBC ERYTHROCYT E DISTRIBUTI ON WIDTH [RATIO] BY AUTOMATED COUNT 11.9 12.0 - 16.0 03/19 L Specimen Type: BLOOD No comment entered. Ordering Provider: HUMERA CARRASCO Report Released Date/Time: Mar 19, 2024 09:32 AM Reporting Lab: [facility] [place] [address] [address] Performing Lab: [facility] [place] [facility] [address] [facility] [address] [facility]N [facility]USE [facility] CBC MCH [ENTITIC MASS] BY AUTOMATED COUNT 29.4 pg 26.2 - 32.6 03/19 Specimen Type: BLOOD No comment entered. Ordering Provider: HUMERA CARRASCO Report Released Date/Time: Mar 19, 2024 09:32 AM Reporting Lab: [facility]ITALRPICK[facility]ERN [facility] [address] [facility] [address] Performing Lab: [facility]ITALRPICK[facility]ENTERN [facility] [address] [facility] [address] [facility]N [facility]ITALUSE [facility] HEMOGLOB IN A1C PANEL HEMOGLOBIN [...] Mar 19, 2024 09:32 AM Reporting Lab: [facility]ITALRPICK[facility]ERN [facility] [address] [facility] [address] Performing Lab: [facility]ITALN [address] [address] [facility]ITALN [facility] LIPID PANEL FASTING CHOLESTERO L [MASS/VOLU ME] IN SERUM OR PLASMA 203 mg/dL 03/19 H Specimen Type: SERUM No comment entered. Ordering Provider: HUMERA CARRASCO Report Released Date/Time: Mar 19, 2024 09:32 AM Reporting Lab: [facility]ITALN [facility] [address] [facility] [address] Performing Lab: [facility]ITALN [address] [address] [facility]ITALN [facility] LIPID PANEL FASTING TRIGLYCERI DE [MASS/VOLU ME] IN SERUM OR PLASMA 63 mg/dL 0 - 150 03/19 Specimen Type: SERUM No comment entered. Ordering Provider: HUMERA C[facility] Report Released Date/Time: Mar 19, 2024 09:32 AM Reporting Lab: [facility] [place] [facility] [address] [facility] [address] Performing Lab: [facility] [place] [facility] [address] [facility] [address] [place] [facility] [facility] LIPID PANEL FASTING CHOLESTERO L IN LDL [MASS/VOLU ME] IN SERUM OR PLASMA BY CALCULATIO N 137 mg/dL 0 - 129 03/19 H Specimen Type: SERUM No comment entered. Ordering Provider: HUMERA CARRASCO Report Released Date/Time: Mar 19, 2024 09:32 AM Reporting Lab: [facility] [address] [address] Performing Lab: [facility] [address] [facility] [address] [facility] LIPID PANEL FASTING CHOLESTERO L.TOTAL/CH OLESTEROL IN HDL [MASS RATIO] IN SERUM OR PLASMA 3.8 03/19 Specimen Type: SERUM No comment entered. Ordering Provider: HUMERA CARRASCO Report Released Date/Time: Mar 19, 2024 09:32 AM Reporting Lab: [facility] [place] [address] [address] Performing Lab: [facility] [place] [facility] [address] [facility] [address] [facility] LIPID PANEL FASTING CHOLESTERO L IN HDL [MASS/VOLU ME] IN SERUM OR PLASMA 53 mg/dL 40 - 60 03/19 Specimen Type: SERUM No comment entered. Ordering Provider: HUMERA CARRASCO Report Released Date/Time: Mar 19, 2024 09:32 AM Reporting Lab: [facility] [place] [facility] [address] [facility] [address] Performing Lab: [facility] [place] [facility] [address] [facility] [address] [place] [facility] [place] [facility] LIVER FUNCTION PROTEIN [MASS/VOLU ME] IN SERUM OR PLASMA 6.6 g/dL 6.0 - 8.3 03/19 Specimen Type: SERUM No comment entered. Ordering Provider: HUMERA CARRASCO Report Released Date/Time: Mar 19, 2024 09:32 AM Reporting Lab: [facility] [place] [facility] [address] [facility] [address] Performing Lab: [facility] [place] [facility] [address] [facility] [address] [place] [facility] [place] [facility] LIVER FUNCTION ALBUMIN [MASS/VOLU ME] IN SERUM OR PLASMA 3.9 g/dL 3.5 - 5.0 03/19 Specimen Type: SERUM No comment entered. Ordering Provider: HUMERA CARR[facility]CO Report Released Date/Time: Mar 19, 2024 09:32 AM Reporting Lab: [facility] [place] [facility] [address] [facility] [address] Performing Lab: [facility] [place] [address] [address] [facility] [place] [facility] LIVER FUNCTION ALKALINE PHOSPHATAS E [ENZYMATIC ACTIVITY/V OLUME] IN SERUM OR PLASMA 51 U/L 40 - 150 03/19 Specimen Type: SERUM No comment entered. Ordering Provider: HUMERA C[facility]CO Report Released Date/Time: Mar 19, 2024 09:32 AM Reporting Lab: [facility] [place] [facility] [address] [facility] [address] Performing Lab: [facility] [place] [facility] [address] [facility] [address] [facility] [place] [facility] LIVER FUNCTION ASPARTATE AMINOTRANS FERASE [ENZYMATIC ACTIVITY/V OLUME] IN SERUM OR PLASMA 16 U/L 5 - 34 03/19 Specimen Type: SERUM No comment entered. Ordering Provider: HUMERA CARRASCO Report Released Date/Time: Mar 19, 2024 09:32 AM Reporting Lab: [facility] [place] [facility] [address] [facility] [address] Performing Lab: [facility]N [facility] [address] [facility] [address] [facility]N [facility] LIVER FUNCTION ALANINE AMINOTRANS FERASE [ENZYMATIC ACTIVITY/V OLUME] IN SERUM OR PLASMA 35 U/L 03/19 Specimen Type: SERUM No comment entered. Ordering Provider: HUMERA CARRASCO Report Released Date/Time: Mar 19, 2024 09:32 AM Reporting Lab: [facility]N [facility] [address] [facility] [address] Performing Lab: [facility] TRN [facility]ITAL[facility] [address] [facility] LIVER FUNCTION BILIRUBIN. TOTAL [MASS/VOLU ME] IN SERUM OR PLASMA 0.5 mg/dL 0.2 - 1.2 03/19 Specimen Type: SERUM No comment entered. Ordering Provider: HUMERA CARRASCO Report Released Date/Time: Mar 19, 2024 09:32 AM Reporting Lab: [facility] TRN [facility] [address] [facility] [address] Performing Lab: [facility]RL TRN [facility] [address] [facility]ITALRPICK[facility]ERN [facility] TSH THYROTROPI N [UNITS/VOL UME] IN SERUM OR PLASMA 0.99 u[IU]/mL 0.35 - 5.00 03/19 Specimen Type: SERUM No comment entered. Ordering Provider: HUMERA CARRASCO Report Released Date/Time: Mar 19, 2024 09:32 AM Reporting Lab: [facility] TRN [facility]ITAL[facility] [address] Performing Lab: [facility] TRN [facility] [address] [facility]ITALRPICK[facility]ERN [facility] HEPATITI S B SURFACE ANTIBODY (HBsAb)- WH HEPATITIS B VIRUS SURFACE AB [PRESENCE] IN SERUM BY IMMUNOASSA Y REACTIVE 12/26 Specimen Type: SERUM Comment: A 'Reactive' result indicates HBsAb results >/= 12.0 mIU/mL and immunity to HBV infection. Ordering Provider: BRIANNA CEJA SA Report Released Date/Time: December 26, 2022 09:31 AM Reporting Lab: [address] [address] Performing Lab: [facility] [address] [address] [facility] MMRV (IGG) IMMUNE STATUS PANEL MEASLES [...] December 26, 2022 09:31 AM Reporting Lab: [address] [address] Performing Lab: [address] [address] [facility] MMRV (IGG) IMMUNE STATUS PANEL MUMPS [...] December 26, 2022 09:31 AM Reporting Lab: [address] [address] Performing Lab: [address] [address] [facility] MMRV (IGG) IMMUNE STATUS PANEL RUBELLA [...] December 26, 2022 09:31 AM Reporting Lab: [address] [address] Performing Lab: [address] [address] [facility] MMRV (IGG) IMMUNE STATUS PANEL VARICELLA [...] December 26, 2022 09:31 AM Reporting Lab: [address] [address] Performing Lab: [address] [address] [facility] T-SPOT TB PANEL MYCOBACTER IUM TUBERCULOS [...] additional information , please refer to http://educ ation.Edicy .[employer]/faq/FA Q215 (This link is being provided for information al/ educational purposes only.) Test Performed by [employer], [facility], [address] [place] [address] Reed Marcum M.D., Ph.D., Director of Laboratorie s , [place] [id number] TEST PERFORMED AT: , Ordering Provider: BRIANNA CEJA SA Report Released Date/Time: December 26, 2022 09:31 AM Reporting Lab: [facility] [address] [facility] [address] Performing Lab: [facility] [address] [address] [facility] T-SPOT TB PANEL MYCOBACTER IUM TUBERCULOS [...] For additional information , please refer to http://Slated/faq/FA Q215 (This link is being provided for information al/ educational purposes only.) Test Performed by [employer], [address] [place] [address] Reed Marcum M.D., Ph.D., Director of Laboratorie s , [facility] [id number] TEST PERFORMED AT: , Ordering Provider: BRIANNA CEJA SA Report Released Date/Time: December 26, 2022 09:31 AM Reporting Lab: [facility] [address] [facility] [address] Performing Lab: [facility] [address] [address] [facility] T-SPOT TB PANEL MYCOBACTER IUM TUBERCULOS [...] For additional information , please refer to http://Slated/faq/FA Q215 (This link is being provided for information al/ educational purposes only.) Test Performed by [facility], [address] [place] [address] Reed Marcum M.D., Ph.D., Director of Laboratorie s , CLIA [id number] TEST PERFORMED AT: , Ordering Provider: BRIANNA CEJA SA Report Released Date/Time: December 26, 2022 09:31 AM Reporting Lab: [facility] [address] [facility] [address] Performing Lab: [facility] [address] [address] [facility] T-SPOT TB PANEL MITOGEN STIMULATED GAMMA [...] additional information , please refer to http://educ ation.Edicy .com/faq/FA Q215 (This link is being provided for information al/ educational purposes only.) Test Performed by [employer], [facility], [address] [place] [address] Reed Marcum M.D., Ph.D., Director of Laboratorie s , CLIA [id number] TEST PERFORMED AT: , Ordering Provider: BRIANNA CEJA SA Report Released Date/Time: December 26, 2022 09:31 AM Reporting Lab: [facility] [address] [facility] [address] Performing Lab: [facility] [address] [address] [facility] T-SPOT TB PANEL GAMMA INTERFERON NEGATIVE [...] additional information , please refer to http://educ ation.Edicy .com/faq/FA Q215 (This link is being provided for information al/ educational purposes only.) Test Performed by [employer], [facility], [address] [place] [address] Reed Marcum M.D., Ph.D., Director of Laboratorie s , CLIA [id number] TEST PERFORMED AT: , Ordering Provider: BRIANNA CEJA SA Report Released Date/Time: December 26, 2022 09:31 AM Reporting Lab: [facility] [address] [facility] [address] Performing Lab: [facility] [address] [address] [facility] Infectio us Disease HIV-1/2 AG/AB 4G CDD LC NEGATIVE 11/28 Result Comment: Performed At: 1 [facility] [id number] [facility] [address] [place] [address] KATHY STEPHANIE PHD Ph:[phone] [facility] Lexi Worthington Infectio us Disease Source of Test.LC PostDepS torage (11/28/22 9:01 AM) 11/[address] [place] [address] Lexi Worthington Vital Signs Combined list of inpatient and outpatient Vital Signs from Department of Defense and Veterans Affairs, ranging from 12 months to all on record, depending upon the facility. Vital Sign Value Date Comments Source SYSTOLIC BLOOD PRESSURE 140 10/28/19 25 15:44:15 [place] DIASTOLIC BLOOD PRESSURE 83 025 15:44:15 [place] PULSE OXIMETRY 97 10/27/2024 15:44:15 [place] WEIGHT 232 10/27/2024 15:44:15 [place] BMI 32 kg/m2 10/27/2024 15:44:15 [place] HEIGHT 71 10/27/2024 15:44:15 [place] TEMPERATURE 97.7 10/27/2024 15:44:15 [place] PULSE 61 10/27/2024 15:44:15 [place] RESPIRATION 19 10/27/2024 15:44:15 [place] SYSTOLIC BLOOD PRESSURE 129 04/29/20 24 13:09:35 [place] DIASTOLIC BLOOD PRESSURE 83 024 13:09:35 [place] PULSE OXIMETRY 97 04/29/2024 13:09:35 [place] WEIGHT 250 04/29/2024 13:09:35 [place] BMI 35 kg/m2 04/29/2024 13:09:35 [place] PULSE 65 04/29/2024 13:09:35 [place] Peripheral Pulse Rate 99 bpm 11/28/2022 12:23:[address] [place] [address] Lexi Snider Temperature Temporal Artery 36.5 Greta 11/28/2022 12:23:[address] [place] [address] Lexi Snider Systolic Blood Pressure 136 mm[Hg] 11/29/19 23 12:23:[address] [place] [address] Lexi Snider Diastolic Blood Pressure 87 mm[Hg] 023 12:23:[address] [place] [address] Lexi Snider Mean Arterial Pressure, Calc 108 mm[Hg] 11/29/2022 15:33:[address] [place] [address] Lexi Snider Temperature Oral 36.5 Greta 11/29/2022 15:33:[address] [place] [address] Lexi Snider Peripheral Pulse Rate 70 bpm 11/29/2022 15:33:[address] [place] [address] Lexi Snider Systolic Blood Pressure 135 mm[Hg] 11/30/19 23 15:33:[address] [place] [address] Lexi Snider Diastolic Blood Pressure 95 mm[Hg] 023 15:33:[address] [place] [address] Lexi Snider Systolic Blood Pressure 130 mm[Hg] 11/30/19 23 12:29:[address] [place] [address] Lexi Snider Diastolic Blood Pressure 84 mm[Hg] 023 12:29:[address] [place] [address] Lexi Snider Temperature Temporal Artery 36.2 Greta 11/29/2022 12:29:[address] [place] [address] Lexi Snider Peripheral Pulse Rate 76 bpm 11/29/2022 12:29:[address] [place] [address] Lexi Snider Encounters Combined list of: 1) Encounters from Department of Veterans Affairs facilities going backup to the last 18 months, not all VA inpatient encounters are included; 2) Encounters from the Department of Defense facilities going backup to 280 months. Location Location Details Encounter Type Encounter Number Reason For Visit Attending Provider ADM Date DC Date Status Disposition Source [facility] [place] Hearing Conservat ion Exam) OUTPATIENT [id number] 43rd [address] CEJA 04/01 Released w/o Limitations [facility] KHUSHBU [place](IEP Hearing Conserv ation Exam) [facility] [place] Optometry ) OUTPATIENT [id number] ALISA BROWNE 04/11 Released w/o Limitations [facility] [place] Optomet ry) [facility]) OUTPATIENT [id number] AUGUSTIN BAIRES 07/12 Released w/o Limitations [facility] ) [facility] [place]([facility] Deploymen t Clinic) OUTPATIENT [id number] Notes Entered by: ALEXANDR MCKEON 29 May 2020 1105 ------- ------- ------- ------- -- BAILEE NEWBY 05/29 Released w/o Limitations [facility] [place]([facility] Deploym ent Clinic) [place] OUTPATIENT [id number] 5 Notes Entered by: ABBY SOLIS 30 May 2021 1448 ------- ------- ------- ------- -- post deploym ent AYLA LOERA 05/30 Released w/o Limitations [place] [place]) OUTPATIENT [id number] 5 Notes Entered by: JUAN PETERSON 31 May 2021 0756 ------- ------- ------- ------- -- MARIUSZ ANDERSON 05/31 [place]ased w/o Limitations [place] [place] [place]) OUTPATIENT [id number] 6 HUNG Ratliff 05/31 [place]ased w/o Limitations [place] [place]) [facility] [place]([facility] Deploymen t Clinic) OUTPATIENT [id number] 6 Notes Entered by: NGUYEN SANDOVAL 25 Jan 2022 0821 ------- ------- ------- ------- -- MOB SAUDI ANA MON 01/25 Released w/o Limitations [facility] [place]([facility] P Deploym ent Clinic) [facility] [place]([facility]) OUTPATIENT [id number] 3 F2F FLU LIKE SYMPTOM S USAR [phone] NIKOS SPEARS 01/28 Released w/o Limitations [facility] [place]([facility]) [facility] [place]([facility]) OUTPATIENT [id number] 3 F2F Sore throat ZZZBM_CRAW ASHER, ZZZBM_DOUG LAS NISSA 01/29 Sick at Home/Quarter s [facility] [place]([facility]) Theater Facility OUTPATIENT [id number] Theater Provider 03/19 Released w/o Limitations [facility] OUTPATIENT [id number] Theater Provider 04/08 Released w/o Limitations [facility] OUTPATIENT [id number] Theater Provider 04/11 Released w/o Limitations [facility] OUTPATIENT [id number] Theater Provider 06/29 Sick at Home/Quarter s Theater [facility] Theater [facility] OUTPATIENT [id number] Theater Provider 07/02 Released w/o Limitations Theater [facility] OUTPATIENT [id number] Theater Provider 07/10 Released w/o Limitations Theater [facility] Theater Facility OUTPATIENT [id number] Theater Provider 07/16 Released w/o Limitations Theater [facility] Theater [facility] OUTPATIENT [id number] Theater Provider 07/17 Released w/o Limitations Theater Fac[facility] y Theater Facility OUTPATIENT [id number] Theater Provider 07/30 Released w/o Limitations Theater [facility] OUTPATIENT [id number] Theater Provider 07/31 Released w/o Limitations Theater [facility] Theater [facility] OUTPATIENT [id number] Theater Provider 08/29 Released w/o Limitations [facility] OUTPATIENT [id number] Theater Provider 10/28 Released w/o Limitations Theater Facilit y Theater Facility OUTPATIENT [id number] Theater Provider 11/04 Released w/o Limitations Theater Facilit y [facility] [place] [facility] Outpatient Encounter [id number] 06/23 [facility] CASE MANAGEMENT [id number] Diagnos is: ICD-10- CM F43.23 Adjustm ent disorde r with mixed anxiety and depress ed mood KRISTOPHER QUINONES 06/24 [facility] En[facility] [id number] 07/02 [facility] [place] [facility] Outpatient Encounter [id number] 07/11 [facility] [place] [facility] OFF/OP EST MAY X REQ PHY/QHP [id number] Diagnos is: ICD-10- CM Z71.89 Other specifi ed primary substance abuse counselor NGUYEN More 07/11 [facility] OFFICE O/P EST LOW 20-29 MIN [id number] Diagnos is: ICD-10- CM M54.50 Low back pain, unspeci REFUGIO Kumari 07/11 [facility] OFFICE O/P EST LOW 20-29 MIN [id number] Diagnos is: ICD-10- CM F43.23 Adjustm ent disorde r with mixed anxiety and depress ed mood CHRYSTALLEXI 07/18 [facility] CASE MANAGEMENT [id number] Diagnos is: ICD-10- CM F43.23 Adjustm ent disorde r with mixed anxiety and depress ed mood KRISTOPHER QUINONES 07/24 [facility] OFFICE O/P EST HI 40-54 MIN [id number] Diagnos is: ICD-10- CM F43.12 Post-tr aumatic stress disorde r, anand PRADOSusan MORIS 08/04 [facility] COMMUNITY/ WORK REINTEGRAT ION [id number] Diagnos is: ICD-10- CM Z56.0 Unemplo yment, unspeci mehdi [facility] En[facility] [id number] 08/27 [facility] En[facility] [id number] 08/27 [facility] COMMUNITY/ WORK REINTEGRAT ION [id number] Diagnos is: ICD-10- CM Z56.0 Unemplo yment, unspeci mehdi [facility] 08[facility]28 [facility] En[facility] [id number] Susan LONDONO 09/01 [facility] En[facility] [id number] 09/01 [facility] Encounter [id number] 09/01 [facility] En[facility] [id number] LINDAJORGE 09/01 [facility] En[facility] [id number] 09/01 [facility] En[facility] [id number] 09/01 [facility] En[facility] [id number] 09/02 [facility] [place] OFF/OP EST DECEMBER X REQ PHY/QHP [id number] Diagnos is: ICD-10- CM I10 Essenti al (primar y) hyperte nsion CHRISTIANO,ER IC K 09/02 [place] [facility] En[facility] [id number] 09/02 [facility] En[facility] [id number] 09/03 [facility] En[facility] [id number] 09/25 [facility] OFFICE O/P EST MOD 30 MIN [id number] Diagnos is: ICD-10- CM F43.12 Post-tr aumatic stress disorde r, chronic EVEM MORIS 09/29 [facility] En[facility] [id number] 10/08 [facility] En[facility] [id number] 10/15 [facility] OFFICE O/P EST MOD 30 MIN [id number] Diagnos is: ICD-10- CM F43.12 Post-tr aumatic stress disorde r, chronic EVESusan MORIS 10/23 [facility] En[facility] [id number] 10/28 [facility] En[facility] [id number] 11/18 [facility] Outpatient Encounter [id number] 11/24 [facility] OFF[facility] O/P EST MOD 30 MIN [id number] 1BY. 21 Diagnos is: ICD-10- CM I10 Essenti al (primar y) hyperte MARILOU Talbot 11/26 [place] [facility] En[facility] [id number]/26 [facility] OFFICE O/P EST MOD 30 MIN [id number] Diagnos is: ICD-10- CM F43.12 Post-tr aumatic stress disorde r, chronic EVESusan MORIS 12/18 [facility]counter [id number] 01/13 [facility] [id number] 01/14 [facility] O/P EST MOD 30 MIN [id number] Diagnos is: ICD-10- CM F43.12 Post-tr aumatic stress anand champion M MORIS 01/15 [facility] O/P EST MOD 30 MIN [id number] Diagnos is: ICD-10- CM F10.99 Alcohol use, unsp with unspeci fied alcohol -induce d Susan Preston MORIS 02/12 [facility] [id number] 02/18 [facility] [id number] 03/02 [facility] [id number] 03/15 [facility] [id number] 04/19 [facility] En[facility] [id number] 04/21 [facility] [place] OFFICE O/P EST MOD 30 MIN [id number] 1BY. 40 Diagnos is: ICD-10- CM M54.50 Low back pain, unspeci fied MARILOU CARRASCO 04/29 [place] [facility] Out[facility] Encounter [id number] 05/18 [facility] [place] [id number] Diagnos is: ICD-10- CM H90.3 Sensori neural hearing loss, bilater LIANG RodrigezSMITHA SUMNERE 05/18 [facility] En[facility] [id number] 1.05/19 [facility] Out[facility] Encounter [id number] 05/20 [facility] Out[facility] Encounter [id number] [facility] Out[facility] Encounter [id number] BRAULIO WAHL 08/02 [facility] Out[facility] Encounter [id number] 08/31 [facility] Out[facility] Encounter [id number] 08/31 [facility] Out[facility] Encounter [id number] 09/21 [facility] Encounter [id number] SUSAN SEPULVEDA 09/23 [facility] Out[facility] Encounter [id number] SUSAN SEPULVEDA 09/24 [facility] Out[facility] Encounter [id number] CECILIA DAVID 09/24 [facility] Out[facility] Encounter [id number] 09/26 [facility] OFFICE O/P EST HI 40 MIN [id number] Diagnos is: ICD-10- CM F43.9 Reactio n to severe stress, unspeci fiSusan Briggs 10/04 [facility] Out[facility] Encounter [id number] 10/20 [facility] Out[facility] Encounter [id number] 10/25 [facility] OFF[facility] O/P EST MOD 30 MIN [id number] Diagnos is: ICD-10- CM E66.09 Other obesity due to excess calorie MARILOU Werner 10/27 [place] [facility] Out[facility] Encounter [id number] 10/27 [facility] Out[facility] Encounter [id number] 11/19 [facility] Out[facility] Encounter [id number] CECILIA DAVID 11/22 [facility] Out[facility] Encounter [id number] SUSAN SEPULVEDA 11/26 [facility] Out[facility] Encounter [id number] CECILIA DAVID 11/26 [facility] Out[facility] Encounter [id number] 12/15 [facility] Procedures Combined list of: 1) Procedures from Department of Veterans Affairs facilities going back up to thelast 18 months, not all [place] non-surgical procedures are included; 2) All procedures from the Department of Defense facilities. Procedure Procedure Type Code Date Perfomer Comments Sourc e PHYS/OTH QUALIFIED HEALTH HEAVY EQUIPMENT FIELD MECHANIC QUALIFIED,EDUCATIO N,TRAIN,LICENSURE/ REGULATION (WHEN APPLICABLE) EDUC SER RENDERED TO PATS IN A GRP SETTING (EG,,OBESI TY,OR DIABETIC INSTRUCT) 009 [facility] COLLECTION OF VENOUS BLOOD BY VENIPUNCTURE 009 [facility] SCREENING TEST OF VISUAL ACUITY, QUANTITATIVE, BILATERAL 022 [facility] INFLUENZA VIRUS VACCINE, QUADRIVALENT (IIV4), SPLIT VIRUS, PRESERVATIVE FREE, 0.5 ML DOSAGE, FOR INTRAMUSCULAR USE 020 [facility] HEPATITIS A AND HEPATITIS B VACCINE (HEPA-HEPB), ADULT DOSAGE, FOR INTRAMUSCULAR USE 006 [facility] SCREENING TEST OF VISUAL ACUITY, QUANTITATIVE, BILATERAL 006 [facility] PATIENT EDUCATION, NOT OTHERWISE CLASSIFIED, NON-PHYSICIAN PROVIDER, GROUP, PER SESSION 006 [facility] VENIPUNCTURE,AGE 3 YEARS/OLDER,NECESS ITATING THE SKILL OF A PHYSICIAN/OTHER QUALIFIED HEALTH HEAVY EQUIPMENT FIELD MECHANIC (SEP PROC),FOR DIAGNOSTIC/THERAPE UTIC PURPOSES (NOT TO BE USED FOR ROUTINE VENIPUNCTURE) 004 [facility] SCREENING TEST OF VISUAL ACUITY, QUANTITATIVE, BILATERAL 021 [facility] EAR PROTECTOR ATTENUATION MEASUREMENTS [facility] INDIVIDUAL PSYCHOTHERAPY, INSIGHT ORIENTED, BEHAVIOR MODIFYING AND/OR SUPPORTIVE, IN AN OFFICE OR OUTPATIENT FACILITY, APPROXIMATELY 20 TO 30 MINUTES [id number] WITH THE PATIENT [facility] INFLUENZA VIRUS VACCINE, TRIVALENT (IIV3), SPLIT VIRUS, PRESERVATIVE FREE, 0.5 ML DOSAGE, FOR INTRAMUSCULAR USE [facility] PURE TONE AUDIOMETRY (THRESHOLD); AIR ONLY [facility] Physical Therapy: ___ Se ion Segments, 15 Minutes Each Physical Therapy: ___ Session Segments, 15 Minutes Each 53495 022 Theater Provider DoD Physical Therapy: ___ Se ion Segments, 15 Minutes Each Physical Therapy: ___ Session Segments, 15 Minutes Each 56710 022 Theater Provider [facility] Threshold Audiogram (Pure Tone) Threshold Audiogram (Pure Tone) 27286 EDD WATTS III, Dr. Services Analysis Of Computerized Data Special Services Analysis Of Computerized Data 54047 EDD WATTS III, Dr.-Supervised Group Educational Services EDD WATTS III ENT Services ENT Services 92916 EDD WATTS III Audiometry Group Testing Audiometry Group Testing 74306 009 EDD WATTS III Social Work Individual Outpatient Counseling 20-30 Minutes Social Work Individual Outpatient Counseling 20-30 Minutes 65006 MAKENNA CORONA [facility] Determination Of Refractive State Determination Of Refractive State 99533 006 ALISA BROWNE Screening Test Of Visual Acuity, Quantitative, Bilateral Screening Test Of Visual Acuity, Quantitative, Bilateral [address]26 [address]Supervised Services Provision Of Special Supplies -Supervised Services Provision Of Special Supplies 16994 006 PREETI ROWE [facility] Ear mold/insert, not disposable, any type PREETI ROWE [facility] Patient education, not otherwise cla ified, non-physician provider, group, per se ion PREETI ROWE [facility] Audiometry Group Testing Audiometry Group Testing 42095 006 PREETI ROWE [facility] Immunization Administration One Vaccine Immunization Administration One Vaccine 71814 GREGORY BAILEE SINAI [facility] Vaccines Viral Measles, Mumps and Rubella, Live Vaccines Viral Measles, Mumps and Rubella, Live 31196 ZAHIRAMARIUSZ WATSON MMR; Series #: 3; 0.5 mL; SC; Left Arm; Mfg: [employer]; Lot: [id number]; VIS given (Carolyn: 03/30/2021). DoD A e ment & Intervention Blood Pre ure Measured Assessment & Intervention Blood Pressure Measured 2000F MARIUSZ RODRIGES [facility] Venipuncture Venipuncture 25356 MARIUSZ RODRIGES [facility] Screening Test Of Visual Acuity, Quantitative, Bilateral Screening Test Of Visual Acuity, Quantitative, Bilateral 60179 MARIUSZ RODRIGES [facility] Audiometry Group Testing Audiometry Group Testing 22036 PAULINA HUNTER Ear Protector Attenuation Measurements Ear Protector Attenuation Measurements 20857 PAULINA HUNTER [facility] No data available for this section Ambulato ry Pharmacy Social History Combined list of available smoking, tobacco, and other social history from Department of Defense and Veterans Affairs facilities. Social History Type Response Date Comment [facility] e Tobacco smoking status [facility]-TOBAC[facility] NEVER USED 04/29/2024 [place] of tobacco use [place]-TOBACCO NEVER USED 01/02/2023 [facility] [place] [facility] Sex Representation Male (finding) 12/12/2021 Un known Organization History of tobacco use [place]-TOBACCO QUIT 1 TO < 5 YRS 09/20/2019 [facility] [place] [facility] History of tobacco use LIFETIME NON-TOBACCO USER 07/31/2017 [facility] [place] [facility] History of tobacco use LIFETIME NON-TOBACCO USER 09/04/2010 [facility] [place] [facility] This section is an empty social history section. DoD Sexual Orientation Ambula tory Pharmacy Gender identity [...] Plan No data available for this section 12/23/2024 Ambulatory Pharmacy Functional Status Combined list of recent functional and cognitive assessments recorded at Department of Defense and Veterans Affairs ([facility]).[facility] Functional [place] Measurement (FIM) Scale: 1 = Total Assistance (Subject = 0% +), 2 = Maximal Assistance (Subject = 25% +), 3 = Moderate Assistance (Subject = 50% +), 4 = Minimal Assistance (Subject = 75% +), 5 = Supervision, 6 = Modified Poinsett (Device), 7 = Complete [place] (Timely, Safely). Assessment Date/Time Source Assessment Type Assessment Skill Assessment Score Assessment Details No data available for this section
--- NOTE | 2024-12-23 10:03 | MHC.SHP ---
Pre-Procedural Eval Section A - 24 Hr Update-Section A only Date of Service: 12/23/24 The patient is an INPATIENT: Yes The patient has been examined within 24 hours of the surgical procedure. The History & Physical has been completed within 30 days and I have reviewed it.: No Section B - Complete if H&P > 30 days Chief Complaint: Obesity Relevant Family History (Specify if Yes): No Relevant Social History: None Present Medications: None Medical History: No relevant PMH History of Previous Operations: No relevant previous surgery Allergies: Allergies Allergy/AdvReac Type Severity Reaction Status Date / Time No Known Allergies Allergy Verified 12/23/24 07:47 Review of Systems Sugical H&P ROS: Negative: Constitution, Cardiovascular, Respiratory, Neurological, Psychiatric, Hem-Onc, Allergic/Immunologic, Gastrointestinal, Genitourinary, Musculoskeletal, Integumentary, Endocrine and Eyes/Ears/Nose/Throat Exam Surgical H&P Exam: Normal: HEENT, Normal: Heart, Normal: Lungs, Normal: Extremities, Normal: Abdomen, Normal: Skin and Normal: Neurological Plan Diagnosis/Plan: Unchanged I have reviewed the history and physical and performed a pertinent physical examination on my patient. No changes have occurred unless specified. Time Spent With Patient Time: Total time managing care of this patient today ____ minutes.
--- NOTE | 2024-12-23 10:05 | PM.OP ---
Brief Operative Note Date of Service: 12/23/24 Pre-op diagnosis: Obesity with comorbidities (see below) Post-op diagnosis: same Procedure: INITIAL PATIENT BMI ON PRESENTATION AT OUR OFFICE: 33.6 kg/m2 LAST BMI BEFORE SURGERY: 28.8 kg/m2 COMORBIDITIES: hypertesion, depression, anxiet, liver steatosis ?The patient presented to the Weight Management Program with significant obesity that was negatively impacting the patient's comorbidities as listed above.? The program is a phased program with a special focus on preoperative medical weight management to promote substantial weight loss and prepare the patients for the second phase of the program: bariatric surgery. The patient participated in an intensive weekly lifestyle ?intervention and exercise program during which the patient ?has lost between the initial office visit and the last preoperative visit 23.5 lbs, or 9.76% of initial actual body weight. It was deemed appropriate for the patient to now have bariatric surgery. In light of the current Covid-19 pandemic and the well documented strong association of obesity and increased risk of worse outcomes if infected with Covid-19 (REFERENCES:https://pubmed.ncbi.nlm.nih.gov/14737736/,?https://pubmed.ncbi.nlm.nih.gov/10341306/), any delay in undergoing bariatric surgery may lead to the patient's worsening health condition and increased?risk of more severe Covid-19 disease if infected. In addition a recent?study from [facility] published in [facility] on 08/20/2021 ([email or web address]) found that, among patients with obesity, substantial weight loss achieved with surgery was associated with improved outcomes of COVID-19 infection. The findings suggest that obesity can be a modifiable risk factor for the severity of COVID-19 infection. In addition, the patient met the BMI-criteria for bariatric surgery based on the BMI on initial presentation. The patient should not be penalized for achieving such weight loss because ?it is not sustainable long-term without surgical intervention and it was achieved in preparation for bariatric surgery ?under my direction and based on my published research ([email or web address]).pdf and?https://www.soard.org/article/[email or web address](31)06396-X/pdf) ?that a 10% preoperative weight loss improves long-term weight loss after surgery and reduces perioperative complications.? Insurance carriers such as [facility] have endorsed my recommendations ?and have included in their policies criteria to include a 10% preoperative weight loss requirement. PROCEDURE: Esophago-gastroscopy, laparoscopic sleeve gastrectomy and laparoscopic gastropexy INDICATIONS: This is a 39 year-old male who was electively scheduled for laparoscopic, possibly open sleeve gastrectomy. The risks and complications of the procedure were discussed with the patient in advance, particularly the possibility of ; pulmonary embolism; staple line leak; bleeding; GERD; cardiac, pulmonary, or renal complications; as well as long-term problems such as insufficient weight loss, vitamin deficiency, strictures, or ulcers. The patient understood all the risks, and was in agreement to proceed with surgery. DESCRIPTION OF PROCEDURE: After informed consent was obtained from the patient, the patient was given preoperative antibiotics, and was transferred to the operating room. After successful induction of general anesthesia, pneumatic compression devices were placed on both lower extremities. An upper endoscopy was performed next. The oropharynx and esophagus appeared to be within normal limits. There was no diaphragmatic hernia present. The stomach was entered. Then after all fluid and air were suctioned and the stomach was fully decompressed, the scope was withdrawn and secured in the mid esophagus. The patient was then prepped and draped in the usual sterile manner, and abdominal access was established at the right upper quadrant with the Brigido technique. A 12 mm blunt port was inserted, and the abdomen was insufflated with CO2 to a pressure of 15 mmHg. Under direct visualization, additional ports were placed, specifically two 5 mm Versi-step ports to the left upper quadrant, and a 5 mm Versi-Step port to the right upper quadrant. 1% lidocaine plain was used to infiltrate all port sites as well as all fascia defects. Following that, the patient was placed in a steep reverse Trendelenburg position. An additional 5 mm port was placed to the right flank for the Mediflex retractor that was used to retract the left lobe of the liver. The gastro-esophageal fat pad was opened with the ultrasonic device (Thunderbeat, Olympus) and the anterior esophagus and hiatus were exposed. The angle of His was opened with the ultrasonic device the fundus of the stomach from any diaphragmatic and splenic attachments. I then opened the gastrocolic ligament between the transverse colon and the greater curvature of the stomach with the ultrasonic device to enter the lesser sac and facilitate the ligation of the short gastric vessels. I started at a mid-point along the greater curvature and using the Thunderbeat, all short gastric vessels were divided all the way to the angle of His until the left carolyn was completely dissected at its entirety. I then divided the gastro-colic ligament distally to a distance of about 3-4 cm proximal to the pylorus. ? The stomach was then divided transversely with two Endo JOSIE-45 purple and three JOSIE-60 articulating purple loads using the [employer] stapler and loads. Every effort was made that the gastric sleeve had a tubular shape and an even caliber throughout. Once the sleeve resection was completed, the staple line of the gastric sleeve was reinforced with Hemoclips. The resected stomach was retrieved without difficulty from the Brigido port. A gastropexy was then performed in order to prevent postoperative GERD and partial gastric volvulus. Several interrupted 2.0 Surgidac sutures were placed between the sleeve's staple line and the previously divided greater omentum and gastro-colic ligament using the Endo-Stitch device. ?An upper endoscopy was performed. There was no narrowing at the GE junction. The scope was easily advanced all the way to the pylorus which was clearly visualized. There was no narrowing anywhere and the sleeve's caliber was even throughout. The sleeve's staple line was inspected and there was no evidence of ischemia, bleeding or dehiscence. At that point the gastroscope was withdrawn from the patient?s mouth while we were decompressing the bowel and the stomach from any remaining air. I looked into the lesser sac to see how the sleeve was situating and it was situating well. There was no bleeding from the staple line, spleen, or short gastric vessels. The Mediflex retractor was removed, and the undersurface of the liver was inspected and there was no bleeding. The patient was placed in supine position. I closed the fascial defect of the 12 mm port site with a figure of eight #1 Polysorb suture. Then 30cc Ropivacaine plain with 10 mg of Dexamethasone were used to infiltrate the fascial closure as well as all skin incisions. At this point, the abdomen was deflated, all ports were removed under direct vision, and no bleeding was noted from any of the port sites. The skin incisions were irrigated with saline and were closed with 4-0 absorbable monofilament sutures. Steri-Strips and OpSites were used to cover all incisions. The patient was extubated and was transferred in stable condition to the recovery room for further care. I was present and performed all [place] parts of the procedure. Ms. Barronanthony was the early childhood teacher assistant. There were no residents to assist with this case. Ted Recio MD, PhD, FACS Surgeon: Norris Recio MD Anesthesia: GETA, local and other (TAP block) Was an Promotions Specialist used for this Procedure?: No Promotions Specialist: Molly Abraham Estimated blood loss (mL): 10 IV fluids (mL): 2,200 Urine output (mL): 0 (No Mckeon to record output) Pathology: other (1) Stomach, 2) Gastro-esophageal fat pad) Condition: stable Disposition: PACU
--- NOTE | 2024-12-23 10:09 | P.PNGS_ITS ---
Subjective Subjective Date of Service: 12/24/24 Interval history: Feels well. Mild incisional pain. She is tolerating phase 1 bariatric diet Physical Exam 2 Vital Signs: Vital Signs: Last Vital Signs Temp 98.0 F 12/23/24 07:59 Pulse 68 12/23/24 07:59 Resp 17 12/23/24 07:59 BP 125/75 12/23/24 07:59 Pulse Ox 100 12/23/24 07:59 O2 Del Method Room Air 12/23/24 07:59 BMI result Body Mass Index 27.9 GI: Inspection: Yes normal to inspection, Yes incision (clean, dry and intact) and Yes obesity Palpation (GI): Soft to palpation Extrem: Right lower extremity: normal to inspection (no calf tenderness) L eft lower extremity: normal to inspection (o calf tenderness) Objective Data Active Medications Lactated Ringer's (Lr) 1,000 mls @ 100 mls/hr IVCONT .Q10H CLYDE Labs 12/24/24 05:54 12/24/24 05:54 Procedures Date of Service Date of Service: 12/24/24 Progress Note: A&P Assessment and plan (1) Obesity: Status: Acute Assessment and Plan: s/p laparoscopic sleeve gastrectomy and gastropexy Doing well Will check am labs and if OK the patient will be discharged home (2) Hypertension: Status: Acute (3) Anxiety: Status: Acute (4) Depression: Status: Acute (5) Steatosis, liver: Status: Acute (6) S/P laparoscopic sleeve gastrectomy: Status: Acute Time Spent With Patient Time: Total time managing care of this patient today ____ minutes. Quality Stroke Does the patient have a stroke diagnosis?: No VTE Prior VTE?: No VTE Risk Level:: Surgical - moderate VTE Device Contraindication: N/A - Device Ordered VTE Drug Contraindication: Treatment Not Indicated
[2024-12-23] MEDS: ceFAZolin Sodium/Dextrose,Iso 2 GM/50 ML PIGGYBACK IV ×2 (10:47→16:22)
--- NOTE | 2024-12-23 11:10 | PHA.MEDREC ---
Pharmacy Consult ? Medication Reconciliation Pharmacy has completed the medication reconciliation. Med rec done by nursing reviewed by [facility] and confirmed using claim history and medical records.
--- NOTE | 2024-12-23 12:37 | P.DS_ITS ---
DS: Providers Provider Date of Service: 12/24/24 Date of admission: 12/23/24 08:03 Date of discharge: 12/24/24 Primary care physician: Vanessa Benoit MD DS: Diagnosis Discharge Diagnosis (1) Obesity: Status: Acute (2) Hypertension: Status: Acute (3) Anxiety: Status: Acute (4) Depression: Status: Acute (5) Steatosis, liver: Status: Acute (6) S/P laparoscopic sleeve gastrectomy: Status: Acute DS: Summary Hospital Course Hospital Course: ADMITTING DIAGNOSIS: morbid obesity DISCHARGE DIAGNOSIS: same, s/p laparoscopic sleeve gastrectomy and gastropexy PAST SURGICAL HISTORY:?EGD PROCEDURE: upper endoscopy, laparoscopic sleeve gastrectomy and gastropexy DISCHARGE SUMMARY: History of Present Illness: The patient is a?39 year-old man with a BMI of?27.9 kg/m2 and associated co- morbidities as described above. The patient had extensive work-up, lost?40.9 lbs preoperatively and was electively scheduled for laparoscopic, possible open sleeve gastrectomy and gastropexy. Risks and complications of the surgery were discussed with the patient in advance, particularly the possibility of , pulmonary embolism, anastomotic leak, bleeding, bowel injury, GERD, cardiac, renal or pulmonary complications. The patient understood all the risks and was in agreement with the surgical plan. Hospital Course: The patient underwent an uneventful laparoscopic sleeve gastrectomy with gastropexy on the day of admission. Postoperatively, the patient was transferred to the surgical floor. The patient received IV Acetaminophen and IV dilaudid for pain control. Patient was started on bariatric phase 1 diet POD #0. On p ostoperative day one, the patient was feeling well without nausea, vomiting, fevers, or tachycardia. The patient had some mild incisional pain and the abdomen was soft.? ? On the morning of postoperative day one, the patient was continued on 1 ounce of water or ice every half hour. During the day, the patient did fairly well, having some incisional pain, but able to ambulate adequately and to tolerate liquids well. Since the patient is doing well, we decided that the patient was ready to be discharged. The patient was given instructions to follow-up in office next week and to call the office for any fever over 101, persistent abdominal pain, nausea, vomiting, GERD, symptoms of DVT such as calf tenderness, or leg swelling, or pulmonary embolism such as chest pain or shortness of breath.? The patient was also instructed to drink 40-60 ounces of liquids per day using the 1-ounce cups. The patient had been given prescriptions for Tylenol for pain, Zofran prn for nausea, and pantoprazole and carafate previously. The patient was encouraged to ambulate and use the incentive spirometer. The patient was allowed to shower, but no baths, and encouraged to stay active at home. All of these i nstructions were given to the patient personally. All questions were answered and the patient understood all instructions, the instructions were also given to the patient in print. Time Attestation Discharge Coordination Time (in mins): 30 Quality: Safe Use of Opioids Does Pt have an Active Cancer Diagnosis on the Problem List?: No Quality: Stroke Does the patient have a stroke diagnosis?: No Physical Exam Vital Signs: Vital Signs: Last Vital Signs Temp 98.0 F 12/23/24 07:59 Pulse 68 12/23/24 07:59 Resp 17 12/23/24 07:59 BP 125/75 12/23/24 07:59 Pulse Ox 100 12/23/24 07:59 O2 Del Method Room Air 12/23/24 07:59 BMI result Body Mass Index 27.9 DS: Data Data Completed and Pending Pending studies at discharge: Pending at discharge 12/23/24 11:51 Surgical [PTH] Routine Discharge Plan Discharge Anticipated Discharge Date/Time: 12/24/24 10:00 Patient Disposition: Home, Self-Care Discharge Diagnosis: s/p laparoscopic sleeve gastrectomy with gastropexy Referrals: Vanessa Benoit MD [Primary Care Provider] - 1 Week Discharge Medications: Continued topiramate 100 mg Tablet 100 mg PO DAILY pantoprazole 40 mg tablet,delayed release (DR/EC) 40 mg PO DAILY@0630 sucralfate 100 mg/mL suspension 10 ml PO BID Qty: 600 2RF ondansetron 4 mg tablet,disintegrating 4 mg PO Q12H Qty: 20 0RF Rx Instructions: Only take one every 12 hours as needed if you have nausea bupropion HCl 300 mg tablet extended release 24 hr 300 mg PO DAILY Held atenolol 25 mg tablet 25 mg PO DAILY Hold Instructions: Resume on 12/25/24. Check your blood pressure every morning as soon as you wake up and send it to Dr. Recio. Do no take the blood pressure medication if the blood pressure is below 120/70. Wait every day to hear back from Dr. Recio before you take the medication. Discontinued vitamin A palmitate 3,000 mcg (10,000 unit) capsule 10,000 unit PO DAILY Qty: 90 0RF cholecalciferol (vitamin D3) 125 mcg (5,000 unit) capsule 125 mcg PO DAILY Qty: 90 0RF thiamine HCl (vitamin B1) 100 mg tablet 100 mg PO DAILY Qty: 90 0RF No Action oxycodone-acetaminophen [Percocet] 5-325 mg tablet 1 tab PO Q6H PRN (Reason: pain) Qty: 14 0RF Rx Instructions: Partial Fill upon patient request. Discharge Orders: Discharge Order (Routine); Ordered 12/24/24 Ordered By: Norris Recio Activity on Discharge: No heavy lifting Stand Alone Forms: Patient Portal Discharge page Print Language: Greenlandic Care Plan Goals: weight loss Health Concerns: obesity Plan of Treatment: No tub baths, sex or returning to work until discussed at first post op appointment. No alcohol, tobacco or illegal drug use. Continue to use incentive spirometer hourly while awake. Walk in home for 5- 10 minutes every 2 hours during the first week. Wear abdominal binder with activity. Follow all meal plan instructions from your bariatric surgeon. Review bariatric handbook and call with any questions. Discharge Instructions 1. Please call your doctor or come back to the emergency room should any new symptoms arise. 2. Activity: abstain from alcohol,? limited stair climbing, no bending, no driving, no exercise, no illicit substances, no lifting, no sex, no tub bath, no work. 4. Diet: follow your bariatric surgeon's recommendations for advancing diet. 5. Dressing Change/Wound Care: Your incisions are covered with waterproof dressings. You can shower with these and pat dry. Do not rub over dressings or incisions. If the area is tender, you may apply an ice pack for short intervals (no more than 20 minutes on, followed by at least 20 minutes off). Do not apply heat. Do not use creams, lotions, or topical antibiotics unless instructed to do so by your surgeon. 6. Call your doctor if: - Your temperature exceeds 101.5 F - You experience excessive pain or swelling - You have an unexpected reaction to medication - You have excessive bleeding - You experience continued vomiting/nausea - Your incision begins to separate - Your incision shows signs of infection such as increased redness, swelling, excessive pain, heat, or drainage (light blood or clear fluid is normal) General instructions: No lifting greater than 10 lbs for the next 6 weeks[address] within 24 hours of taking narcotic pain medications. If you do not move your bowels in the next 2 days, please take milk of magnesia over the counter. Please follow the post op diet and do not advance your diet until instructed by your surgeon or until you are seen in the office in about 1 week. Please walk around your home every hour or two to prevent blood clots from forming in your legs. You do not need to wake from sleeping to walk. Please sleep in a bed or couch to prevent kinking at the hips and knees. Please take your incentive spirometer (your lung inspector packer glass container) home with you and use it for the next few days to prevent pneumonias. You may shower; no hot tubs, baths or swimming pools. Please make sure you are consuming 40-60 ounces of total fluids per day. Avoid all carbonation. Please call the office with any questions or concerns such as increasing abdominal pain, fever, chills, shortness of breath, chest pain, leg pain or swelling, or redness or drainage from your incisions. Do not hesitate to contact the office with any questions at . The patient's medical history has been reviewed and they are considered low risk for post op DVT and therefore DVT prophylaxis is not considered necessary. Travel after surgery was reviewed. The patient has not disclosed any travel plans during the first 30 days after surgery and they have been advised that within the first 30 days after surgery any bus, plane, train or car travel over 2 hours in duration is contraindicated due to the possibility of developing blood clots from immobility. Any travel, needs to include periods of ambulation of 10 minutes in duration every 2 hours.? The patient was instructed to discuss any plans for travel during this period with their bariatric surgeon. Assessment: s/p laparoscopic sleeve gastrectomy with gastropexy Discharge Date/Time: 12/24/24 09:42
[2024-12-23 12:51] LABS: Hematocrit 40.1 % (42.0-52.0); Hemoglobin 14.4 g/dl (14.0-18.0)
[2024-12-23 13:01] LABS: Anion Gap 13 (12-20); Blood Urea Nitrogen 12 mg/dL (9-16); Calcium 8.3 mg/dL (8.4-10.2); Carbon Dioxide 21 mmol/L (22-29); Chloride 109 mmol/L (96-108); Creatinine Clr Calc Pharmacy 110.8; Estimated Glomerular Filt Rate > 60; Glucose Random 168 mg/dL (60-115); Potassium 3.7 mmol/L (3.3-5.1); Sodium 139 mmol/L (135-145)
[2024-12-23] MEDS: Lactated Ringers 1,000 ML 100 ML IVCONT (13:16)
[2024-12-23] MEDS: Acetaminophen 1,000 MG/100 ML PIGGYBACK 16.7 MG IV ×2 (13:49→19:47)
[2024-12-23] MEDS: HYDROmorphone HCl 0.5 MG/0.5 ML SYRINGE 0.25 MG IVPUSH ×2 (15:04→20:33)
[2024-12-23] MEDS: Famotidine/PF 20 MG/2 ML VIAL IVPUSH (20:30)
[2024-12-23] MEDS: 0.9 % Sodium Chloride Flush 3 ML SYRINGE IVFLUSH (20:30)
[2024-12-24] MEDS: Acetaminophen 1,000 MG/100 ML PIGGYBACK 16.7 MG IV ×2 (01:31→07:37)
[2024-12-24] MEDS: Lactated Ringers 1,000 ML 100 ML IVCONT (01:31)
[2024-12-24 03:18] VITALS: BP 138/85; PULSE 70; RESP 18; TEMP 36.2; O2SAT 97
[2024-12-24] MEDS: HYDROmorphone HCl 0.5 MG/0.5 ML SYRINGE 0.25 MG IVPUSH (05:07)
[2024-12-24 06:41] LABS: MANUAL DIFF FLAG NO
[2024-12-24 06:48] LABS: Basophils Percent Auto 0.1 % (0-2); Hemoglobin 14.5 g/dl (14.0-18.0); Imm Gran Abs Auto 0.06 X10*3/uL (0.00-0.03); Imm Gran Pct Auto 0.5 % (0.0-0.4); Lymphocytes Absolute Auto 1.1 X10*3/uL (1.2-4.9); Lymphocytes Percent Auto 9.6 % (20-40); Mean Corpuscular HGB Conc 36.3 g/dl (31.0-36.0); Mean Corpuscular Hemoglobin 29.4 pg (27.0-33.0); Mean Platelet Volume 11.2 fL (9.4-12.4); Monocytes Percent Auto 8.7 % (2-11); Neutrophils Absolute Auto 9.2 x10*3/uL (2.0-8.3); Neutrophils Percent Auto 81.1 % (45-73); Platelet Count 172 X10*3/uL (160-400); Red Blood Count 4.94 X10*6/uL (4.60-5.80); Red Cell Distribution Width 12.2 % (11.0-16.0); White Blood Count 11.4 X10*3/uL (4.8-10.8)
[2024-12-24 07:04] LABS: Anion Gap 13 (12-20); Blood Urea Nitrogen 10 mg/dL (9-16); Calcium 8.5 mg/dL (8.4-10.2); Carbon Dioxide 20 mmol/L (22-29); Chloride 110 mmol/L (96-108); Creatinine Clr Calc Pharmacy 137.9; Estimated Glomerular Filt Rate > 60; Glucose Random 107 mg/dL (60-115); Potassium 3.6 mmol/L (3.3-5.1); Sodium 139 mmol/L (135-145)
[2024-12-24] MEDS: Famotidine/PF 20 MG/2 ML VIAL IVPUSH (07:28)
[2024-12-24] MEDS: Topiramate 100 MG TABLET PO (07:29)
[2024-12-24] MEDS: buPROPion HCl XL 300 MG TAB.ER.24H PO (07:29)
[2024-12-24 08:00] VITALS: BP 128/82; PULSE 64; RESP 18; TEMP 36.6; O2SAT 97
--- NOTE | 2024-12-24 08:36 | MHC.CM.PN ---
pt dcd home self care prior to being seen by cm
--- NOTE | 2024-12-24 09:02 | HO.POSTANES ---
Post Anesthesia Evaluation Post Anesthesia Evaluation Date of Service: 12/24/24 Vital Signs: Vital Signs Temp Pulse Resp BP Pulse Ox O2 Del Method 12/24/24 08:00 98 F 64 18 128/82 97 Room Air 12/24/24 03:18 97.1 F 70 18 138/85 97 Room Air 12/23/24 23:30 98.6 F 78 17 117/68 96 Room Air Anesthesia: General Endotracheal-GETA Mental Status: Awake Pain Control: Satisfactory Nausea/Vomiting: None Hydration: Adequate Anesthesia-Related Issues: No Anes. Related Issues
--- NOTE | 2024-12-24 09:36 | PC.NURSE ---
Patient walked out without letting RN know,left discharge paper work ,RN called patient ,BEKA Araujo is bringing discharge paper work to the front lobby
== END 2024-12-24 09:42 | disposition home or self-care (01) | DRG 621 ==
LOC: HO.SSSA 10:15 → HO.S3 12:22
PROVIDERS: Physician Assistant Surgical; Admitting Provider Surgery; PCP Family Medicine; Visit Provider Surgery
PROC: 0DB64Z3 Excision of Stomach, Percutaneous Endoscopic Approach, Vertical (ICD-10-PCS; CPT 43845; principal; 2024-12-23 10:20)
DX: E66.01 Morbid (severe) obesity due to excess calories (principal); E66.811 Obesity, class 1; I10 Essential (primary) hypertension; F32.A Depression, unspecified; F41.9 Anxiety disorder, unspecified; K76.0 Fatty (change of) liver, not elsewhere classified; Z68.28 Body mass index [BMI] 28.0-28.9, adult; Z79.899 Other long term (current) drug therapy
CPT/HCPCS: 36415; 80048; 80053; 80061; 82306; 82607; 82728; 83036; 83525; 83540; 84425; 84443; 84590; 84630; 85014; 85018; 85025; 85610; 85730; 86140; 86850; 86900; 86901; 88304; 88305; 88307; 88342; A4649; C9145; J0131; J0690; J1100; J1171; J1308; J2003; J2250; J2371; J2405; J2704; J2795; J3010; J7120

== ENCOUNTER → 2024-12-23 08:03 | Outpatient (BNV) | payer OTHER, SELFPAY | PROVIDERS: Admitting Provider Surgery; PCP Family Medicine; Visit Provider Surgery | DX: E66.811 Obesity, class 1 (principal); E66.09 Other obesity due to excess calories; Z68.32 Body mass index [BMI] 32.0-32.9, adult; I10 Essential (primary) hypertension; F41.9 Anxiety disorder, unspecified; F32.A Depression, unspecified; K76.0 Fatty (change of) liver, not elsewhere classified; Z98.84 Bariatric surgery status | CPT/HCPCS: 43659; 43775; 99024 ==

== ENCOUNTER 2024-12-30 15:17 | Outpatient (AMB) | payer OTHER, SELFPAY ==
--- NOTE | 2024-12-30 15:18 | A.OFFVIS_ITS ---
VS Expanded 12/30/24 15:28 BP 117/74 Blood Pressure Location Rt brachial Blood Pressure Position Sitting Pulse 86 Pulse Source Pulse Oximeter Temp 97.8 F Temperature Source Temporal Artery Scan Pulse Oximetry 96 Oxygen Delivery Method Room Air Height 5 ft 11 in Weight 188 lb BMI 26.2 Body Fat % 15.3 Body Fat Mass 28.6 Fat Free Mass 159.2 Visceral Fat Rating 6.0 Body Water % 60.9 Body Water Mass 114.4 Muscle Mass/Score 151.2 Basal Metabolic Rate/Score 2,089 Intake Visit Reasons: (OV) PO LSG 12/23/24 Allergies No Known Allergies Allergy (Verified 12/30/24 15:21) HPI Comments Details: 39-year-old male returns to the office today in follow-up. He is 7 days post sleeve gastrectomy performed on 12/23/2024. He states that he is craving food although tolerating 3 celebrate rebuild shakes with 1 scoop each and proximally 40 oz of fluids. He has moved his bowels, denies any pain. He has returned to work on the [employer]. He is also in the and requested a note to be excused from yearly exam. I gave him a note stating he has no heavy lifting greater than 15 lb until 616 25. [facility] Medical History (Updated 12/30/24 @ 00:00 by Catherine Berry) Incisional pain Hypertension Anxiety Depression BMI 32.0-32.9,adult Obesity Surgical History (Updated 12/30/24 @ 15:21 by Qing Dobson CMA) S/P laparoscopic sleeve gastrectomy History of esophagogastroduodenoscopy (EGD) (11/26/24) Family History Mother Diabetes Social History Household Members: Spouse Housing: House Are you a primary respiratory care technician to a significant other at home: No Do you presently have visiting nurse or other home services: No Alcohol intake: current Alcohol intake frequency: does not drink Patient Tobacco Use Status: Never used Tobacco e-Cigarette/Vaping Use: Never Used Physical Exam GI Inspection: Yes incision (Clean, dry, intact.) Assessment & Plan Assessment & Plan (1) S/P laparoscopic sleeve gastrectomy: Code(s): Z98.84 - Bariatric surgery status Category: Surgical Plan: POD 7 s/p LSG on 12/23/[address] Recio Weight loss prior to surgery was 36.4 pounds or 15.1 % TBWL. Original weight on 09/27/2024 was 240.7 pounds and op weight was 204.3 pounds. Be sure to text Dr Recio exactly 1 week after surgery your weight from your home scale so he can adjust your meal plan. Continue meal plan until f/u w Molly in 2 weeks May shower, no submersion in bath for another week Continue abdominal binder with activity and exercise for the next 2 weeks. Exercise prior to surgery was stationary bike, and may resume No abdominal exercises for 6 weeks post operatively Will be emailed link to post op video for review Reminded of the pace of drinking, 2 mL per minute, 1 oz/15 min.
[2024-12-30 15:28] VITALS: BP 117/74; PULSE 86; TEMP 36.6; O2SAT 96; BMI 26.2
--- OUTSIDE RECORDS SUMMARY | 2024-12-30 15:51 | XMS_ITS | Continuity of Care Document ---
Author Name [facility] Organization [facility] Care Team Providers Care Building Tech Name Role Phone [facility] Unavailable Unavailable Problems Combined list of problems [...] mixed anxiety and depressed mood (SNOMED CT [id number]) Active Condition [facility] Chronic low back pain Active Condition [facility] Essential hypertension Active Condition [facility] Exposure to potentially hazardous substance Active Condition Oct 23, 2023 Entered By: LOUIS GLYNN EN A Comment: Connect Snomed Code to ICD 10 Code refer to note dated 07/18/23 [facility] Exposure to Potentially Hazardous Substance ([facility] [id number]) Active Condition ZULEIKA KHOURY [facility] History of surgery Active Condition Oct 17, 2011 Entered By: LEXI KNOX Comment: -- [facility] [place] [facility] History of traumatic [...] obesity due to excess calories Active Diagnosis [place] Diagnosis: ICD-10-CM F43.9 Reaction to severe stress, unspecified [facility] Diagnosis: ICD-10-CM H90.3 Sensorineural hearing loss, bilateral Active Diagnosis [facility] Diagnosis: ICD-10-CM M54.50 Low back pain, unspecified Active Diagnosis [place] Diagnosis: ICD-10-CM F10.99 Alcohol use, unsp with unspecified alcohol-induced disorder Active Diagnosis [facility] Diagnosis: ICD-10-CM F43.12 Post-traumatic stress disorder, chronic Active Diagnosis [facility] Diagnosis: ICD-10-CM I10 Essential (primary) hypertension Active Diagnosis [place] Diagnosis: ICD-10-CM Z56.0 Unemployment, unspecified [facility] Diagnosis: ICD-10-CM F43.23 Adjustment disorder with mixed anxiety and depressed mood Active [facility] Diagnosis: ICD-10-CM Z71.89 Other specified counseling Active Diagnosis [facility] Medications Combined list of outpatient medications [...] FOR BLOOD PRESSURE /HEART ORAL ACTIVE 04/23/2025 [id number] Briseida CARRASCO [address] [facility] IELD ATENOLOL 25MG TAB TAKE ONE-HALF OF A TABLET BY MOUTH ONCE DAILY FOR BLOOD PRESSURE /HEART ORAL DISCONT INUED 09/02/2024 [id number] LEXI JARRELL 2023 15 [facility] azithromyci n 250 mg oral tablet 0 total refill(s ) Ordered 2021 No Facilit y Access BUPROPION HCL 150MG 24HR TAB,SA TAKE ONE TABLET BY MOUTH ONCE DAILY ORAL DISCONT INUED (EDIT) 12/19/2024 [id number] CASH PRADO 2023 60 [facility] BUPROPION HCL 150MG 24HR TAB,SA TAKE ONE TABLET BY MOUTH ONCE DAILY ORAL DISCONT INUED 09/29/2024 [id number] CSAH PRADO 2023 60 [facility] BUPROPION HCL 300MG 24HR TAB,SA TAKE ONE TABLET BY MOUTH EVERY MORNING ORAL DISCONT INUED BY PROVIDE R 02/13/2025 [id number] CASH PRADO 2023 90 [facility] FLUOXETINE HCL 10MG CAP TAKE ONE CAPSULE BY MOUTH ONCE DAILY FOR 7 DAYS, THEN TAKE TWO CAPSULES ONCE DAILY FOR DEPRESSI ON AND ANXIETY ORAL DISCONT INUED (EDIT) 11/23/2024 [id number] 5 CASH PRADO 2024 93 [facility] FLUOXETINE HCL 20MG CAP TAKE ONE CAPSULE BY MOUTH ONCE DAILY FOR DEPRESSI ON AND ANXIETY ORAL ACTIVE 11/11/2025 [id number] 5 CASH PRADO 2024 30 [facility] HYDROCORTIS ONE 2.5% CREAM,TOP APPLY A THIN LAYER TOPICALL Y TWICE DAILY FOR ATOPIC DERMATIT IS TOPICA L 11/26/2024 [id number] 5 Briseida CARRASCO 2024 90 [place] HYDROCORTIS ONE ACETATE 1%/PRAMOXIN E HCL 1% AEROSOL,RTL INSERT 1 APPLICAT ORFUL RECTALLY THREE TIMES DAILY NEEDED FOR HEMORRHO IDS RECTAL ACTIVE 04/30/2025 [id number] Briseida CARRASCO 2023 20 [place] IBUPROFEN 600MG TAB TAKE ONE TABLET BY MOUTH EVERY 8 HOURS NEEDED TAKE WITH FOOD ORAL ACTIVE 10/28/2025 [id number] 5 Briseida CARRASCO 2024 500 [place] [...] AT BEDTIME NEEDED SLEEP ORAL ACTIVE 01/02/2025 [id number] 5 CASH PRADO 2024 120 [facility] NALTREXONE (EQV-REVIA) 50MG TAB TAKE ONE TABLET BY MOUTH ONCE DAILY CRAVINGS ORAL DISCONT INUED BY PROVIDE R 02/13/2025 [id number] CASH PRADO 2023 [facility] NALTREXONE (EQV-REVIA) 50MG TAB TAKE ONE TABLET BY MOUTH ONCE DAILY FOR ALCOHOLI SM ORAL DISCONT INUED (EDIT) 12/19/2024 [id number] EVE, CASH 2023 30 [facility] TOPIRAMATE 100MG TAB TAKE ONE TABLET BY MOUTH ONCE DAILY WEIGHT MANAGEME NT ORAL SUSPEND ED 11/20/2025 [id number] 5 Briseida CARRASCO 2024 90 [place] TOPIRAMATE 25MG TAB TAKE ONE TABLET BY MOUTH ONCE DAILY FOR 1 WEEK, THEN TAKE TWO TABLETS ONCE DAILY ORAL DISCONT INUED (EDIT) 11/26/2024 [id number] 5 Briseida CARRASCO 2024 53 [place] TRAZODONE HCL 100MG TAB TAKE ONE-HALF TABLET BY MOUTH AT BEDTIME FOR SLEEP ORAL DISCONT INUED BY PROVIDE R 12/19/2024 [id number] CASH PRADO 2023 45 [facility] TRAZODONE HCL 100MG TAB TAKE ONE-HALF TABLET BY MOUTH AT BEDTIME FOR 7 DAYS, THEN TAKE ONE TABLET AT BEDTIME FOR SLEEP ORAL DISCONT INUED (EDIT) 08/05/2024 [id number] CASH PRADO 2022 60 [facility] Allergies, Adverse Reactions, Alerts Combined list of allergies from Department of Defense and Veterans Affairs facilities. It does not include entries that were removed or entered in error. Substance Category Reaction Severity Reaction type Status Date Reported Comments Source No Known Allergies Drug allergy (disorder) active 12/07/2022 [facility] [place] Immunizations Combined list of available immunizations from the Department of Defense and Veterans Affairs facilities. Immunization Series Date Given Administered By Site Reaction Lot Number CVX Code Drug [employer] Extension Specialist Status Comments Source TDAP 2023 SHERMAN ALVARADO RIGHT DELTO ID [id number] complet ed ADMINISTE [place] AT [place], [facility] IELD INFLUENZA, UNSPECIFIED FORMULATION 2022 88 complet ed HISTORICA L INFORMATI ON - FROM PATIENT'S RECALL, [facility] anthrax vaccine 1 2021 ERICKA PERKINS [id number] [facility]) complet ed anthrax vaccine DoD SARS-COV-2 (COVID-19) vaccine, mRNA, spike protein, LNP, preservative free, 30 mcg/0.3mL dose 3 2020 [id number] Transcribed (TRS) complet ed SARS-COV- 2 (COVID-19 ) vaccine, mRNA, spike protein, LNP, preservat kenn free, 30 mcg/0.3mL dose DoD Influenza, injectable, quadrivalent, preservative free 1 2020 [id number] Transcribed (TRS) complet ed Influenza , injectabl e, quadrival ent, preservat kenn free DoD measles/mumps /rubella virus vaccine 2020 [facility] [id number] [facility] [employer] complet ed measles/m umps/rube lla virus vaccine 05/31/21 Given Ambulat ory Pharmac y measles, mumps and rubella virus vaccine 3 2020 NICHOLASJUAN COBURN E [id number] Merck (MSD) complet ed measles, mumps and rubella virus vaccine DoD COVID Vaccine Pfizer 2020 Sean Arm [id number] 208 PFIZER complet ed COVID Vaccine Pfizer 12/29/20 Given Ambulat ory Pharmac y COVID-19, mRNA, LNP-S, PF, 30 mcg/0.3 mL dose 2020 [employer] [place] (PFR) Not Given COVID-19, mRNA, LNP-S, PF, 30 mcg/0.3 mL dose DoD SARS-COV-2 (COVID-19) vaccine, mRNA, spike protein, LNP, preservative free, 30 mcg/0.3mL dose 2 2020 Unknown, Provider [id number] Eyetron[employer] Inc (PFR) complet ed SARS-COV- 2 (COVID-19 ) vaccine, mRNA, spike protein, LNP, preservat kenn free, 30 mcg/0.3mL dose DoD COVID Vaccine Pfizer 2020 Osirisef t Arm [id number] 208 PFIZER complet ed COVID Vaccine Pfizer 12/03/20 Given Ambulat ory Pharmac y COVID-19, mRNA, LNP-S, PF, 30 mcg/0.3 mL dose 2020 ASHA [facility] (PFR) Not Given COVID-19, mRNA, LNP-S, PF, 30 mcg/0.3 mL dose DoD SARS-COV-2 (COVID-19) vaccine, mRNA, spike protein, LNP, preservative free, 30 mcg/0.3mL dose 1 2020 Unknown, Provider [id number] [employer] (PFR) complet ed SARS-COV- 2 (COVID-19 ) vaccine, mRNA, spike protein, LNP, preservat kenn free, 30 mcg/0.3mL dose DoD influenza, injectable, quadrivalent 2019 Sean Arm [id number] 158 [employer] complet ed influenza , injectabl e, quadrival ent 05/29/20 Given Ambulat ory Pharmac y influenza, injectable, quadrivalent, contains preservative 1 2019 ANA TINAJERO [id number] 158 [employer] (SEQ) complet ed influenza , injectabl e, quadrival ent, contains preservat kenn DoD influenza, injectable, quadrivalent 2019 [id number] 350 158 [employer] complet ed influenza , injectabl e, quadrival ent 10/30/19 Given Ambulat ory Pharmac y influenza, injectable, quadrivalent, contains preservative 1 2019 [id number] 350 158 [employer] (SEQ) complet ed influenza [...] vaccine, adsorbed DoD influenza, seasonal, injectable-pf 2017 [id number] [employer] complet ed influenza , seasonal, injectabl e-pf 06/13/18 Given Ambulat ory Pharmac y Influenza, seasonal, injectable, preservative free 1 2017 [id number] 140 Se[employer]irus (SEQ) comple t ed Influenza , seasonal, injectabl e, preservat kenn free DoD INFLUENZA, SEASONAL, INJECTABLE 2016 141 complet ed [place] [facility] influenza, seasonal, injectable-pf 2016 [id number] 140 Se[employer]irus complet ed influenza , seasonal, injectabl e-pf 06/20/17 Given Ambulat ory Pharmac y Influenza, seasonal, injectable, preservative free 1 2016 [id number] 140 Seqirus (SEQ) comple t ed Influenza , seasonal, injectabl e, preservat kenn free DoD influenza, seasonal, injectable-pf 2015 [id number] 140 CSL Behring complet ed influenza , seasonal, injectabl e-pf 07/27/16 Given Ambulat ory Pharmac y Influenza, seasonal, injectable, preservative free 1 2015 [id number] 140 CSL [employer] (CSL) complet ed Influenza , seasonal, injectabl e, preservat kenn free DoD influenza virus vaccine, live 2011 [id number] 111 Medimmune Inc comple t ed influenza virus vaccine, live 06/06/12 Given Ambulat ory Pharmac y influenza virus vaccine, live, attenuated, for intranasal use 1 2011 [id number] 111 MedImmune, Inc. (MED) complet ed influenza virus vaccine, live, attenuate d, for intranasa l use DoD FLU,3 YRS (HISTORICAL) 2010 88 complet ed [facility] influenza virus vaccine, live 2010 [id number] 111 Medimmune Inc comple t ed influenza virus vaccine, live 06/30/11 Given Ambulat ory Pharmac y influenza virus vaccine, live, attenuated, for intranasal use 1 2010 [id number] 111 MedImmune, Inc. (MED) complet ed influenza virus vaccine, live, attenuate d, for intranasa l use DoD FLU,3 YRS (HISTORICAL) 2010 88 complet ed Site: Right Deltoid [facility] tuberculin purified protein derivative 2008 UNKNOWN 96 Unknown complet ed tuberculi n purified protein derivativ e 06/14/09 Given Ambulat ory Pharmac y influenza virus vaccine,split 2008 [id number] 15 sanofi pasteur complet ed influenza virus vaccine,s plit 06/14/09 Given Ambulat ory Pharmac y influenza virus vaccine, split virus (incl. purified surface antigen)-reti red CODE 1 2008 [id number] 15 Sanofi Pasteur (PMC) complet ed influenza [...] y tetanus, diphtheria, acellular pertu is 2007 [id number] 115 Unknown complet ed tetanus, diphtheri a, [...] acellular pertu is vaccine, adsorbed 1 2007 [id number] 115 Unknown (UNK) comple t ed tetanus [...] A-hepatitis B vaccine 2005 [id number] 1AA 104 Press [employer] complet ed hepatitis A-hepatit is B vaccine 04/02/06 Given Ambulat ory Pharmac y hepatitis A and hepatitis B vaccine 2 2005 [id number] 1AA 104 [facility] (SKB) complet ed hepatitis A and hepatitis B vaccine DoD tuberculin purified protein derivative 2005 [id number] 96 [facility] complet ed tuberculi n purified protein derivativ e 03/28/06 Given Ambulat ory Pharmac y tuberculin purified protein derivative 2003 [id number] 96 Unknown complet ed tuberculi n purified protein derivativ e 02/03/04 Given Ambulat ory Pharmac y meningococcal polysaccharid e (MPSV4) 2003 [id number] 32 Unknown complet ed meningoco ccal polysacch aride (MPSV4) 02/03/04 Given Ambulat ory Pharmac y poliovirus vaccine, inactivated 2003 [id number] 10 sanofi pasteur complet ed polioviru s vaccine, inactivat ed 02/03/04 Given Ambulat ory Pharmac y tetanus-dipht h toxoids (Td) adult/adol 2003 [id number] 09 sanofi pasteur complet ed tetanus-d iphth toxoids (Td) adult/ado l 02/03/04 Given Ambulat ory Pharmac y measles/mumps /rubella virus vaccine 2003 [id number] 03 Merck & Company Inc complet ed measles/m umps/rube lla virus vaccine 02/03/04 Given Ambulat ory Pharmac y influenza virus vaccine,split 2003 [id number] 15 Unknown complet ed influenza virus vaccine,s plit 02/03/04 Given Ambulat ory Pharmac y measles, mumps and rubella virus vaccine 1 2003 [id number] 03 Merck (MSD) complet ed measles, mumps and rubella virus vaccine DoD tetanus and diphtheria toxoids, adsorbed, preservative free, for adult use (2 Lf of tetanus toxoid and 2 Lf of diphtheria toxoid) 1 2003 [id number] 09 Sanofi Pasteur ([facility]) complet [...] purified surface antigen)-reti red CODE 1 2003 [id number] 15 Unknown (UNK) comple t ed influenza virus vaccine, split virus (incl. purified surface antigen)- retired CODE DoD meningococcal polysaccharid e vaccine (MPSV4) 1 2003 [id number] 32 Unknown (UNK) comple t ed meningoco ccal polysacch aride vaccine (MPSV4) DoD hepatitis A-hepatitis B vaccine 2003 [id number] 104 Unknown complet ed hepatitis A-hepatit is B vaccine 02/02/04 Given Ambulat ory Pharmac y hepatitis A and hepatitis B vaccine 1 2003 [id number] 6 104 Unknown (UNK) complet ed hepatitis [...] Mar 19, 2024 09:32 AM Reporting Lab: [address] [address] Performing Lab: [address] [place] [address] [facility] LIVER FUNCTION ALBUMIN [MASS/VOLU ME] IN SERUM OR PLASMA 3.9 g/dL 3.5 - 5.0 03/19 Specimen Type: SERUM No comment entered. Ordering Provider: HUMERA CARRASCO Report Released Date/Time: Mar 19, 2024 09:32 AM Reporting Lab: [facility] [place] [facility] [address] [facility] [address] Performing Lab: [facility] [place] [facility] [address] [facility] [address] [facility] LIVER FUNCTION ALKALINE PHOSPHATAS E [ENZYMATIC ACTIVITY/V OLUME] IN SERUM OR PLASMA 51 U/L 40 - 150 03/19 Specimen Type: SERUM No comment entered. Ordering Provider: HUMERA CARRASCO Report Released Date/Time: Mar 19, 2024 09:32 AM Reporting Lab: [facility] [place] [facility] [address] [facility] [address] Performing Lab: [facility] [place] [facility] [address] [facility] [address] [facility] LIVER FUNCTION ASPARTATE AMINOTRANS FERASE [ENZYMATIC ACTIVITY/V OLUME] IN SERUM OR PLASMA 16 U/L 5 - 34 03/19 Specimen Type: SERUM No comment entered. Ordering Provider: HUMERA CARRASCO Report Released Date/Time: Mar 19, 2024 09:32 AM Reporting Lab: [facility] [place] [facility] [address] [facility] [address] Performing Lab: [facility] [place] [facility] [address] [facility] [address] [facility] [facility] LIVER FUNCTION ALANINE AMINOTRANS FERASE [ENZYMATIC ACTIVITY/V OLUME] IN SERUM OR PLASMA 35 U/L 03/19 Specimen Type: SERUM No comment entered. Ordering Provider: HUMERA CARRASCO Report Released Date/Time: Mar 19, 2024 09:32 AM Reporting Lab: [facility] [place] [facility] [address] [facility] [address] Performing Lab: [facility] [address] [facility] [address] [facility]ITALUSE [facility] LIVER FUNCTION BILIRUBIN. TOTAL [MASS/VOLU ME] IN SERUM OR PLASMA 0.5 mg/dL 0.2 - 1.2 03/19 Specimen Type: SERUM No comment entered. Ordering Provider: HUMERA CARRASCO Report Released Date/Time: Mar 19, 2024 09:32 AM Reporting Lab: [facility] TRN [facility]ITALUSE[facility] [address] [facility] [address] Performing Lab: [facility]MONTGOMERYN [address] [address] [facility] BASIC METABOLI C PANEL (fasting ) UREA NITROGEN [MASS/VOLU ME] IN SERUM OR PLASMA 15 mg/dL 7 - 25 03/19 Specimen Type: SERUM No comment entered. Ordering Provider: HUMERA CARRASCO Report Released Date/Time: Mar 19, 2024 09:32 AM Reporting Lab: [facility]N [facility]OSPITALUSE[facility] [address] [facility] [address] Performing Lab: [facility]ITALRMON[facility] HOSPITALTRN [facility]ITALUSE[address] [address] [facility] BASIC METABOLI C PANEL (fasting ) GLUCOSE [MASS/VOLU ME] IN SERUM OR PLASMA 106 mg/dL 65 - 100 03/19 H Specimen Type: SERUM No comment entered. Ordering Provider: HUMERA CARRASCO Report Released Date/Time: Mar 19, 2024 09:32 AM Reporting Lab: [facility]PITALTRN [facility] HOSPITALUSE[facility] [address] [facility] [address] Performing Lab: [facility]OSPITALTRN [facility]ITALUSE[address] [address] [facility] BASIC METABOLI C PANEL (fasting ) SODIUM [MOLES/VOL UME] IN SERUM OR PLASMA 138 mmol/L 135 - 145 03/19 Specimen Type: SERUM No comment entered. Ordering Provider: HUMERA CARRASCO Report Released Date/Time: Mar 19, 2024 09:32 AM Reporting Lab: [facility] [place] [facility] [address] [facility] [address] Performing Lab: [facility] [place] [facility] [address] [facility] [address] [facility] BASIC METABOLI C PANEL (fasting ) POTASSIUM [MOLES/VOL UME] IN SERUM OR PLASMA 4.3 mmol/L 3.5 - 5.0 03/19 Specimen Type: SERUM No comment entered. Ordering Provider: HUMERA CARRASCO Report Released Date/Time: Mar 19, 2024 09:32 AM Reporting Lab: [facility] [place] [facility] [address] [facility] [address] Performing Lab: [facility] [place] [facility] [address] [facility] [address] [facility] [place] [facility] BASIC METABOLI C PANEL (fasting ) CHLORIDE [MOLES/VOL UME] IN SERUM OR PLASMA 106 mmol/L 100 - 110 03/19 Specimen Type: SERUM No comment entered. Ordering Provider: HUMERA CARRASCO Report Released Date/Time: Mar 19, 2024 09:32 AM Reporting Lab: [facility] [place] [facility] [address] [facility] [address] Performing Lab: [facility] [place] [facility] [address] [facility] [address] [facility] [place] [facility] BASIC METABOLI C PANEL (fasting ) CARBON DIOXIDE, TOTAL [MOLES/VOL UME] IN SERUM OR PLASMA 25 meq/L 20 - 30 03/19 Specimen Type: SERUM No comment entered. Ordering Provider: HUMERA CARRASCO Report Released Date/Time: Mar 19, 2024 09:32 AM Reporting Lab: [facility] [place] [facility] [address] [facility] [address] Performing Lab: [facility] [place] [facility] [address] [facility] [address] [facility] [place] [facility] BASIC METABOLI C PANEL (fasting ) CREATININE [MASS/VOLU ME] IN SERUM OR PLASMA 0.92 mg/dL 0.50 - 1.40 03/19 Specimen Type: SERUM No comment entered. Ordering Provider: HUMERA CARRASCO Report Released Date/Time: Mar 19, 2024 09:32 AM Reporting Lab: [facility]ITALRCENTR[facility]MON[facility]OMERYN [address] [address] Performing Lab: [facility] [address] [address] [facility] BASIC METABOLI C PANEL (fasting ) GLOMERULAR FILTRATION RATE/1.73 SQ M.PREDICTE D [VOLUME RATE/AREA] IN SERUM, PLASMA OR BLOOD BY CREATININE -BASED FORMULA (CKD-EPI 2020) >90mL/mi n 60 03/19 Specimen Type: SERUM No comment entered. Ordering Provider: HUMERA CARRASCO Report Released Date/Time: Mar 19, 2024 09:32 AM Reporting Lab: [facility]ITALRCEN[facility]MON[facility]OMERYN [address] [address] Performing Lab: [facility]ITALRCEN[facility]MONTGOMERYN [address] [address] [facility] LIPID PANEL FASTING CHOLESTERO L [MASS/VOLU ME] IN SERUM OR PLASMA 203 mg/dL 03/19 H Specimen Type: SERUM No comment entered. Ordering Provider: HUMERA CARRASCO Report Released Date/Time: Mar 19, 2024 09:32 AM Reporting Lab: [facility]ITALRCEN[facility]ERYN [address] [address] Performing Lab: [facility]OSPITALRL [facility]ITALN [facility] HOSPITALUSE[address] [address] [facility] LIPID PANEL FASTING TRIGLYCERI DE [MASS/VOLU ME] IN SERUM OR PLASMA 63 mg/dL 0 - 150 03/19 Specimen Type: SERUM No comment entered. Ordering Provider: HUMERA CARRASCO Report Released Date/Time: Mar 19, 2024 09:32 AM Reporting Lab: [facility]ITALRCEN[facility]MONTGOMERYN [address] [address] Performing Lab: [facility] [place] [facility] [address] [facility] [address] [facility] [facility] LIPID PANEL FASTING CHOLESTERO L IN LDL [MASS/VOLU ME] IN SERUM OR PLASMA BY CALCULATIO N 137 mg/dL 0 - 129 03/19 H Specimen Type: SERUM No comment entered. Ordering Provider: HUMERA CARRASCO Report Released Date/Time: Mar 19, 2024 09:32 AM Reporting Lab: [facility] [place] [facility] [address] [facility] [address] Performing Lab: [place] [facility] [place] [facility] [address] [facility] [address] [place] [facility] [place] [facility] LIPID PANEL FASTING CHOLESTERO L.TOTAL/CH OLESTEROL IN HDL [MASS RATIO] IN SERUM OR PLASMA 3.8 03/19 Specimen Type: SERUM No comment entered. Ordering Provider: HUMERA CARRASCO Report Released Date/Time: Mar 19, 2024 09:32 AM Reporting Lab: [facility] [place] [facility] [address] [facility] [address] Performing Lab: [facility] [place] [facility] [address] [facility] [address] [place] [facility] [place] [facility] LIPID PANEL FASTING CHOLESTERO L IN HDL [MASS/VOLU ME] IN SERUM OR PLASMA 53 mg/dL 40 - 60 03/19 Specimen Type: SERUM No comment entered. Ordering Provider: HUMERA CARRASCO Report Released Date/Time: Mar 19, 2024 09:32 AM Reporting Lab: [facility] [place] [facility] [address] [facility] [address] Performing Lab: [facility] [place] [facility] [address] [facility] [address] [facility] [place] [facility] TSH THYROTROPI N [UNITS/VOL UME] IN SERUM OR PLASMA 0.99 u[IU]/mL 0.35 - 5.00 03/19 Specimen Type: SERUM No comment entered. Ordering Provider: HUMERA CARRASCO Report Released Date/Time: Mar 19, 2024 09:32 AM Reporting Lab: [facility]ITALRL TRN [facility] [address] [address] Performing Lab: [facility]PITALRL WSTRN [facility] HOSPITALUSETS [address] [address] [facility]ITALRCENTRAL [facility]ERYN [place] [facility] HEMOGLOB IN A1C PANEL HEMOGLOBIN A1C/HEMOGL [...] Mar 19, 2024 09:32 AM Reporting Lab: [facility]RL TRN [address] [address] Performing Lab: [facility]ITALRL TRN [facility] HOSPITALUSE[address] [address] [facility] [facility] CBC LEUKOCYTES [#/VOLUME] IN BLOOD BY AUTOMATED COUNT 5.92 10*3/uL 4.50 - 11.00 03/19 Specimen Type: BLOOD No comment entered. Ordering Provider: HUMERA CARRASCO Report Released Date/Time: Mar 19, 2024 09:32 AM Reporting Lab: [facility] [place] [address] [address] Performing Lab: [facility] [address] [address] [facility] CBC ERYTHROCYT ES [#/VOLUME] IN BLOOD BY AUTOMATED COUNT 5.62 10*6/uL 4.23 - 5.66 03/19 Specimen Type: BLOOD No comment entered. Ordering Provider: HUMERA CARRASCO Report Released Date/Time: Mar 19, 2024 09:32 AM Reporting Lab: [facility] [place] [facility] [address] [facility] [address] Performing Lab: [facility] [place] [facility] [address] [facility] [address] [facility] [place] [facility] CBC HEMOGLOBIN [MASS/VOLU ME] IN BLOOD 16.5 g/dL 12.8 - 17 03/19 Specimen Type: BLOOD No comment entered. Ordering Provider: HUMERA CARRASCO Report Released Date/Time: Mar 19, 2024 09:32 AM Reporting Lab: [facility] [place] [facility] [address] [facility] [address] Performing Lab: [facility] [place] [facility] [address] [facility] [address] [facility] [place] [facility] CBC HEMATOCRIT [VOLUME FRACTION] OF BLOOD BY AUTOMATED COUNT 46.9 39.2 - 50.4 03/19 Specimen Type: BLOOD No comment entered. Ordering Provider: HUMERA CARRASCO Report Released Date/Time: Mar 19, 2024 09:32 AM Reporting Lab: [facility] [place] [facility] [address] [facility] [address] Performing Lab: [facility] [place] [facility] [address] [facility] [address] [facility] [place] [facility] CBC MCV [ENTITIC VOLUME] BY AUTOMATED COUNT 83.5 fL 82 - 99 03/19 Specimen Type: BLOOD No comment entered. Ordering Provider: HUMERA CARRASCO Report Released Date/Time: Mar 19, 2024 09:32 AM Reporting Lab: [facility] [place] [facility] [address] [facility] [address] Performing Lab: [facility] [place] [facility] [address] [facility] [address] [facility] [place] [facility] CBC MCHC [MASS/VOLU ME] BY AUTOMATED COUNT 35.2 g/dL 30.8 - 35.1 03/19 H Specimen Type: BLOOD No comment entered. Ordering Provider: HUMERA CARRASCO Report Released Date/Time: Mar 19, 2024 09:32 AM Reporting Lab: [facility] [place] [facility] [address] [facility] [address] Performing Lab: [facility] [place] [facility] [address] [facility] [address] [facility] [place] [facility] CBC PLATELETS [#/VOLUME] IN BLOOD BY AUTOMATED COUNT 179 10*3/uL 140 - 360 03/19 Specimen Type: BLOOD No comment entered. Ordering Provider: HUMERA CARRASCO Report Released Date/Time: Mar 19, 2024 09:32 AM Reporting Lab: [facility] [place] [facility] [address] [facility] [address] Performing Lab: [facility] [place] [facility] [address] [facility] [address] [facility] [place] [facility] CBC ERYTHROCYT E DISTRIBUTI ON WIDTH [RATIO] BY AUTOMATED COUNT 11.9 12.0 - 16.0 03/19 L Specimen Type: BLOOD No comment entered. Ordering Provider: HUMERA CARRASCO Report Released Date/Time: Mar 19, 2024 09:32 AM Reporting Lab: [facility] [place] [facility] [address] [facility] [address] Performing Lab: [facility] [place] [facility] [address] [facility] [address] [facility] [place] [facility] CBC MCH [ENTITIC MASS] BY AUTOMATED COUNT 29.4 pg 26.2 - 32.6 03/19 Specimen Type: BLOOD No comment entered. Ordering Provider: HUMERA CARRASCO Report Released Date/Time: Mar 19, 2024 09:32 AM Reporting Lab: [facility] [place] [facility] [address] [facility] [address] Performing Lab: [facility] [place] [facility] [address] [facility] [address] [facility] [place] [facility] Infectio us Disease HIV-1/2 AG/AB 4G CDD LC NEGATIVE 11/28 Result Comment: Performed At: 1 [facility] [address] [place] [address] [address] [place] [address] KATHY BROWN PHD Ph:[phone] [place] [address] Lexi Worthington Infectio us Disease Source of Test.LC PostDepS torage (11/28/22 9:01 AM) 11/[address] [place] [address] Lexi Worthington Vital Signs Combined list of inpatient and outpatient Vital Signs from Department of Defense and Veterans Affairs, ranging from 12 months to all on record, depending upon the facility. Vital Sign Value Date Comments Source Peripheral Pulse Rate 99 bpm 11/28/2022 12:23:[address] [place] [address] Lexi Snider Temperature Temporal Artery 36.5 Greta 11/28/2022 12:23:[address] [place] [address] Lexi Snider Systolic Blood Pressure 136 mm[Hg] 11/29/19 23 12:23:[address] [place] [address] Lexi Snider Diastolic Blood Pressure 87 mm[Hg] 023 12:23:[address] [place] [address] Lexi Snider Mean Arterial Pressure, Calc 108 mm[Hg] 11/29/2022 15:33:[address] [place] [address] Lexi Snider Temperature Oral 36.5 Greta 11/29/2022 15:33:[address] [place] [address] Lexi Snider Peripheral Pulse Rate 70 bpm 11/29/2022 15:33:[address] [place] [address] Lexi Snider Systolic Blood Pressure 135 mm[Hg] 11/30/19 23 15:33:[address] [place] [address] Lexi Snider Diastolic Blood Pressure 95 mm[Hg] 023 15:33:[address] [place] [address] Lexi Snider Systolic Blood Pressure 130 mm[Hg] 11/30/19 23 12:29:[address] [place] [address] Lexi Snider Diastolic Blood Pressure 84 mm[Hg] 023 12:29:[address] [place] [address] Lexi Snider Temperature Temporal Artery 36.2 Greta 11/29/2022 12:29:[address] [place] [address] Lexi Snider Peripheral Pulse Rate 76 bpm 11/29/2022 12:29:[address] [place] [address] Lexi Snider SYSTOLIC BLOOD PRESSURE 140 10/28/19 25 15:44:15 [place] DIASTOLIC BLOOD PRESSURE 83 025 15:44:15 [place] PULSE OXIMETRY 97 10/27/2024 15:44:15 [place] WEIGHT 232 10/27/2024 15:44:15 [place] BMI 32 kg/m2 10/27/2024 15:44:15 [place] HEIGHT 71 10/27/2024 15:44:15 [place] TEMPERATURE 97.7 10/27/2024 15:44:15 [place] PULSE 61 10/27/2024 15:44:15 [place] RESPIRATION 19 10/27/2024 15:44:15 [place] SYSTOLIC BLOOD PRESSURE 129 04/29/20 24 13:09:35 [place] DIASTOLIC BLOOD PRESSURE 83 024 13:09:35 [place] PULSE OXIMETRY 97 04/29/2024 13:09:35 [place] WEIGHT 250 04/29/2024 13:09:35 [place] BMI 35 kg/m2 04/29/2024 13:09:35 [place] PULSE 65 04/29/2024 13:09:35 [place] Encounters Combined list of: 1) Encounters from Department of Veterans Affairs facilities going backup to the last 18 months, not all VA inpatient encounters are included; 2) Encounters from the Department of Defense facilities going backup to 280 months. Location Location Details Encounter Type Encounter Number Reason For Visit Attending Provider ADM Date DC Date Status Disposition Source [facility] David Hernandez [facility] Buchanan(IEP Hearing Conservat ion Exam) OUTPATIENT [id number] [id number] CEJA 04/01 [facility]ased [facility] Limitations [facility] [place](IEP Hearing Conserv ation Exam) [facility] David [facility] [place](IEP Optometry ) OUTPATIENT [id number] ALISA BROWNE 04/11 Released w/o Limitations [facility] David [facility] [place](IEP Optomet ry) Hugo Dennison([facility]) OUTPATIENT [id number] AUGUSTIN BAIRES 07/12 Released w/o Limitations Hugo Dennison([facility] ) [facility] Carlos Miguel([facility]) OUTPATIENT [id number] Notes Entered by: ALEXANDR MCKEON 29 May 2020 1105 ------- ------- ------- ------- -- BAILEE NEWBY 05/29 Released w/o Limitations [facility] [place]) [place]([facility]) OUTPATIENT [id number] Notes Entered by: ABBY SOLIS 30 May 2021 1448 ------- ------- ------- ------- -- post deploym ent AYLA LOERA 05/30 Released w/o Limitations [place] [place]([facility]) OUTPATIENT [id number] 5 Notes Entered by: JUAN PETERSON 31 May 2021 0756 ------- ------- ------- ------- -- MARIUSZ ANDERSON 05/31 Released w/o Limitations [place] [place]([facility] S[facility]) OUTPATIENT [id number] 6 HUNG Ratliff 05/31 Released w/o Limitations [place] [place]) [facility] De[facility]men t [facility]) OUTPATIENT [id number] 6 Notes Entered by: NGUYEN SANDOVAL 25 Jan 2022 0821 ------- ------- ------- ------- -- ANA BLUM 01/25 Released w/o Limitations [facility]) [facility]) OUTPATIENT [id number] F2F FLU LIKE SYMPTOM S USAR [phone] NIKOS SPEARS 01/28 Released w/o Limitations [facility]) [facility]) OUTPATIENT [id number] F2F Sore throat [facility]ZZ[facility]_CRAW ASHER, ZZZBM_DOUG LESA NISSA 01/29 Sick at Home/Quarter s [facility] [place] [place]([facility]) Theater Facility OUTPATIENT [id number] Theater Provider 03/19 Released w/o Limitations [facility] OUTPATIENT [id number] Theater Provider 04/08 Released w/o Limitations [facility] OUTPATIENT [id number] Theater Provider 04/11 Released w/o Limitations [facility] OUTPATIENT [id number] Theater Provider 06/29 Sick at Home/Quarter s [facility] OUTPATIENT [id number] Theater Provider 07/02 Released w/o Limitations [facility] OUTPATIENT [id number] Theater Provider 07/10 Released w/o Limitations Theater [facility] OUTPATIENT [id number] Theater Provider 07/16 Released w/o Limitations Theater [facility] OUTPATIENT [id number] Theater Provider 07/17 Released w/o Limitations Theater Fac[facility] y [facility] OUTPATIENT [id number] Theater Provider 07/30 Released w/o Limitations Theater [facility] OUTPATIENT [id number] 3 Theater Provider 07/31 Released w/o Limitations Theater [facility] OUTPATIENT [id number] 1 Theater Provider 08/29 Released w/o Limitations Theater [facility] OUTPATIENT [id number] Theater Provider 10/28 Released w/o Limitations Theater Fac[facility] y Theater Facility OUTPATIENT [id number] Theater Provider 11/04 Released w/o Limitations Theater Facilit y [facility] [place] [facility] Outpatient Encounter [id number] 07/02 [facility] [place] [facility] [place] [facility] Outpatient Encounter [id number] 07/11 [facility] [place] [facility] [place] [facility] OFF/OP EST MAY X REQ PHY/QHP [id number] Diagnos is: ICD-10- CM Z71.89 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 NGUYEN More 07/11 [facility] [place] [facility] [place] [facility] OFFICE O/P EST LOW 20-29 MIN [id number] Diagnos is: ICD-10- CM M54.50 Low back pain, unspeci fied REFUGIO MARIE 07/11 [facility] [place] [facility] [place] [facility] OFFICE O/P EST LOW 20-29 MIN [id number] Diagnos is: ICD-10- CM F43.23 Adjustm ent disorde r with mixed anxiety and depress ed mood CHRYSTAL LEXI Jennifer 07/18 [facility] [place] [facility] [place] [facility] CASE MANAGEMENT [id number] Diagnos is: ICD-10- CM F43.23 Adjustm ent disorde r with mixed anxiety and depress ed mood KRISTOPHER QUINONES 07/24 [facility] [place] [facility] [place] [facility] OFFICE O/P EST HI 40-54 MIN [id number] Diagnos is: ICD-10- CM F43.12 Post-tr aumatic stress disorde r, Susan Shields 08/04 [facility] [place] [facility] [place] [facility] COMMUNITY/ WORK REINTEGRAT ION [id number] Diagnos is: ICD-10- CM Z56.0 Unemplo yment, unspeci fied RAHUL EDWARDSARD, [facility] 08/26 [facility] [place] [facility] [facility] [place] En[facility] [id number] 08/27 [facility] [place] [facility] [facility] [place] En[facility] [id number] 08/27 [facility] [place] [facility] [facility] [place] COMMUNITY/ WORK REINTEGRAT ION [id number] Diagnos is: ICD-10- CM Z56.0 Unemplo reji, unspeci mehdi [facility] [place] [facility] [facility] [place] En[facility] [id number] Susan LONDONO 09/01 [facility] [place] [facility] [facility] [place] En[facility] [id number] 09/01 [facility] [place] [facility] [facility] [place] En[facility] [id number] 09/01 [facility] [place] [facility] [facility] [place] En[facility] [id number] JORGE MCKEON 09/01 [facility] [place] [facility] [facility] [place] Encounter [id number] 09/01 [facility] [place] [facility] [facility] [place] Encounter [id number] 09/01 [facility] [place] [facility] [place] En[facility] [id number] 09/02 [facility] [place] [facility] [place] OFF/OP EST DECEMBER X REQ PHY/QHP [id number] Diagnos is: ICD-10- CM I10 Essenti al (primar y) hyperte nsion CHRISTIANO,ER IC K 09/02 [place] [facility] En[facility] [id number] 09/02 [facility] [place] [facility] [place] En[facility] [id number] 09/03 [facility] [place] [facility] [place] [facility] En[facility] [id number] 09/25 [facility] [place] [facility] [place] [facility] OFFICE O/P EST MOD 30 MIN [id number] Diagnos is: ICD-10- CM F43.12 Post-tr aumatic stress disorde r, chronic Susan PRADO MORIS 09/29 [facility] [place] [facility] [facility] [place] En[facility] [id number] 10/08 [facility] [place] [facility] [facility] [place] En[facility] [id number] 10/15 [facility] [place] [facility] [facility] [place] OFFICE O/P EST MOD 30 MIN [id number] Diagnos is: ICD-10- CM F43.12 Post-tr aumatic stress disorde r, chronic Susan PRADO MORIS 10/23 [facility] [place] [place] En[facility] [id number] 10/28 [facility] [place] [facility] [place] En[facility] [id number] 11/18 [facility] [place] [facility] [facility] [place] [facility] Outpatient Encounter [id number] 11/24 [facility] [place] [facility] [place] OFFICE O/P EST MOD 30 MIN [id number] Diagnos is: ICD-10- CM I10 Essenti al (primar y) hyperte MARILOU Talbot 11/26 [place] [facility] [place] [facility] Outpatient Encounter [id number] 11/26 [facility] [place] [place] [facility] OFFICE O/P EST MOD 30 MIN [id number] Diagnos is: ICD-10- CM F43.12 Post-tr aumatic stress disorde r, chronic Susan PRADO MORIS 12/18 [facility] [place] [place] [facility] Outpatient Encounter [id number] 01/13 [facility] [place] [facility] [place] [facility] Outpatient Encounter [id number] 01/14 [facility] [place] [facility] [place] [facility] OFFICE O/P EST MOD 30 MIN [id number] Diagnos is: ICD-10- CM F43.12 Post-tr aumatic stress disorde r, chronic EVEM MORIS 01/15 [facility] [place] [facility] [place] [facility] OFFICE O/P EST MOD 30 MIN [id number] Diagnos is: ICD-10- CM F10.99 Alcohol use, unsp with unspeci fied alcohol -induce d Susan Preston 02/12 [facility] [place] En[facility] [id number] 02/18 [facility] [place] En[facility] [id number] 03/02 [facility] [place] [facility] Encounter [id number] 03/15 [facility] [place] [facility] Encounter [id number] 04/19 [facility] [place] [facility] [facility] Encounter [id number] 04/21 [facility] [place] [facility] OFFICE O/P EST MOD 30 MIN [id number] 1BY. 40 Diagnos is: ICD-10- CM M54.50 Low back pain, unspeci fied MARILOU CARRASCO 04/29 [place] [facility] [id number] 05/18 [facility] [place] [place] [place] [id number] Diagnos is: ICD-10- CM H90.3 Sensori neural hearing loss, bilLIAGN Mathis 05/18 [facility] [place] Out[facility] Encounter [id number] 05/19 [facility] [place] En[facility] [id number] 05/20 [facility] [place] En[facility] [id number] 05/21 [facility] [place] Encounter [id number] BRAULIO WAHL 08/02 [facility] [place] Encounter [id number] 08/31 [facility] [place] Out[facility] Encounter [id number] 08/31 [facility] [place] Encounter [id number]/21 [facility] [place] Encounter [id number] SUSAN SEPULVEDA YS 09/23 [facility] Encounter [id number] SUSAN SEPULVEDA YS 09/24 [facility] Encounter [id number] CECILIA DAVID 09/24 [facility] En[facility] [id number] 09/26 [facility] OFFICE O/P EST HI 40 MIN [id number] Diagnos is: ICD-10- CM F43.9 Reactio n to severe stress, unspeci fied Susan PRADO 10/04 [facility] En[facility] [id number] 10/20 [facility] Out[facility] Encounter [id number] 10/25 [facility] [place] [facility] OFFICE O/P EST MOD 30 MIN [id number] Diagnos is: ICD-10- CM E66.09 Other obesity due to excess calorie MARILOU Werner 10/27 [place] [facility] Out[facility] Encounter [id number] 10/27 [facility] Encounter [id number] 11/19 [facility] [place] Encounter [id number] CECILIA DAVID 11/22 [facility] Out[facility] Encounter [id number] SUSAN SEPULVEDA 11/26 [facility] Encounter [id number] CECILIA DAVID 11/26 [facility] En[facility] [id number] 12/15 [facility] Procedures Combined list of: 1) Procedures from Department of Veterans Affairs facilities going back up to thelast 18 months, not all [place] non-surgical procedures are included; 2) All procedures from the Department of Defense facilities. Procedure Procedure Type Code Date Perfomer Comments Sourc e PHYS/OTH QUALIFIED HEALTH PRE SALES SYSTEMS ENGINEER QUALIFIED,EDUCATIO N,TRAIN,LICENSURE/ REGULATION (WHEN APPLICABLE) EDUC SER RENDERED TO PATS IN A GRP SETTING (EG,,OBESI TY,OR DIABETIC INSTRUCT) [facility] COLLECTION OF VENOUS BLOOD BY VENIPUNCTURE [facility] INDIVIDUAL PSYCHOTHERAPY, INSIGHT ORIENTED, BEHAVIOR MODIFYING AND/OR SUPPORTIVE, IN AN OFFICE OR OUTPATIENT FACILITY, APPROXIMATELY 20 TO 30 MINUTES [id number] WITH THE PATIENT [facility] INFLUENZA VIRUS VACCINE, TRIVALENT (IIV3), SPLIT VIRUS, PRESERVATIVE FREE, 0.5 ML DOSAGE, FOR INTRAMUSCULAR USE [facility] PURE TONE AUDIOMETRY (THRESHOLD); AIR ONLY [facility] SCREENING TEST OF VISUAL ACUITY, QUANTITATIVE, BILATERAL [facility] INFLUENZA VIRUS VACCINE, QUADRIVALENT (IIV4), SPLIT VIRUS, PRESERVATIVE FREE, 0.5 ML DOSAGE, FOR INTRAMUSCULAR USE [facility] SCREENING TEST OF VISUAL ACUITY, QUANTITATIVE, BILATERAL [facility] EAR PROTECTOR ATTENUATION MEASUREMENTS [facility] HEPATITIS A AND HEPATITIS B VACCINE (HEPA-HEPB), ADULT DOSAGE, FOR INTRAMUSCULAR USE [facility] SCREENING TEST OF VISUAL ACUITY, QUANTITATIVE, BILATERAL [facility] PATIENT EDUCATION, NOT OTHERWISE CLASSIFIED, NON-PHYSICIAN PROVIDER, GROUP, PER SESSION [facility] VENIPUNCTURE,AGE 2 YEARS/OLDER,NECESS ITATING THE SKILL OF A PHYSICIAN/OTHER QUALIFIED HEALTH PRE SALES SYSTEMS ENGINEER (SEP PROC),FOR DIAGNOSTIC/THERAPE UTIC PURPOSES (NOT TO BE USED FOR ROUTINE VENIPUNCTURE) [facility] Physical Therapy: ___ Se ion Segments, 15 Minutes Each Physical Therapy: ___ Session Segments, 15 Minutes Each [id number] Theater Provider [facility] Physical Therapy: ___ Se ion Segments, 15 Minutes Each Physical Therapy: ___ Session Segments, 15 Minutes Each [id number] Theater Provider [facility] Threshold Audiogram (Pure Tone) Threshold Audiogram (Pure Tone) [id number] EDD WATTS III [facility] Analysis Of Computerized Data [facility] Analysis Of Computerized Data [id number] EDD WATTS III, Dr.-Supervised Group Educational Services EDD WATTS III [facility] ENT Services ENT Services [id number] EDD WATTS III Audiometry Group Testing Audiometry Group Testing [id number] EDD WATTS III [facility] Social Work Individual Outpatient Counseling 20-30 Minutes Social Work Individual Outpatient Counseling 20-30 Minutes [id number] MAKENNA CORONA [facility] Determination Of Refractive State Determination Of Refractive State [id number] ALISA BROWNE Screening Test Of Visual Acuity, Quantitative, Bilateral Screening Test Of Visual Acuity, Quantitative, Bilateral [id number] Provision Of Special Supplies -Supervised Services Provision Of Special Supplies [id number] PREETI ROWE [facility] Ear mold/insert, not disposable, any type PREETI ROWE [facility] Patient education, not otherwise cla ified, non-physician provider, group, per se ion PREETI [facility] [id number] PREETI ROWE [facility] Immunization Administration One Vaccine Immunization Administration One Vaccine [id number] BAIELE GREGORY [facility] Vaccines Viral Measles, Mumps and Rubella, Live Vaccines Viral Measles, Mumps and Rubella, Live 53747 MARIUSZ RODRIGES MMR; Series #: 3; 0.5 mL; SC; Left Arm; Mfg: [employer]; Lot: [id number]; VIS given (Carolyn: 03/30/2021). [facility] A e ment & Intervention Blood Pre ure Measured Assessment & Intervention Blood Pressure Measured 2000F MARIUSZ RODRIGES Venipuncture Venipuncture 13770 MARIUSZ RODRIGES [facility] Screening Test Of Visual Acuity, Quantitative, Bilateral Screening Test Of Visual Acuity, Quantitative, Bilateral [id number] ZAHIRA MARIUSZ [facility] [id number] PAULINA HUNTER Ear Protector Attenuation Measurements Ear Protector Attenuation Measurements [id number] PAULINA HUNTER No data available for this section Ambulato ry Pharmacy Social History Combined list of available smoking, tobacco, and other social history from [facility] facilities. Social History Type Response Date Comment [facility]ly [facility] e Tobacco smoking status [facility] VA-TOBACCO NEVER USED 04/29/2024 [place] History of tobacco use VA-TOBACCO NEVER USED 01/02/2023 [facility] [place] [facility] Sex Representation Male (finding) 12/12/2021 Un known Organization History of tobacco use VA-TOBACCO QUIT 1 TO < 5 YRS 09/20/2019 [facility] [place] [facility] History of tobacco use LIFETIME NON-TOBACCO USER 07/31/2017 [facility] [place] [facility] History of tobacco use LIFETIME NON-TOBACCO USER 09/04/2010 [facility] [place] [facility] This section is an empty social history section. [facility] Sexual Orientation Ambula tory Pharmacy Gender identity [...] Plan No data available for this section 12/30/2024 Ambulatory Pharmacy Functional Status Combined list of recent functional and cognitive assessments recorded at [facility] Functional [place]bot Measurement (FIM) Scale: 1 = Total Assistance (Subject = 0% +), 2 = Maximal Assistance (Subject = 25% +), 3 = Moderate Assistance (Subject = 50% +), 4 = Minimal Assistance (Subject = 75% +), 5 = Supervision, 6 = Modified Talbot (Device), 7 = Complete Talbot (Timely, Safely). Assessment Date/Time Source Assessment Type Assessment Skill Assessment Score Assessment Details No data available for this section
== END 2024-12-30 15:42 | disposition home or self-care (01) ==
PROVIDERS: Referring Provider Physician Assistant Surgical; Visit Provider Physician Assistant Surgical
DX: Z98.84 Bariatric surgery status (principal)
CPT/HCPCS: 99024

== ENCOUNTER → 2024-12-30 15:17 | Outpatient (BNVA) | payer OTHER, SELFPAY | PROVIDERS: Visit Provider Physician Assistant Surgical | DX: Z48.815 Encounter for surgical aftercare following surgery on the digestive system (principal); Z98.84 Bariatric surgery status | CPT/HCPCS: 99212 ==

== ENCOUNTER 2024-12-31 14:30 | Outpatient (AMB) | payer OTHER, SELFPAY ==
--- NOTE | 2024-12-31 14:29 | A.OFFWM_ITS ---
Intake Intake Visit Reasons: TV PO LSG 12/23/24 Allergies No Known Allergies Allergy (Verified 12/30/24 15:21) PFSH Medical History (Updated 12/30/24 @ 00:00 by Catherine Berry) Incisional pain Hypertension Anxiety Depression BMI 32.0-32.9,adult Obesity Surgical History (Updated 12/30/24 @ 15:21 by Qing Dobson CMA) S/P laparoscopic sleeve gastrectomy History of esophagogastroduodenoscopy (EGD) (11/26/24) Family History Mother Diabetes Social History Household Members: Spouse Housing: House Are you a primary morning caregiver to a significant other at home: No Do you presently have visiting nurse or other home services: No Alcohol intake: current Alcohol intake frequency: does not drink Patient Tobacco Use Status: Never used Tobacco e-Cigarette/Vaping Use: Never Used Behavioral Health Assessment Weight Management Therapy Therapy Notes Details Subjective: The patient underwent bariatric surgery on 12/23/2024. She reports a smooth recovery with no pain and mood within normal limits. She states she is sleeping well and denies any current concerns. The patient declined follow-up behavioral health visits. Objective: The patient presented for a post-operative follow-up. Discussion focused on her functioning and adjustment to post-surgical lifestyle changes. The importance of ongoing communication and adherence to medical and behavioral recommendations was emphasized. Assessment/Response: * Mental Status: Within normal limits (WNL) * Risks Identified: None reported or observed Food/Weight/Diet Expectations of change 12/30/2024 weight PO: 188Lbs Target weight goal: Not sure. Meal plan: Shakes only. 40oz (3 shakes and water). Communication with provider: Yes. Assessment & Plan Assessment & Plan (1) Trauma and stressor-related disorder: Code(s): F43.9 - Reaction to severe stress, unspecified Plan Encouraged to maintain open communication with her healthcare providers. No further behavioral health appointments scheduled at this time. Telehealth Telehealth [facility] Location of provider rendering services: other Location of patient: address on file Patient Identification confirmed using: Name, : Yes Telehealth method: voice only Patient verbally consented to treatment: Yes Patient verbally consented to billing insurance company: Yes Patient informed of any privacy concerns related to visit: Yes Coding Level of Care Code Established Pt Tele Psytx 30 mins (37568) Patient Type Established Diagnoses Trauma and stressor-related disorder F43.9 Time Spent (min) 20
--- OUTSIDE RECORDS SUMMARY | 2024-12-31 14:46 | XMS_ITS | Continuity of Care Document ---
Author Name [facility] Organization [facility] Care Team Providers Care Carton Wrapper Name Role Phone [facility] Unavailable Unavailable Problems Combined list of problems [...] tendinitis, right knee Inactive 04/10/20 22 Condition [facility] Encounter for immunization Active 03/20/20 22 Condition [facility] visit for: services physical Active Condition DoD visit for: ears / hearing exam Active Condition DoD visit for: examination of subpopulation Inactive Condition DoD visit for: services physical accession Active Condition DoD visit for: ears, nose, and throat exam Inactive Condition DoD Adjustment disorder with mixed anxiety and depressed mood (SNOMED CT [id number]) Active Condition [facility] Chronic low back pain Active Condition [facility] Essential hypertension Active Condition [facility] Exposure to potentially hazardous substance Active Condition Oct 23, 2023 Entered By: LOUIS GLYNN EN A Comment: Connect Snomed Code to ICD 10 Code refer to note dated 07/18/23 [facility] Exposure to Potentially Hazardous Substance ([facility] [id number]) Active Condition [facility]ULE[facility]A K[facility]OUR[facility] History of surgery Active Condition Oct 17, 2011 Entered By: LEXI KNOX Comment: -- [facility] in [place] [facility] History of [...] obesity due to excess calories Active Diagnosis [facility] Diagnosis: ICD-10-CM F43.9 Reaction to severe stress, unspecified [facility] Diagnosis: ICD-10-CM H90.3 Sensorineural hearing loss, bilateral Active Diagnosis [facility] Diagnosis: ICD-10-CM M54.50 Low back pain, unspecified Active Diagnosis [facility] [place] Diagnosis: ICD-10-CM F10.99 Alcohol use, unsp with unspecified alcohol-induced disorder Active Diagnosis [facility] Diagnosis: ICD-10-CM F43.12 Post-traumatic stress disorder, chronic Active Diagnosis [facility] Diagnosis: ICD-10-CM I10 Essential (primary) hypertension Active Diagnosis [facility] [place] Diagnosis: ICD-10-CM Z56.0 Unemployment, unspecified [facility] Diagnosis: ICD-10-CM F43.23 Adjustment disorder with mixed anxiety and depressed mood Active [facility] Diagnosis: ICD-10-CM Z71.89 Other specified counseling Active Diagnosis [facility] Medications Combined list of outpatient medications [...] FOR BLOOD PRESSURE /HEART ORAL ACTIVE 04/23/2025 [id number] Briseida CARRASCO [address] [facility] IELD ATENOLOL 25MG TAB TAKE ONE-HALF OF A TABLET BY MOUTH ONCE DAILY FOR BLOOD PRESSURE /HEART ORAL DISCONT INUED 09/02/2024 [id number] LEXI JARRELL 2023 15 [facility] azithromyci n 250 mg oral tablet 0 total refill(s ) Ordered 2021 No Facilit y Access BUPROPION HCL 150MG 24HR TAB,SA TAKE ONE TABLET BY MOUTH ONCE DAILY ORAL DISCONT INUED (EDIT) 12/19/2024 [id number] CASH PRADO 2023 60 [facility] BUPROPION HCL 150MG 24HR TAB,SA TAKE ONE TABLET BY MOUTH ONCE DAILY ORAL DISCONT INUED 09/29/2024 [id number] CASH PRADO 2023 [facility] BUPROPION HCL 300MG 24HR TAB,SA TAKE ONE TABLET BY MOUTH EVERY MORNING ORAL DISCONT INUED BY PROVIDE R 02/13/2025 [id number] CASH PRADO 2023 90 [facility] FLUOXETINE HCL 10MG CAP TAKE ONE CAPSULE BY MOUTH ONCE DAILY FOR 7 DAYS, THEN TAKE TWO CAPSULES ONCE DAILY FOR DEPRESSI ON AND ANXIETY ORAL DISCONT INUED (EDIT) 11/23/2024 [id number] 5 CASH PRADO 2024 93 [facility] FLUOXETINE HCL 20MG CAP TAKE ONE CAPSULE BY MOUTH ONCE DAILY FOR DEPRESSI ON AND ANXIETY ORAL ACTIVE 11/11/2025 [id number] CASH PRADO 2024 30 [facility] HYDROCORTIS ONE 2.5% CREAM,TOP APPLY A THIN LAYER TOPICALL Y TWICE DAILY FOR ATOPIC DERMATIT IS TOPICA L 11/26/2024 [id number] Briseida CARRASCO 2024 90 [place] HYDROCORTIS ONE ACETATE 1%/PRAMOXIN E HCL 1% AEROSOL,RTL INSERT 1 APPLICAT ORFUL RECTALLY THREE TIMES DAILY NEEDED FOR HEMORRHO IDS RECTAL ACTIVE 04/30/2025 [id number] 5 Briseida CARRASCO 2023 20 [place] IBUPROFEN 600MG TAB TAKE ONE TABLET BY MOUTH EVERY 8 HOURS NEEDED TAKE WITH FOOD ORAL ACTIVE 10/28/2025 [id number] 5 Briseida CARRASCO 2024 500 [place] [...] AT BEDTIME NEEDED SLEEP ORAL ACTIVE 01/02/2025 [id number] 5 CASH PRADO 2024 120 [facility] NALTREXONE (EQV-REVIA) 50MG TAB TAKE ONE TABLET BY MOUTH ONCE DAILY CRAVINGS ORAL DISCONT INUED BY PROVIDE R 02/13/2025 [id number] CASH PRADO 2023 90 [facility] NALTREXONE (EQV-REVIA) 50MG TAB TAKE ONE TABLET BY MOUTH ONCE DAILY FOR ALCOHOLI SM ORAL DISCONT INUED (EDIT) 12/19/2024 [id number] EVE, CASH 2023 30 [facility] TOPIRAMATE 100MG TAB TAKE ONE TABLET BY MOUTH ONCE DAILY WEIGHT MANAGEME NT ORAL SUSPEND ED 11/20/2025 [id number] 5 Briseida CARRASCO 2024 90 [place] TOPIRAMATE 25MG TAB TAKE ONE TABLET BY MOUTH ONCE DAILY FOR 1 WEEK, THEN TAKE TWO TABLETS ONCE DAILY ORAL DISCONT INUED (EDIT) 11/26/2024 [id number] 5 Briseida CARRASCO 2024 53 [place] TRAZODONE HCL 100MG TAB TAKE ONE-HALF TABLET BY MOUTH AT BEDTIME FOR SLEEP ORAL DISCONT INUED BY PROVIDE R 12/19/2024 [id number] 4 CASH PRADO 2023 45 [facility] TRAZODONE HCL 100MG TAB TAKE ONE-HALF TABLET BY MOUTH AT BEDTIME FOR 7 DAYS, THEN TAKE ONE TABLET AT BEDTIME FOR SLEEP ORAL DISCONT INUED (EDIT) 08/05/2024 [id number] CASH PRADO 2022 60 [facility] Allergies, Adverse Reactions, Alerts Combined list of allergies from Department of Defense and Veterans Affairs facilities. It does not include entries that were removed or entered in error. Substance Category Reaction Severity Reaction type Status Date Reported Comments Source No Known Allergies Drug allergy (disorder) active 12/07/2022 [facility] [place] Immunizations Combined list of available immunizations from the Department of Defense and Veterans Affairs facilities. Immunization Series Date Given Administered By Site Reaction Lot Number CVX Code Drug Linseed Oil Order Filler Status Comments Source TDAP 2023 SHERMAN ALVARADO RIGHT DELTO ID [id number] complet ed [facility] [place], [facility] IELD INFLUENZA, UNSPECIFIED FORMULATION 2022 88 complet ed HISTORICA L INFORMATI ON - FROM PATIENT'S RECALL, [facility] anthrax vaccine 1 2021 ERICKA PERKINS [id number] [facility] complet ed anthrax vaccine DoD SARS-COV-2 (COVID-19) vaccine, mRNA, spike protein, LNP, preservative free, 30 mcg/0.3mL dose 3 2020 [id number] Transcribed (TRS) complet ed SARS-COV- 2 (COVID-19 ) vaccine, mRNA, spike protein, LNP, preservat kenn free, 30 mcg/0.3mL dose DoD Influenza, injectable, quadrivalent, preservative free 1 2020 [id number] Transcribed (TRS) complet ed Influenza , injectabl e, quadrival ent, preservat kenn free DoD measles/mumps /rubella virus vaccine [facility] [id number] [employer] complet ed measles/m umps/rube lla virus vaccine 05/31/21 Given Ambulat ory Pharmac y measles, mumps and rubella virus vaccine 3 2020 NICHOLASJUAN COBURN E [id number] Merck (MSD) complet ed measles, mumps and rubella virus vaccine DoD COVID Vaccine Pfizer 2020 Sean Arm [id number] PFIZER complet ed COVID Vaccine Pfizer 12/29/20 Given Ambulat ory Pharmac y COVID-19, mRNA, LNP-S, PF, 30 mcg/0.3 mL dose 2020 [employer] [place] (PFR) Not Given COVID-19, mRNA, LNP-S, PF, 30 mcg/0.3 mL dose DoD SARS-COV-2 (COVID-19) vaccine, mRNA, spike protein, LNP, preservative free, 30 mcg/0.3mL dose 2 2020 Unknown, Provider [id number] [employer] (PFR) complet ed SARS-COV- 2 (COVID-19 ) vaccine, mRNA, spike protein, LNP, preservat kenn free, 30 mcg/0.3mL dose DoD COVID Vaccine Pfizer 2020 Osiris[employer] t Arm [id number] PFIZER complet ed COVID Vaccine Pfizer 12/03/20 Given Ambulat ory Pharmac y COVID-19, mRNA, LNP-S, PF, 30 mcg/0.3 mL dose 2020 ASHA [employer] [facility] (PFR) Not Given COVID-19, mRNA, LNP-S, PF, 30 mcg/0.3 mL dose DoD SARS-COV-2 (COVID-19) vaccine, mRNA, spike protein, LNP, preservative free, 30 mcg/0.3mL dose 1 2020 Unknown, Provider [id number] [employer] (PFR) complet ed SARS-COV- 2 (COVID-19 ) vaccine, mRNA, spike protein, LNP, preservat kenn free, 30 mcg/0.3mL dose DoD influenza, injectable, quadrivalent 2019 Sean Arm [id number] 158 [employer] complet ed influenza , injectabl e, quadrival ent 05/29/20 Given Ambulat ory Pharmac y influenza, injectable, quadrivalent, contains preservative 1 2019 ANA TINAJERO [id number] 158 [employer] (SEQ) complet ed influenza , injectabl e, quadrival ent, contains preservat kenn DoD influenza, injectable, quadrivalent 2019 [id number] 350 158 [employer] complet ed influenza , injectabl e, quadrival ent 10/30/19 Given Ambulat ory Pharmac y influenza, injectable, quadrivalent, contains preservative 1 2019 [id number] 350 158 [employer] (SEQ) complet ed influenza [...] vaccine, adsorbed DoD influenza, seasonal, injectable-pf 2017 [id number] 140 [employer] complet ed influenza , seasonal, injectabl e-pf 06/13/18 Given Ambulat ory Pharmac y Influenza, seasonal, injectable, preservative free 1 2017 [id number] 140 [employer] (SEQ) comple t ed Influenza , seasonal, injectabl e, preservat kenn free DoD INFLUENZA, SEASONAL, INJECTABLE 2016 141 complet ed [place] influenza, seasonal, injectable-pf 2016 [id number] 140 [employer] complet ed influenza , seasonal, injectabl e-pf 06/20/17 Given Ambulat ory Pharmac y Influenza, seasonal, injectable, preservative free 1 2016 [id number] 140 [employer] (SEQ) comple t ed Influenza , seasonal, injectabl e, preservat kenn free DoD influenza, seasonal, injectable-pf 2015 [id number] 140 CSL Behring complet ed influenza , seasonal, injectabl e-pf 07/27/16 Given Ambulat ory Pharmac y Influenza, seasonal, injectable, preservative free 1 2015 [id number] 140 CSL [employer]. (CSL) complet ed Influenza , seasonal, injectabl e, preservat kenn free DoD influenza virus vaccine, live 2011 [id number] 111 Medimmune Inc comple t ed influenza virus vaccine, live 06/06/12 Given Ambulat ory Pharmac y influenza virus vaccine, live, attenuated, for intranasal use 1 2011 [id number] 111 MedImmune, Inc. (MED) complet ed influenza virus vaccine, live, attenuate d, for intranasa l use DoD FLU,3 YRS (HISTORICAL) 2010 88 complet ed [facility] influenza virus vaccine, live 2010 [id number] 111 Medimmune Inc comple t ed influenza virus vaccine, live 06/30/11 Given Ambulat ory Pharmac y influenza virus vaccine, live, attenuated, for intranasal use 1 2010 [id number] 111 MedImmune[employer] Inc. (MED) complet ed influenza virus vaccine, live, attenuate d, for intranasa l use DoD FLU,3 YRS (HISTORICAL) 2010 88 complet ed Site: Right Deltoid [facility] tuberculin purified protein derivative 2008 UNKNOWN 96 Unknown complet ed tuberculi n purified protein derivativ e 06/14/09 Given Ambulat ory Pharmac y influenza virus vaccine,split 2008 [id number] 15 sanofi pasteur complet ed influenza virus vaccine,s plit 06/14/09 Given Ambulat ory Pharmac y influenza virus vaccine, split virus (incl. purified surface antigen)-reti red CODE 1 2008 [id number] 15 Sanofi Pasteur ([facility]) complet ed influenza [...] y tetanus, diphtheria, acellular pertu is 2007 [id number] 115 Unknown complet ed tetanus, diphtheri a, [...] acellular pertu is vaccine, adsorbed 1 2007 [id number] 115 Unknown (UNK) comple t ed tetanus [...] A-hepatitis B vaccine 2005 [id number] 104 [employer] complet ed hepatitis A-hepatit is B vaccine 04/02/06 Given Ambulat ory Pharmac y hepatitis A and hepatitis B vaccine 2 2005 [id number] 1AA 104 [facility] (SKB) complet ed hepatitis A and hepatitis B vaccine DoD tuberculin purified protein derivative 2005 [id number] 96 [facility] complet ed tuberculi n purified protein derivativ e 03/28/06 Given Ambulat ory Pharmac y tuberculin purified protein derivative 2003 [id number] 96 Unknown complet ed tuberculi n purified protein derivativ e 02/03/04 Given Ambulat ory Pharmac y meningococcal polysaccharid e (MPSV4) 2003 [id number] 32 Unknown complet ed meningoco ccal polysacch aride (MPSV4) 02/03/04 Given Ambulat ory Pharmac y poliovirus vaccine, inactivated 2003 [id number] 10 sanofi pasteur complet ed polioviru s vaccine, inactivat ed 02/03/04 Given Ambulat ory Pharmac y tetanus-dipht h toxoids (Td) adult/adol 2003 [id number] 09 sanofi pasteur complet ed tetanus-d iphth toxoids (Td) adult/ado l 02/03/04 Given Ambulat ory Pharmac y measles/mumps /rubella virus vaccine 2003 [id number] 03 Merck & Company Inc complet ed measles/m umps/rube lla virus vaccine 02/03/04 Given Ambulat ory Pharmac y influenza virus vaccine,split 2003 [id number] 15 Unknown complet ed influenza virus vaccine,s plit 02/03/04 Given Ambulat ory Pharmac y measles, mumps and rubella virus vaccine 1 2003 [id number] 03 Merck (MSD) complet ed measles, mumps and rubella virus vaccine DoD tetanus and diphtheria toxoids, adsorbed, preservative free, for adult use (2 Lf of tetanus toxoid and 2 Lf of diphtheria toxoid) 1 2003 [id number] 09 Sanofi Pasteur ([facility]) complet ed tetanus and diphtheri a toxoids, adsorbed, preservat kenn free, for adult use (2 Lf of tetanus toxoid and 2 Lf of diphtheri a toxoid) DoD poliovirus vaccine, inactivated 1 2003 [id number] 10 Sanofi Pasteur ([facility]) complet ed polioviru s vaccine, inactivat ed DoD influenza virus vaccine, split virus (incl. purified surface antigen)-reti red CODE 1 2003 [id number] 15 Unknown (UNK) comple t ed influenza virus vaccine, split virus (incl. purified surface antigen)- retired CODE DoD meningococcal polysaccharid e vaccine (MPSV4) 1 2003 [id number] 32 Unknown (UNK) comple t ed meningoco ccal polysacch aride vaccine (MPSV4) DoD hepatitis A-hepatitis B vaccine 2003 [id number] 104 Unknown complet ed hepatitis A-hepatit is B vaccine 02/02/04 Given Ambulat ory Pharmac y hepatitis A and hepatitis B vaccine 1 2003 [id number] 104 Unknown (UNK) complet ed hepatitis [...] Mar 19, 2024 09:32 AM Reporting Lab: [address] [address] Performing Lab: [place] [address] [facility] [address] [facility]N [facility] BASIC METABOLI C PANEL (fasting ) GLUCOSE [MASS/VOLU ME] IN SERUM OR PLASMA 106 mg/dL 65 - 100 03/19 H Specimen Type: SERUM No comment entered. Ordering Provider: HUMERA CARRASCO Report Released Date/Time: Mar 19, 2024 09:32 AM Reporting Lab: [facility]ITALRST. [facility]INCENT[facility]OS[facility]ITALTRN [facility] SYSTEMUSENYU [facility] [address] [facility] [address] Performing Lab: [facility]ITALRST. VINCENT'S HOSPITALTRN [facility] [address]USE[address] [address] [facility]USE [facility] BASIC METABOLI C PANEL (fasting ) SODIUM [MOLES/VOL UME] IN SERUM OR PLASMA 138 mmol/L 135 - 145 03/19 Specimen Type: SERUM No comment entered. Ordering Provider: HUMERA CARRASCO Report Released Date/Time: Mar 19, 2024 09:32 AM Reporting Lab: [facility]ITALRST. VINCENT'[facility] HOSPITALTRN [facility] [address]USE[address] [address] Performing Lab: [facility]ITALRST. VINCENT'[facility] HOSPITALTRN [facility] [address]USE[address] [address] [facility]USE [facility] BASIC METABOLI C PANEL (fasting ) POTASSIUM [MOLES/VOL UME] IN SERUM OR PLASMA 4.3 mmol/L 3.5 - 5.0 03/19 Specimen Type: SERUM No comment entered. Ordering Provider: HUMERA CARRASCO Report Released Date/Time: Mar 19, 2024 09:32 AM Reporting Lab: [facility] HOSPITALRL TRN [facility] [address]USE[address] [address] Performing Lab: [facility]OS[facility]ITALRL TRN [facility]USE[address] [address] [facility] BASIC METABOLI C PANEL (fasting ) CHLORIDE [MOLES/VOL UME] IN SERUM OR PLASMA 106 mmol/L 100 - 110 03/19 Specimen Type: SERUM No comment entered. Ordering Provider: HUMERA CARRASCO Report Released Date/Time: Mar 19, 2024 09:32 AM Reporting Lab: [facility] [place] [facility] [address] [facility] [address] Performing Lab: [facility] SYSTEMUSETS [facility] [address] [facility] [address] [facility] HOSPITALRL WSTRN [facility] SYSTEMUSE [facility] BASIC METABOLI C PANEL (fasting ) CARBON DIOXIDE, TOTAL [MOLES/VOL UME] IN SERUM OR PLASMA 25 meq/L 20 - 30 03/19 Specimen Type: SERUM No comment entered. Ordering Provider: HUMERA CARRASCO Report Released Date/Time: Mar 19, 2024 09:32 AM Reporting Lab: [facility] HOSPITALRL WSTRN [facility] SYSTEMUSETS [facility] [address] [facility] [address] Performing Lab: [facility] HOSPITALRL TRN [facility] SYSTEMUSENYU [facility] [address] [facility] [address] [facility]OSPITALRCHOCTAW GENERAL HOSPITALN [facility]USE [facility] BASIC METABOLI C PANEL (fasting ) CREATININE [MASS/VOLU ME] IN SERUM OR PLASMA 0.92 mg/dL 0.50 - 1.40 03/19 Specimen Type: SERUM No comment entered. Ordering Provider: HUMERA CARRASCO Report Released Date/Time: Mar 19, 2024 09:32 AM Reporting Lab: [facility] HOSPITALRL TRN [facility] SYSTEMUSETS [facility] [address] [facility] [address] Performing Lab: [facility] HOSPITALRL WSTRN [facility] [address]USE[address] [address] [facility] HOSPITALRL [facility]N [facility]USE [facility] BASIC METABOLI C PANEL (fasting ) GLOMERULAR FILTRATION RATE/1.73 SQ M.PREDICTE D [VOLUME RATE/AREA] IN SERUM, PLASMA OR BLOOD BY CREATININE -BASED FORMULA (CKD-EPI 2020) >90mL/mi n 60 03/19 Specimen Type: SERUM No comment entered. Ordering Provider: HUMERA CARRASCO Report Released Date/Time: Mar 19, 2024 09:32 AM Reporting Lab: [facility] [place] [facility] [address] [facility] [address] Performing Lab: [facility] HOSPITALRL WSTRN [facility]USE[address] [address] [facility] HOSPITALRL TRN [facility] SYSTEMUSE [facility] CBC LEUKOCYTES [#/VOLUME] IN BLOOD BY AUTOMATED COUNT 5.92 10*3/uL 4.50 - 11.00 03/19 Specimen Type: BLOOD No comment entered. Ordering Provider: HUMERA CARRASCO Report Released Date/Time: Mar 19, 2024 09:32 AM Reporting Lab: [facility] [place] [facility] [address] [facility] [address] Performing Lab: [facility] [place] [facility] [address] [facility] [address] [facility] CBC ERYTHROCYT ES [#/VOLUME] IN BLOOD BY AUTOMATED COUNT 5.62 10*6/uL 4.23 - 5.66 03/19 Specimen Type: BLOOD No comment entered. Ordering Provider: HUMERA CARRASCO Report Released Date/Time: Mar 19, 2024 09:32 AM Reporting Lab: [facility] [place] [address] [address] Performing Lab: [facility] [place] [facility] [address] [facility] [address] [facility] [facility] CBC HEMOGLOBIN [MASS/VOLU ME] IN BLOOD 16.5 g/dL 12.8 - 17 03/19 Specimen Type: BLOOD No comment entered. Ordering Provider: HUMERA CARRASCO Report Released Date/Time: Mar 19, 2024 09:32 AM Reporting Lab: [facility] [place] [address] [address] Performing Lab: [facility] [place] [facility] [address] [facility] [address] [facility] CBC HEMATOCRIT [VOLUME FRACTION] OF BLOOD BY AUTOMATED COUNT 46.9 39.2 - 50.4 03/19 Specimen Type: BLOOD No comment entered. Ordering Provider: HUMERA CARRASCO Report Released Date/Time: Mar 19, 2024 09:32 AM Reporting Lab: [facility] [place] [facility] [address] [facility] [address] Performing Lab: [facility] [place] [facility] [address] [facility] [address] [facility] [facility] CBC MCV [ENTITIC VOLUME] BY AUTOMATED COUNT 83.5 fL 82 - 99 03/19 Specimen Type: BLOOD No comment entered. Ordering Provider: HUMERA CARRASCO Report Released Date/Time: Mar 19, 2024 09:32 AM Reporting Lab: [facility] [place] [facility] [address] [facility] [address] Performing Lab: [facility] [place] [facility] [address] [facility] [address] [facility] [facility] CBC MCHC [MASS/VOLU ME] BY AUTOMATED COUNT 35.2 g/dL 30.8 - 35.1 03/19 H Specimen Type: BLOOD No comment entered. Ordering Provider: HUMERA CARRASCO Report Released Date/Time: Mar 19, 2024 09:32 AM Reporting Lab: [facility] [place] [address] [address] Performing Lab: [facility] [place] [address] [address] [facility] [place] [facility] CBC PLATELETS [#/VOLUME] IN BLOOD BY AUTOMATED COUNT 179 10*3/uL 140 - 360 03/19 Specimen Type: BLOOD No comment entered. Ordering Provider: HUMERA CARRASCO Report Released Date/Time: Mar 19, 2024 09:32 AM Reporting Lab: [facility] [place] [address] [address] Performing Lab: [facility] [place] [address] [address] [facility] [facility] CBC ERYTHROCYT E DISTRIBUTI ON WIDTH [RATIO] BY AUTOMATED COUNT 11.9 12.0 - 16.0 03/19 L Specimen Type: BLOOD No comment entered. Ordering Provider: HUMERA CARRASCO Report Released Date/Time: Mar 19, 2024 09:32 AM Reporting Lab: [facility] [place] [address] [address] Performing Lab: [facility] [address] [facility] [address] [facility] CBC MCH [ENTITIC MASS] BY AUTOMATED COUNT 29.4 pg 26.2 - 32.6 03/19 Specimen Type: BLOOD No comment entered. Ordering Provider: HUMERA CARRASCO Report Released Date/Time: Mar 19, 2024 09:32 AM Reporting Lab: [facility]OSPITALRCHOCTAW GENERAL HOSPITALN [facility] [address] [facility] [address] Performing Lab: [facility]OSPITALRCHOCTAW GENERAL HOSPITALN [facility] [address] [facility] [address] [facility]N [facility]USE [facility] HEMOGLOB IN A1C PANEL HEMOGLOBIN A1C/HEMOGL [...] 09:32 AM Reporting Lab: [facility]PITALRCHOCTAW [facility]AL HOSPITALN [facility] [address] [facility] [address] Performing Lab: [facility] [address] [address] [facility] LIPID PANEL FASTING CHOLESTERO L [MASS/VOLU ME] IN SERUM OR PLASMA 203 mg/dL 03/19 H Specimen Type: SERUM No comment entered. Ordering Provider: HUMERA CARRASCO Report Released Date/Time: Mar 19, 2024 09:32 AM Reporting Lab: [facility] [address] [facility] [address] Performing Lab: [facility] [address] [address] [facility] LIPID PANEL FASTING TRIGLYCERI DE [MASS/VOLU ME] IN SERUM OR PLASMA 63 mg/dL 0 - 150 03/19 Specimen Type: SERUM No comment entered. Ordering Provider: HUMERA CARRASCO Report Released Date/Time: Mar 19, 2024 09:32 AM Reporting Lab: [facility] [place] [facility] [address] [facility] [address] Performing Lab: [facility] [place] [facility] [address] [facility] [address] [place] [facility] [place] [facility] LIPID PANEL FASTING CHOLESTERO L IN LDL [MASS/VOLU ME] IN SERUM OR PLASMA BY CALCULATIO N 137 mg/dL 0 - 129 03/19 H Specimen Type: SERUM No comment entered. Ordering Provider: HUMERA CARRASCO Report Released Date/Time: Mar 19, 2024 09:32 AM Reporting Lab: [facility] [address] [address] Performing Lab: [facility] [address] [facility] [address] [facility] LIPID PANEL FASTING CHOLESTERO L.TOTAL/CH OLESTEROL IN HDL [MASS RATIO] IN SERUM OR PLASMA 3.8 03/19 Specimen Type: SERUM No comment entered. Ordering Provider: HUMERA CARRASCO Report Released Date/Time: Mar 19, 2024 09:32 AM Reporting Lab: [facility] [place] [address] [address] Performing Lab: [facility] [place] [facility] [address] [facility] [address] [facility] LIPID PANEL FASTING CHOLESTERO L IN HDL [MASS/VOLU ME] IN SERUM OR PLASMA 53 mg/dL 40 - 60 03/19 Specimen Type: SERUM No comment entered. Ordering Provider: HUMERA CARRASCO Report Released Date/Time: Mar 19, 2024 09:32 AM Reporting Lab: [facility] [place] [facility] [address] [facility] [address] Performing Lab: [place] [facility] [place] [facility] [address] [facility] [address] [place] [facility] [place] [facility] LIVER FUNCTION PROTEIN [MASS/VOLU ME] IN SERUM OR PLASMA 6.6 g/dL 6.0 - 8.3 03/19 Specimen Type: SERUM No comment entered. Ordering Provider: HUMERA CARRASCO Report Released Date/Time: Mar 19, 2024 09:32 AM Reporting Lab: [facility] [place] [facility] [address] [facility] [address] Performing Lab: [facility] [place] [facility] [address] [facility] [address] [place] [facility] [facility] LIVER FUNCTION ALBUMIN [MASS/VOLU ME] IN SERUM OR PLASMA 3.9 g/dL 3.5 - 5.0 03/19 Specimen Type: SERUM No comment entered. Ordering Provider: HUMERA CARRASCO Report Released Date/Time: Mar 19, 2024 09:32 AM Reporting Lab: [facility] [place] [facility] [address] [facility] [address] Performing Lab: [facility] [place] [address] [address] [facility] [place] [facility] LIVER FUNCTION ALKALINE PHOSPHATAS E [ENZYMATIC ACTIVITY/V OLUME] IN SERUM OR PLASMA 51 U/L 40 - 150 03/19 Specimen Type: SERUM No comment entered. Ordering Provider: HUMERA CARRASCO Report Released Date/Time: Mar 19, 2024 09:32 AM Reporting Lab: [facility] [place] [facility] [address] [facility] [address] Performing Lab: [facility] [place] [facility] [address] [facility] [address] [facility] [place] [facility] LIVER FUNCTION ASPARTATE AMINOTRANS FERASE [ENZYMATIC ACTIVITY/V OLUME] IN SERUM OR PLASMA 16 U/L 5 - 34 03/19 Specimen Type: SERUM No comment entered. Ordering Provider: HUMERA CARRASCO Report Released Date/Time: Mar 19, 2024 09:32 AM Reporting Lab: [facility] [place] [facility] [address] [facility] [address] Performing Lab: [facility] [place] [facility] [address] [facility] [address] [facility] [place] [facility] LIVER FUNCTION ALANINE AMINOTRANS FERASE [ENZYMATIC ACTIVITY/V OLUME] IN SERUM OR PLASMA 35 U/L 03/19 Specimen Type: SERUM No comment entered. Ordering Provider: HUMERA CARRASCO Report Released Date/Time: Mar 19, 2024 09:32 AM Reporting Lab: [facility] [place] [facility] [address] [facility] [address] Performing Lab: [facility] [facility] [address] [facility] [address] [place] [facility] [place] [facility] LIVER FUNCTION BILIRUBIN. TOTAL [MASS/VOLU ME] IN SERUM OR PLASMA 0.5 mg/dL 0.2 - 1.2 03/19 Specimen Type: SERUM No comment entered. Ordering Provider: HUMERA CARRASCO Report Released Date/Time: Mar 19, 2024 09:32 AM Reporting Lab: [facility] [place] [facility] [address] [facility] [address] Performing Lab: [facility] [place] [address] [address] [place] [facility] [place] [facility] TSH THYROTROPI N [UNITS/VOL UME] IN SERUM OR PLASMA 0.99 u[IU]/mL 0.35 - 5.00 03/19 Specimen Type: SERUM No comment entered. Ordering Provider: HUMERA CARRASCO Report Released Date/Time: Mar 19, 2024 09:32 AM Reporting Lab: [facility] [place] [address] [address] Performing Lab: [place] [facility] [place] [address] [address] [facility] [place] [facility] Infectio us Disease HIV-1/2 AG/AB 4G CDD LC NEGATIVE 11/28 Result Comment: Performed At: [address] [place] [address] FOR DISEASE DETECTION [address] [place] [address] KATHY TUTTLEN PHD Ph:[phone] [place] [address] Lexi Worthington Infectio us Disease Source of Test.LC PostDepS torage (11/28/22 9:01 AM) 11/[address] [place] [address] Lexi Worthington Vital Signs Combined list of inpatient and outpatient Vital Signs from Department of Defense and Veterans Affairs, ranging from 12 months to all on record, depending upon the facility. Vital Sign Value Date Comments Source SYSTOLIC BLOOD PRESSURE 140 10/28/19 25 15:44:15 [place] [place] DIASTOLIC BLOOD PRESSURE 83 025 15:44:15 [place] PULSE OXIMETRY 97 10/27/2024 15:44:15 [place] WEIGHT 232 10/27/2024 15:44:15 [place] BMI 32 kg/m2 10/27/2024 15:44:15 [place] HEIGHT 71 10/27/2024 15:44:15 [place] TEMPERATURE 97.7 10/27/2024 15:44:15 [place] PULSE 61 10/27/2024 15:44:15 [place] RESPIRATION 19 10/27/2024 15:44:15 [place] SYSTOLIC BLOOD PRESSURE 129 04/29/20 24 13:09:35 [place] DIASTOLIC BLOOD PRESSURE 83 024 13:09:35 [place] PULSE OXIMETRY 97 04/29/2024 13:09:35 [place] WEIGHT 250 04/29/2024 13:09:35 [place] BMI 35 kg/m2 04/29/2024 13:09:35 [place] PULSE 65 04/29/2024 13:09:35 [place] Peripheral Pulse Rate 99 bpm 11/28/2022 12:23:[address] [facility]i Snider Temperature Temporal Artery 36.5 Greta 11/28/2022 12:23:[address] [place] [address] Lexi Snider Systolic Blood Pressure 136 mm[Hg] 11/29/19 23 12:23:[address] [facility] Lexi Snider Diastolic Blood Pressure 87 mm[Hg] 023 12:23:[address] [facility] Lexi Snider Mean Arterial Pressure, Calc 108 mm[Hg] 11/29/2022 15:33:[address] [facility]i Snider Temperature Oral 36.5 Greta 11/29/2022 15:33:00 [facility] [place]i Moise-Fonda Peripheral Pulse Rate 70 bpm 11/29/2022 15:33:00 [facility] Lexi Snider Systolic Blood Pressure 135 mm[Hg] 11/30/19 23 15:33:00 [facility] Lexi Moise-Fonda Diastolic Blood Pressure 95 mm[Hg] 023 15:33:00 [facility]10[facility] Lexi Moise-Fonda Systolic Blood Pressure 130 mm[Hg] 11/30/19 23 12:29:00 [facility] Lexi Moise-Fonda Diastolic Blood Pressure 84 mm[Hg] 023 12:29:00 [facility] Lexi Snider Temperature Temporal Artery 36.2 Greta 11/29/2022 12:29:00 [facility] Lexi Moise-Fonda Peripheral Pulse Rate 76 bpm 11/29/2022 12:29:[address] [place] [address] Lexi Moise-Elin Encounters Combined list of: 1) Encounters from Department of Veterans Affairs facilities going backup to the last 18 months, not all VA inpatient encounters are included; 2) Encounters from the Department of Defense facilities going backup to 280 months. Location Location Details Encounter Type Encounter Number Reason For Visit Attending Provider ADM Date DC Date Status [facility] [place] [facility]) OUTPATIENT [id number] 43rd [address] 04/01 [facility]ased w/o Limitations [facility] [place] [facility] [place] Optometry ) OUTPATIENT [id number] ALISA BROWNE 04/11 [facility]ased w/o Limitations [facility] [place] [place]) OUTPATIENT [id number] AUGUSTIN BAIRES 07/12 Released w/o Limitations [facility]an [facility] ) [facility] OUTPATIENT [id number] 7 Notes Entered by: ALEXANDR MCKEON 29 May 2020 1105 ------- ------- ------- ------- -- BAILEE NEWBY 05/29 Released w/o Limitations [facility]) OUTPATIENT [id number] Notes Entered by: ABBY SOLIS 30 May 2021 1448 ------- ------- ------- ------- -- post deploym ent AYLA LOERA 05/30 Released w/o Limitations [place] [place] OUTPATIENT [id number] 5 Notes Entered by: JUAN PETERSON 31 May 2021 0756 ------- ------- ------- ------- -- MARIUSZ ANDERSON 05/31 [place]ased w/o Limitations [place] [place] S[facility] [place]) OUTPATIENT [id number] 6 HUNG Ratliff 05/31 Released w/o Limitations [place] [place]) [facility] [place]([facility]) OUTPATIENT [id number] 6 Notes Entered by: NGUYEN SANDOVAL 25 Jan 2022 0821 ------- ------- ------- ------- -- ANA BLUM 01/25 Released w/o Limitations [facility] [place]) [facility]) OUTPATIENT [id number] 3 F2F FLU LIKE SYMPTOM S USAR [phone] NIKOS SPEARS 01/28 Released w/o Limitations [facility] [place]([facility]) [facility] [place] OUTPATIENT [id number] F2F Sore throat [facility] ASHER, ZZZBM_DOUG LESA NISSA 01/29 Sick at Home/Quarter s [facility] [place]([facility]) [facility] OUTPATIENT [id number] Theater Provider 03/19 Released w/o Limitations [facility] OUTPATIENT [id number] Theater Provider 04/08 Released w/o Limitations [facility] OUTPATIENT [id number] 5 Theater Provider 04/11 Released w/o Limitations [facility] OUTPATIENT [id number] Theater Provider 06/29 Sick at Home/Quarter s [facility] OUTPATIENT [id number] 9 Theater Provider 07/02 Released w/o Limitations [facility] OUTPATIENT [id number] Theater Provider 07/10 Released w/o Limitations [facility] OUTPATIENT [id number] 2 Theater Provider 07/16 Released w/o Limitations [facility] OUTPATIENT [id number] Theater Provider 07/17 Released w/o Limitations [facility] OUTPATIENT [id number] Theater Provider 07/30 Released w/o Limitations [facility] OUTPATIENT [id number] 3 Theater Provider 07/31 Released w/o Limitations [facility] OUTPATIENT [id number] 1 Theater Provider 08/29 Released w/o Limitations [facility] OUTPATIENT [id number] 8 Theater Provider 10/28 Released w/o Limitations [facility] OUTPATIENT [id number] 8 Theater Provider 11/04 Released w/o Limitations Theater Facilit y [facility] [place] [facility] Outpatient Encounter [id number] 07/02 [facility] [place] [place] [facility] [place] [facility] Outpatient Encounter [id number] 07/11 [facility] [place] [place] [facility] OFF/OP EST MAY X REQ PHY/QHP [id number] Diagnos is: ICD-10- CM Z71.89 Other specifi ed dependency counselor NGUYEN More 07/11 [facility] [place] [facility] [place] [facility] OFFICE O/P EST LOW 20-29 MIN [id number] Diagnos is: ICD-10- CM M54.50 Low back pain, unspeci fied REFUGIO MARIE 07/11 [facility] [place] [facility] [place] [facility] OFFICE O/P EST LOW 20-29 MIN [id number] Diagnos is: ICD-10- CM F43.23 Adjustm ent disorde r with mixed anxiety and depress ed mood CHRYSTAL LEXI Jennifer 07/18 [facility] [place] [facility] [place] [facility] CASE MANAGEMENT [id number] Diagnos is: ICD-10- CM F43.23 Adjustm ent disorde r with mixed anxiety and depress ed mood KRISTOPHER QUINONES 07/24 [facility] [place] [facility] [place] [facility] OFFICE O/P EST HI 40-54 MIN [id number] Diagnos is: ICD-10- CM F43.12 Post-tr aumatic stress disorde r, Susan Shields 08/04 [facility] [place] [facility] [place] [facility] COMMUNITY/ WORK REINTEGRAT ION [id number] Diagnos is: ICD-10- CM Z56.0 Unemplo yment, unspeci fied RAHUL EDWARDSARD, [facility] 08/26 [facility] [place] En[facility] [id number] 08/27 [facility] [place] En[facility] [id number] 08/27 [facility] [place] [place] COMMUNITY/ WORK REINTEGRAT ION [id number] Diagnos is: ICD-10- CM Z56.0 Unemplo reji, unspeci mehdi DANGELOALICIA [facility] [place] En[facility] [id number] Susan LONDONO 09/01 [facility] [place] En[facility] [id number] 09/01 [facility] [place] En[facility] [id number] 09/01 [facility] [place] En[facility] [id number] JORGE MCKEON 09/01 [facility] [place] En[facility] [id number] 09/01 [facility] [place] En[facility] [id number] 09/01 [facility] [place] Encounter [id number] 09/02 [facility] [place] [facility] [place] OFF/OP EST DECEMBER X REQ PHY/QHP [id number] Diagnos is: ICD-10- CM I10 Essenti al (primar y) hyperte nsion CHRISTIANO,ER IC K 09/02 [place] [facility] En[facility] [id number] 09/02 [facility] [place] En[facility] [id number] 09/03 [facility] [place] En[facility] [id number] 09/25 [facility] [place] [place] [facility] OFFICE O/P EST MOD 30 MIN [id number] Diagnos is: ICD-10- CM F43.12 Post-tr aumatic stress disorde r, chronic Susan PRADO MORIS 09/29 [facility] [place] En[facility] [id number] 10/08 [facility] [place] En[facility] [id number] 10/15 [facility] [place] OFFICE O/P EST MOD 30 MIN [id number] Diagnos is: ICD-10- CM F43.12 Post-tr aumatic stress disorde r, chronic Susan PRADO MORIS 10/23 [facility] [place] En[facility] [id number] 10/28 [facility] [place] En[facility] [id number] 11/18 [facility] [place] [place] [facility] Outpatient Encounter [id number] 11/24 [facility] [place] [facility] [place] OFFICE O/P EST MOD 30 MIN [id number] Diagnos is: ICD-10- CM I10 Essenti al (primar y) hyperte MARILOU Talbot 11/26 [place] [facility] [place] [facility] Outpatient Encounter [id number] 11/26 [facility] [place] [place] [facility] OFFICE O/P EST MOD 30 MIN [id number] Diagnos is: ICD-10- CM F43.12 Post-tr aumatic stress disorde r, chronic Susan PRADO MORIS 12/18 [facility] [place] [place] [facility] Outpatient Encounter [id number] 01/13 [facility] [place] [place] [facility] Outpatient Encounter [id number] 01/14 [facility] [place] [place] [facility] OFFICE O/P EST MOD 30 MIN [id number] Diagnos is: ICD-10- CM F43.12 Post-tr aumatic stress disorde r, chronic EVEM MORIS 01/15 [facility] [place] [place] [facility] OFFICE O/P EST MOD 30 MIN [id number] Diagnos is: ICD-10- CM F10.99 Alcohol use, unsp with unspeci fied alcohol -induce d Susan Preston 02/12 [facility] En[facility] [id number] 02/18 [facility] [place] Encounter [id number] 03/02 [facility] [place] Encounter [id number] 03/15 [facility] [place] Encounter [id number] 04/19 [facility] [place] Encounter [id number] 04/21 [facility] [place] [facility] OFFICE O/P EST MOD 30 MIN [id number] 1BY. 40 Diagnos is: ICD-10- CM M54.50 Low back pain, unspeci fied MARILOU CARRASCO 04/29 [place] [facility] Out[facility] Encounter [id number] 05/18 [facility] [place] [place] [place] [id number] Diagnos is: ICD-10- CM H90.3 Sensori neural hearing loss, bilLIANG Mathis 05/18 [facility] En[facility] [id number] 05/19 [facility] [place] En[facility] [id number] 05/20 [facility] [place] Encounter [id number] 05/21 [facility] [place] Encounter [id number] BRAULIO WAHL 08/02 [facility] En[facility] [id number] 08/31 [facility] [place] Encounter [id number] 08/31 [facility] [place] Encounter [id number]/21 [facility] Encounter [id number] SUSAN SEPULVEDA YS 09/23 [facility] En[facility] [id number] SUSAN SEPULVEDA YS 09/24 [facility] En[facility] [id number] CECILIA DAVID 09/24 [facility] En[facility] [id number] 09/26 [facility] OFFICE O/P EST HI 40 MIN [id number] Diagnos is: ICD-10- CM F43.9 Reactio n to severe stress, unspeci fied Susan PRADO 10/04 [facility] En[facility] [id number] 10/20 [facility] En[facility] [id number] 10/25 [facility] OFFICE O/P EST MOD 30 MIN [id number] Diagnos is: ICD-10- CM E66.09 Other obesity due to excess calorie MARILOU Werner 10/27 [place] [facility] Out[facility] Encounter [id number] 10/27 [facility]counter [id number] 11/19 [facility] Encounter [id number] CECILIA DAVID 11/22 [facility] Out[facility] Encounter [id number] SUSAN SEPULVEDA 11/26 [facility] Out[facility] Encounter [id number] CECILIA DAVID 11/26 [facility] Out[facility] Encounter [id number] 12/15 [facility] Procedures Combined list of: 1) Procedures from [facility] facilities going back up to thelast 18 months, not all [place] non-surgical procedures are included; 2) All procedures from the Department of Defense facilities. Procedure Procedure Type Code Date Perfomer Comments Sourc e PHYS/OTH QUALIFIED HEALTH CONTINUOUS DRYOUT OPERATOR HELPER QUALIFIED,EDUCATIO N,TRAIN,LICENSURE/ REGULATION (WHEN APPLICABLE) EDUC SER RENDERED TO PATS IN A GRP SETTING (EG,,OBESI TY,OR DIABETIC INSTRUCT) [facility] COLLECTION OF VENOUS BLOOD BY VENIPUNCTURE [facility] INDIVIDUAL PSYCHOTHERAPY, INSIGHT ORIENTED, BEHAVIOR MODIFYING AND/OR SUPPORTIVE, IN AN OFFICE OR OUTPATIENT FACILITY, APPROXIMATELY 20 TO 30 MINUTES [id number] WITH THE PATIENT [facility] INFLUENZA VIRUS VACCINE, TRIVALENT (IIV3), SPLIT VIRUS, PRESERVATIVE FREE, 0.5 ML DOSAGE, FOR INTRAMUSCULAR USE [facility] PURE TONE AUDIOMETRY (THRESHOLD); AIR ONLY [facility] SCREENING TEST OF VISUAL ACUITY, QUANTITATIVE, BILATERAL [facility] INFLUENZA VIRUS VACCINE, QUADRIVALENT (IIV4), SPLIT VIRUS, PRESERVATIVE FREE, 0.5 ML DOSAGE, FOR INTRAMUSCULAR USE [facility] SCREENING TEST OF VISUAL ACUITY, QUANTITATIVE, BILATERAL [facility] EAR PROTECTOR ATTENUATION MEASUREMENTS [facility] HEPATITIS A AND HEPATITIS B VACCINE (HEPA-HEPB), ADULT DOSAGE, FOR INTRAMUSCULAR USE [facility] SCREENING TEST OF VISUAL ACUITY, QUANTITATIVE, BILATERAL [facility] PATIENT EDUCATION, NOT OTHERWISE CLASSIFIED, NON-PHYSICIAN PROVIDER, GROUP, PER SESSION [facility] VENIPUNCTURE,AGE 2 YEARS/OLDER,NECESS ITATING THE SKILL OF A PHYSICIAN/OTHER QUALIFIED HEALTH CONTINUOUS DRYOUT OPERATOR HELPER (SEP PROC),FOR DIAGNOSTIC/THERAPE UTIC PURPOSES (NOT TO BE USED FOR ROUTINE VENIPUNCTURE) [facility] Physical Therapy: ___ Se ion Segments, 15 Minutes Each Physical Therapy: ___ Session Segments, 15 Minutes Each [id number] Theater Provider [facility] Physical Therapy: ___ Se ion Segments, 15 Minutes Each Physical Therapy: ___ Session Segments, 15 Minutes Each [id number] Theater Provider [facility] Threshold Audiogram (Pure Tone) Threshold Audiogram (Pure Tone) [id number] EDD WATTS III [facility] Analysis Of Computerized Data [facility] Analysis Of Computerized Data 36277 EDD WATTS III, Dr.-Supervised Group Educational Services EDD WATTS III [facility] ENT Services ENT Services 70508 EDD WATTS III Audiometry Group Testing Audiometry Group Testing 55096 EDD WATTS III [facility] Social Work Individual Outpatient Counseling 20-30 Minutes Social Work Individual Outpatient Counseling 20-30 Minutes [id number] MAKENNA CORONA [facility] Determination Of Refractive State Determination Of Refractive State [id number] ALISA BROWNE Screening Test Of Visual Acuity, Quantitative, Bilateral Screening Test Of Visual Acuity, Quantitative, Bilateral [id number]Supervised Services Provision Of Special Supplies -Supervised Services Provision Of Special Supplies [id number] PREETI ROWE [facility] Ear mold/insert, not disposable, any type PREETI ROWE [facility] Patient education, not otherwise cla ified, non-physician provider, group, per se ion PREETI ROWE Audiometry Group Testing Audiometry Group Testing 92618 PREETI ROWE [facility] Immunization Administration One Vaccine Immunization Administration One Vaccine 76707 BAILEE GREGORY [facility] Vaccines Viral Measles, Mumps and Rubella, Live Vaccines Viral Measles, Mumps and Rubella, Live 15527 MARIUSZ RODRIGES MMR; Series #: 3; 0.5 mL; SC; Left Arm; Mfg: [employer]; Lot: [id number]; VIS given (Carolyn: 03/30/2021). [facility] A e ment & Intervention Blood Pre ure Measured Assessment & Intervention Blood Pressure Measured 2000F MARIUSZ RODRIGES Venipuncture Venipuncture 42312 MARIUSZ RODRIGES [facility] Screening Test Of Visual Acuity, Quantitative, Bilateral Screening Test Of Visual Acuity, Quantitative, Bilateral 72878 ZAHIRA MARIUSZ D DoD [facility] Group Testing Audiometry Group Testing 00006 PAUILNA HUNTER Ear Protector Attenuation Measurements Ear Protector Attenuation Measurements 07851 PAULINA HUNTER No data available for this section Ambulato ry Pharmacy Social History Combined list of available smoking, tobacco, and other social history from [facility] facilities. Social History Type Response Date Comment [facility] e Tobacco smoking status [facility]-TOBACCO NEVER USED 04/29/2024 [facility] [place] of tobacco use [place] USED 01/02/2023 [facility] [place] [facility] Sex Representation Male (finding) 12/12/2021 Un known Organization History of tobacco use VA-TOBACCO QUIT 1 TO < 5 YRS 09/20/2019 [facility] [place] [facility] History of tobacco use LIFETIME NON-TOBACCO USER 07/31/2017 [facility] [place] [facility] History of tobacco use LIFETIME NON-TOBACCO USER 09/04/2010 [facility] [place] [facility] This section is an empty social history section. [facility] Sexual Orientation Ambula tory Pharmacy Gender [...] Plan No data available for this section 12/31/2024 Ambulatory Pharmacy Functional Status Combined list of recent functional and cognitive assessments recorded at [facility] ([place] Functional [place] Measurement (FIM) Scale: 1 = Total Assistance (Subject = 0% +), 2 = Maximal Assistance (Subject = 25% +), 3 = Moderate Assistance (Subject = 50% +), 4 = Minimal Assistance (Subject = 75% +), 5 = Supervision, 6 = Modified Charlton (Device), 7 = Complete Charlton (Timely, Safely). Assessment Date/Time Source Assessment Type Assessment Skill Assessment Score Assessment Details No data available for this section
== END 2024-12-31 14:59 | disposition home or self-care (01) ==
LOC: HO.HBST 14:42
PROVIDERS: Referring Provider Counselor Mental Health; Visit Provider Counselor Mental Health
DX: F43.9 Reaction to severe stress, unspecified (principal)
CPT/HCPCS: 90832

== ENCOUNTER → 2024-12-31 14:30 | Outpatient (BNVA) | payer OTHER, SELFPAY | PROVIDERS: Visit Provider Counselor Mental Health ==

== ENCOUNTER 2025-01-20 14:00 | Outpatient (AMB) | payer OTHER, SELFPAY ==
--- NOTE | 2025-01-20 08:10 | A.OFFVIS_ITS ---
VS Expanded 01/20/25 08:11 Height 5 ft 11 in Weight 179 lb 6 oz BMI 25.0 Body Fat % 19.3 Body Fat Mass 34.6 Fat Free Mass 145 Visceral Fat Rating 8 Body Water % 58.3 Body Water Mass 104.8 Muscle Mass/Score 137.8 Basal Metabolic Rate/Score 1,777 Intake Visit Reasons: TV PO LSG 12/23/24 Newspaper Manager Required: No Allergies No Known Allergies Allergy (Verified 12/30/24 15:21) Medication List - Last Reconciled 01/20/25 by ORIANA Reid atenolol 25 mg PO DAILY bupropion HCl XL 300 mg PO DAILY oxycodone-acetaminophen 5-325 mg (Percocet) 1 tab PO Q6H PRN pantoprazole 40 mg PO DAILY@0630 sucralfate 10 mL PO BID topiramate 100 mg PO DAILY HPI Comments Details: This?a?39?yo male who is s/p LSG without hiatal hernia repair on?12/23/2024. Presents for 1 month post op visit. Weight today is 179.6 pounds, with a BMI of 25. There has been a 61.1 pound weight loss,(initial weight 240.7 pounds) since starting the program on 09/27/2024 reflecting a 25.3 % total body weight loss and a weight loss of 24.7 pounds since surgery (operative weight 204.3 pounds) reflecting a 12 % TBWL since surgery. No complaints of nausea, emesis, abdominal pain or reflux. Reports infrequent but normal bowel movements every 2- 3 days and uses stool softeners regularly. He is not checking his BP at home although he continues to take his Atenolol. He does complain of lightheadedness if he gets up too quickly. He states he doesn't like almond milk and he has been using skim milk. He is having the second shake only 2-3 x per week. He states he wants to switch to cow milk and he also wants to start vegetables. Present meal plan includes: celebrate rebuild 1 scoop in 8 oz almond milk 8-10 celebrate bar 11-2 another shake 1 scoop 3-5 meal 6 pm w 3 forks of eggs or 3 forks portuguese yogurt or 3 forks cottage cheese celebrate shake 1 scoop 8-10 pm Drinking 35-40 oz water/ poweraide ? Exercise routine includes: walking outdoors daily 3-4 mi treadmill 3-4 days per week, 30 min weight lifting [facility] Medical History Incisional pain Hypertension Anxiety Depression BMI 32.0-32.9,adult Obesity Surgical History S/P laparoscopic sleeve gastrectomy History of esophagogastroduodenoscopy (EGD) (11/26/24) Family History Mother Diabetes Social History Household Members: Spouse Housing: House Are you a primary acute care physical therapist to a significant other at home: No Do you presently have visiting nurse or other home services: No Alcohol intake: current Alcohol intake frequency: does not drink Patient Tobacco Use Status: Never used Tobacco e-Cigarette/Vaping Use: Never Used Telehealth Telehealth Telehealth Platform: Telephone Location of provider rendering services: practice address Location of patient: address on file Patient Identification confirmed using: Name, : Yes Telehealth method: voice only Patient verbally consented to treatment: Yes Patient verbally consented to billing insurance company: Yes Patient informed of any privacy concerns related to visit: Yes Minutes spent on Phone/Video with Pt.: 15 Assessment & Plan Assessment & Plan (1) S/P laparoscopic sleeve gastrectomy: Code(s): Z98.84 - Bariatric surgery status Category: Surgical Plan: Overall, patient is doing well. He has achieved a healthy weight however he is not following the meal plan. I encouraged him to discuss with Dr. Recio his desires to change to cow milk. He also has not been doing his 2nd shake. He also has been lifting weights. He additionally has been taking his atenolol and has been describing lightheadedness with positional change. I encouraged him to communicate with Dr. Recio, I explained to him the dangers of changing his meal plan without advice. I encouraged him to check his blood pressure every morning and to follow the directions given to him prior to surgery with regards to his blood pressure and how much medication to take. I explained to him the concern of taking his blood pressure medication without knowing these numbers as he describes symptomatic hypotension that is likely positional but may be occurring throughout the day. We will have him return to the office in approximately 1 month.
[2025-01-20 08:11] VITALS: BMI 25.0
== END 2025-01-20 14:32 | disposition home or self-care (01) ==
LOC: HO.HBS 14:15
PROVIDERS: Visit Provider Physician Assistant Surgical
DX: Z98.84 Bariatric surgery status (principal)
CPT/HCPCS: 99024

== ENCOUNTER → 2025-01-20 14:00 | Outpatient (BNVA) | payer OTHER, SELFPAY | PROVIDERS: Visit Provider Physician Assistant Surgical | DX: Z48.815 Encounter for surgical aftercare following surgery on the digestive system (principal); Z98.84 Bariatric surgery status | CPT/HCPCS: 99212 ==

== ENCOUNTER 2025-02-21 14:00 | Outpatient (AMB) | payer OTHER, SELFPAY ==
--- NOTE | 2025-02-21 10:23 | A.OFFVIS_ITS ---
VS Expanded 02/21/25 10:24 Height 5 ft 11 in Weight 178 lb BMI 24.8 Intake Visit Reasons: TV PO LSG 12/23/24 -see note Allergies No Known Allergies Allergy (Verified 12/30/24 15:21) HPI Comments Details: This?a?39?yo male who is s/p LSG without hiatal hernia repair on?12/23/2024. Presents for 2 month post op visit. Weight today is 178 pounds, with a BMI of 24.8. There has been a 62.7 pound weight loss,(initial weight 240.7 pounds) since starting the program on 09/27/2024 reflecting a 26 % total body weight loss and a weight loss of 26.3 pounds since surgery (operative weight 204.3 pounds) reflecting a 12.8 % TBWL since surgery. No complaints of nausea, emesis, abdominal pain or reflux. Reports infrequent but normal bowel movements every 2- 3 days and uses stool softeners regularly. He is not checking his BP at home although he is no longer taking his Atenolol. He has no further lightheadedness and no further headaches. He does not want to do shakes anymore. He states he is eating whatever he wants, sometimes a shake before breakfast breakfast: 2 eggs and small strip of Nance stone lunch: yogurt dinner: chicken breast, rice, vegetable or salad or sweet potato, (measuring by eye) Drinking 64 oz water recommended meal plan includes: celebrate rebuild 1 scoop in 8 oz almond milk 8-10 celebrate bar 11-2 another shake 1 scoop 3-5 meal 6 pm w 3 forks of eggs or 3 forks bangladeshi yogurt or 3 forks cottage cheese celebrate shake 1 scoop 8-10 pm Drinking 35-40 oz water/ poweraide ? Exercise routine includes: hiking/running 2-3 x per week, 2 mi PFSH Medical History Incisional pain Hypertension Anxiety Depression BMI 32.0-32.9,adult Obesity Surgical History S/P laparoscopic sleeve gastrectomy History of esophagogastroduodenoscopy (EGD) (11/26/24) Family History Mother Diabetes Social History Household Members: Spouse Housing: House Are you a primary acute care occupational therapist to a significant other at home: No Do you presently have visiting nurse or other home services: No Alcohol intake: current Alcohol intake frequency: does not drink Patient Tobacco Use Status: Never used Tobacco e-Cigarette/Vaping Use: Never Used Physical Exam Vital Signs: BMI result Body Mass Index 24.8 Telehealth Telehealth Telehealth Platform: Telephone Location of provider rendering services: practice address Location of patient: address on file Patient Identification confirmed using: Name, : Yes Telehealth method: voice only Patient verbally consented to treatment: Yes Patient verbally consented to billing insurance company: Yes Patient informed of any privacy concerns related to visit: Yes Minutes spent on Phone/Video with Pt.: 20 Assessment & Plan Assessment & Plan (1) S/P laparoscopic sleeve gastrectomy: Code(s): Z98.84 - Bariatric surgery status Category: Surgical Plan: Patient refuses to do for protein shakes and protein bars. He is amenable to a food plan: Two eggs 8 oz 1% cow's milk Yogurt Six forks protein and 6 forks vegetables that are cooked, no rice, no potatoes 8 oz 1% cow's milk We will have him return to the office in approximately 1 month. He has been encouraged to text with any questions or concerns
[2025-02-21 10:24] VITALS: BMI 24.8
== END 2025-02-21 14:41 | disposition home or self-care (01) ==
LOC: HO.HBS 14:02
PROVIDERS: Visit Provider Physician Assistant Surgical
DX: Z98.84 Bariatric surgery status (principal)
CPT/HCPCS: 99024

== ENCOUNTER → 2025-02-21 14:00 | Outpatient (BNVA) | payer OTHER, SELFPAY | PROVIDERS: Visit Provider Physician Assistant Surgical | DX: Z98.84 Bariatric surgery status (principal) | CPT/HCPCS: 99212 ==

== ENCOUNTER 2025-03-28 13:45 | Outpatient (AMB) | payer OTHER, SELFPAY ==
--- NOTE | 2025-03-28 08:07 | MHC.OFFVISWM ---
VS Expanded 03/28/25 08:09 Height 5 ft 11 in Weight 167 lb 8 oz BMI 23.4 Intake Visit Reasons: TV PO LSG 12/23/24 -see note Teaching Manager Required: No Allergies No Known Allergies Allergy (Verified 12/30/24 15:21) Medication List - Last Reconciled 03/28/25 by ORIANA Reid atenolol 25 mg PO DAILY Held on 12/24/24. Instructions: Resume on 12/25/24. Check your blood pressure every morning as soon as you wake up and send it to Dr. Recio. Do no take the blood pressure medication if the blood pressure is below 120/70. Wait every day to hear back from Dr. Recio before you take the medication. bupropion HCl XL 300 mg PO DAILY oxycodone-acetaminophen 5-325 mg (Percocet) 1 tab PO Q6H PRN topiramate 100 mg PO DAILY HPI Comments Details: This?a?39?yo male who is s/p LSG without hiatal hernia repair on?12/23/2024. Presents for 3 month post op visit. Weight today is 167.8 pounds, with a BMI of 23.4. There has been a 72.9 pound weight loss,(initial weight 240.7 pounds) since starting the program on 09/27/2024 reflecting a 30.2 % total body weight loss and a weight loss of 36.5 pounds since surgery (operative weight 204.3 pounds) reflecting a 17.8 % TBWL since surgery. No complaints of nausea, emesis, abdominal pain or reflux. Reports infrequent but normal bowel movements every 2-3 days and uses stool softeners regularly. At his last visit, approximately 1 month ago he refused to do protein shakes any longer. Below is what he is doing, I recommended a different meal plan breakfast: romansh yogurt, lunch: 2-3 eggs dinner: salmon or chicken breast or beef, rice, vegetables cooked broccoli, potatoes, sweet potatoes Drinking 64 oz water recommended meal plan at last visit: Two eggs 8 oz 1% cow's milk Yogurt 6 forks protein and 6 forks vegetables that are cooked, no rice, no potatoes 8 oz 1% cow's milk ? 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, october with the [employer] [facility] Medical History Incisional pain Hypertension Anxiety Depression BMI 32.0-32.9,adult Obesity Surgical History S/P laparoscopic sleeve gastrectomy History of esophagogastroduodenoscopy (EGD) (11/26/24) Family History Mother Diabetes Social History Household Members: Spouse Housing: House Are you a primary daycare teacher to a significant other at home: No Do you presently have visiting nurse or other home services: No Alcohol intake: current Alcohol intake frequency: does not drink Patient Tobacco Use Status: Never used Tobacco e-Cigarette/Vaping Use: Never Used Telehealth Telehealth Telehealth Platform: Telephone Location of provider rendering services: practice address Location of patient: address on file Patient Identification confirmed using: Name, : Yes Telehealth method: voice only Patient verbally consented to treatment: Yes Patient verbally consented to billing insurance company: Yes Patient informed of any privacy concerns related to visit: Yes Minutes spent on Phone/Video with Pt.: 15 Assessment & Plan Assessment & Plan (1) S/P laparoscopic sleeve gastrectomy: Code(s): Z98.84 - Bariatric surgery status Category: Surgical Plan: Reminded patient of the meal plan. Discussed the importance of regular cardiovascular exercise. He states that he is very active both with his job and doing drills with the [employer]. He has achieved a healthy weight. Advised to take a bariatric multivitamin as well as calcium plus D. We will have him return to the office in June for his six-month follow-up, check labs at that time. He certainly may text or call with any questions or concerns.
[2025-03-28 08:09] VITALS: BMI 23.4
== END 2025-03-28 13:57 | disposition home or self-care (01) ==
LOC: HO.HBS 13:45
PROVIDERS: Visit Provider Physician Assistant Surgical
DX: Z71.3 Dietary counseling and surveillance (principal); Z98.84 Bariatric surgery status
CPT/HCPCS: 99499

== ENCOUNTER 2025-08-01 13:30 | Outpatient (AMB) | payer OTHER, SELFPAY ==
--- NOTE | 2025-08-01 13:08 | MHC.OFFVISWM ---
VS Expanded 08/01/25 13:54 Height 5 ft 11 in Weight 180 lb BMI 25.1 Intake Visit Reasons: Phone PO LSG 12/23/24 Allergies No Known Allergies Allergy (Verified 12/30/24 15:21) Medication List - Last Reconciled 08/01/25 by Briseyda Hicks CNP bupropion HCl XL 300 mg PO DAILY topiramate 100 mg PO DAILY HPI Comments Details: 40?year old man who is s/p LSG on?12/23/2024. Presents for 7 month post op visit. Last checked his weight approx. 1 week ago and was 180 lbs, BMI 25.1. His initial weight was 240.7 lbs when starting the program 09/27/2024, reflecting a total weight loss of 60.7 lbs. His lowest weight of 167.8 lbs felt too small and he feels stronger and healthier at 180 lbs. He likes the way his clothes fit. He denies nausea, emesis, abdominal pain or reflux. 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[employer] [facility] Medical History Incisional pain Hypertension Anxiety Depression BMI 32.0-32.9,adult Obesity Surgical History S/P laparoscopic sleeve gastrectomy History of esophagogastroduodenoscopy (EGD) (11/26/24) Family History Mother Diabetes Social History Household Members: Spouse Housing: House Are you a primary healthcare insurance sales agent to a significant other at home: No Do you presently have visiting nurse or other home services: No Alcohol intake: current Alcohol intake frequency: does not drink Patient Tobacco Use Status: Never used Tobacco e-Cigarette/Vaping Use: Never Used Telehealth Telehealth Telehealth Platform: Telephone Location of provider rendering services: practice address Location of patient: address on file Patient Identification confirmed using: Name, : Yes Telehealth method: voice only Patient verbally consented to treatment: Yes Patient verbally consented to billing insurance company: Yes Patient informed of any privacy concerns related to visit: Yes Minutes spent on Phone/Video with Pt.: 16 Assessment & Plan Assessment & Plan (1) S/P laparoscopic sleeve gastrectomy: Code(s): Z98.84 - Bariatric surgery status Category: Surgical Plan: Plan: - Patient feels his current weight of 180lbs is a good goal and plans to maintain this weight. He feels strong and healthy. - Goal 75-90G protein per day. - Continue meal plan - Continue daily exercise - Whey protein, Creatinine and supplements that have vitamins. Wants to try powder with less junk. Recommend Orgain and Isopure. Recommend Celebrate bariatric MVI - Will order blood work Follow up: December 2025 for his 1 year annual Orders: Orders Insulin Today Z.84 - Bariatric surgery status Complete Blood Count Auto Diff Today Z.84 - Bariatric surgery status Comprehensive Met. Panel Today .84 - Bariatric surgery status C Reactive Protein Today Z.84 - Bariatric surgery status Ferritin Today Z.84 - Bariatric surgery status Vitamin B1 Today Z.84 - Bariatric surgery status Hemoglobin A1c Today Z98.84 - Bariatric surgery status TSH reflex Free T4 Today Z98.84 - Bariatric surgery status Vitamin B12 and Folate Today Z98.84 - Bariatric surgery status Lipid Panel Today Z.84 - Bariatric surgery status IRON PROFILE Today Z.84 - Bariatric surgery status Vitamin A Today Z.84 - Bariatric surgery status Vitamin D 25-OH Total Today Z98.84 - Bariatric surgery status Zinc Today Z98.84 - Bariatric surgery status
[2025-08-01 13:54] VITALS: BMI 25.1
== END 2025-08-01 14:01 | disposition home or self-care (01) ==
LOC: HO.HBS 14:00
PROVIDERS: Visit Provider Nurse Practitioner
DX: Z71.3 Dietary counseling and surveillance (principal); Z98.84 Bariatric surgery status
CPT/HCPCS: 98014